=== PATIENT | male | born 1955 | race Caucasian/White ===

== ENCOUNTER 2020-03-28 14:47 | Emergency (ER) | payer SELFPAY ==
[2020-03-28 14:51] VITALS: BP 173/97; PULSE 62; RESP 18; TEMP 36.6; O2SAT 99; BMI 30.2
--- NOTE | 2020-03-28 15:30 | EKG12_ITS ---
Test Reason : Blood Pressure : / mmHG Vent. Rate : 066 BPM Atrial Rate : 066 BPM P-R Int : 198 ms QRS Dur : 094 ms QT Int : 502 ms P-R-T Axes : 063 051 118 degrees QTc Int : 526 ms Normal sinus rhythm Possible Left atrial enlargement ST & T wave abnormality, consider lateral ischemia Prolonged QT Abnormal ECG Confirmed by JUAN C ESPINOZA, THOMAS ([id number]), makeup editor RENE KAM ([id number]) on 04/02/2020 12:26:59 PM Referred By: TIFFANIE Confirmed By:THOMAS IRIZARRY MD
--- NOTE | 2020-03-28 15:31 | ED.VIS.GEN ---
History of Present Illness Chief Complaint: General Illness Narrative: Patient presents with generalized weakness cough and congestion. No fever or chills. The started soon after influenza vaccine. Symptoms have been ongoing for 3 to 4 days. There is no difficulty breathing. He does have some generalized weakness and myalgias. Past Medical History - Allergies and Home Meds Allergies/Adverse Reactions: Allergies No Known Allergies Allergy (Verified 03/28/20 14:48) Primary Care Physician: Paul Caicedo MD [Primary Care Provider] - Past Medical History: - - Hypertension, hypercholesterolemia, CHF, chronic renal insufficiency Smoking Status: Former smoker Review of Systems General: Denies: Fever Eyes: Denies: Visual changes - bilaterally ENT: Reports: Rhinorrhea Respiratory: Reports: Cough. Denies: Sputum, Dyspnea on exertion Gastrointestinal: Reports: Abdominal pain. Denies: Nausea, Vomiting Genitourinary: Denies: Dysuria Musculoskeletal: Reports: Myalgias. Denies: Arthralgias Skin: Denies: Rash Neurological: Reports: - - There is generalized weakness but no focal weakness. Endocrine: Denies: Polyuria, Polydipsia Hematologic: Denies: Easy bruising Physical Exam Vital Signs/Narrative: Vital Signs Temp Pulse Resp BP Pulse Ox 03/28/20 14:51 98 F 62 18 173/97 H 99 General: Well nourished, Well developed Head: Normocephalic ENT: Moist mucous membranes, - - There is some upper airway congestion and rhinorrhea. Neck: Supple Cardiovascular: Regular rate, Regular rhythm Respiratory: No distress, CTA bilaterally Abdomen: Soft, Nontender Back: Nontender, Normal Inspection Extremities: Nontender, No edema Skin: Normal color, No rash Neurological: Normal Strength, Normal Sensation Psychological: Normal affect Diagnostic/Tx/Re-eval Chest X-Ray - ED: 1 View, Read by ED Physician, Read by Radiologist, Normal, Heart, Chronic Changes, Left Infiltrate - Rhythm Strip Rhythm Strip: Sinus Rhythm Rate: 66 Ectopy: None - EKG Initial EKG Interpretation: - - Normal sinus rhythm with a rate of 66. Normal SC interval. QTC slightly prolonged at 526. Nonspecific ST changes throughout. Interpreted by emergency doctor - Medical Decision Making Patient signs and symptoms point towards an upper respiratory infection. He does also have a left lower lobe pneumonia, he was ambulated in the emergency department and did not desaturate he appears well I will give him Rocephin and azithromycin, I will treat him with outpatient antibiotics but otherwise I believe he can be discharged safely. If he worsens he is to return him and his seemed quite trustworthy and I believe they well. ED Disposition - Plan for ED Patient: Disposition: Home or Assisted Living Diagnosis: Pneumonia Prescriptions: Amoxicillin/Potassium Clav [Augmentin 875-125 Tablet] 1 ea PO BID #20 tab Transmission Status: Pending to [facility] Azithromycin 500 mg PO DAILY #7 tab Transmission Status: Pending to [facility] Referrals: Paul Caicedo MD [Primary Care Provider] - 3-5 Days
[2020-03-28 15:41] VITALS: BP 192/97; PULSE 68; RESP 23; TEMP 36.8; O2SAT 96
--- NOTE | 2020-03-28 15:47 | RAD_ITS ---
STUDY: X-RAY CHEST REASON FOR EXAM: Male, 64 years old. COUGH TECHNIQUE: Single AP portable view of the chest. COMPARISON: None. FINDINGS: Alveolar opacity in the lower left lung consistent with left lower lobe pneumonia. There is no demonstrated pleural abnormality. There is moderate cardiac enlargement. Normal mediastinum and [place]wan. Normal visualized pulmonary arteries. Normal visualized aortic arch and descending thoracic aorta. Normal visualized thoracic spine. Normal visualized ribs, clavicles, and shoulders. There is no demonstrated abnormality of the visualized soft tissue structures of the upper abdomen. RAD/Chest 1 View (Portable) IMPRESSION: Left lower lobe pneumonia. Electronically Signed: Luisito Quiroga MD at 16:11 EDT Tel , Service support ,
[2020-03-28 15:59] LABS: Absolute Lymphocyte Count 0.66 X10^3/uL (0.83-4.51); Absolute Neutrophil Count 6.1 X10^3/uL (2.0-7.7); Basophil# 0.06 X10^3/uL; Basophil% 0.8 % (0-1); Eosinophil# 0.13 X10^3/uL; Eosinophils% 1.7 % (0-5); Hematocrit 35.2 % (40-54); Hemoglobin 11.2 g/dL (13.0-16.5); Lymphocyte # 0.66 X10^3/ul (4.0); Lymphocyte % 8.7 % (19-41); Mean Corp Hgb Conc 31.8 g/dL (32-36); Mean Corpuscular Hgb 27.9 pg (27.0-32.0); Mean Corpuscular Volume 87.6 fL (80-94); Mean Platelet Vol. 10.2 fl (6.2-12.0); Monocyte# 0.64 X10^3/uL; Monocyte% 8.5 % (0-10); NRBC Flagged by Analyzer 0 % (0-5); Neutrophil # 6.05 X10^3/uL (2.7-7.7); Neutrophil % 79.9 % (47-70); Platelet Count 282 K/mm3 (150-450); RBC Distribution Width CV 13.2 % (11.6-14.6); RBC Distribution Width SD 42.5 fl (35.1-43.9); Red Blood Count 4.02 M/mm3 (4.6-6.2); White Blood Count 7.6 K/mm3 (4.4-11.0)
[2020-03-28 16:17] LABS: ALB/GLOB Ratio 0.8 RATIO (0.9-2.4); AST(SGOT) 15 U/L (15-37); Alanine Aminotransfer ALT/SGPT 19 U/L (16-61); Albumin, Serum 3.2 g/dL (3.2-5.0); Alkaline Phosphatase 40 U/L (45-117); Anion Gap 6 (5-15); BUN 33 mg/dL (7-18); Calcium,Total 8.5 mg/dL (8.5-10.1); Chloride 109 mmol/L (98-107); Creatinine, Serum 2.35 mg/dL (0.70-1.30); EST Glomerular Filtration Rate 30 mL/min (>60); Est Glom Filt Rate - Afr Amer 36 mL/min (>60); Estimated Creatinine Clearance 31.34 ml/min; Globulin 3.8 g/dL (2.2-4.2); Glucose 111 mg/dL (74-106); Potassium 3.8 mmol/L (3.5-5.1); Sodium Level 141 mmol/L (136-145)
[2020-03-28 17:18] VITALS: BP 191/97; PULSE 71; RESP 23; TEMP 36.9; O2SAT 93
[2020-03-28] MEDS: Ceftriaxone 1 GM/50 ML BAG IV (18:08)
[2020-03-28 18:09] VITALS: BP 193/97; PULSE 72; RESP 24; TEMP 36.9; O2SAT 93
[2020-03-28 19:24] VITALS: RESP 15
--- NOTE | 2020-03-28 19:24 | ED.RN ---
PER DR. KINSEY SEPSIS SCREEN D/C.
[2020-03-28 20:10] VITALS: BP 189/103; PULSE 74; RESP 18; O2SAT 96
--- NOTE | 2020-03-28 20:10 | ED.RN ---
PT GIVEN WRITTEN AND VERBAL DISCHARGE INSTRUCTIONS. EDUCATED ON PNEUMONIA, AND POSSIBLE COVID. EDUCated about quarantine, and home prescripptions. pt with htn 189/103, dr. eddy informed reports that pt is to take his bp medication upon arriving home. pt verbalizes understanding of all instructions denies any further questions. pt iv d/c and covered with 2x2 gauze and paper tape. pt dresses self and ambulates out of dept with .
== END 2020-03-28 20:25 | disposition home or self-care (01) ==
PROVIDERS: Emergency Provider Emergency Medicine; PCP Family Medicine
DX: J18.9 Pneumonia, unspecified organism (principal); E78.00 Pure hypercholesterolemia, unspecified; I50.9 Heart failure, unspecified; I13.0 Hypertensive heart and chronic kidney disease with heart failure and stage 1 through stage 4 chronic kidney disease, or unspecified chronic kidney disease; N18.9 Chronic kidney disease, unspecified
CPT/HCPCS: 71045; 80053; 84484; 85025; 87635; 93005; 96365; 96366; 96367; 99282; J7050; A4216; U0003

== ENCOUNTER 2025-04-15 10:10 | Emergency (ER) | payer MEDICARE, SELFPAY ==
[2025-04-15 10:11] VITALS: BP 146/68; PULSE 73; RESP 16; TEMP 36.7; O2SAT 98; BMI 29.5
--- NOTE | 2025-04-15 10:53 | EDS_ITS ---
HPI HPI - GI History of Present Illness Chief Complaint: Abd Pain Informant: patient and spouse/S.O. Narrative Narrative: Patient is a 69-year-old male with a history of cardiac issues and stage 4 CKD, presenting with right-sided abdominal pain and nausea. - Reports abdominal pain for 3 weeks, described as more frequent than not, and primarily located on the right side. - Pain is present daily, typically worse in the morning and easing later in the day, possibly due to increased rest. - Denies any clear association with meals, though notes slight improvement after eating in the evening. - Pain sometimes intensifies before and after bowel movements. - Associated symptoms include nausea and a sensation of "gurgling gas" in the abdomen; denies emesis, hematemesis, or bilious emesis. - Denies any changes in urinary habits or amounts. - Denies fevers, dizziness, jaundice, or confusion. - Denies use of NSAIDs or anticoagulants. - Bowel movements are regular, though occasionally described as "pasty"; no significant changes in consistency or frequency. - Has a history of cholecystectomy; denies other abdominal surgeries. - Currently on multiple medications for cardiac issues and CKD; not on dialysis. [facility] Home Medications Medication Instructions Recorded Last Taken Type fenofibrate nanocrystallized 145 145 mg PO DAILY 03/28 Unknown History mg tablet hydralazine 100 mg tablet 100 mg PO TID 03/28/20 Unkno wn History isosorbide mononitrate 120 mg 120 mg PO DAILY 03/28/20 Unknown History tablet,extended release 24 hr paroxetine HCl 12.5 mg 12.5 mg PO DAILY 03/28/20 Un known History tablet,extended release 24 hr carvedilol 6.25 mg tablet 6.25 mg PO BID 04/15/25 Unkn own History cholecalciferol (vitamin D3) 50 50 mcg PO DAILY Unknown History mcg (2,000 unit) tablet (Vitamin D3) dicyclomine 20 mg tablet 20 mg PO Q6H PRN PRN abdomin al 04/15/25 Unknown Rx discomfort #20 tabs ondansetron 8 mg disintegrating 8 mg PO Q8H PRN nausea and 04/15/25 Unknown Rx tablet vomiting #12 tabs pantoprazole 40 mg tablet,delayed 40 mg PO DAILY #14 t abs 04/15/25 Unknown Rx release spironolactone 25 mg tablet 25 mg PO DAILY 04/15/25 Un known History Allergy/AdvReac Type Severity Reaction Status Date / Time No Known Allergies Allergy Verified 04/15/25 10:10 Social History Smoking Status: Unknown if ever smoked ROS ROS ED Constitutional Constitutional ED: Denies chills or fever(s) Eyes Eyes: Denies change in vision or diplopia ENT ENT ED: Denies rhinorrhea or sore throat Cardiovascular Cardiovascular: Denies chest pain or palpitations Respiratory/Chest Respiratory/Chest: Denies cough or dyspnea Gastrointestinal Gastrointestinal: Reports abdominal pain, nausea and vomiting; Denies constipation, diarrhea, hematemesis, hematochezia or melena Genitourinary Genitourinary ED: Denies dysuria or hematuria Musculoskeletal Musculoskeletal: Denies back pain or neck pain Integumentary Denies abscess or rash Neurologic Neurologic: Denies headache(s), paresthesias or weakness Psychiatric Psychiatric: Denies anxiety or suicidal thoughts EXAM Physical Exam Const Vital Signs: 04/15/25 10:11 04/15/25 12:09 Temperature 98.0 F 98.4 F Temperature Source Oral Oral Pulse Rate 73 55 L Respiratory Rate 16 16 Blood Pressure 146/68 H 138/66 H Blood Pressure Mean 94 90 Pulse Ox 98 98 Oxygen Delivery Method Room Air Room Air Positive well nourished and well developed General Appearance ED: well developed and NAD HEENT Reports moist mucous membranes normocephalic and atraumatic Eyes PERRL and EOMs intact bilaterally Neck full ROM and supple Resp normal respiratory effort and clear to auscultation bilaterally Cardio regular rate, regular rhythm and no murmurs GI non-distended GI Narrative: Tender right mid abdomen and flank in addition to the right lower quadrant McBurney's point without guarding or rebound. Some tenderness in the epigastrium with some involuntary guarding briefly as well no rebound tenderness. No pulsatile mass. No [place] sign no [place] sign. Auscultation: normoactive bowel sounds Palpation: soft Back/Spine no CVA tenderness General Back: other FROM Extremity normal to inspection General Extremety ED: Negative for edema, pulses abnormal or tenderness General Extremity: Negative for edema or pulses abnormal Neuro oriented x3, CN's II-XII intact bilaterally and no sensory deficits noted Sensorium / Orientation: awake and alert Motor Exam: strength 5/5 throughout Skin no rashes or lesions noted and no wounds MDM MDM MDM Narrative Medical decision making narrative: Assessment: The patient is a 69-year-old male with PMH of heart disease, stage 4 chronic kidney disease, and prior cholecystectomy presenting for three weeks of persistent right-sided abdominal pain with intermittent nausea. Differential discussed included functional colonic pain, partial bowel obstruction, and peptic/duodenal ulcer. Normal CT abdomen/pelvis, normal urinalysis, and stable creatinine at 1.99 mg/dL (improved from prior 2.35 back in 2019) make obstructive, inflammatory, and urinary etiologies unlikely. Given the unremarkable imaging and labs, intestinal spasm due to functional pain/etiology, and/or a small-bowel ulcer remain most likely. Plan: - Administered dicyclomine in ED for intestinal spasm. - Administered first dose of a proton-pump inhibitor for trial therapy. - Prescribed two-week course of proton-pump inhibitor. - Prescribed dicyclomine as needed for abdominal pain. - Medication list reviewed; nursing staff updated EMR. - Discharged home in stable condition with instructions to follow up with pr imary physician next week. Diagnostics: - CT abdomen/pelvis: no acute intra-abdominal pathology; no obstruction; no inflammation noted. - Urinalysis: normal. - Basic metabolic panel: creatinine 1.99 mg/dL, stable/improved from prior 2.3. Reevaluations: - Patient re-evaluated after medications; pain improved; imaging and lab results reviewed with patient and spouse; agrees with discharge plan. Lab Data Attestation: I reviewed the patient's lab results. Labs: Laboratory Results - last 24 hr 04/15/25 04/15/25 10:57 11:56 WBC 5.9 RBC 3.81 L Hgb 10.4 L Hct 33.0 L MCV 86.6 MCH 27.3 MCHC 31.5 L RDW Std Deviation 48.5 H RDW Coeff of [place] 15.4 H Plt Count 277 MPV 10.3 Immature Gran % (Auto) 0.700 Neut % (Auto) 72.7 H Lymph % (Auto) 14.2 L [place] % (Auto) 8.4 Eos % (Auto) 3.0 Baso % (Auto) 1.0 Absolute Neuts (auto) 4.3 Absolute Lymphs (auto) 0.84 Nucleated RBC % 0 Sodium 138 Potassium 4.6 Chloride 108 Carbon Dioxide 22.9 Anion Gap 7 BUN 33 H Creatinine 1.99 H Estim Creat Clear Calc 38.45 L Est GFR (MDRD) Non-Af 35 L BUN/Creatinine Ratio 16.5 Glucose 120 H Calcium 8.6 Total Bilirubin 0.44 AST 28 ALT 20 Alkaline Phosphatase 28 L Total Protein 5.8 L Albumin 3.5 Globulin 2.3 Albumin/Globulin Ratio 1.6 Lipase 35 Urine Color Yellow Urine Clarity Clear Urine pH 7.0 Ur Specific [place] 1.010 Urine Protein 15 H Urine Glucose (UA) Normal Urine Ketones Negative Urine Occult Blood Negative Urine Nitrite Negative Urine Bilirubin Negative Urine Urobilinogen Normal Ur Leukocyte Esterase Negative Urine RBC 0 SEEN Urine WBC 0 SEEN Ur Squamous Epith Cells 0 SEEN Urine Bacteria 0 SEEN Urine Mucus 0 SEEN Radiography Diagnostic Testing: Clinical Impression(s) from Imaging Studies Abdomen/Pelvis CT 04/15/25 11:10 IMPRESSION: No acute abdominopelvic abnormalities. Reading Location: [facility] Discharge Plan Triage Chief Complaint: Abd Pain ED Provider: Ildefonso Silva Dx/Rx/DC Orders Clinical Impression: Right sided abdominal pain, Nausea, CKD (chronic kidney disease) Instructions: Abdominal Pain Prescriptions: New ondansetron 8 mg tablet,disintegrating 8 mg PO Q8H PRN (Reason: nausea and vomiting) Qty: 12 0RF dicyclomine 20 mg tablet 20 mg PO Q6H PRN PRN (Reason: abdominal discomfort) Qty: 20 0RF pantoprazole 40 mg tablet,delayed release (DR/EC) 40 mg PO DAILY Qty: 14 0RF No Action isosorbide mononitrate 120 MG tablet extended release 24 hr 120 mg PO DAILY Patient Comments: take 1 tablet by mouth once daily hydralazine 100 MG tablet 100 mg PO TID paroxetine HCl 12.5 MG tablet extended release 24 hr 12.5 mg PO DAILY fenofibrate nanocrystallized 145 MG tablet 145 mg PO DAILY carvedilol 6.25 mg tablet 6.25 mg PO BID spironolactone 25 mg tablet 25 mg PO DAILY cholecalciferol (vitamin D3) [Vitamin D3] 50 mcg (2,000 unit) tablet 50 mcg PO DAILY Primary Care Provider: Paul Caicedo Referrals: Paul Caicedo MD [Primary Care Provider, [facility]] - 5-7 Days Activity Restrictions/Additional Instructions: - Begin a two-week trial of the prescribed stomach acid medicine (reflux medication); take it exactly as directed. - Use the intestinal pain medication provided today as needed for any spasms or discomfort. - Your CT scan and blood work showed no acute problems, and your kidney function remains stable. - Follow up with your primary care doctor next week to review your symptoms and any further care. Print Language: Burundian Disposition Disposition: Home, Self Care
[2025-04-15] MEDS: 0.9% Normal Saline (1000mL) 1,000 ML 100 ML IV (11:01)
[2025-04-15 11:08] LABS: Hematocrit 33.0 % (40-54); Hemoglobin 10.4 g/dL (13.0-16.5); Immature Granulocytes Count 0.040 X10^3/uL (0.0-0.0); Mean Corp Hgb Conc 31.5 g/dL (32-36); Mean Corpuscular Volume 86.6 fL (80-94); Mean Platelet Vol. 10.3 fl (6.2-12.0); NRBC Flagged by Analyzer 0 % (0-5); Platelet Count 277 K/mm3 (150-450); RBC Distribution Width CV 15.4 % (11.6-14.6); RBC Distribution Width SD 48.5 fl (35.1-43.9); Red Blood Count 3.81 M/mm3 (4.6-6.2); White Blood Count 5.9 K/mm3 (4.4-11.0)
--- NOTE | 2025-04-15 11:10 | CT_ITS ---
PROCEDURE: ABDOMEN/PELVIS W IV CONT ONLY 04/15/2025 REASON FOR EXAM: RIGHT SIDED ABD PAIN TECHNIQUE: Procedure Code: [id number] Modality: CT Procedure: ABDOMEN/PELVIS W IV CONT ONLY Coronal and Sagittal reconstruction series were provided. CONTRAST: Isovue 370 VOLUME: 79 mL One or more dose reduction techniques were used (e.g., Automated exposure control, adjustment of the mA and/or kV according to patient size, use of iterative reconstruction technique. RADIATION DOSE SUMMARY: CTDlvol: 18.35 mGy DLP: 1080.66 mGycm COMPARISON: None. FINDINGS: Lung bases: Clear. Liver: Unremarkable. Gallbladder: Cholecystectomy. No biliary dilation. Spleen: Unremarkable. Pancreas: Unremarkable. Adrenals: Unremarkable. Kidneys: No hydronephrosis. No nephrolithiasis. No masses. A subcentimeter cysts at the midpole of the left kidney which is too small to characterize on CT scan. Bladder: Unremarkable. Reproductive Organs: Unremarkable. Bowel: No bowel obstruction. Scattered colonic diverticula. Appendix: Normal. Lymph nodes: No lymphadenopathy. Vasculature: No aneurysm. Atherosclerotic calcifications. Peritoneum / Retroperitoneum: No free air or free fluid. Bones: No acute bony abnormalities. Multilevel degenerate changes of the lumbar spine. Abdominal wall: A 2 cm fat containing periumbilical hernia. No evidence of incarceration. CT/Abdomen/Pelvis W IV Cont ONLY IMPRESSION: No acute abdominopelvic abnormalities. Reading Location: [facility]
--- OUTSIDE RECORDS SUMMARY | 2025-04-15 11:15 | XMS RPT_ITS | CCD ---
Author Organization [facility]iniSyn[facility] Care Team Providers Care White Mixing Operator Name Role Phone MEREDITH ASHFORD MD Unavailable Unavailabl e MEREDITH ASHFORD MD Unavailable Unavailabl e NO REFERRING DR Unavailable Unavailable Paul Moraes Primary Care Provider Paul Moraes Primary Care Provider [phone] Paul Moraes MD Primary Care Provider PROVIDER, UNKNOWN Referring Unavailable Paul Moraes Primary Care Unavailable Shahida Chatman Attending Unavailable Paul Moraes MD Primary Care Provider EULALIA NIELSEN Attending Unavailable PAUL MORAES Primary Care UnavailPaul Nagel MD Primary Care Provider PAUL MORAES Attending Unavailable PAUL MORAES Primary Care Unavailable KEO JANSEN Attending Unavailable PAUL MORAES Primary Care Unavailable PAUL MORAES Primary Care Unavailable PAUL MORAES Attending Unavailable PAUL MORAES Primary Care Unavailable PAUL MORAES Primary Care Unavailable PAUL MORAES Primary Care Unavailable CHINO GARCIA Attending Unavailable PAUL MORAES Primary Care Unavailable Allergies Allergy Classification Reported Allergen(s) Allergy Type Date of Onset Reaction(s) Facility (20 sources) Proton Pump Inhibitors; Translations: [PROTON PUMP INHIBITORS] Drug Intolerance 03-04-[address] [facility] Medications Current Medications Medication Drug Class(es) Dates Sig (Normalized) Sig (Original) [id number] 200 actuat albuterol 0.09 mg/actuat metered dose inhaler (7 sources) beta2-Adrenergic Agonist Start: 05-02-2019 take 2 puff(s) by inhalation every six hours as needed for wheezing albuterol sulfate HFA (PROAIR HFA) 108 (90 Base) MCG/ACT inhaler Indications: Shortness of breath Inhale 2 puffs into the lungs every 6 hours as needed for Wheezing 1 Inhaler 2 05/02/2019 Active Start: 05-02-2019 take 2 puff(s) by in halation every six hours as needed for wheezing 2 puff, Inhalation, EVERY 6 HOURS PRN, Wheezing, Starting [facility] 06/02/19 at 0612 Start: 04-20-2019 take 2 puff(s) by in halation every six hours as needed for wheezing albuterol sulfate HFA (PROAIR HFA) 108 (90 Base) MCG/ACT inhaler Indications: Shortness of breath Inhale 2 puffs into the lungs every 6 hours as needed for Wheezing 1 Inhaler 0 04/20/2019 Active albuterol sulfate HFA (PROAIR HFA) 108 (90 Base) MCG/ACT inhaler (1 source) Start: 05-02-2019 take 2 puff(s) by inhalation every six hours as needed for wheezing albuterol sulfate HFA (PROAIR HFA) 108 (90 Base) MCG/ACT inhaler Indications: Shortness of breath Inhale 2 puffs into the lungs every 6 hours as needed for Wheezing 1 Inhaler 2 05/02/2019 Active amoxicillin 875 mg / clavulanate 125 mg oral tablet (1 source) Penicillin-class Antibacterial Start: 03-28-2020 amoxicillin-clavu lanate (AUGMENTIN) 875-125 MG per tablet TWICE A DAY 0 03/28/2020 Active azithromycin 500 mg oral tablet (1 source) Macrolide Antimicrobial Start: 03-28-2020 azithromycin (ZITHROMAX) 500 MG tablet DAILY 0 03/28/2020 Active carvedilol 6.25 mg oral tablet (20 sources) alpha-Adrenergic Greta, beta-Adrenergic Greta Start: 10-28-2024 take 1 tablet by mouth twice daily at mealtime carvedilol (Coreg) 6.25 MG tablet TAKE 1 TABLET BY MOUTH TWICE DAILY WITH MEALS 180 tablet 1 10/28/2024 Active Start: 05-11-2024 take 1 tablet by [facility] twice daily at mealtime carvedilol (Coreg) 6.25 MG tablet Take 1 tablet (6.25 mg) by mouth 2 times daily (with meals). 180 tablet 1 05/11/2024 Active Start: 02-18-2023 End: 05-11-2024 take 0.5 tablet by mouth twice daily carvedilol (Coreg) 12.5 MG tablet Take 0.5 tablets (6.25 mg) by mouth 2 times daily. 180 tablet 2 02/18/2023 05/11/2024 Discontinued Start: 09-17-2022 End: 02-18-2023 take 1 tablet by mouth twice daily carvedilol (Coreg) 12.5 MG tablet Take 1 tablet (12.5 mg) by mouth 2 times daily. 180 tablet 2 09/17/2022 02/18/2023 Discontinued (Reorder) Start: 12-24-2021 take 1 tablet by jia th twice daily carvedilol (Coreg) 12.5 MG tablet Take 1 tablet by mouth 2 times daily. 0 12/24/2021 Active Start: 12-16-2019 take 1 tablet by jia th twice daily carvedilol (COREG) 12.5 MG tablet Take 1 tablet by mouth 2 times daily 180 tablet 3 12/16/2019 Active cholecalciferol 0.025 mg oral tablet (20 sources) Vitamin D take 1 tablet by mouth once daily cholecalciferol (Vitamin D-3) 25 MCG (1000 UT) tablet Take 2,000 Units by mouth daily. Active take 1 tablet by mouth once lashon y cholecalciferol (Vitamin D-3) 25 MCG (1000 UT) tablet Take 1,000 Units by mouth daily. 0 Active Vitamin D (POORNIMA CALCIFEROL) 25 MCG (1000 UT) TABS tablet Take 1,000 Units by mouth daily 0 Active Cholecalciferol (VITAMIN D) 2000 units CAPS capsule 1 tablet 0 Active 0.4 ml enoxaparin sodium 100 mg/ml prefilled syringe (1 source) Low Molecular Weight Heparin Start: 06-03-2019 enoxaparin (LOVENOX) injection 40 mg famotidine 20 mg oral tablet (1 source) Histamine-2 Receptor Antagonist Start: 06-02-2019 take 20 mg by mouth twice daily 20 mg, Oral, 2 TIMES DAILY, First dose on [facility] 06/02/19 at 0900 fenofibrate 145 mg oral tablet (20 sources) Peroxisome Proliferator Receptor alpha Agonist Start: 02-15-2024 End: 01-26-2025 take 1 tablet by mouth once daily fenofibrate (Tricor) 145 MG tablet TAKE 1 TABLET BY MOUTH DAILY 90 tablet 1 01/26/2025 Active Start: 03-18-2022 End: 09-09-2023 take 1 tablet by mouth once daily fenofibrate (Tricor) 145 MG tablet TAKE 1 TABLET BY MOUTH DAILY 90 tablet 1 09/09/2023 Active Start: 01-19-2020 take 1 tablet by jia th once daily fenofibrate (TRICOR) 145 MG tablet Indications: Hyperlipidemia, unspecified hyperlipidemia type Take 1 tablet by mouth daily 90 tablet 1 01/19/2020 Active Start: 06-02-2019 End: 06-02-2019 take 160 mg by mouth once daily 160 mg, Oral, DAILY, First dose on [facility] 06/02/19 at 0900 Substituted for Fenofibrate (Non-Formulary Dose). Start: 04-20-2019 take 1 tablet by jia th once daily fenofibrate (TRICOR) 145 MG tablet Indications: Hyperlipidemia, unspecified hyperlipidemia type Take 1 tablet by mouth daily 30 tablet 5 04/20/2019 Active Start: 10-18-2018 take 1 tablet by jia th once daily fenofibrate (TRICOR) 145 MG tablet Take 1 tablet by mouth daily 30 tablet 5 10/18/2018 Active hydrALAZINE hydrochloride 100 mg oral tablet (20 sources) Arteriolar Vasodilator Start: 01-29-2022 End: 02-17-2024 take 1 tablet by mouth three times daily hydrALAZINE (Apresoline) 100 MG tablet Take 1 tablet (100 mg) by mouth 3 times daily. 270 tablet 1 02/17/2024 Active Start: 07-29-2019 take 1 tablet by jia th three times daily hydrALAZINE (APRESOLINE) 100 MG tablet Take 1 tablet by mouth 3 times daily 90 tablet 11 07/29/2019 Active Start: 06-05-2019 take 1 tablet by jia th three times daily hydrALAZINE (APRESOLINE) 100 MG tablet Take 1 tablet by mouth 3 times daily 90 tablet 0 06/05/2019 Active Start: 06-05-2019 hydrALAZINE (A PRESOLINE) tablet 100 mg Start: 06-02-2019 End: 06-05-2019 hydrALAZINE (APRESOLINE) tab let 75 mg Start: 05-13-2019 End: 06-05-2019 take 50 mg by mouth three times daily 50 mg, Oral, 3 TIMES DAILY, First dose on [facility]ario 06/02/19 at 0900 Start: 03-30-2019 take 0.5 tablet by m outh twice daily hydrALAZINE (APRESOLINE) 50 MG tablet Take 0.5 tablets by mouth 2 times daily 180 tablet 0 03/30/2019 Active magnesium hydroxide 80 mg/ml oral suspension (1 source) Start: 06-02-2019 take 30 mL by mouth once daily as needed for constipation 30 mL, Oral, DAILY PRN, Constipation, Starting [facility] 06/02/19 at 0612 First line therapy for constipation. methylPREDNISolone 4 mg oral tablet (1 source) Corticosteroid Start: 04-17-2020 End: 04-23-2020 methylPREDNISolone (MEDROL DOSEPACK) 4 MG tablet Take as directed by mouth. 1 kit 0 04/17/2020 04/23/2020 Active 24 hr metoprolol succinate 25 mg extended release oral tablet (4 sources) beta-Adrenergic Greta Start: 05-04-2019 take 25 mg by mouth once daily 25 mg, Oral, DAILY, First dose on [facility]ario 06/02/19 at 0900 Do not crush or chew. 1 ml morphine sulfate 4 mg/ml cartridge (3 sources) Opioid Agonist Start: 06-02-2019 take 1 mg by mouth every two hours as needed for pain 1 mg, Intravenous, EVERY 2 HOURS PRN, Pain Severe (7-10), Starting [facility]ario 06/02/19 at 0612 If oral and IV narcotics ordered, use oral first and only use IV if oral is ineffective or cannot take oral. &nbsp ;Do Not give oral and IV within 1 hour of each other unless specifically ordered. Start: 06-01-2019 End: 06-02-2019 morphine injection 4 mg nabumetone 500 mg oral tablet (3 sources) Nonsteroidal Anti-inflammatory Drug Start: 03-22-2020 take 1 tablet by mouth twice daily nabumetone (RELAFEN) 500 MG tablet Take 1 tablet by mouth 2 times daily 60 tablet 0 03/22/2020 Active 2 ml ondansetron 2 mg/ml injection (3 sources) Serotonin-3 Receptor Antagonist Start: 06-01-2019 End: 06-02-2019 4 mg, Intravenous, EVERY 6 HOURS PRN, Nausea, Starting [facility] 06/02/19 at 0612 24 hr PARoxetine hydrochloride 12.5 mg extended release oral tablet (20 sources) Serotonin Reuptake Inhibitor Start: 02-15-2024 End: 01-26-2025 take 1 tablet by mouth once daily in the morning PARoxetine CR (Paxil-CR) 12.5 MG 24 hr tablet TAKE 1 TABLET BY MOUTH EVERY MORNING 90 tablet 1 01/26/2025 Active Start: 11-12-2023 take 1 tablet by jia th once daily in the morning PARoxetine CR (Paxil-CR) 12.5 MG 24 hr tablet TAKE 1 TABLET BY MOUTH ONCE DAILY EVERY MORNING 90 tablet 11/12/2023 Active Start: 02-28-2022 End: 08-18-2023 take 1 tablet by mouth once daily in the morning Paxil CR 12.5 MG 24 hr tablet Take 1 tablet (12.5 mg) by mouth every morning. 30 tablet 5 06/17/2022 Active Start: 03-07-2020 take 1 tablet by jia th once daily in the morning PARoxetine (PAXIL CR) 12.5 MG extended release tablet Indications: Anxiety and depression take 1 tablet by mouth every morning 90 tablet 1 03/07/2020 Active Start: 12-06-2019 take 1 tablet by jia th once daily in the morning PARoxetine (PAXIL CR) 12.5 MG extended release tablet Indications: Anxiety and depression take 1 tablet by mouth every morning 90 tablet 0 12/06/2019 Active Start: 06-02-2019 take 10 mg by mouth once daily 10 mg, Oral, DAILY, First dose on [facility]ario 06/02/19 at 0900 Substituted for PARoxetine ER (PAXIL CR). Start: 02-28-2019 take 1 tablet by jia th once daily in the morning PARoxetine (PAXIL CR) 12.5 MG extended release tablet Indications: Anxiety and depression take 1 tablet by mouth every morning 90 tablet 0 02/28/2019 Active spironolactone 25 mg oral tablet (20 sources) Aldosterone Antagonist Start: 10-26-2022 take 1 tablet by mouth once daily spironolactone (Aldactone) 25 MG tablet Take 25 mg by mouth daily. 10/26/2022 Active sulfamethoxazole 800 mg / trimethoprim 160 mg oral tablet (1 source) Dihydrofolate Reductase Inhibitor Antibacterial, Sulfonamide Antimicrobial Start: 01-23-2023 End: 02-06-2023 take 1 tablet by mouth twice daily sulfamethoxazole-tr imethoprim (Bactrim DS) 800-160 MG tablet Indications: Urinary tract infection symptoms , Acute prostatitis Take 1 tablet by mouth 2 times daily for 14 days. 28 tablet 0 01/23/2023 02/06/2023 Active terazosin 5 mg oral capsule (2 sources) alpha-Adrenergic Greta Start: 09-15-2018 take 1 capsule by mouth once daily terazosin (HYTRIN) 5 MG capsule Take 1 capsule by mouth nightly 30 capsule 0 09/15/2018 Active Completed/Discontinued Medications Medication Drug Class(es) Dates Sig (Normalized) Sig (Original) acetaminophen 325 mg / oxyCODONE hydrochloride 5 mg oral tablet (3 sources) Opioid Agonist Start: 06-05-2019 End: 06-05-2019 oxyCODONE-acetamin ophen (PERCOCET) 5-325 MG per tablet 1 tablet Start: 06-03-2019 End: 06-07-2019 oxyCODONE-acetaminophen (PER COCET) 5-325 MG per tablet Indications: Post-op pain , S/P laparoscopic cholecystectomy Take 1 tablet by mouth every 6 hours as needed for Pain for up to 4 days. Intended supply: 3 days. Take lowest dose possible to manage pain 16 tablet 0 06/03/2019 06/07/2019 Active Start: 06-02-2019 take 2 tablets by [facility] every four hours as needed for pain 2 tablet, Oral, EVERY 4 HOURS PRN, Pain Moderate (4-6), Pain Severe (7-10), Starting [facility] 06/02/19 at 1617 Maximum dose of acetaminophen is 4000 mg from all sources in 24 hours. amLODIPine 5 mg oral tablet (6 sources) Dihydropyridine Calcium Channel Greta End: 01-12-2025 take 1 tablet by mouth once daily amLODIPine (Norvasc) 5 MG tablet Take 5 mg by mouth daily. 01/12/2025 Discontinued (Med list cleanup) calcium chloride 0.0014 meq/ml / potassium chloride 0.004 meq/ml / sodium chloride 0.103 meq/ml / sodium lactate 0.028 meq/ml injectable solution (1 source) Start: 06-03-2019 End: 06-04-2019 lactated ringers infusion dutasteride 0.5 mg oral capsule (10 sources) 5-alpha Reductase Inhibitor Start: 02-17-2023 End: 02-17-2024 take 1 capsule by mouth once daily dutasteride (Avodart) 0.5 MG capsule Take 1 capsule (0.5 mg) by mouth daily. 30 capsule 11 02/17/2023 01/12/2024 Discontinued (Therapy completed) 1 ml HYDROmorphone hydrochloride 1 mg/ml cartridge (1 source) Opioid Agonist Start: 06-02-2019 End: 06-02-2019 HYDROmorphone (DILAUDID) injection 0.5 mg iohexol (OMNIPAQUE 240) injection 50 mL (1 source) Start: 06-02-2019 End: 06-02-2019 iohexol (OMNIPAQUE 240) injection 50 mL 24 hr isosorbide mononitrate 120 mg extended release oral tablet (20 sources) Nitrate Vasodilator Start: 01-13-2022 End: 01-26-2025 take 1 tablet by mouth once daily in the morning isosorbide mononitrate ER (Imdur) 120 MG 24 hr tablet Take 1 tablet (120 mg) by mouth every morning. 90 tablet 3 02/23/2024 01/26/2025 Discontinued Start: 12-07-2019 take 1 tablet by jia th once daily isosorbide mononitrate (IMDUR) 120 MG extended release tablet Take 1 tablet by mouth daily 90 tablet 3 12/07/2019 Active Start: 06-13-2019 take 1 tablet by jia th once daily isosorbide mononitrate (IMDUR) 120 MG extended release tablet Take 1 tablet by mouth daily 90 tablet 3 06/13/2019 Active Start: 05-13-2019 take 60 mg by mouth once daily 60 mg, Oral, DAILY, First dose on [facility]ario 06/02/19 at 0900 Do not crush or chew. lisinopril 40 mg oral tablet (2 sources) Angiotensin Converting Enzyme Inhibitor Start: 12-18-2021 End: 06-17-2022 take 1 tablet by mouth once daily lisinopril 40 MG tablet Take 40 mg by mouth daily. 0 12/18/2021 06/17/2022 Discontinued (Med list cleanup) Start: 06-22-2020 take 1 tablet by jia th once daily lisinopril (PRINIVIL;ZESTRIL) 40 MG tablet Take 1 tablet by mouth daily 30 tablet 0 06/22/2020 Active ofloxacin 3 mg/ml ophthalmic solution (9 sources) Quinolone Antimicrobial Start: 01-08-2024 End: 07-14-2024 take 1 drop(s) into the eye(s) four times daily ofloxacin (Ocuflox) 0.3 % ophthalmic solution instill 1 drop in left eye FOUR TIMES DAILY FOR 5 DAYS 01/08/2024 07/14/2024 Discontinued (Therapy completed) piperacillin 3000 mg / tazobactam 375 mg injection (1 source) Penicillin-class Antibacterial, beta Lactamase Inhibitor Start: 06-02-2019 End: 06-04-2019 piperacillin-tazob actam (ZOSYN) 3.375 g in dextrose 50 mL IVPB extended infusion (premix) 1000 ml sodium chloride 9 mg/ml injection (4 sources) Start: 06-04-2019 End: 06-04-2019 0.9 % sodium chloride infusion Start: 06-02-2019 10 mL, Intrave nous, EVERY 12 HOURS SCHEDULED (2 times per day), First dose on [facility]ario 06/02/19 at 0900 Start: 06-02-2019 take 10 mL intraveno usly once as needed 10 mL, Intravenous, PRN, Line Care, After every IV line use, Starting [facility] 06/02/19 at 0612 Start: 06-01-2019 End: 06-01-2019 0.9 % sodium chloride bolus tamsulosin hydrochloride 0.4 mg oral capsule (14 sources) alpha-Adrenergic Greta Start: 01-23-2023 End: 01-12-2024 take 1 capsule by mouth once daily tamsulosin (Flomax) 0.4 MG 24 hr capsule TAKE 1 CAPSULE BY MOUTH EVERY DAY 30 capsule 3 09/14/2023 01/12/2024 Discontinued (Therapy completed) torsemide 20 mg oral tablet (11 sources) Loop Diuretic Start: 12-18-2021 End: 06-17-2022 take 0.5 tablet by mouth once daily torsemide (Demadex) 20 MG tablet TAKE 1/2 (ONE-HALF) OF A TABLET BY MOUTH DAILY 0 12/18/2021 06/17/2022 Discontinued (Med list cleanup) Start: 12-16-2019 take 0.5 tablet by m outh once daily torsemide (DEMADEX) 20 MG tablet Take 1/2 tab PO daily 45 tablet 3 12/16/2019 Active Start: 06-06-2019 torsemide (DEM ADEX) tablet 10 mg Start: 06-05-2019 take 0.5 tablet by m outh once daily torsemide (DEMADEX) 20 MG tablet Take 1/2 tab PO daily 30 tablet 0 06/05/2019 Active Start: 05-13-2019 End: 06-05-2019 take 20 mg by mouth once daily 20 mg, Oral, DAILY, Fir st dose on Rosario 06/02/19 at 0900 Problems Active Problems Problem Classification Problem Date Documented Da te Episodic/Chronic Anxiety disorders (20 sources) Anxiety; Translations: [Anxiety disorder, unspecified] Onset: 06-25-2015 06-25-2015 Chronic Cardiac dysrhythmias (1 source) Palpitations; Translations: [Palpitations] 02-18-2023 Episodic Chronic kidney disease (20 sources) Chronic kidney disease; Translations: [Chronic kidney disease stage 3B ] Onset: 12-24-2015 Resolved: 06-17-2022 12-24-2015 Chronic Chronic kidney disease (4 sources) Chronic kidney disease; Translations: [Chronic kidney disease, stage 3b] Onset: 02-09-2022 Congestive heart failure; nonhypertensive (20 sources) Left ventricular cardiac dysfunction; Translations: [Systolic heart failure] Onset: 05-13-2019 Resolved: 03-22-2024 05-13-2019 Chronic Coronary atherosclerosis and other heart disease (2 sources) Other forms of acute ischemic heart disease; Translations: [Other forms of acute ischemic heart disease] Onset: 02-09-2022 Chronic Diabetes mellitus with complications (20 sources) Secondary diabetes mellitus; 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] Onset: 01-01-2023 Resolved: 01-12-2024 01-01-2023 Chronic Disorders of lipid metabolism (20 sources) Hyperlipidemia; Translations: [Hyperlipidemia, unspecified] Onset: 03-31-2018 03-31-2018 Chronic Essential hypertension (20 sources) Essential (primary) hypertension; Translations: [Hypertensive disorder] Onset: 06-25-2015 06-25-2015 Chronic Fluid and electrolyte disorders (7 sources) Hypokalemia; Translations: [Acidosis] Onset: 02-09-2022 Episodic Hyperplasia of prostate (20 sources) Urinary frequency due to benign prostatic hypertrophy; Translations: [Benign prostatic hyperplasia with lower urinary tract symptoms] Onset: 09-15-2018 Resolved: 06-17-2022 09-15-2018 Chronic Hypertension with complications and secondary hypertension (2 sources) Hypertensive heart and chronic kidney disease with heart failure and stage 1 through stage 4 chronic kidney disease, or unspecified chronic kidney disease; Translations: [Hyp hrt & chr kdny dis w hrt fail and stg 1-4/unsp chr kdny] Onset: 02-09-2022 Chronic Intestinal infection (2 sources) Viral intestinal infection, unspecified; Translations: [Viral intestinal infection, unspecified] Onset: 02-09-2022 Episodic Joint disorders and dislocations; trauma-related (1 source) Internal derangement of right knee; Translations: [Internal derangement of right knee] Mood disorders (20 sources) Depressive disorder; Translations: [Recurrent major depression in full remission] Onset: 12-26-2019 06-25-2015 Chronic Osteoarthritis (20 sources) Primary gonarthrosis, bilateral; Translations: [Bilateral primary osteoarthritis of knee] Onset: 03-26-2020 03-26-2020 Chronic Other lower respiratory disease (1 source) Dyspnea; Translations: [Shortness of breath] Episodic Other nutritional; endocrine; and metabolic disorders (2 sources) Obesity, unspecified; Translations: [Obesity, unspecified] Onset: 02-09-2022 Chronic Other nutritional; endocrine; and metabolic disorders (2 sources) Body mass index (BMI) 31.0-31.9, adult; Translations: [Body mass index [BMI] 31.0-31.9, adult] Onset: 02-09-2022 Chronic Other screening for suspected conditions (not mental disorders or infectious disease) (5 sources) Patient encounter status; Translations: [Encounter for screening for diabetes mellitus] Onset: 01-12-2025 01-12-2024 Episodic Other upper respiratory infections (1 source) Acute upper respiratory infection, unspecified; Translations: [Viral upper respiratory tract infection] Onset: 07-27-2023 Episodic Peripheral and visceral atherosclerosis (20 sources) Peripheral vascular disease; Translations: [Peripheral vascular disease, unspecified] Onset: 01-01-2023 01-01-2023 Chronic Pneumonia (except that caused by tuberculosis or sexually transmitted disease) (3 sources) Infective pneumonia; Translations: [Pneumonia] Onset: 04-17-2020 04-17-2020 Episodic Residual codes; unclassified (20 sources) Obstructive sleep apnea syndrome; Translations: [Obstructive sleep apnea (adult) (pediatric)] Onset: 05-13-2019 05-13-2019 Chronic Residual codes; unclassified (4 sources) Obstructive sleep apnea (adult) (pediatric); Translations: [Obstructive sleep apnea (adult) (pediatric)] Onset: 02-09-2022 Chronic Screening and history of mental health and substance abuse codes (1 source) Tobacco use and exposure - finding; Translations: [History of tobacco abuse] Chronic Screening and history of mental health and substance abuse codes (2 sources) Personal history of nicotine dependence; Translations: [Personal history of nicotine dependence] Onset: 02-09-2022 Episodic Substance-related disorders (1 source) Nicotine dependence, other tobacco product, uncomplicated; Translations: [NICOTINE DEPEND OTH TOB] Onset: 09-11-2016 Chronic Unclassified (2 sources) Hematoma of eyelid; Translations: [Hematoma of eyelid] Onset: 03-26-2020 03-26-2020 Past or Other Problems Problem Classification Problem Date Documented Date Episodic/Chronic Abdominal pain (3 sources) Right lower quadrant pain; Translations: [Right upper quadrant pain] Onset: 09-11-2016 Episodic Acute and unspecified renal failure (20 sources) Acute injury of kidney; Translations: [Acute kidney failure, unspecified] Onset: 06-05-2019 Resolved: 06-17-2022 Episodic Acute and unspecified renal failure (5 sources) Acute injury of kidney; Translations: [PATTIE (acute kidney injury)] Onset: 06-05-2019 Resolved: 06-10-2019 06-10-2019 Biliary tract disease (20 sources) Calculus of gallbladder without cholecystitis without obstruction; Translations: [Gallbladder calculus with acute cholecystitis and no obstruction] Onset: 09-11-2016 Resolved: 06-17-2022 06-02-2019 Episodic Calculus of urinary tract (1 source) Unspecified renal colic; Translations: [UNSPECIFIED RENAL COLIC] Onset: 09-11-2016 Episodic Genitourinary symptoms and ill-defined conditions (20 sources) Frequency of micturition; Translations: [Urinary symptoms ] Onset: 09-11-2016 01-23-2023 Episodic Inflammatory conditions of male genital organs (20 sources) Acute prostatitis; Translations: [Acute prostatitis] Onset: 01-03-2021 Resolved: 06-17-2022 06-17-2022 Episodic Mood disorders (20 sources) Mood disorders; Translations: [Depression, unspecified] Onset: 06-17-2022 Resolved: 01-12-2025 Other diseases of kidney and ureters (20 sources) Acute renal impairment; Translations: [Acute kidney failure with tubular necrosis] Onset: 06-29-2019 Resolved: 06-17-2022 06-29-2019 Episodic Other nervous system disorders (1 source) Postoperative pain Episodic Other nutritional; endocrine; and metabolic disorders (8 sources) Obesity; Translations: [Class 1 obesity due to excess calories with body mass index (BMI) of 31.0 to 31.9 in adult] Onset: 04-20-2019 Resolved: 06-10-2019 04-20-2019 Chronic Residual codes; unclassified (5 sources) History of cholecystectomy; Translations: [S/P laparoscopic cholecystectomy] Onset: 06-16-2019 06-16-2019 Episodic Superficial injury; contusion (20 sources) Hematoma of eyelid; Translations: [Contusion of unspecified eyelid and periocular area, initial encounter] Onset: 03-26-2020 03-20-2022 Episodic Results Test Name Value Interpretation Reference Range Facility [facility] 02-13-2025 36 I saw documentation from both Dr. Moraes and his medical technician assistant to continue the spironolactone. Unable to see in his chart who filled this prescription in the past. Since both recommended he continue the medication I okayed the refill with the nurse triage and she called in the order for me. Normal [facility] 36 How do we document t his fill in pts chart? [facility]on 02-10-2025 36 S: Patient called [facility] with complaint of refill request B: Refill request for spironolactone 25 mg . He takes one daily A: Refill request. He was last seen at the office . R: Teresa Noel MONTSERRAT paged and approved refill for spironolactone 25 mg.take one daily . Disp: 90 with one refill. He was unsure of who filled it in the past because the label was worn off the bottle. Patient instructed to call back with worsening symptoms, concerns or questions. Reason for Disposition [1] Prescription refill request for ESSENTIAL medicine (i.e., likelihood of harm to patient if not taken) AND [2] triager unable to refill per department policy Protocols used: Medication Refill and Renewal [id number] [facility] 36on 01-26-2025 36 Reviewed chart. Refi ll appropriate. RX sent. [facility] 36 Prescription Request : Last medication check: 07/14/24 Last physical exam: 01/12/25 Next scheduled appointment: 07/13/25 Last date of refill on this medication 08/09/24 90 and 1 refill both meds [facility] 25-hydroxyvitamin D3 [Mass/V ol]on 01-13-2025 25-hydroxyvitamin D [Mass/Vol] 49 ng/mL 30 - 100 ng/mL [facility] Comment on above: Vitamin D Status 25- [place] Vitamin D: Deficiency: <20 ng/mL Insufficiency: 20 - 29 ng/mL Optimal: > or = 30 ng/mL For 25-OH Vitamin D testing on patients on D2-supplementation and patients for whom quantitation of D2 and D3 fractions is required, the ProtonMail() 25-OH VIT D, (D2,D3), LC/MS/MS is recommended: order code 81591 (patients >2yrs). See Note 1 Note 1 For additional information, please refer to http://education.DonorPro/faq/UQD768 (This link is being provided for informational/ educational purposes only.) CBC W Auto Differential pane l (Bld)on 01-13-2025 Basophils (Bld) [#/Vol] 81 10*3/uL [facility] [employer] Basophils/100 WBC (Bld) 1.5 % [facility] Eosinophils (Bld) [#/Vol] 178 10*3/uL [facility] [employer] [facility] Eosinophils/100 WBC (Bld) 3.3 % [facility] [employer] Erythrocyte distribution width (RBC) [Ratio] 15.5 % High 11.0 - 15.0 % [facility] [employer] Hematocrit (Bld) [Volume fraction] 33.5 % Low 38.5 - 50.0 % [facility] [employer] Hemoglobin (Bld) [Mass/Vol] 10.4 g/dL Low 13.2 - 17.1 g/dL [facility] [employer] Lymphocytes (Bld) [#/Vol] 734 10*3/uL Low [facility] [employer] Lymphocytes/100 WBC (Bld) 13.6 % [facility] [employer] MCH (RBC) [Entitic mass] 27.5 pg 27.0 - 33.0 pg [facility] [employer] MCHC (RBC) [Mass/Vol] 31 g/dL Low 32.0 - 36.0 g/dL [facility] Comment on above: For adults, a slight decrease in the calculated MCHC value (in the range of 30 to 32 g/dL) is most likely not clinically significant; however, it should be interpreted with caution in correlation with other red cell parameters and the patient's clinical condition. MCV (RBC) [Entitic vol] 88.6 fL 80.0 - 100.0 fL [facility] [employer] Monocytes (Bld) [#/Vol] 605 10*3/uL [facility] [employer] Monocytes/100 WBC (Bld) 11.2 % [facility] Neutrophils (Bld) [#/Vol] 3802 10*3/uL [facility] [employer] Neutrophils/100 WBC (Bld) 70.4 % [facility] [employer] Platelet mean volume (Bld) [Entitic vol] 10.4 fL 7.5 - 12.5 fL [facility] [employer] Platelets (Bld) [#/Vol] 249 10*3/uL [facility] [employer] RBC (Bld) [#/Vol] 3.78 10*6/uL Low [facility] [employer] WBC (Bld) [#/Vol] 5.4 10*3/uL [facility] [employer] Microalbumin/Creatinine rati o panel (U)on 01-13-2025 Albumin DL <= 20 mg/L (U) [Mass/Vol] 3.6 mg/dL See Note: [facility] [employer] Comment on above: Reference Range: Reference Range Not established Albumin/Creatinine (U) [Mass ratio] 51 High NINF [facility] Comment on above: The ADA defines abnormalities in albumin excretion as follows: Albuminuria Category Result (mg/g creatinine) Normal to Mildly increased <30 Moderately increased 30-299 Severely increased > OR = 300 The ADA recommends that at least two of three specimens collected within a 3-6 month period be abnormal before considering a patient to be within a diagnostic category. Creatinine (U) [Mass/Vol] 71 mg/dL 20 - 320 mg/dL [facility] [employer] No Panel Informationon 01-13 Interpretation and review of laboratory results Abnormal [facility] [employer] PTH, intacton 01-13-2025 Parathyrin.intact [Mass/Vol] 24 pg/mL 16 - 77 pg/mL [facility] Comment on above: Interpretive Guide Intact PTH Calcium ------- Normal Parathyroid Normal Normal Hypoparathyroidism Low or Low Normal Low Hyperparathyroidism Primary Normal or High High Secondary High Normal or Low Tertiary High High Non-Parathyroid Hypercalcemia Low or Low Normal High Renal function panelon 01-13 Albumin [Mass/Vol] 4 g/dL 3.6 - 5.1 g/dL [facility] [employer] Calcium [Mass/Vol] 9 mg/dL 8.6 - 10. 3 mg/dL [facility] [employer] Chloride [Moles/Vol] 110 mmol/L 98 - 11 0 mmol/L [facility] [employer] CO2 [Moles/Vol] 22 mmol/L 20 - 32 mmol/L [facility] [employer] Creatinine [Mass/Vol] 2.44 mg/dL High 0.70 - 1.28 mg/dL [facility] [employer] GFR/1.73 sq M.predicted among non-blacks MDRD (S/P/Bld) [Vol rate/Area] 28 mL/min/{1.73_m2} Low > OR = 60 mL/min/1.73m 2 [facility] [employer] Glucose [Mass/Vol] 100 mg/dL High 65 - 99 mg/dL [facility] [employer] Comment on above: Fasting reference interval For someone without known diabetes, a glucose value between 100 and 125 mg/dL is consistent with prediabetes and should be confirmed with a follow-up test. Phosphate [Mass/Vol] 3.9 mg/dL 2.1 - 4 .3 mg/dL [facility] [employer] Potassium [Moles/Vol] 5.4 mmol/L High 3.5 - 5.3 mmol/L [facility] [employer] Sodium [Moles/Vol] 138 mmol/L 135 - 146 mmol/L [facility] [employer] Urea nitrogen [Mass/Vol] 51 mg/dL High 7 - 25 mg/dL [facility] Urea nitrogen/Creatinine [Mass ratio] 21 mg/mg [facility] [employer] 37on 01-12-2025 37 Personalized Preventative Plan for Hyacinth Stapleton - 01/12/2025 Medicare offers a range of preventative health benefits. Some of the tests and screenings are paid in full while others may be subject to a deductible, co-insurance, and / or copay. Some of these benefits include a comprehensive review of your medical history including lifestyle, illnesses that may run in your family, and various assessments and screenings as appropriate. After reviewing your medical record and screening and assessments performed today, your provider may have ordered immunizations, labs, imaging, and / or referrals for you. A list of these orders (if applicable) as well as your Preventative Care list are included within your After Visit Summary for your review. Other Preventative Recommendations: A preventive eye exam by an order management specialist is recommended every 1-2 years to screen for glaucoma, cataracts, macular degeneration, and other eye disorders. A preventive dental visit is recommended every 6 months. Try to get at least 150 minutes of exercise per week or 10,000 steps per day on a pedometer. You need 1200-1500mg of calcium and [id number] international units of vitamin D per day. It is possible to meet your calcium requirement with diet alone, but a vitamin D supplement is usually necessary to meet this goal. When exposed to the sun, use a sunscreen that protects against both UVA and UVB radiation with an SPF of 30 or greater. Reapply every 2-3 hours or after sweating, drying off with a towel, or swimming. Always wear a seat belt when traveling in a car. Always wear a helmet when riding a bicycle or a motorcycle Normal [facility] Office Visiton 01-12-2025 Follow-up visit [id number] Hyacinth Stapleton 1955 Date Provider Department Center 01/12/2025 [id number] [facility] Family History Problem Relation Age of Onset Heart disease Mother Hypertension Mother Hypertension Father Family Status - Relation Status Age at Mother 83 Father 85 Level of Service:G0439 [place] PPPS, SUBSEQ VISIT Reason for Visit and Comments: Medicare Annual Wellness Visit Subsequent [355] Blood Work [765218] Health Maintenance [608] - Tdap vaccine- refuse Echo- will discuss with cardiology Colonoscopy- not right now Hep c screening- refuse Shingles vaccine- not right now Rsv vaccine- not done Normal [facility] Progress Noteon 01-12-2025 Progress Note Patient verified by last name and date of . Normal [facility] Progress Note Stable, continue isosorbide mononitrate 120 mg daily and spironolactone 25 mg daily and carvedilol 6.25 mg twice daily Normal [facility] Progress Note Stable, currently on no medications Normal [facility] Progress Note Stable, does not hav e CPAP Normal [facility] Progress Note Currently stable follow-up with nephrology as scheduled and good blood pressure control to prevent further kidney damage. Normal [facility] Progress Note Stable, recommend us ing Tylenol to prevent problems with kidneys and heart Normal [facility] Progress Note In remission, contin ue paroxetine CR 12.5 mg daily Normal [facility] Progress Note [facility] [address] [address] Dept: [phone] Dept Chief Complaint: Hyacinth Stapleton is an 69 y.o. male here for an annual wellness visit. Assessment/Plan : Assessment & Plan Routine general medical examination at [facility] Obstructive sleep apnea syndrome Stable, does not have CPAP Chronic diastolic heart failure (HCC) Stable, continue isosorbide mononitrate 120 mg daily and spironolactone 25 mg daily and carvedilol 6.25 mg twice daily Primary hypertension Controlled, continue carvedilol 6.25 mg twice daily and hydralazine 100 mg 3 times a day. Stage 3b chronic kidney disease (HCC) Currently stable follow-up with nephrology as scheduled and good blood pressure control to prevent further kidney damage. Recurrent major depressive disorder, in full remission (HCC) In remission, continue paroxetine CR 12.5 mg daily Pure hypertriglyceridemia Controlled, continue fenofibrate 145 mg daily Orders: Lipid panel; Future Anxiety Remission, continue Paxil CR 12.5 mg daily Primary osteoarthritis of both knees Stable, recommend using Tylenol to prevent problems with kidneys and heart Screening for diabetes mellitus Orders: Comprehensive metabolic panel; Future Benign prostatic hyperplasia with urinary hesitancy Stable, currently on no medications I have reviewed and reconciled the medication list with the patient today. Current Outpatient Medications Medication Sig Dispense Refill carvedilol (Coreg) 6.25 MG tablet TAKE 1 TABLET BY MOUTH TWICE DAILY WITH MEALS 180 tablet 1 cholecalciferol (Vitamin D-3) 25 MCG (1000 UT) tablet Take 2,000 Units by mouth daily. fenofibrate (Tricor) 145 MG tablet TAKE 1 TABLET BY MOUTH DAILY 90 tablet 1 hydrALAZINE (Apresoline) 100 MG tablet Take 1 tablet (100 mg) by mouth 3 times daily. 270 tablet 1 isosorbide mononitrate ER (Imdur) 120 MG 24 hr tablet Take 1 tablet (120 mg) by mouth every morning. 90 tablet 3 PARoxetine CR (Paxil-CR) 12.5 MG 24 hr tablet TAKE 1 TABLET BY MOUTH EVERY MORNING 90 tablet 1 spironolactone (Aldactone) 25 MG tablet Take 25 mg by mouth daily. No current facility-administered medications for this visit. Also reviewed during this visit: The following health maintenance schedule was reviewed with the patient and provided in printed form in the after visit summary: Health Maintenance Topic Date Due Colorectal Cancer Screening Never done Lipid Panel 01/11/2025 Depression Monitoring 01/10/2025 COVID-19 Vaccine ( season) 2025 (Originally 02/07/2024) RSV Immunization for Adults (1 - Risk 60-74 years 1-dose series) 01/12/2026 (Originally 2014) DTaP/Tdap/Td Vaccines (2 - Td or Tdap) 01/12/2026 (Originally 12/01/2023) Zoster Vaccines (1 of 2) 01/12/2026 (Originally 2004) Hepatitis C Screening 01/12/2026 (Originally 1972) Influenza Vaccine (1) 02/06/2025 Creatinine Level 09/09/2025 Potassium Level 09/09/2025 Diabetes: Estimated Glomerular Filtration Rate for Kidney Health 09/09/2025 Diabetes: Urine Albumin-Creatinine Ratio for Kidney Health 09/09/2025 Medicare Advantage Annual Wellness Visit Completed Pneumococcal Vaccine: 50+ Years Completed RSV Immunization under 20 Months Aged Out HIB Vaccines Aged Out Hepatitis B Vaccines Aged Out IPV Vaccines Aged Out Hepatitis A Vaccines Aged Out Meningococcal Vaccine Aged Out Rotavirus Vaccines Aged Out HPV Vaccines Aged Out Meningococcal B Vaccine Aged Out Echocardiogram Discontinued Diabetes: Foot Exam Discontinued Diabetes: Hemoglobin A1C Discontinued Diabetes: Retinopathy Screening Discontinued Diabetes: Dental Exam Discontinued List of current healthcare providers: Patient Care Team: Paul Moraes MD as PCP - General Orders Placed This Encounter Procedures Lipid panel Standing Status: Future Number of Occurrences: 1 Expected Date: 01/12/2025 Expiration Date: 01/12/2026 Comprehensive metabolic panel Standing Status: Future Number of Occurrences: 1 Expected Date: 01/12/2025 Expiration Date: 01/12/2026 Review of Systems Constitutional: Negative for activity change, appetite change, chills, fever and unexpected weight change. HENT: Negative for ear pain and sore throat. Respiratory: Negative for shortness of breath. Cardiovascular: Negative for chest pain and palpitations. Gastrointestinal: Negative for abdominal pain, blood in stool, constipation and diarrhea. Genitourinary: Negative for dysuria, frequency, hematuria and urgency. Musculoskeletal: Negative for arthralgias and back pain. Skin: Negative. Neurological: Negative for weakness and numbness. Psychiatric/Behavioral: Negative for dysphoric mood. The patient is not nervous/anxious. Physical Exam Vitals and nursing note reviewed. Constitutional: General: He is not in acute distress. Appearance: Normal appearanc (more content not included)... Normal [facility] Progress Note Remission, continue Paxil CR 12.5 mg daily Normal [facility] Progress Note Controlled, continue carvedilol 6.25 mg twice daily and hydralazine 100 mg 3 times a day. Normal [facility] Progress Note Controlled, continue fenofibrate 145 mg daily Orders: Lipid panel; Future Normal [facility] 36on 01-11-2025 36 lm - pt sched for ap pt 01/[address] Moraes at 10:30 . Arrive 15 min prior and bring insurance card, and ID Come in fasting Bring all medications Normal [facility] Office Visiton 01-02-2025 Follow-up visit [id number] Hyacinth Stapleton 1955 M Date Provider Department Center 01/02/2025 [id number] JANSEN [facility] None Family History Problem Relation Age of Onset Heart disease Mother Hypertension Mother Hypertension Father Family Status - Relation Status Age at Mother 83 Father 85 Level of Service:77248 [place] OFFICE/OUTPATIENT ESTABLISHED MOD MDM 30 MIN Reason for Visit and Comments: Follow-up [647893] Normal [facility] Progress Noteon 01-02-2025 Progress Note [facility] Cardiology Note Visit type: Established : 1955 Chief Complaint: No chief complaint on file. History of Present Illness: Hyacinth Stapleton is a 69 y.o. male with history of heart failure reduced LVEf recovered with improved EF. Initial ejection fraction was decreased to 23% and improved to 50% with medical therapy. Etiology of this is unknown and patient had declined any further testing. He is here for followup. He denies chest pain, acute shortness of breath, orthopnea or PND. He has no syncope or presyncope. 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, without long-term current use of insulin ([facility]) 01/01/2023 Hyperlipidemia Hypertension LV dysfunction Mitral valve regurgitation Obstructive sleep apnea syndrome 05/13/2019 Pneumonia 04/17/2020 Primary osteoarthritis of both knees 03/26/2020 Past Surgical History Past Surgical History: Procedure Laterality Date CATARACT EXTRACTION Bilateral CHOLECYSTECTOMY 06/02/2019 EYE SURGERY Retinal HERNIA REPAIR Family History Family History Problem Relation Name Age of Onset Heart disease Mother Hypertension Mother Hypertension Father Social History Social History Tobacco Use Smoking status: Former Types: Pipe Start date: 2012 Quit date: 2014 Years since quittin.5 Smokeless tobacco: Never Vaping Use Vaping status: Never Used Substance Use Topics Alcohol use: Yes Alcohol/week: 14.0 standard drinks of alcohol Types: 14 Cans of beer per week Comment: 1-2 day Drug use: No Comment: Caffiene: 1 cup of coffee in the morning; occassional soda Allergies: Allergies Allergen Reactions Proton Pump Inhibitors Recommendation per nephrology (CKD progression from PPI) noted 03/03/22 Medications: Current Outpatient Medications: carvedilol (Coreg) 6.25 MG tablet, TAKE 1 TABLET BY MOUTH TWICE DAILY WITH MEALS, Disp: 180 tablet, Rfl: 1 cholecalciferol (Vitamin D-3) 25 MCG (1000 UT) tablet, Take 2,000 Units by mouth daily., Disp: , Rfl: fenofibrate (Tricor) 145 MG tablet, TAKE 1 TABLET BY MOUTH DAILY, Disp: 90 tablet, Rfl: 1 hydrALAZINE (Apresoline) 100 MG tablet, Take 1 tablet (100 mg) by mouth 3 times daily., Disp: 270 tablet, Rfl: 1 isosorbide mononitrate ER (Imdur) 120 MG 24 hr tablet, Take 1 tablet (120 mg) by mouth every morning., Disp: 90 tablet, Rfl: 3 PARoxetine CR (Paxil-CR) 12.5 MG 24 hr tablet, TAKE 1 TABLET BY MOUTH EVERY MORNING, Disp: 90 tablet, Rfl: 1 spironolactone (Aldactone) 25 MG tablet, Take 25 mg by mouth daily., Disp: , Rfl: amLODIPine (Norvasc) 5 MG tablet, Take 5 mg by mouth daily. (Patient not taking: Reported on 01/02/2025), Disp: , Rfl: Review of Systems: Review of Systems Constitutional: Negative for activity change, chills, diaphoresis, fatigue (sometimes) and fever. HENT: Negative for nosebleeds and trouble swallowing. Eyes: Negative for discharge and visual disturbance. Respiratory: Negative for apnea, cough, chest tightness, shortness of breath and wheezing. Cardiovascular: Negative for chest pain, palpitations and leg swelling. Gastrointestinal: Negative for abdominal distention, abdominal pain, blood in stool, diarrhea, nausea and vomiting. Endocrine: Negative for cold intolerance and heat intolerance. Genitourinary: Negative for hematuria. Musculoskeletal: Negative for gait problem and myalgias. Skin: Negative for color change and rash. Neurological: Negative for dizziness, seizures, syncope, facial asymmetry, speech difficulty, weakness, light-headedness, numbness and headaches. Hematological: Does not bruise/bleed easily. Psychiatric/Behavioral: Negative for dysphoric mood. Physical Examination: Vitals: Vitals: 01/02/25 1131 BP: 134/66 BP Location: Left arm Patient Position: Sitting BP Cuff Size: Large adult Pulse: 62 SpO2: 95% Weight: 205 lb (93 kg) Height: 5' 9" (1.753 m) Body mass index is 30.27 kg/m?. Physical Exam Constitutional: Appearance: Normal appearance. HENT: Head: Normocephalic. Mouth/Throat: Pharynx: No oropharyngeal exudate. Eyes: General: No scleral icterus. Right eye: No discharge. Left eye: No discharge. Cardiovascular: Rate and Rhythm: Normal rate and regular rhythm. Heart sounds: No murmur heard. No gallop. Pulmonary: Effort: No respiratory distress. Abdominal: General: There is no distension. Tenderness: There is no abdominal tenderness. Musculoskeletal: General: Normal range of motion. Cervical back: Normal range of motion. Right lower leg: No edema. Left lower leg: No edema. Skin: General: Skin is warm and dry. Neurological: Mental Status: He is alert and oriented (more content not included)... Normal [facility] 36on 11-07-2024 36 Amlodipine is not on the med list from when [place] saw the patient in [place]. Normal [facility] Progress Noteon 10-27-2024 Progress Note Lab/venipuncture completed by [facility] 25-hydroxyvitamin D3 [Mass/V ol]on 09-10-2024 25-hydroxyvitamin D [Mass/Vol] 32 ng/mL 30 - 100 ng/mL [facility] Comment on above: Vitamin D Status 25- [place] Vitamin D: Deficiency: <20 ng/mL Insufficiency: 20 - 29 ng/mL Optimal: > or = 30 ng/mL For 25-OH Vitamin D testing on patients on D2-supplementation and patients for whom quantitation of D2 and D3 fractions is required, the QuestAssureD(TM) 25-OH VIT D, (D2,D3), LC/MS/MS is recommended: order code 23241 (patients >2yrs). See Note 1 Note 1 For additional information, please refer to http://education.DonorPro/faq/AZG637 (This link is being provided for informational/ educational purposes only.) CBC W Auto Differential pane l (Bld)on 09-10-2024 Basophils (Bld) [#/Vol] 61 10*3/uL [facility] [employer] Basophils/100 WBC (Bld) 1.3 % [facility] Eosinophils (Bld) [#/Vol] 221 10*3/uL [facility] Eosinophils/100 WBC (Bld) 4.7 % [facility] Erythrocyte distribution width (RBC) [Ratio] 14.2 % 11.0 - 15.0 % [facility] Hematocrit (Bld) [Volume fraction] 34.4 % Low 38.5 - 50.0 % [facility] Hemoglobin (Bld) [Mass/Vol] 11 g/dL Low 13.2 - 17.1 g/dL [facility] [employer] Lymphocytes (Bld) [#/Vol] 752 10*3/uL Low [facility] [employer] Lymphocytes/100 WBC (Bld) 16 % [facility] [employer] MCH (RBC) [Entitic mass] 27.3 pg 27.0 - 33.0 pg [facility] [employer] MCHC (RBC) [Mass/Vol] 32 g/dL 32.0 - 36.0 g/dL [facility] Comment on above: For adults, a slight decrease in the calculated MCHC value (in the range of 30 to 32 g/dL) is most likely not clinically significant; however, it should be interpreted with caution in correlation with other red cell parameters and the patient's clinical condition. MCV (RBC) [Entitic vol] 85.4 fL 80.0 - 100.0 fL [facility] [employer] Monocytes (Bld) [#/Vol] 522 10*3/uL [facility] [employer] Monocytes/100 WBC (Bld) 11.1 % [facility] Neutrophils (Bld) [#/Vol] 3144 10*3/uL [facility] [employer] Neutrophils/100 WBC (Bld) 66.9 % [facility] [employer] Platelet mean volume (Bld) [Entitic vol] 10.6 fL 7.5 - 12.5 fL [facility] [employer] Platelets (Bld) [#/Vol] 275 10*3/uL [facility] [employer] RBC (Bld) [#/Vol] 4.03 10*6/uL Low [facility] [employer] WBC (Bld) [#/Vol] 4.7 10*3/uL [facility] [employer] Laboratory - Chemistry and C hemistry - challengeon 09-10-2024 Creatinine (U) [Mass/Vol] 90 mg/dL 20 - 320 mg/dL [facility] [employer] Microalbumin/Creatinine rati o panel (U)on 09-10-2024 Albumin DL <= 20 mg/L (U) [Mass/Vol] 8.8 mg/dL See Note: [facility] Comment on above: Reference Range: Reference Range Not established Albumin/Creatinine (U) [Mass ratio] 98 High NINF [facility] Comment on above: The ADA defines abnormalities in albumin excretion as follows: Albuminuria Category Result (mg/g creatinine) Normal to Mildly increased <30 Moderately increased 30-299 Severely increased > OR = 300 The ADA recommends that at least two of three specimens collected within a 3-6 month period be abnormal before considering a patient to be within a diagnostic category. No Panel Informationon 09-10 Interpretation and review of laboratory results Abnormal [facility] [employer] PTH, intacton 09-10-2024 Parathyrin.intact [Mass/Vol] 40 pg/mL 16 - 77 pg/mL [facility] Comment on above: Interpretive Guide Intact PTH Calcium ------- Normal Parathyroid Normal Normal Hypoparathyroidism Low or Low Normal Low Hyperparathyroidism Primary Normal or High High Secondary High Normal or Low Tertiary High High Non-Parathyroid Hypercalcemia Low or Low Normal High Protein / creatinine ratio, urineon 09-10-2024 Protein/Creatinine (U) [Mass ratio] 233 mg/g High [facility] Protein/Creatinine (U) [Mass ratio] 0.233 mg/g High [facility] Protein/Creatinine (U) [Mass ratio]on 09-10-2024 Protein (U) [Mass/Vol] 21 mg/dL 5 - 25 mg/dL [facility] Renal function 2000 panelon 09-10-2024 Albumin [Mass/Vol] 4.1 g/dL 3.6 - 5.1 g/dL [facility] Calcium [Mass/Vol] 8.8 mg/dL 8.6 - 10. 3 mg/dL [facility] Chloride [Moles/Vol] 107 mmol/L 98 - 11 0 mmol/L [facility] CO2 [Moles/Vol] 24 mmol/L 20 - 32 mmol/L [facility] Creatinine [Mass/Vol] 2.62 mg/dL High 0.70 - 1.28 mg/dL [facility] GFR/1.73 sq M.predicted among non-blacks MDRD (S/P/Bld) [Vol rate/Area] 25 mL/min/{1.73_m2} Low > OR = 60 mL/min/1.73m 2 [facility] Glucose [Mass/Vol] 106 mg/dL High 65 - 99 mg/dL [facility] Comment on above: Fasting reference interval For someone without known diabetes, a glucose value between 100 and 125 mg/dL is consistent with prediabetes and should be confirmed with a follow-up test. Phosphate [Mass/Vol] 4.1 mg/dL 2.1 - 4 .3 mg/dL [facility] Potassium [Moles/Vol] 4.9 mmol/L 3.5 - 5.3 mmol/L [facility] Sodium [Moles/Vol] 139 mmol/L 135 - 146 mmol/L [facility] Urea nitrogen [Mass/Vol] 53 mg/dL High 7 - 25 mg/dL [facility] Urea nitrogen/Creatinine [Mass ratio] 20 mg/mg [facility] Progress Noteon 09-09-2024 Progress Note Venipuncture complet ed by [facility]. [facility] 36on 08-09-2024 36 Reviewed chart. Refi ll appropriate. RX sent. [facility] 36 Prescription Request : Last medication check: 07/14/24 Last physical exam: 01/12/24 Next scheduled appointment: 01/12/25 Last date of refill on this medication: 02/15/24 [facility] Office Visiton 07-14-2024 Follow-up visit [id number] Hyacinth Stapleton 1955 M Date Provider Department Center 07/14/2024 [id number] Family History Problem Relation Age of Onset Heart disease Mother Hypertension Mother Hypertension Father Family Status - Relation Status Age at Mother 83 Father 85 Level of Service:32918 [place] OFFICE/OUTPATIENT ESTABLISHED MOD MDM 30 MIN Reason for Visit and Comments: Peripheral Vascular Disease [458] Benign Prostatic Hypertrophy [[id number]] Congestive Heart Failure [127] Hyperlipidemia [182] Hypertension [294013] Depression [32] Chronic Kidney Disease [176] Medication Check [2226420522] - 6 month Health Maintenance [872] - Echo- pt will discuss with cardiology Colonoscopy- not right now Flu vaccine- agree 3rd covid vaccine- not done [facility] Progress Noteon 07-14-2024 Progress Note Remission, continue paroxetine 12.5 mg daily [facility] Progress Note Controlled, continue fenofibrate 145 mg daily and strict low-fat low-carb diet. Normal [facility] Progress Note Remission, continue paroxetine 12.5 mg daily [facility] Progress Note Stable, continue goo d blood pressure and good blood sugar control to prevent further kidney damage. Normal [facility] Progress Note Stable, minimal noct uria currently on no medication. Normal [facility] Progress Note Controlled, continue amlodipine 5 mg daily, carvedilol 6.25 mg twice a day and hydralazine 100 mg 3 times daily. Normal [facility] Progress Note Stable, continue isosorbide 120 mg daily and spironolactone 25 mg daily and carvedilol 6.25 mg twice a day Normal [facility] Progress Note Control unknown, he is not using his CPAP. Normal [facility] Progress Note 07/14/2024 Hyacinth Stapleton (: 1955) is a 68 y.o. male , Established patient, here for evaluation of the following chief complaint(s): Peripheral Vascular Disease, Benign Prostatic Hypertrophy, Congestive Heart Failure, Hyperlipidemia, Hypertension, Depression, Chronic Kidney Disease, Medication Check (6 month), and Health Maintenance (Echo- pt will discuss with cardiology/Colonoscopy- not right now/Flu vaccine- agree/3rd covid vaccine- not done) ASSESSMENT/PLAN: 1. Primary hypertension Assessment & Plan: Controlled, continue amlodipine 5 mg daily, carvedilol 6.25 mg twice a day and hydralazine 100 mg 3 times daily. 2. Chronic diastolic heart failure (HCC) Assessment & Plan: Stable, continue isosorbide 120 mg daily and spironolactone 25 mg daily and carvedilol 6.25 mg twice a day 3. Stage 3b chronic kidney disease (HCC) Assessment & Plan: Stable, continue good blood pressure and good blood sugar control to prevent further kidney damage. 4. Obstructive sleep apnea syndrome Assessment & Plan: Control unknown, he is not using his CPAP. 5. Benign prostatic hyperplasia with urinary hesitancy Assessment & Plan: Stable, minimal nocturia currently on no medication. 6. Anxiety Assessment & Plan: Remission, continue paroxetine 12.5 mg daily 7. Pure hypertriglyceridemia Assessment & Plan: Controlled, continue fenofibrate 145 mg daily and strict low-fat low-carb diet. 8. Recurrent major depressive disorder, in full remission (HCC) Assessment & Plan: Remission, continue paroxetine 12.5 mg daily Follow up in about 6 months (around 01/11/2025) for AWV. SUBJECTIVE/OBJECTIVE: ANDREA White comes in today for a 6-month follow-up on his multiple health issues which includes hypertension, chronic heart failure, chronic kidney insufficiency, he also has sleep apnea but he does not wear his CPAP. He has BPH and he says his symptoms are minimal right now he may get up twice a night to empty his bladder but has no problems starting or stopping his urine. He has anxiety and depression and does seem to be in full remission on his current medications. He also has hypertriglyceridemia. He has no other complaints at this time, see ROS. Heart Review of Systems Constitutional: Negative for activity change, appetite change, chills, fever and unexpected weight change. HENT: Negative for ear pain and sore throat. Respiratory: Negative for shortness of breath. Cardiovascular: Negative for chest pain and palpitations. Gastrointestinal: Negative for abdominal pain, blood in stool, constipation and diarrhea. Genitourinary: Negative for dysuria, frequency, hematuria and urgency. Musculoskeletal: Negative for arthralgias and back pain. Skin: Negative. Neurological: Negative for weakness and numbness. Psychiatric/Behavioral: Negative for dysphoric mood. The patient is not nervous/anxious. Vitals: 07/14/24 0903 BP: 124/56 Pulse: 62 Weight: 212 lb 12.8 oz (96.5 kg) Height: 5' 9" (1.753 m) Physical Exam Vitals and nursing note reviewed. Constitutional: General: He is not in acute distress. Appearance: Normal appearance. He is obese. HENT: Right Ear: Tympanic membrane, ear canal and external ear normal. Left Ear: Tympanic membrane, ear canal and external ear normal. Mouth/Throat: Mouth: Mucous membranes are moist. Pharynx: Oropharynx is clear. Eyes: Extraocular Movements: Extraocular movements intact. Conjunctiva/sclera: Conjunctivae normal. Pupils: Pupils are equal, round, and reactive to light. Neck: Thyroid: No thyromegaly. Vascular: No carotid bruit. Cardiovascular: Rate and Rhythm: Normal rate and regular rhythm. Heart sounds: Normal heart sounds. No murmur heard. Pulmonary: Effort: Pulmonary effort is normal. Breath sounds: Normal breath sounds. Abdominal: General: Bowel sounds are normal. Palpations: Abdomen is soft. Tenderness: There is no abdominal tenderness. Musculoskeletal: General: Normal range of motion. Cervical back: Neck supple. Lymphadenopathy: Cervical: No cervical adenopathy. Skin: General: Skin is warm and dry. Neurological: General: No focal deficit present. Mental Status: He is alert and oriented to person, place, and time. Psychiatric: Mood and Affect: Mood normal. An electronic signature was used to authenticate this note. Paul Moraes MD 07/14/2024 10:27 AM Normal [facility] Progress Note Patient verified by last name and date of . Normal [facility] 36on 07-13-2024 36 noted Normal [facility] 36on 07-08-2024 36 He is not diabetic, he has not had to fasting blood sugars back to back of 126 or higher, in even saying he is prediabetic is pushing the limit but she could make a case for that. Neither 1 are on his diagnosis list. Normal [facility] 36 Please check this patient's chart- is he diabetic- HM is showing he is diabetic but I think he is prediabetic Normal [facility] 25-hydroxyvitamin D3 [Mass/V ol]on 05-09-2024 25-hydroxyvitamin D [Mass/Vol] 35 ng/mL 30 - 100 ng/mL [facility] Comment on above: Vitamin D Status 25- [place] Vitamin D: Deficiency: <20 ng/mL Insufficiency: 20 - 29 ng/mL Optimal: > or = 30 ng/mL For 25-OH Vitamin D testing on patients on D2-supplementation and patients for whom quantitation of D2 and D3 fractions is required, the Quest[facility]ureD(TM) 25-OH VIT D, (D2,D3), LC/MS/MS is recommended: order code 63246 (patients >2yrs). See Note 1 Note 1 For additional information, please refer to http://education.[employer].Keen Systems/faq/BDV135 (This link is being provided for informational/ educational purposes only.) CBC W Auto Differential pane l (Bld)on 05-09-2024 Basophils (Bld) [#/Vol] 48 10*3/uL [facility] Basophils/100 WBC (Bld) 1.1 % S [facility] Eosinophils (Bld) [#/Vol] 150 10*3/uL [facility] Eosinophils/100 WBC (Bld) 3.4 % [facility] Erythrocyte distribution width (RBC) [Ratio] 13.4 % 11.0 - 15.0 % [facility] Hematocrit (Bld) [Volume fraction] 37.3 % Low 38.5 - 50.0 % [facility] Hemoglobin (Bld) [Mass/Vol] 11.9 g/dL Low 13.2 - 17.1 g/dL [facility] Lymphocytes (Bld) [#/Vol] 805 10*3/uL Low [facility] Lymphocytes/100 WBC (Bld) 18.3 % [facility] MCH (RBC) [Entitic mass] 27.6 pg 27.0 - 33.0 pg [facility] MCHC (RBC) [Mass/Vol] 31.9 g/dL Low 32.0 - 36.0 g/dL [facility] Comment on above: For adults, a slight decrease in the calculated MCHC value (in the range of 30 to 32 g/dL) is most likely not clinically significant; however, it should be interpreted with caution in correlation with other red cell parameters and the patient's clinical condition. MCV (RBC) [Entitic vol] 86.5 fL 80.0 - 100.0 fL [facility] Monocytes (Bld) [#/Vol] 392 10*3/uL [facility] Monocytes/100 WBC (Bld) 8.9 % S [facility] Neutrophils (Bld) [#/Vol] 3005 10*3/uL [facility] Neutrophils/100 WBC (Bld) 68.3 % [facility] Platelet mean volume (Bld) [Entitic vol] 11.3 fL 7.5 - 12.5 fL [facility] Platelets (Bld) [#/Vol] 285 10*3/uL [facility] RBC (Bld) [#/Vol] 4.31 10*6/uL [facility] WBC (Bld) [#/Vol] 4.4 10*3/uL [facility] Microalbumin/Creatinine rati o panel (U)on 05-09-2024 Albumin DL <= 20 mg/L (U) [Mass/Vol] 25 mg/dL See Note: [facility] Comment on above: Reference Range: Reference Range Not established Albumin/Creatinine (U) [Mass ratio] 294 High NINF [facility] Comment on above: The ADA defines abnormalities in albumin excretion as follows: Albuminuria Category Result (mg/g creatinine) Normal to Mildly increased <30 Moderately increased 30-299 Severely increased > OR = 300 The ADA recommends that at least two of three specimens collected within a 3-6 month period be abnormal before considering a patient to be within a diagnostic category. Creatinine (U) [Mass/Vol] 85 mg/dL 20 - 320 mg/dL [facility] No Panel Informationon 05-09 Interpretation and review of laboratory results Abnormal [facility] PTH, intacton 05-09-2024 Parathyrin.intact [Mass/Vol] 47 pg/mL 16 - 77 pg/mL [facility] Comment on above: Interpretive Guide Intact PTH Calcium ------- Normal Parathyroid Normal Normal Hypoparathyroidism Low or Low Normal Low Hyperparathyroidism Primary Normal or High High Secondary High Normal or Low Tertiary High High Non-Parathyroid Hypercalcemia Low or Low Normal High Renal function 2000 panelon 05-09-2024 Albumin [Mass/Vol] 4.1 g/dL 3.6 - 5.1 g/dL [facility] Calcium [Mass/Vol] 8.8 mg/dL 8.6 - 10. 3 mg/dL [facility] Chloride [Moles/Vol] 108 mmol/L 98 - 11 0 mmol/L [facility] CO2 [Moles/Vol] 25 mmol/L 20 - 32 mmol/L [facility] Creatinine [Mass/Vol] 2.23 mg/dL High 0.70 - 1.35 mg/dL [facility] GFR/1.73 sq M.predicted among non-blacks MDRD (S/P/Bld) [Vol rate/Area] 31 mL/min/{1.73_m2} Low > OR = 60 mL/min/1.73m 2 [facility] Glucose [Mass/Vol] 142 mg/dL High 65 - 99 mg/dL [facility] Comment on above: Fasting reference interval For someone without known diabetes, a glucose value >125 mg/dL indicates that they may have diabetes and this should be confirmed with a follow-up test. Phosphate [Mass/Vol] 3.2 mg/dL 2.1 - 4 .3 mg/dL [facility] Potassium [Moles/Vol] 4.4 mmol/L 3.5 - 5.3 mmol/L [facility] Sodium [Moles/Vol] 140 mmol/L 135 - 146 mmol/L [facility] Urea nitrogen [Mass/Vol] 34 mg/dL High 7 - 25 mg/dL [facility] Urea nitrogen/Creatinine [Mass ratio] 15 mg/mg [employer] Progress Noteon 05-06-2024 Progress Note Venipuncture complet ed by [facility]. Normal [facility] Office Visiton 03-22-2024 Follow-up visit [id number] Hyacinth Stapleton A 1955 M Date Provider Department Center 03/22/2024 [id number] GARCIA MG [facility] None Family History Problem Relation Age of Onset Heart disease Mother Hypertension Mother Hypertension Father Family Status - Relation Status Age at Mother 83 Father 85 Level of Service:14064 [place] OFFICE/OUTPATIENT ESTABLISHED MOD MDM 30 MIN Reason for Visit and Comments: 6 Month Follow-up [671] Congestive Heart Failure [127] Normal [facility] Progress Noteon 03-22-2024 Progress Note [facility] [address] [facility] [address] Dept: [phone] Dept Visit type: Established : 1955 Reason for Visit: 6 Month Follow-up and Congestive Heart Failure Assessment and Plan 1. Chronic diastolic heart failure (HCC) Assessment & Plan: HFrecoveredEF, stage B, class I. Initial EF 23% and improved to 50% per echocardiogram July 2019. Unknown etiology as he declines further testing. No current heart failure symptoms and euvolemic on physical exam. -Continue carvedilol 6.25 mg p.o. twice daily -Continue hydralazine 100 mg p.o. 3 times daily -Continue Imdur 120 mg p.o. daily -Continue spironolactone 25 mg p.o. daily -Not a candidate for ARB or Arni secondary to CKD 2. Primary hypertension Assessment & Plan: Goal less than 130/80. Elevated today. -Continue carvedilol 6.25 mg p.o. twice daily -Continue hydralazine 100 mg p.o. 3 times daily -Continue Imdur 120 mg p.o. daily -Continue spironolactone 25 mg p.o. daily - continue to monitor at home, and will notify us if it continues to be high after taking his midday dose of hydralazine Orders: - ECG 12 lead - CLINIC PERFORMED 3. Stage 3b chronic kidney disease (HCC) Assessment & Plan: Follows with Dr. Niño. Most recent creatinine 2.37. -Continue nephrology follow-up Follow up in about 6 months (around 09/20/2024). Subjective Hx HFrecoveredEF with initial ejection fraction 23% and improved to 50% with medical therapy, unknown etiology as patient has declined further testing, CKD, diabetes, hypertension, hyperlipidemia, SONI He was last seen by Dr. Jansen September 2023 when he had no cardiac complaints. His carvedilol was decreased due to significant fatigue which improved with reduction of his beta-greta dose. Today, he feels OK. He denies CP, SOB, PND, orthopnea, edema, palpitations, syncope. His BP has been running a little high, but he admits to not always taking his midday dose of hydralazine. Hyacinth Stapleton Review of Systems Constitutional: Negative for activity change, chills, diaphoresis, fatigue and fever. HENT: Negative for nosebleeds and trouble swallowing. Eyes: Negative for visual disturbance. Respiratory: Negative for apnea, cough, chest tightness, shortness of breath and wheezing. Cardiovascular: Negative for chest pain, palpitations and leg swelling. Gastrointestinal: Negative for abdominal distention, abdominal pain, blood in stool, diarrhea, nausea and vomiting. Genitourinary: Negative for hematuria. Musculoskeletal: Negative for gait problem and myalgias. Skin: Negative for color change and rash. Neurological: Positive for dizziness (a little bit if gets up too quick or looks up) and headaches (last 1-2 days). Negative for syncope, speech difficulty, weakness and light-headedness. Hematological: Does not bruise/bleed easily. Psychiatric/Behavioral: Negative for dysphoric mood. Allergies Allergen Reactions Proton Pump Inhibitors Recommendation per nephrology (CKD progression from PPI) noted 03/03/22 Outpatient Medications Prior to Visit Medication Sig Dispense Refill carvedilol (Coreg) 12.5 MG tablet Take 0.5 tablets (6.25 mg) by mouth 2 times daily. 180 tablet 2 cholecalciferol (Vitamin D-3) 25 MCG (1000 UT) tablet Take 2,000 Units by mouth daily. fenofibrate (Tricor) 145 MG tablet TAKE 1 TABLET BY MOUTH DAILY 90 tablet 1 hydrALAZINE (Apresoline) 100 MG tablet Take 1 tablet (100 mg) by mouth 3 times daily. 270 tablet 1 isosorbide mononitrate ER (Imdur) 120 MG 24 hr tablet Take 1 tablet (120 mg) by mouth every morning. 90 tablet 3 PARoxetine CR (Paxil-CR) 12.5 MG 24 hr tablet TAKE 1 TABLET BY MOUTH EVERY MORNING 90 tablet 1 spironolactone (Aldactone) 25 MG tablet Take 25 mg by mouth daily. ofloxacin (Ocuflox) 0.3 % ophthalmic solution instill 1 drop in left eye FOUR TIMES DAILY FOR 5 DAYS No facility-administered medications prior to visit. Past Medical History: Diagnosis Date Acute gastritis without bleeding 10/07/2015 [facility] ER Anxiety CHF (congestive heart failure) ([facility]) Chronic kidney disease stage 3 Depression 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, without long-term current use of insulin ([facility]) 01/01/2023 Hyperlipidemia Hypertension LV dysfunction Mitral valve regurgitation Obstructive sleep apnea syndrome 05/13/2019 Pneumonia 04/17/2020 Primary osteoarthritis of both knees 03/26/2020 Social History Tobacco Use Smoking status: Former Types: Pipe Start date: 2012 Quit date: 2014 Years since quittin.7 Smokeless tobacco: Never Substance Use Topics Alcohol use: Yes Alcohol/week: 14.0 standard drinks of alcohol Types: 14 Cans of beer per week Comment: 1-2 day Past Surgical History: Procedure Laterality Date CATARACT EXTRACTION Bilateral CHOLECYSTECTOMY 06/02/2019 EYE SURGERY Retinal HER (more content not included)... Normal [facility] Progress Note Follows with Dr. Niño . Most recent creatinine 2.37. -Continue nephrology follow-up Normal [facility] Progress Note Goal less than 130/8 0. Elevated today. -Continue carvedilol 6.25 mg p.o. twice daily -Continue hydralazine 100 mg p.o. 3 times daily -Continue Imdur 120 mg p.o. daily -Continue spironolactone 25 mg p.o. daily - continue to monitor at home, and will notify us if it continues to be high after taking his midday dose of hydralazine Normal [facility] Progress Note HFrecoveredEF, stage B, class I. Initial EF 23% and improved to 50% per echocardiogram July 2019. Unknown etiology as he declines further testing. No current heart failure symptoms and euvolemic on physical exam. -Continue carvedilol 6.25 mg p.o. twice daily -Continue hydralazine 100 mg p.o. 3 times daily -Continue Imdur 120 mg p.o. daily -Continue spironolactone 25 mg p.o. daily -Not a candidate for ARB or Arni secondary to CKD [facility] 36on 02-22-2024 36 Patient called and requested refill of Isosorbide to be sent to [facility]. [facility] 36on 02-15-2024 36 Rx sent. Follow up a s scheduled. [facility] 36 Rx sent. Follow up a s scheduled. [facility] 25-hydroxyvitamin D3 [Mass/V ol]on 08-18-2023 25-hydroxyvitamin D [Mass/Vol] 44 ng/mL 30 - 100 ng/mL [facility] Comment on above: Vitamin D Status 25- [place] Vitamin D: Deficiency: <20 ng/mL Insufficiency: 20 - 29 ng/mL Optimal: > or = 30 ng/mL For 25-OH Vitamin D testing on patients on D2-supplementation and patients for whom quantitation of D2 and D3 fractions is required, the [facility]ureD(TM) 25-OH VIT D, (D2,D3), LC/MS/MS is recommended: order code 63080 (patients >2yrs). See Note 1 Note 1 For additional information, please refer to http://education.Happlink.Keen Systems/faq/HEJ269 (This link is being provided for informational/ educational purposes only.) CBC W Auto Differential pane l (Bld)on 08-18-2023 Basophils (Bld) [#/Vol] 108 10*3/uL [facility] Basophils/100 WBC (Bld) 1.8 % S [facility] Eosinophils (Bld) [#/Vol] 270 10*3/uL [facility] Eosinophils/100 WBC (Bld) 4.5 % [facility] Erythrocyte distribution width (RBC) [Ratio] 14.3 % 11.0 - 15.0 % [facility] Hematocrit (Bld) [Volume fraction] 34.2 % Low 38.5 - 50.0 % [facility] Hemoglobin (Bld) [Mass/Vol] 10.8 g/dL Low 13.2 - 17.1 g/dL [facility] Lymphocytes (Bld) [#/Vol] 912 10*3/uL [facility] Lymphocytes/100 WBC (Bld) 15.2 % [facility] MCH (RBC) [Entitic mass] 26.9 pg Low 27.0 - 33.[address] [facility] MCHC (RBC) [Mass/Vol] 31.6 g/dL Low 32.0 - 36.0 g/dL [facility] MCV (RBC) [Entitic vol] 85.3 fL 80.0 - 100.[address] [facility] Monocytes (Bld) [#/Vol] 558 10*3/uL [facility] Monocytes/100 WBC (Bld) 9.3 % S [facility] Neutrophils (Bld) [#/Vol] 4152 10*3/uL [facility] Neutrophils/100 WBC (Bld) 69.2 % [facility] Platelet mean volume (Bld) [Entitic vol] 10.9 fL 7.5 - 12.[address] [facility] Platelets (Bld) [#/Vol] 331 10*3/uL [facility] RBC (Bld) [#/Vol] 4.01 10*6/uL Low [facility] WBC (Bld) [#/Vol] 6.0 10*3/uL [facility] No Panel Informationon 08-17 Interpretation and review of laboratory results Abnormal [facility] PTH, intacton 08-18-2023 Parathyrin.intact [Mass/Vol] 38 pg/mL 16 - 77 pg/mL [facility] Comment on above: Interpretive Guide Intact PTH Calcium ------- Normal Parathyroid Normal Normal Hypoparathyroidism Low or Low Normal Low Hyperparathyroidism Primary Normal or High High Secondary High Normal or Low Tertiary High High Non-Parathyroid Hypercalcemia Low or Low Normal High Protein / creatinine ratio, urineon 08-18-2023 Protein/Creatinine (U) [Mass ratio] 371 mg/g High [facility] Protein/Creatinine (U) [Mass ratio] 0.371 mg/g High [facility] Protein/Creatinine (U) [Mass ratio]on 08-18-2023 Creatinine (U) [Mass/Vol] 105 mg/dL 20 - 320 mg/dL [facility] Protein (U) [Mass/Vol] 39 mg/dL High 5 - 25 mg/dL [facility] Renal function 2000 panelon 08-18-2023 Albumin [Mass/Vol] 3.9 g/dL 3.6 - 5.1 g/dL [facility] Calcium [Mass/Vol] 8.8 mg/dL 8.6 - 10. 3 mg/dL [facility] Chloride [Moles/Vol] 104 mmol/L 98 - 11 0 mmol/L [facility] CO2 [Moles/Vol] 22 mmol/L 20 - 32 mmol/L [facility] Creatinine [Mass/Vol] 2.12 mg/dL High 0.70 - 1.35 mg/dL [facility] GFR/1.73 sq M.predicted among non-blacks MDRD (S/P/Bld) [Vol rate/Area] 33 mL/min/{1.73_m2} Low > OR = 60 mL/min/1.73m [address] [facility] Glucose [Mass/Vol] 116 mg/dL High 65 - 99 mg/dL [facility] Comment on above: Fasting reference interval For someone without known diabetes, a glucose value between 100 and 125 mg/dL is consistent with prediabetes and should be confirmed with a follow-up test. Phosphate [Mass/Vol] 3.3 mg/dL 2.1 - 4 .3 mg/dL [facility] Potassium [Moles/Vol] 4.7 mmol/L 3.5 - 5.3 mmol/L [facility] Sodium [Moles/Vol] 137 mmol/L 135 - 146 mmol/L [facility] Urea nitrogen [Mass/Vol] 39 mg/dL High 7 - 25 mg/dL [facility] Urea nitrogen/Creatinine [Mass ratio] 18 mg/mg [facility] Urinalysis complete panel (U )on 08-18-2023 Appearance (U) CLEAR CLEAR [facility] Bacteria LM.HPF (Urine sed) [#/Area] NONE SEEN NONE SEEN /HPF [facility] Bilirubin Ql (U) Negative NEGATIVE [facility] Color (U) YELLOW YELLOW [facility] Epithelial cells.squamous LM.HPF (Urine sed) [#/Area] NONE SEEN < OR = 5 /HPF [facility] Glucose Ql (U) Negative NEGATIVE [facility] Hemoglobin Ql (U) Negative NEGATIVE [facility] Hyaline casts (Urine sed) [#/Area] 0-5 Abnormal NONE SEEN /LPF [facility] Ketones Ql (U) Negative NEGATIVE [facility] Leukocyte esterase Test strip Ql (U) Negative NEGATIVE [facility] Nitrite Ql (U) Negative NEGATIVE [facility] pH (U) [pH] 5.0 - 8.[address] [facility] Protein Ql (U) 1+ Abnormal NEGATIVE [facility] RBC LM.HPF (Urine sed) [#/Area] NONE SEEN < OR = 2 /HPF [facility] Specific gravity (U) [Rel density] 1.014 1.001 - 1.[address] [facility] WBC LM.HPF (Urine sed) [#/Area] NONE SEEN < OR = 5 /HPF [facility] ED NOTEon 07-27-2023 ED NOTE HNO ID: [id number] Author: MICA RHODES RN Service: ? Author Type: Registered Nurse Type: ED Notes Filed: 07/28/2023 12:19 Note Text: Patient Call Back Information How are you doing ? better Did we appropriately manage your pain? Yes Did you understand your discharge instructions? Yes Did you get your prescriptions filled? Were you able to make a follow-up appointment with your physician? No Were you comfortable during your stay here? Yes Did a member of the ER nursing team round on you during your visit? Yes You will receive a patient satisfaction survey in the mail in the nest 2 weeks, please take the time to fill out the survey as your input from your ER visit is very important to us. Yes Can we do anything else to help you? No Normal [facility] ED PROV NOTEon 07-27-2023 ED PROV NOTE HNO ID: [id number] Author: EULALIA NIELSEN MD Service: Emergency Medicine Author Type: Physician Type: ED Provider Notes Filed: 07/27/2023 14:01 Note Text: ED Provider Note Patient Name: Hyacinth Stapleton : 1955 SERVICE DATE: 07/27/23 History Patient presents with: Flu Like Symptoms The patient is a 67-year-old male presenting today for complaint of flulike symptoms. Patient states he has been sick since about last Thursday. He states that he got very fatigued. He states that a few days before that he was sneezing a lot with watery eyes. States that he had congestion setting on Thursday as well as clear rhinorrhea. Yesterday he thought he was getting a little bit better as his congestion was a little less. He states he got up and did activities around the house as well as outside. When he woke up this morning his congestion was back to where it was prior to yesterday as well as he had increased congestion overnight. He is only been doing Tylenol and minor symptomatic management [id number]. He has had grandchildren as well as his who have also been sick. Concerned that he was sick for this long his brought him in to be evaluated. Patient denies any fevers or rigors at this point in time. He denies any shortness of breath. He states his cough brings up the mucus is draining down his throat. He states that because the mucus has been so thick he is also vomited 3 times which states is not abnormal for him. History reviewed. No pertinent past medical history. History reviewed. No pertinent surgical history. No family history on file. 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 Negative for chills and fever. HENT: Positive for congestion and rhinorrhea. Negative for ear pain and sore throat. Respiratory: Positive for cough. Negative for chest tightness, shortness of breath, wheezing and stridor. Cardiovascular: Negative for chest pain and palpitations. Gastrointestinal: Positive for vomiting. Negative for abdominal pain, diarrhea and nausea. Genitourinary: Negative for dysuria, frequency and urgency. Musculoskeletal: Negative for arthralgias and myalgias. Skin: Negative for rash and wound. Neurological: Negative for dizziness and headaches. Psychiatric/Behavioral: Negative for self-injury and suicidal ideas. All other systems reviewed and are negative. Physical Exam Vitals [07/27/23 1144] BP Pulse Temp Temp src Resp SpO2 Weight Height 166/82 66 37.2 ?C (99 ?F) -- 16 99 % -- -- Physical Exam Vitals and nursing note reviewed. Constitutional: General: He is not in acute distress. Appearance: He is well-developed. He is ill-appearing. HENT: Head: Normocephalic and atraumatic. Comments: ] Nose: Congestion and rhinorrhea present. Right Turbinates: Swollen. Left Turbinates: Swollen. Right Sinus: No maxillary sinus tenderness or frontal sinus tenderness. Left Sinus: No maxillary sinus tenderness or frontal sinus tenderness. Mouth/Throat: Mouth: Mucous membranes are moist. Pharynx: Oropharynx is clear. Eyes: Extraocular Movements: Extraocular movements intact. Conjunctiva/sclera: Conjunctivae normal. Pupils: Pupils are equal, round, and reactive to light. Cardiovascular: Rate and Rhythm: Normal rate and regular rhythm. Heart sounds: Normal heart sounds. No murmur heard. No friction rub. No gallop. Pulmonary: Effort: Pulmonary effort is normal. No respiratory distress. Breath sounds: Normal breath sounds. No stridor. No wheezing, rhonchi or rales. Abdominal: General: Bowel sounds are normal. There is no distension. Palpations: Abdomen is soft. Tenderness: There is no abdominal tenderness. There is no guarding or rebound. Musculoskeletal: General: Normal range of motion. Cervical back: Normal range of motion and neck supple. Right lower leg: No edema. Left lower leg: No edema. Skin: General: Skin is warm and dry. Neurological: General: No focal deficit present. Mental Status: He is alert and oriented to person, place, and time. GCS: GCS eye subscore is 4. GCS verbal subscore is 5. GCS motor subscore is 6. Psychiatric: Mood and Affect: Mood normal. Behavior: Behavior normal. Diagnostic Testing ED Labs Ordered and Reviewed COVID AND INFLUENZA A/B AND RSV NAAT, EXPEDITED - Normal Narrative: This test has been authorized by FDA under an Emergency Use Authorization (EUA). Procedures ED Course / Clinical Impression Clinical Impression (more content not included)... Normal [facility] FLUABV+SARS-CoV-2+RSV Pnl Re sp SHAKIRA+probeon 07-27-2023 FLUABV+SARS-CoV-2+RSV Pnl Resp SHAKIRA+probe COVID 19 RESULT: Not detected The method used is RT-PCR or an equivalent NAAT method. Reference Range(the expected result in uninfected individuals): Not detected INFLUENZA A PCR: Not detected INFLUENZA B PCR: Not detected RSV PCR: Not detected Normal [facility] Comment on above: Performed By: #### 9 [id number] #### [facility] CLIA [id number] [address] [place] [address] [place] CBC W Auto Differential pane l (Bld)on 03-11-2023 Basophils (Bld) [#/Vol] 58 10*3/uL [facility] Basophils/100 WBC (Bld) 1.1 % [facility] Eosinophils (Bld) [#/Vol] 191 10*3/uL [facility] Eosinophils/100 WBC (Bld) 3.6 % [facility] Erythrocyte distribution width (RBC) [Ratio] 13.5 % 11.0 - 15.0 % [facility] Hematocrit (Bld) [Volume fraction] 36.8 % Low 38.5 - 50.0 % [facility] Hemoglobin (Bld) [Mass/Vol] 11.7 g/dL Low 13.2 - 17.1 g/dL [facility] Lymphocytes (Bld) [#/Vol] 885 10*3/uL [facility] Lymphocytes/100 WBC (Bld) 16.7 % [facility] MCH (RBC) [Entitic mass] 26.9 pg Low 27.0 - 33.0 pg [facility] MCHC (RBC) [Mass/Vol] 31.8 g/dL Low 32.0 - 36.0 g/dL [facility] MCV (RBC) [Entitic vol] 84.6 fL 80.0 - 100.0 fL [facility] Monocytes (Bld) [#/Vol] 493 10*3/uL [facility] Monocytes/100 WBC (Bld) 9.3 % [facility] Neutrophils (Bld) [#/Vol] 3673 10*3/uL [facility] Neutrophils/100 WBC (Bld) 69.3 % [facility] Platelet mean volume (Bld) [Entitic vol] 10.9 fL 7.5 - 12.5 fL [facility] Platelets (Bld) [#/Vol] 294 10*3/uL [facility] RBC (Bld) [#/Vol] 4.35 10*6/uL [facility] WBC (Bld) [#/Vol] 5.3 10*3/uL [facility] No Panel Informationon 03-11 Interpretation and review of laboratory results Abnormal [facility] PTH, intacton 03-11-2023 Parathyrin.intact [Mass/Vol] 31 pg/mL 16 - 77 pg/mL [facility] Comment on above: Interpretive Guide Intact PTH Calcium ------- Normal Parathyroid Normal Normal Hypoparathyroidism Low or Low Normal Low Hyperparathyroidism Primary Normal or High High Secondary High Normal or Low Tertiary High High Non-Parathyroid Hypercalcemia Low or Low Normal High Protein / creatinine ratio, urineon 03-11-2023 Protein/Creatinine (U) [Mass ratio] 458 mg/g High [facility] Protein/Creatinine (U) [Mass ratio] 0.458 mg/g High [facility] Protein/Creatinine (U) [Mass ratio]on 03-11-2023 Creatinine (U) [Mass/Vol] 72 mg/dL 20 - 320 mg/dL [facility] Protein (U) [Mass/Vol] 33 mg/dL High 5 - 25 mg/dL [facility] Renal Function Panel without eGFR - [facility] 03-11-2023 Albumin [Mass/Vol] 4.1 g/dL 3.6 - 5.1 g/dL [facility] Calcium [Mass/Vol] 8.8 mg/dL 8.6 - 10. 3 mg/dL [facility] Chloride [Moles/Vol] 107 mmol/L 98 - 11 0 mmol/L [facility] CO2 [Moles/Vol] 26 mmol/L 20 - 32 mmol/L [facility] Creatinine [Mass/Vol] 2.33 mg/dL High 0.70 - 1.35 mg/dL [facility] Glucose [Mass/Vol] 97 mg/dL 65 - 99 mg/dL [facility] Comment on above: Fasting reference interval Phosphate [Mass/Vol] 3.4 mg/dL 2.1 - 4 .3 mg/dL [facility] Potassium [Moles/Vol] 4.6 mmol/L 3.5 - 5.3 mmol/L [facility] Sodium [Moles/Vol] 140 mmol/L 135 - 146 mmol/L [facility] Urea nitrogen [Mass/Vol] 44 mg/dL High 7 - 25 mg/dL [facility] Urea nitrogen/Creatinine [Mass ratio] 19 mg/mg [facility] Vitamin D Deficiency Screeni ng (Vit D 25)on 03-11-2023 25-hydroxyvitamin D3 [Mass/Vol] 36 ng/mL 30 - 100 ng/mL [facility] Comment on above: Vitamin D Status 25- [place] Vitamin D: Deficiency: <20 ng/mL Insufficiency: 20 - 29 ng/mL Optimal: > or = 30 ng/mL For 25-OH Vitamin D testing on patients on D2-supplementation and patients for whom quantitation of D2 and D3 fractions is required, the QuestAssureD(TM) 25-OH VIT D, (D2,D3), LC/MS/MS is recommended: order code 90785 (patients >2yrs). See Note 1 Note 1 For additional information, please refer to http://education.DonorPro/faq/CTT027 (This link is being provided for informational/ educational purposes only.) Urinalysis macro (dipstick) panel (U)on 01-23-2023 Bilirubin, UA Moderate [facility] Blood, UA Trace [facility] Glucose, UA Negative [facility] Interpretation and review of laboratory results Abnormal [facility] Ketones, UA Negative [facility] Leukocytes, UA Negative [facility] Nitrite, UA Negative [facility] pH, UA 5.[address] [facility] Protein, UA [address] [facility] Spec Grav, UA 1.[address] [facility] Urobilinogen, UA 0.2 [facility] Comprehensive metabolic 1998 panelon 01-02-2023 Albumin [Mass/Vol] 4.1 g/dL 3.6 - 5.1 g/dL [facility] Albumin/Globulin [Mass ratio] 1.6 {ratio} [facility] ALP [Catalytic activity/Vol] 35 U/L 35 - 144 U/L [facility] ALT [Catalytic activity/Vol] 11 U/L 9 - 46 U/L [facility] AST [Catalytic activity/Vol] 16 U/L 10 - 35 U/L [facility] Bilirubin [Mass/Vol] 0.4 mg/dL 0.2 - 1 .2 mg/dL [facility] Calcium [Mass/Vol] 9.6 mg/dL 8.6 - 10. 3 mg/dL [facility] Chloride [Moles/Vol] 106 mmol/L 98 - 11 0 mmol/L [facility] [facility] CO2 [Moles/Vol] 25 mmol/L 20 - 32 mmol/L [facility] Creatinine [Mass/Vol] 2.51 mg/dL High 0.70 - 1.35 mg/dL [facility] GFR/1.73 sq M.predicted among non-blacks MDRD (S/P/Bld) [Vol rate/Area] 27 mL/min/{1.73_m2} Low > OR = 60 mL/min/1.73m [address] [facility] Comment on above: The eGFR is based on the CKD-EPI 2020 equation. To calculate the new eGFR from a previous Creatinine or Cystatin C result, go to https://www.kidney.org/professionals/ kdoqi/gfr%5Fcalculator Globulin (S) [Mass/Vol] 2.6 g/dL S [facility] Glucose [Mass/Vol] 107 mg/dL High 65 - 99 mg/dL [facility] Comment on above: Fasting reference interval For someone without known diabetes, a glucose value between 100 and 125 mg/dL is consistent with prediabetes and should be confirmed with a follow-up test. Potassium [Moles/Vol] 4.3 mmol/L 3.5 - 5.3 mmol/L [facility] Protein [Mass/Vol] 6.7 g/dL 6.1 - 8.1 g/dL [facility] Sodium [Moles/Vol] 139 mmol/L 135 - 146 mmol/L [facility] Urea nitrogen [Mass/Vol] 49 mg/dL High 7 - 25 mg/dL [facility] Urea nitrogen/Creatinine [Mass ratio] 20 mg/mg [facility] Hemoglobin A1con 01-02-2023 HbA1c (Bld) [Mass fraction] 5.7 % High [facility] Comment on above: For someone without known diabetes, a hemoglobin A1c value between 5.7% and 6.4% is consistent with prediabetes and should be confirmed with a follow-up test. For someone with known diabetes, a value <7% indicates that their diabetes is well controlled. A1c targets should be individualized based on duration of diabetes, age, comorbid conditions, and other considerations. This assay result is consistent with an increased risk of diabetes. Currently, no consensus exists regarding use of hemoglobin A1c for diagnosis of diabetes for children. Lipid 1996 panelon 3 Cholesterol [Mass/Vol] 160 mg/dL [facility] - 200 mg/dL [facility] Cholesterol in HDL [Mass/Vol] 47 mg/dL > OR = [address] [facility] Cholesterol in LDL [Mass/Vol] 90 mg/dL mg/dL (calc) [facility] Comment on above: Reference range: <10 0 Desirable range <100 mg/dL for primary prevention; <70 mg/dL for patients with CHD or diabetic patients with > or = 2 CHD risk factors. LDL-C is now calculated using the [place] calculation, which is a validated novel method providing better accuracy than the Friedewald equation in the estimation of LDL-C. Dagoberto JONES et al. MOISES. 2013;310(19): 0576-1381 (http://Socowave.DonorPro/faq/CQM815) Cholesterol non HDL [Mass/Vol] 113 mg/dL [facility] Comment on above: For patients with di abetes plus 1 major ASCVD risk factor, treating to a non-HDL-C goal of <100 mg/dL (LDL-C of <70 mg/dL) is considered a therapeutic option. Cholesterol.total/Poornima sterol in HDL [Mass ratio] 3.4 {ratio} [facility] Triglyceride [Mass/Vol] 131 mg/dL [facility] - 150 mg/dL [facility] No Panel Informationon 01-02 Interpretation and review of laboratory results Abnormal [facility] PSA Screeningon 01-02-2023 Prostate specific Ag [Mass/Vol] 0.67 ng/mL < OR = 4.[address] [facility] Comment on above: The total PSA value from this assay system is standardized against the WHO standard. The test result will be approximately 20% lower when compared to the equimolar-standardized total PSA ([place]). Comparison of serial PSA results should be interpreted with this fact in mind. This test was performed using the Siemens chemiluminescent method. Values obtained from different assay methods cannot be used interchangeably. PSA levels, regardless of value, should not be interpreted as absolute evidence of the presence or absence of disease. Comp Metabolic Panelon 02-11 ALP [Catalytic activity/Vol] 30 U/L Low 38-126 [facility] Comment on above: Performed By: #### C MP3, HEMOG #### [facility] [address] [place] [address] ALT [Catalytic activity/Vol] 19 U/L Normal 0-49 [facility] Comment on above: Result Comment: The ALT test is performed by an updated assay method. Please note that the reference intervals have been changed and are now sex specific. Performed By: #### C MP3, HEMOG #### [facility] [address] [place] [address] Anion gap [Moles/Vol] 5 mmol/L Normal 3-13 [facility] Comment on above: Performed By: #### C MP3, HEMOG #### [facility] [address] [place] [address] AST [Catalytic activity/Vol] 24 U/L Normal 15-46 [facility] Comment on above: Performed By: #### C MP3, HEMOG #### [facility] [address] [place] [address] Bilirubin [Mass/Vol] 0.4 mg/dL Normal 0.2-1.3 [facility] Comment on above: Performed By: #### C MP3, HEMOG #### [facility] [address] [place] [address] Calcium [Mass/Vol] 7.4 mg/dL Low 8.4-10.4 [facility] Comment on above: Performed By: #### C MP3, HEMOG #### [facility] [address] [place] [address] CO2 [Moles/Vol] 21 mmol/L Low 22-30 [facility] Comment on above: Performed By: #### C MP3, HEMOG #### [facility] [address] [place] [address] Creatinine [Mass/Vol] 1.78 mg/dL High 0.52-1.25 [facility] Comment on above: Performed By: #### C MP3, HEMOG #### [facility] [address] [place] [address] GFR/1.73 sq M.predicted among blacks MDRD (S/P/Bld) [Vol rate/Area] 44.6 mL/min/{1.73_m2} Abnormal >60 [facility] Comment on above: Performed By: #### C MP3, HEMOG #### [facility] [address] [place] [address] GFR/1.73 sq M.predicted among non-blacks MDRD (S/P/Bld) [Vol rate/Area] 38.5 mL/min/{1.73_m2} Abnormal >60 [facility] Comment on above: Result Comment: KDIG O guidelines provide the following GFR categories: Stage GFR(ml/min/1.73 m2) Terms G1 >=90 Normal or high G2 60-89 Mildly decreased* G3a 45-59 Mildly to moderately decreased G3b 30-44 Moderately to severely decreased G4 15-29 Severely decreased G5 <15 Kidney failure *Relative to young adult level. In the absence of evidence of kidney damage, neither GFR category G1 nor G2 fulfill the criteria for CKD. The CKD-EPI equation is validated in individuals 18 years of age and older. Currently the best equation for estimating glomerular filtration rate (GFR) from serum creatinine in children is the Bedside [place] equation. It is less accurate in patients with extremes of muscle mass, restriction of dietary protein, ingestion of creatine, extra-renal metabolism of creatinine, or treatment with medications that affect renal tubular creatinine secretion. Performed By: #### C MP3, HEMOG #### [facility] [address] [place] [address] Glucose [Mass/Vol] 104 mg/dL High 70-100 [facility] Comment on above: Performed By: #### C MP3, HEMOG #### [facility] [address] [place] [address] Protein [Mass/Vol] 6.0 g/dL Low 6.3-8.2 [facility] Comment on above: Performed By: #### C MP3, HEMOG #### [facility] [address] [place] [address] Urea nitrogen [Mass/Vol] 28 mg/dL High 7-17 [facility] Comment on above: Performed By: #### C MP3, HEMOG #### [facility] [address] [place] [address] Albumin [Mass/Vol] 3.3 g/dL Low 3.5-5.0 [facility] Comment on above: Performed By: #### C MP3, HEMOG #### [facility] [address] [place] [address] Chloride [Moles/Vol] 115 mmol/L High 98-107 [facility] Comment on above: Performed By: #### C MP3, HEMOG #### [facility] [address] [place] [address] Potassium [Moles/Vol] 3.2 mmol/L Low 3.5-5.1 [facility] Comment on above: Performed By: #### C MP3, HEMOG #### [facility] [address] [place] [address] Sodium [Moles/Vol] 141 mmol/L Normal 135-145 [facility] Comment on above: Performed By: #### C MP3, HEMOG #### [facility] [address] [place] [address] GASTROINTESTINAL PCR PANELon 02-11-2022 GASTROINTESTINAL PCR PANEL GASTROINTESTINAL PCR PANEL --> Status: F NEGATIVE: No targets were detected by the [employer] Gastrointestinal PCR Panel. _ The [employer] Gastrointestinal PCR Panel can detect the following targets: Campylobacter, Plesiomonas shigelloides, Salmonella, Vibrio species, Vibrio cholerae, Yersinia enterocolitica, Shiga toxin-producing E coli (STEC) including E coli O157, Enterotoxigenic E coli (ETEC), Shigella/Enteroinvasive E coli (EIEC), Cryptosporidium, Cyclospora cayetanensis, Entamoeba histolytica, Giardia lamblia, Adenovirus F 40/41, Astrovirus, Norovirus GI/GII, Rotavirus A, Sapovirus Gastrointestinal PCR Panel. _ The [employer] Gastrointestinal PCR Panel can detect the following targets: Campylobacter, Plesiomonas shigelloides, Salmonella, Vibrio species, Vibrio cholerae, Yersinia enterocolitica, Shiga toxin-producing E coli (STEC) including E coli O157, Enterotoxigenic E coli (ETEC), Shigella/Enteroinvasive E coli (EIEC), Cryptosporidium, Cyclospora cayetanensis, Entamoeba histolytica, Giardia lamblia, Adenovirus F 40/41, Astrovirus, Norovirus GI/GII, Rotavirus A, Sapovirus Normal [facility] Comment on above: Performed By: #### B FGI ####[facility] [place] [address] Hemogramon 02-11-2022 Erythrocyte distribution width (RBC) [Ratio] 15.7 % High 11.5-14.5 [facility] Comment on above: Performed By: #### C MP3, HEMOG #### [facility] [address] [place] [address] Hematocrit (Bld) [Volume fraction] 32.3 % Low 40.0-52.0 [facility] Comment on above: Performed By: #### C MP3, HEMOG #### [facility] [address] [place] [address] Hemoglobin (Bld) [Mass/Vol] 10.7 g/dL Low 13.0-18.0 [facility] Comment on above: Performed By: #### C MP3, HEMOG #### [facility] [address] [place] [address] MCH (RBC) [Entitic mass] 27.3 pg Normal 26.0-34.0 [facility] Comment on above: Performed By: #### C MP3, HEMOG #### [facility] [address] [place] [address] MCHC 33.2 % Normal 32.0-36.0 [facility] Comment on above: Performed By: #### C MP3, HEMOG #### [facility] [address] [place] [address] MCV (RBC) [Entitic vol] 82.1 fL Normal 80.0-98.0 [facility] Comment on above: Performed By: #### C MP3, HEMOG #### [facility] [address] [place] [address] Platelet mean volume (Bld) [Entitic vol] 8.8 fL Normal 7.4-12.4 [facility] Comment on above: Result Comment: MPV is a calculated measurement using platelet volume ratio. Performed By: #### C MP3, HEMOG #### [facility] [address] [place] [address] Platelets (Bld) [#/Vol] 206 10*3/uL Normal 140-440 [facility] Comment on above: Performed By: #### C MP3, HEMOG #### [facility] [address] [place] [address] RBC (Bld) [#/Vol] 3.93 10*6/uL Low 4.40-5.90 [facility] Comment on above: Performed By: #### C MP3, HEMOG #### [facility] [address] [place] [address] WBC (Bld) [#/Vol] 6.6 10*3/uL Normal 3.6-10.7 [facility] Comment on above: Performed By: #### C MP3, HEMOG #### [facility] [address] [place] [address] Basic Metabolic Panelon 09-0 -2021 Anion gap [Moles/Vol] 4 mmol/L Normal 3-13 [facility] Comment on above: Performed By: #### Rigo G3, BMP3M #### [facility] [address] [place] [address] Calcium [Mass/Vol] 7.6 mg/dL Low 8.4-10.4 [facility] Comment on above: Performed By: #### Rigo G3, BMP3M #### [facility] [address] [place] [address] CO2 [Moles/Vol] 23 mmol/L Normal 22-30 [facility] Comment on above: Performed By: #### Rigo G3, BMP3M #### [facility] [address] [place] [address] Glucose [Mass/Vol] 112 mg/dL High 70-100 [facility] Comment on above: Performed By: #### M G3, BMP3M #### [facility] [address] [place] [address] Urea nitrogen [Mass/Vol] 41 mg/dL High 7-17 [facility] Comment on above: Performed By: #### M G3, BMP3M #### [facility] [address] [place] [address] Creatinine [Mass/Vol] 2.35 mg/dL High 0.52-1.25 [facility] Comment on above: Performed By: #### M G3, BMP3M #### [facility] [address] [place] [address] GFR/1.73 sq M.predicted among blacks MDRD (S/P/Bld) [Vol rate/Area] 31.9 mL/min/{1.73_m2} Abnormal >60 [facility] Comment on above: Performed By: #### Rigo Chapman BMP3M #### [facility] [address] [place] [address] GFR/1.73 sq M.predicted among non-blacks MDRD (S/P/Bld) [Vol rate/Area] 27.5 mL/min/{1.73_m2} Abnormal >60 [facility] Comment on above: Result Comment: KDIG O guidelines provide the following GFR categories: Stage GFR(ml/min/1.73 m2) Terms G1 >=90 Normal or high G2 60-89 Mildly decreased* G3a 45-59 Mildly to moderately decreased G3b 30-44 Moderately to severely decreased G4 15-29 Severely decreased G5 <15 Kidney failure *Relative to young adult level. In the absence of evidence of kidney damage, neither GFR category G1 nor G2 fulfill the criteria for CKD. The CKD-EPI equation is validated in individuals 18 years of age and older. Currently the best equation for estimating glomerular filtration rate (GFR) from serum creatinine in children is the Bedside Radford equation. It is less accurate in patients with extremes of muscle mass, restriction of dietary protein, ingestion of creatine, extra-renal metabolism of creatinine, or treatment with medications that affect renal tubular creatinine secretion. Performed By: #### Rigo Chapman BMP3M #### [facility] [address] [place] [address] Potassium [Moles/Vol] 3.3 mmol/L Low 3.5-5.1 [facility] Comment on above: Performed By: #### Rigo Chapman BMP3M #### [facility] [address] [place] [address] Chloride [Moles/Vol] 109 mmol/L High 98-107 [facility] Comment on above: Performed By: #### Rigo Chapman BMP3M #### [facility] [address] [place] [address] Sodium [Moles/Vol] 136 mmol/L Normal 135-145 [facility] Comment on above: Performed By: #### M G3, BMP3M #### [facility] [address] [place] [address] CR Hip w/ Pelvis Bilateral 2 Viewson 02-10-2022 CR Hip w/ Pelvis Bilateral 2 Views Patient Name: HYACINTH STAPLETON Diagnostic Radiology ACCESSION EXAM DATE/TIME PROCEDURE ORDERING PROVIDER [id number] 02/09/2022 23:31 EDT CR Hip w/ Pelvis 5640 -FRAN BHATTI Bilateral 2 Views n CPT code 27886 Reason For Exam (CR Hip w/ Pelvis Bilateral 2 Views n) pain after a fall Report CLINICAL INFORMATION: Bilateral hip pain after trauma. Fall. AP view of the pelvis and AP and frog-leg lateral views of both hips are provided. FINDINGS: Mild symmetric degenerative changes are noted about both hips. There is medial/axial joint space narrowing with mild sclerosis. There is no fracture or dislocation. The sacroiliac joints are symmetric bilaterally without focal abnormality. The bone mineralization is within normal limits. IMPRESSION: 1. Mild symmetric degenerative changes. 2. No acute findings. Report Dictated on Final Dictating Physician: MD TIDWELL JEFFREY Signed Date and Time: 02/09/2022 11:44 pm Signed by: MD TIDWELL JEFFREY Transcribed Date and Time: 02/09/2022 11:45 Normal [facility] Complete Urinalysison 2021 Appearance (U) Clear Normal Clear [facility] Comment on above: Result Comment: . Performed By: #### C RTGAURANG, NAURR, CUA2, OSMUR #### [facility] [address] [place] [address] Bilirubin,Urine Negative Normal Negative [facility] Comment on above: Result Comment: . Performed By: #### C RTGAURANG, NAURR, CUA2, OSMUR #### [facility] [address] [place] [address] Color (U) Light-Yellow Normal Lt. Yellow [facility] Comment on above: Result Comment: . Performed By: #### C RTUR, NAURR, CUA2, OSMUR #### [facility] [address] [place] [address] Glucose Ql (U) 50 mg/dL Normal Normal (<70) [facility] Comment on above: Result Comment: . Performed By: #### C RTUR, NAURR, CUA2, OSMUR #### [facility] [address] [place] [address] Ketone,Urine Negative Normal Negative [facility] Comment on above: Result Comment: . Performed By: #### C RTUR, NAURR, CUA2, OSMUR #### [facility] [address] [place] [address] Leukocytes,Urine Negative Normal Negative [facility] Comment on above: Result Comment: . Performed By: #### C RTUR, NAURR, CUA2, OSMUR #### [facility] [address] [place] [address] Nitrites,Urine Negative Normal Negative [facility] Comment on above: Result Comment: . Performed By: #### C RTUR, NAURR, CUA2, OSMUR #### [facility] [address] [place] [address] Occult Blood,Urine Negative Normal Negative [facility] Comment on above: Result Comment: . Performed By: #### C RTUR, NAURR, CUA2, OSMUR #### [facility] [address] [place] [address] pH,Urine 5.0 Normal 5.0-8.0 [facility] Comment on above: Result Comment: . Performed By: #### C RTUR, NAURR, CUA2, OSMUR #### [facility] [address] [place] [address] Specific [place],Urine 1.009 Normal 1.005 - 1.030 [facility] Comment on above: Result Comment: . Performed By: #### C RTUR, NAURR, CUA2, OSMUR #### [facility] [address] [place] [address] Total Protein,Urine Negative Normal Negative [facility] Comment on above: Result Comment: . Performed By: #### C RTUR, NAURR, CUA2, OSMUR #### [facility] [address] [place] [address] Urobilinogen,Urine Normal Normal Normal (0-1) [facility] Comment on above: Result Comment: . Performed By: #### C RTUR, NAURR, CUA2, OSMUR #### [facility] [address] [place] [address] Creatinine, Ur Randomon Creatinine, Ur Random 71.7 mg/dL Normal No Range [facility] Comment on above: Performed By: #### C RTUR, NAURR, CUA2, OSMUR ####[facility] [place] [address] Magnesiumon 02-10-2022 Magnesium [Mass/Vol] 2.2 mg/dL Normal 1.6-2.3 [facility] Comment on above: Performed By: #### M G3, BMP3M #### [address] [place] [address] Osmolality,Urineon 2 Osmolality,Urine 349 mosm/kg Normal 300-1000 [facility] Comment on above: Performed By: #### C RTUR, NAURR, CUA2, OSMUR ####[address] [place] [address] Sodium, Ur Randomon 02-11-20 22 Sodium [Moles/Vol] 57 mmol/L Normal 30-90 [facility] Comment on above: Performed By: #### C RTUR, NAURR, CUA2, OSMUR ####[facility] [place] [address] Troponin Ion 02-10-2022 Troponin I.cardiac [Mass/Vol] 0.048 ng/mL High 0.000-0.034 [facility] Comment on above: Result Comment: . Performed By: #### T ROPN #### [facility] [address] [place] [address] Basic Metabolic Panelon Calcium [Mass/Vol] 8.9 mg/dL Normal 8.4-10.4 [facility] Comment on above: Performed By: #### T NOEN, BMP3, HEMOG ####[place] [address] [place] [address] Anion gap [Moles/Vol] 9 mmol/L Normal 3-13 [facility] Comment on above: Performed By: #### MINI VILLARREAL, HEMOG ####[place] [address] [place] [address] CO2 [Moles/Vol] 25 mmol/L Normal 22-30 [facility] Comment on above: Performed By: #### MINI VILLARREAL, HEMOG ####[place] [address] [place] [address] Creatinine [Mass/Vol] 2.84 mg/dL High 0.52-1.25 [facility] Comment on above: Performed By: #### MINI VILLARREAL, HEMOG ####[place] [address] [place] [address] GFR/1.73 sq M.predicted among blacks MDRD (S/P/Bld) [Vol rate/Area] 25.3 mL/min/{1.73_m2} Abnormal >60 [facility] Comment on above: Performed By: #### MINI VILLARREAL, HEMOG ####[place] [address] [place] [address] GFR/1.73 sq M.predicted among non-blacks MDRD (S/P/Bld) [Vol rate/Area] 21.9 mL/min/{1.73_m2} Abnormal >60 [facility] Comment on above: Result Comment: KDIG O guidelines provide the following GFR categories: Stage GFR(ml/min/1.73 m2) Terms G1 >=90 Normal or high G2 60-89 Mildly decreased* G3a 45-59 Mildly to moderately decreased G3b 30-44 Moderately to severely decreased G4 15-29 Severely decreased G5 <15 Kidney failure *Relative to young adult level. In the absence of evidence of kidney damage, neither GFR category G1 nor G2 fulfill the criteria for CKD. The CKD-EPI equation is validated in individuals 18 years of age and older. Currently the best equation for estimating glomerular filtration rate (GFR) from serum creatinine in children is the Bedside Radford equation. It is less accurate in patients with extremes of muscle mass, restriction of dietary protein, ingestion of creatine, extra-renal metabolism of creatinine, or treatment with medications that affect renal tubular creatinine secretion. Performed By: #### T JONNIE BMP3, HEMOG ####[facility] [place] [address] Glucose [Mass/Vol] 141 mg/dL High 70-100 [facility] Comment on above: Performed By: #### T NOEN, BMP3, HEMOG ####[facility] [place] [address] Urea nitrogen [Mass/Vol] 50 mg/dL High 7-17 [facility] Comment on above: Performed By: #### T JONNIE BMP3, HEMOG ####[facility] [place] [address] Chloride [Moles/Vol] 104 mmol/L Normal 98-107 [facility] Comment on above: Performed By: #### T JONNIE, BMP3, HEMOG ####[facility] [place] [address] Potassium [Moles/Vol] 3.6 mmol/L Normal 3.5-5.1 [facility] Comment on above: Performed By: #### T JONNIE BMP3, HEMOG ####[facility] [place] [address] Sodium [Moles/Vol] 138 mmol/L Normal 135-145 [facility] Comment on above: Performed By: #### T JONNIE BMP3, HEMOG ####[facility] [place] [address] CR Chest Portableon 02-10-20 22 CR Chest Portable Patient Name: HYACINTH STAPLETON Diagnostic Radiology ACCESSION EXAM DATE/TIME PROCEDURE ORDERING PROVIDER [id number] 02/09/2022 17:35 EDT CR Chest Portable [id number] SHAFER CPT code 09300 Reason For Exam (CR Chest Portable) dizziness Report EXAMINATION: PORTABLE CHEST RADIOGRAPH CLINICAL INDICATION: Dizziness TECHNIQUE: Portable AP COMPARISON: 04/17/2020 FINDINGS/IMPRESSION: Support lines and tubes: None. Heart/Mediastinum: Cardiomegaly. Lungs/Pleura: Hazy opacity in the right lower lung, which represent right middle versus right lower lobe developing airspace disease. There is mild vascular congestion. No pleural effusions. No pneumothorax. Bones: No acute osseous abnormality. Report Dictated on Final Dictating Physician: MD MAIKEL, ROBERTH BLANK Signed Date and Time: 02/09/2022 5:49 pm Signed by: MD MAIKEL, ROBERTH BLANK Transcribed Date and Time: 02/09/2022 5:50 Normal [facility] ED Provider Noteon ED Provider Note [facility] ED EMERGENCY DEPARTMENT ENCOUNTER Pt Name: Hyacinth Stapleton Birthdate 1955 Date of evaluation: 02/09/2022 Provider: Tom Irwin DO CHIEF COMPLAINT Chief Complaint Patient presents with Dizziness HISTORY OF PRESENT ILLNESS (Location/Symptom, Timing/Onset, Context/Setting, Quality, Duration, Modifying Factors, Severity) Note limiting factors. I wore a surgical face mask for the entirety of this encounter. HPI Hyacinth Stapleton is a 66 y.o. male with past medical history significant for CKD, HLD, BPH, SONI, CHF (50%) who presents to the emergency department here with dizziness after an episode of diarrhea. Endorses decreased p.o. intake over the last couple of days as he has been visiting [facility]. Denies any bleeding diathesis.Notes symptoms are worse with exertion improved with rest. No SOB. No cough, fever, no syncope. Denies any headache, chest pain , abdominal pain, vomiting. Old chart reviewed: Summary of pertinent elements includes: No recent Emergency Department visits or hospitalizations. REVIEW OF SYSTEMS (2+ for level 4; 10+ for level 5) All other systems reviewed and are negative except as noted in history of present illness At least 10 review of systems reviewed and are negative except as noted in history of present illness PAST MEDICAL HISTORY Past Medical History: Diagnosis Date Acute gastritis without bleeding 10/07/2015 [facility] ER Anxiety CHF (congestive heart failure) (HCC) Chronic kidney disease stage 3 Depression Hyperlipidemia Hypertension LV dysfunction Mitral valve regurgitation Pneumonia 04/17/2020 Primary osteoarthritis of both knees 03/26/2020 SURGICAL HISTORY Past Surgical History: Procedure Laterality Date CATARACT REMOVAL Bilateral CHOLECYSTECTOMY, LAPAROSCOPIC 06/02/2019 EYE SURGERY Retinal INGUINAL HERNIA REPAIR CURRENT MEDICATIONS Previous Medications CARVEDILOL (COREG) 12.5 MG TABLET take 1 tablet by mouth twice a day FENOFIBRATE (TRICOR) 145 MG TABLET Take 1 tablet by mouth daily HYDRALAZINE (APRESOLINE) 100 MG TABLET take 1 tablet by mouth three times a day ISOSORBIDE MONONITRATE (IMDUR) 120 MG EXTENDED RELEASE TABLET Take 1 tablet by mouth in the morning. LISINOPRIL (PRINIVIL;ZESTRIL) 40 MG TABLET Take 1 tablet by mouth daily PAROXETINE (PAXIL CR) 12.5 MG EXTENDED RELEASE TABLET take 1 tablet by mouth every morning TORSEMIDE (DEMADEX) 20 MG TABLET TAKE 1/2 (ONE-HALF) OF A TABLET BY MOUTH DAILY VITAMIN D (CHOLECALCIFEROL) 25 MCG (1000 UT) TABS TABLET Take 1,000 Units by mouth daily ALLERGIES Patient has no known allergies. FAMILY HISTORY Family History Problem Relation Age of Onset Hypertension Mother Heart Disease Mother Hypertension Father SOCIAL HISTORY Social History Socioeconomic History Marital status: Spouse name: None Number of children: None Years of education: None Highest education level: None Tobacco Use Smoking status: Former Packs/day: 0.25 Years: 5.00 Pack years: 1.25 Types: Pipe, Cigarettes Quit date: 05/07/2015 Years since quittin.7 Smokeless tobacco: Never Tobacco comments: Pipe smoke trying to quit Vaping Use Vaping Use: Never used Substance and Sexual Activity Alcohol use: Yes Alcohol/week: 14.0 standard drinks Types: 14 Cans of beer per week Comment: Most every day 1 to 2 beers Drug use: No Comment: Caffeine use:1 cup of coffee per morning Social Determinants of Health Financial Resource Strain: Low Risk Difficulty of Paying Living Expenses: Not hard at all Food Insecurity: No Food Insecurity Worried About Running Out of Food in the Last Year: Never true Ran Out of Food in the Last Year: Never true Transportation Needs: No Transportation Needs Lack of Transportation (Medical): No Lack of Transportation (Non-Medical): No Physical Activity: Sufficiently Active Days of Exercise per Week: 7 days Minutes of Exercise per Session: 60 min SCREENINGS [place] Coma Scale Eye Opening: Spontaneous Best Verbal Response: Oriented Best Motor Response: Obeys commands Yuly Coma Scale Score: 15 PHYSICAL EXAM (up to 7 for level 4, 8 or more for level 5) BP (!) 144/77 Pulse 63 Temp 97.6 ?F (36.4 ?C) (Oral) Resp 18 Ht 5' 9" (1.753 m) Wt 96.2 kg (212 lb) SpO2 99% BMI 31.31 kg/m? Nursing triage notes reviewed, Vital signs reviewed Constitutional: please see mdm HENT: MMM Eyes: Pupils equal round and reactive to light, Extraocular muscles intact Neck: No stridor, no JVD, full neck ROM Lungs: Clear to auscultation, No wheezing or rales. No increased work of breathing, no conversational dyspnea, no accessory muscle use, no nasal flaring. No respiratory distress noted Heart: Regular rate and rhythm, No murmurs, No rubs and No gallops, 2+ distal pulses (radial, femoral, posterior tibial) in all extremities Abdomen: Soft, there is no tenderness, rigidit (more content not included)... Normal [facility] Hemogramon 02-09-2022 Erythrocyte distribution width (RBC) [Ratio] 15.8 % High 11.5-14.5 [facility] Comment on above: Performed By: #### MINI VILLARREAL, HEMOG ####[facility] [place] [address] Hematocrit (Bld) [Volume fraction] 36.6 % Low 40.0-52.0 [facility] Comment on above: Performed By: #### MINI VILLARREAL, HEMOG ####[place] [address] [place] [address] Hemoglobin (Bld) [Mass/Vol] 12.3 g/dL Low 13.0-18.0 [facility] Comment on above: Performed By: #### MINI VILLARREAL, HEMOG ####[facility] [facility] [place] [address] MCH (RBC) [Entitic mass] 27.0 pg Normal 26.0-34.0 [facility] Comment on above: Performed By: #### MINI VILLARREAL, HEMOG ####[facility] [place] [address] MCHC 33.4 % Normal 32.0-36.0 [facility] Comment on above: Performed By: #### T ROPN, BMP3, HEMOG ####[place] [address] [facility] [place] [address] MCV (RBC) [Entitic vol] 80.8 fL Normal 80.0-98.0 [facility] Comment on above: Performed By: #### MINI VILLARREAL, HEMOG ####[place] [address] [facility] [place] [address] Platelet mean volume (Bld) [Entitic vol] 9.3 fL Normal 7.4-12.4 [facility] Comment on above: Result Comment: MPV is a calculated measurement using platelet volume ratio. Performed By: #### MINI VILLARREAL, HEMOG ####[address] [facility] [place] [address] Platelets (Bld) [#/Vol] 259 10*3/uL Normal 140-440 [facility] Comment on above: Performed By: #### MINI VILLARREAL, HEMOG ####[address] [place] [address] RBC (Bld) [#/Vol] 4.53 10*6/uL Normal 4.40-5.90 [facility] Comment on above: Performed By: #### MINI VILLARREAL, HEMOG ####[address] [place] [address] WBC (Bld) [#/Vol] 7.1 10*3/uL Normal 3.6-10.7 [facility] Comment on above: Performed By: #### MINI VILLARREAL, HEMOG ####[address] [facility] [place] [address] Troponin Ion 02-09-2022 Troponin I.cardiac [Mass/Vol] 0.042 ng/mL High 0.000-0.034 [facility] Comment on above: Result Comment: . Performed By: #### MINI VILLARREAL, HEMOG ####[address] [place] [address] CBC Auto Differentialon -2 Absolute Baso # 0.1 10*3/uL 0 - 0.2 10*3/uL [place] Absolute Neut # 3.2 10*3/uL 1.8 - 7 10*3/uL [place] Basophils/100 WBC (Bld) 2.0 % 0 - 2 % [place] Eosinophils (Bld) [#/Vol] 0.2 10*3/uL 0 - 0.5 10*3/uL [place] Eosinophils/100 WBC (Bld) 4.2 % 1 - 6 % [place] Erythrocyte distribution width (RBC) [Ratio] 15.2 % High 11.5 - 14.5 % [place] Granulocytes/100 WBC (Bld) 68.3 % 40 - 80 % [place] Hematocrit (Bld) [Volume fraction] 37.9 % Low 40 - 52 % [place] Hemoglobin (Bld) [Mass/Vol] 12.5 g/dL Low 13 - 18 g/dL [place] Lymphocytes (Bld) [#/Vol] 0.8 10*3/uL Low 1 - 4.3 10*3/uL [place] Lymphocytes/100 WBC (Bld) 16.4 % Low 20 - 40 % [place] MCH (RBC) [Entitic mass] 27.6 pg 26 - 34 pg [place] MCHC (RBC) [Mass/Vol] 32.9 % 32 - 36 % [place] MCV (RBC) [Entitic vol] 83.9 fL 80 - 98 fL [place] Monocytes (Bld) [#/Vol] 0.4 10*3/uL 0 - 0.8 10*3/uL [place] Monocytes/100 WBC (Bld) 9.1 % 2 - 10 % [place] Platelets (Bld) [#/Vol] 301 10*3/uL 140 - 440 10*3/uL [place] Comment on above: large platlets noted RBC (Bld) [#/Vol] 4.52 10*6/uL 4.4 - 5.9 10*6/uL [place] WBC (Bld) [#/Vol] 4.7 10*3/uL 3.6 - 10.7 10*3/uL [facility], [place] Creatinine, Random Urineon 0 07-05-2020 Creatinine (U) [Mass/Vol] 128.0 mg/dL No Range [facility], [place] Otheron 07-05-2020 Interpretation and review of laboratory results Abnormal [facility], [place] Test Performed by [facility], [address] , [place], [place] [address] [place] PTH, Intacton 07-05-2020 Pth Intact 35.8 pg/mL 15 - 63 pg/mL [place] Test Performed by [facility], [address], [place], [place] [address] [place] Protein, urine, randomon Protein (U) [Mass/Vol] 106 mg/dL High No Range [facility], [place] Renal Function Panelon 07-05 Albumin [Mass/Vol] 4.2 g/dL 3.5 - 5 g/dL [place] Anion gap [Moles/Vol] 4 mmol/L [place] Calcium [Mass/Vol] 9.2 mg/dL 8.4 - 10. 4 mg/dL [place] Chloride [Moles/Vol] 104 mmol/L 98 - 10 7 mmol/L [facility], [place] CO2 [Moles/Vol] 33 mmol/L High 22 - 30 mmol/L [place] Creatinine [Mass/Vol] 1.95 mg/dL High 0.52 - 1.25 mg/dL [place] EGFR IF NonAfrican [place] 34.8 mL/min Abnormal >60 [place] Comment on above: KDIGO guidelines pro vide the following GFR categories: Stage GFR(ml/min/1.73 m2) Terms G1 >=90 Normal or high G2 60-89 Mildly decreased* G3a 45-59 Mildly to moderately decreased G3b 30-44 Moderately to severely decreased G4 15-29 Severely decreased G5 <15 Kidney failure *Relative to young adult level. In the absence of evidence of kidney damage, neither GFR category G1 nor G2 fulfill the criteria for CKD. The CKD-EPI equation is validated in individuals 18 years of age and older. Currently the best equation for estimating glomerular filtration rate (GFR) from serum creatinine in children is the Bedside Radford equation. It is less accurate in patients with extremes of muscle mass, restriction of dietary protein, ingestion of creatine, extra-renal metabolism of creatinine, or treatment with medications that affect renal tubular creatinine secretion. GFR/1.73 sq M predicted among blacks MDRD (S/P/Bld) [Vol rate/Area] 40.4 mL/min/{1.73_m2} Abnormal >60 [place] Glucose [Mass/Vol] 137 mg/dL High 70 - 100 mg/dL [place] Interpretation and review of laboratory results Abnormal [place] Phosphate [Mass/Vol] 3.1 mg/dL 2.5 - 4 .5 mg/dL [place] Potassium [Moles/Vol] 4.2 mmol/L 3.5 - 5.1 mmol/L [place] Sodium [Moles/Vol] 140 mmol/L 135 - 145 mmol/L [place] Urea nitrogen [Mass/Vol] 34 mg/dL High 7 - 20 mg/dL [place] Test Performed by [facility], [address] , [place], [place] [address] [place] Vitamin D 25 Hydroxyon 07-05 Vit D, 25-Hydroxy 47 ng/mL 30 - 100 ng/mL [place] Comment on above: Therapy is based on measurement of Total 25-OHD with the following classification levels: Less than 20 ng/mL: Indicative of Vit D deficiency 20-30 ng/mL: Suggests Vit D insufficiency Optimal: Greater than or equal to 30 ng/mL Test performed by [employer] Competitive Immunoassay, measuring Total Vitamin D, not individual fractions. Test Performed by [facility], [address], [place], [place] [address] [place] XR CHEST (2 VW)on 04-17-2020 Patient Name: HYACINTH STAPLETON ---Diagnostic Radiology--- Exam Date/Time 04/17/2020 11:00:02 EST Exam CR Chest PA/LAT Ordering Physician MD DIMITRY, PAUL SAN Accession Number [id number] CPT4 Codes 07979 () Reason For Exam lll pneumonia Report HISTORY: Left lower lobe pneumonia Frontal and lateral views of the chest were obtained. Comparisons available: 06/02/2019 FINDINGS: There is an infiltrate seen in the left lower lobe. There may be a trace effusion. The right lung is clear. No pneumothorax. The cardiac silhouette is enlarged but stable. Bony vasculature is normal. IMPRESSION: Left lower lobe opacity, considering the given history, likely represents pneumonia. Report Dictated on --- Final --- Dictating Physician: MD PINO TOM A Signed Date and Time: 04/17/2020 11:21 am Signed by: MD PINO TOM A Transcribed Date and Time: 04/17/2020 11:22 [place], [place] [facility], [facility] Results From [facility] - 04/17/2020 11:23 AM EST Patient Name: HYACINTH STAPLETON ---Diagnostic Radiology--- Exam Date/Time 04/17/2020 11:00:02 EST Exam CR Chest PA/LAT Ordering Physician MD DIMITRY, PAUL SAN Accession Number [id number] CPT4 Codes 16308 () Reason For Exam lll pneumonia Report HISTORY: Left lower lobe pneumonia Frontal and lateral views of the chest were obtained. Comparisons available: 06/02/2019 FINDINGS: There is an infiltrate seen in the left lower lobe. There may be a trace effusion. The right lung is clear. No pneumothorax. The cardiac silhouette is enlarged but stable. Bony vasculature is normal. IMPRESSION: Left lower lobe opacity, considering the given history, likely represents pneumonia. Report Dictated on --- Final --- Dictating Physician: MD PINO TOM A Signed Date and Time: 04/17/2020 11:21 am Signed by: MD PINO TOM A Transcribed Date and Time: 04/17/2020 11:22 [place] XR KNEE BILATERAL STANDINGon 03-22-2020 Patient Name: HYACINTH STAPLETON ---Diagnostic Radiology--- Exam Date/Time 03/22/2020 15:52:28 EDT Exam CR Knee Standing AP Bilateral Ordering Physician MD DIMITRY, PAUL SAN Accession Number [id number] CPT4 Codes 75562 () Reason For Exam internal derangement of right knee Report RIGHT KNEE History: Knee pain, injury Findings: Three views of the right knee osteoarthritic changes with spurring at the patellar, femoral, and tibial joint margins. There is narrowing of the lateral patellofemoral and to a lesser degree the medial tibiofemoral joint spaces. There is no acute fracture, dislocation, or periosteal reaction. There is suggestion of loose body in the posterior right knee. FRONTAL WEIGHT-BEARING VIEWS OF BOTH KNEES History: Knee pain, injury Findings: Two views (routine AP weightbearing and flexion PA views) of both knees were obtained. Evaluation of the left knee is limited due to lack of other views. To the extent visualized, there is narrowing of the medial left and to a lesser degree right tibiofemoral joint spaces with small marginal spurs. There is no acute fracture, dislocation, or periosteal reaction. IMPRESSION: Bilateral knee osteoarthritis as described. Report Dictated on --- Final --- Dictating Physician: MD LOMELI AHMAD Signed Date and Time: 03/22/2020 5:47 pm Signed by: MD LOMELI AHMAD Transcribed Date and Time: 03/22/2020 5:48 [place] [facility], [facility] Results From [facility] - 03/22/2020 5:49 PM EDT Patient Name: HYACINTH STAPLETON ---Diagnostic Radiology--- Exam Date/Time 03/22/2020 15:52:28 EDT Exam CR Knee Standing AP Bilateral Ordering Physician MD DIMITRY, PAUL SAN Accession Number [id number] CPT4 Codes 28883 () Reason For Exam internal derangement of right knee Report RIGHT KNEE History: Knee pain, injury Findings: Three views of the right knee osteoarthritic changes with spurring at the patellar, femoral, and tibial joint margins. There is narrowing of the lateral patellofemoral and to a lesser degree the medial tibiofemoral joint spaces. There is no acute fracture, dislocation, or periosteal reaction. There is suggestion of loose body in the posterior right knee. FRONTAL WEIGHT-BEARING VIEWS OF BOTH KNEES History: Knee pain, injury Findings: Two views (routine AP weightbearing and flexion PA views) of both knees were obtained. Evaluation of the left knee is limited due to lack of other views. To the extent visualized, there is narrowing of the medial left and to a lesser degree right tibiofemoral joint spaces with small marginal spurs. There is no acute fracture, dislocation, or periosteal reaction. IMPRESSION: Bilateral knee osteoarthritis as described. Report Dictated on --- Final --- Dictating Physician: MD LOMELI AHMAD Signed Date and Time: 03/22/2020 5:47 pm Signed by: MD LOMELI AHMAD Transcribed Date and Time: 03/22/2020 5:48 [place] XR KNEE RIGHT (3 VIEWS)on Patient Name: HYACINTH STAPLETON ---Diagnostic Radiology--- Exam Date/Time 03/22/2020 15:52:28 EDT Exam CR Knee 3 Views Right Ordering Physician MD DIMITRY, PAUL SAN Accession Number [id number] CPT4 Codes 37236 () Reason For Exam internal derangement of right knee Report RIGHT KNEE History: Knee pain, injury Findings: Three views of the right knee osteoarthritic changes with spurring at the patellar, femoral, and tibial joint margins. There is narrowing of the lateral patellofemoral and to a lesser degree the medial tibiofemoral joint spaces. There is no acute fracture, dislocation, or periosteal reaction. There is suggestion of loose body in the posterior right knee. FRONTAL WEIGHT-BEARING VIEWS OF BOTH KNEES History: Knee pain, injury Findings: Two views (routine AP weightbearing and flexion PA views) of both knees were obtained. Evaluation of the left knee is limited due to lack of other views. To the extent visualized, there is narrowing of the medial left and to a lesser degree right tibiofemoral joint spaces with small marginal spurs. There is no acute fracture, dislocation, or periosteal reaction. IMPRESSION: Bilateral knee osteoarthritis as described. Report Dictated on --- Final --- Dictating Physician: MD LOMELI AHMAD Signed Date and Time: 03/22/2020 5:47 pm Signed by: MD LOMELI AHMAD Transcribed Date and Time: 03/22/2020 5:49 [facility], [place] [facility], [facility] Incoming Radiology Results From [facility] - 03/22/2020 5:49 PM EDT Patient Name: HYACINTH STAPLETON ---Diagnostic Radiology--- Exam Date/Time 03/22/2020 15:52:28 EDT Exam CR Knee 3 Views Right Ordering Physician MD DIMITRY, PAUL SAN Accession Number [id number] CPT4 Codes 49541 () Reason For Exam internal derangement of right knee Report RIGHT KNEE History: Knee pain, injury Findings: Three views of the right knee osteoarthritic changes with spurring at the patellar, femoral, and tibial joint margins. There is narrowing of the lateral patellofemoral and to a lesser degree the medial tibiofemoral joint spaces. There is no acute fracture, dislocation, or periosteal reaction. There is suggestion of loose body in the posterior right knee. FRONTAL WEIGHT-BEARING VIEWS OF BOTH KNEES History: Knee pain, injury Findings: Two views (routine AP weightbearing and flexion PA views) of both knees were obtained. Evaluation of the left knee is limited due to lack of other views. To the extent visualized, there is narrowing of the medial left and to a lesser degree right tibiofemoral joint spaces with small marginal spurs. There is no acute fracture, dislocation, or periosteal reaction. IMPRESSION: Bilateral knee osteoarthritis as described. Report Dictated on --- Final --- Dictating Physician: MD LOMELI AHMAD Signed Date and Time: 03/22/2020 5:47 pm Signed by: MD LOMELI AHMAD Transcribed Date and Time: 03/22/2020 5:49 [place] CBC Auto Differentialon 09-0 Absolute Baso # 0.1 10*3/uL 0 - 0.2 10*3/uL [place] Absolute Neut # 4.2 10*3/uL 1.8 - 7 10*3/uL [place] Basophils/100 WBC (Bld) 1.3 % 0 - 2 % [place] Eosinophils (Bld) [#/Vol] 0.2 10*3/uL 0 - 0.5 10*3/uL [place] Eosinophils/100 WBC (Bld) 3.4 % 1 - 6 % [place] Erythrocyte distribution width (RBC) [Ratio] 14.3 % 11.5 - 14.5 % [place] Granulocytes/100 WBC (Bld) 70.7 % 40 - 80 % [place] Hematocrit (Bld) [Volume fraction] 37.2 % Low 40 - 52 % [place] Hemoglobin (Bld) [Mass/Vol] 12.6 g/dL Low 13 - 18 g/dL [place] Lymphocytes (Bld) [#/Vol] 0.8 10*3/uL Low 1 - 4.3 10*3/uL [place] Lymphocytes/100 WBC (Bld) 14.2 % Low 20 - 40 % [place] MCH (RBC) [Entitic mass] 29.1 pg 26 - 34 pg [place] MCHC (RBC) [Mass/Vol] 33.9 % 32 - 36 % [place] MCV (RBC) [Entitic vol] 85.8 fL 80 - 98 fL [place], [place] Monocytes (Bld) [#/Vol] 0.6 10*3/uL 0 - 0.8 10*3/uL [place] Monocytes/100 WBC (Bld) 10.4 % High 2 - 10 % [place] Platelet mean volume (Bld) [Entitic vol] 8.3 fL 7.4 - 10.4 fL [place] Platelets (Bld) [#/Vol] 273 10*3/uL 140 - 440 10*3/uL [place] RBC (Bld) [#/Vol] 4.34 10*6/uL Low 4.4 - 5.9 10*6/uL [place] WBC (Bld) [#/Vol] 5.9 10*3/uL 3.6 - 10.7 10*3/uL [facility], [place] Creatinine, Random Urineon 0 02-15-2020 Creatinine (U) [Mass/Vol] 109.0 mg/dL No Range [facility] [place], [place] Otheron 02-15-2020 Interpretation and review of laboratory results Abnormal [facility], [place] Test Performed by [facility], [address] , [place], [place] [address] [place], [place] PTH, Intact[place] 02-15-2020 Pth Intact 47.1 pg/mL 15 - 63 pg/mL [facility], [place] Test Performed by [facility], [address], [place], [place] [address] [place], [place] Protein, urine, randomon Protein (U) [Mass/Vol] 86 mg/dL High No Range [facility], [place] Renal Function Panelon 02-14 Albumin [Mass/Vol] 4.0 g/dL 3.5 - 5 g/dL [place], [place] Anion gap [Moles/Vol] 8 mmol/L [place] Calcium [Mass/Vol] 8.9 mg/dL 8.4 - 10. 4 mg/dL [place] Chloride [Moles/Vol] 105 mmol/L 98 - 10 7 mmol/L [facility], [place] CO2 [Moles/Vol] 27 mmol/L 22 - 30 mmol/L [place] Creatinine [Mass/Vol] 1.72 mg/dL High 0.52 - 1.25 mg/dL [facility], [place] EGFR IF NonAfrican [place] 40.7 mL/min Abnormal >60 [place] Comment on above: KDIGO guidelines pro vide the following GFR categories: Stage GFR(ml/min/1.73 m2) Terms G1 >=90 Normal or high G2 60-89 Mildly decreased* G3a 45-59 Mildly to moderately decreased G3b 30-44 Moderately to severely decreased G4 15-29 Severely decreased G5 <15 Kidney failure *Relative to young adult level. In the absence of evidence of kidney damage, neither GFR category G1 nor G2 fulfill the criteria for CKD. The CKD-EPI equation is validated in individuals 18 years of age and older. Currently the best equation for estimating glomerular filtration rate (GFR) from serum creatinine in children is the Bedside Radford equation. It is less accurate in patients with extremes of muscle mass, restriction of dietary protein, ingestion of creatine, extra-renal metabolism of creatinine, or treatment with medications that affect renal tubular creatinine secretion. GFR/1.73 sq M predicted among blacks MDRD (S/P/Bld) [Vol rate/Area] 47.1 mL/min/{1.73_m2} Abnormal >60 [place] Glucose [Mass/Vol] 105 mg/dL High 70 - 100 mg/dL [place] Interpretation and review of laboratory results Abnormal [place] Phosphate [Mass/Vol] 3.3 mg/dL 2.5 - 4 .5 mg/dL [place] Potassium [Moles/Vol] 3.8 mmol/L 3.5 - 5.1 mmol/L [place] Sodium [Moles/Vol] 139 mmol/L 135 - 145 mmol/L [place] Urea nitrogen [Mass/Vol] 26 mg/dL High 7 - 20 mg/dL [place] Test Performed by [facility] [employer] [facility], [address] , [place], [place] [id number] [place] [address] Vitamin D 25 Hydroxyon 02-14 Vit D, 25-Hydroxy 64 ng/mL 30 - 100 ng/mL [place] Comment on above: Therapy is based on measurement of Total 25-OHD with the following classification levels: Less than 20 ng/mL: Indicative of Vit D deficiency 20-30 ng/mL: Suggests Vit D insufficiency Optimal: Greater than or equal to 30 ng/mL Test performed by [employer], measuring Total Vitamin D, not individual fractions. Test Performed by [facility] [employer], [address], [place], [place] [id number] [place] [address] Renal Function Panelon 07-20 Albumin [Mass/Vol] 4.3 g/dL 3.5 - 5 g/dL [facility] Work Phone: Anion gap [Moles/Vol] 10 mmol/L [facility] Work Phone: Calcium [Mass/Vol] 9.2 mg/dL 8.4 - 10. 4 mg/dL [facility] Work Phone: [phone] Chloride [Moles/Vol] 104 mmol/L 98 - 10 7 mmol/L [facility] Work Phone: ) 222 CO2 [Moles/Vol] 27 mmol/L 22 - 30 mmol/L [facility] Work Phone: 222 Creatinine [Mass/Vol] 2.47 mg/dL High 0.52 - 1.25 mg/dL [facility] Work Phone: 1) EGFR IF NonAfrican [place] 26.4 mL/min >60 [facility] Work Phone: Comment on above: Source- MDRD equatio n with creatinine calibration to IDMS(NKDEP) eGFR not recommended for drug dose adjustment GFR/1.73 sq M predicted among blacks MDRD (S/P/Bld) [Vol rate/Area] 32.0 mL/min/{1.73_m2} >60 [facility] Work Phone: ) [phone] Glucose [Mass/Vol] 90 mg/dL 70 - 100 mg/dL [facility] Work Phone: Interpretation and review of laboratory results Abnormal [facility] Work Phone: [phone] Phosphate [Mass/Vol] 4.2 mg/dL 2.5 - 4 .5 mg/dL [facility] Work Phone: 222 Potassium [Moles/Vol] 4.3 mmol/L 3.5 - 5.1 mmol/L [facility] Work Phone: [phone] Sodium [Moles/Vol] 142 mmol/L 135 - 145 mmol/L [facility] Work Phone: 222 Urea nitrogen [Mass/Vol] 43 mg/dL High 7 - 20 mg/dL [facility] Work Phone: [phone] Test Performed by [facility], [facility] [address] , [place] [id number] [facility] Work Phone: [phone] CBC Auto DifferentialOrdered By: Tara Skelton on 06-05-2019 Absolute Baso # 0.1 10*3/uL 0 - 0.2 10*3/uL [facility] Work Phone: [phone] Absolute Neut # 3.7 10*3/uL 1.8 - 7 10*3/uL [facility] Work Phone: [phone] Basophils/100 WBC (Bld) 1.1 % 0 - 2 % [employer] Work Phone: () [phone] Eosinophils (Bld) [#/Vol] 0.2 10*3/uL 0 - 0.5 10*3/uL [facility] Work Phone: [phone] Eosinophils/100 WBC (Bld) 2.8 % 1 - 6 % [employer] Work Phone: [phone] Erythrocyte distribution width (RBC) [Ratio] 13.9 % 11.5 - 14.5 % [facility] Work Phone: [phone] Granulocytes/100 WBC (Bld) 68.8 % 40 - 80 % [facility] Work Phone: [phone] Hematocrit (Bld) [Volume fraction] 36.2 % Low 40 - 52 % [facility] Work Phone: [phone] Hemoglobin (Bld) [Mass/Vol] 11.7 g/dL Low 13 - 18 g/dL [facility] Work Phone: [phone] Interpretation and review of laboratory results Abnormal [facility] Work Phone: [phone] Lymphocytes (Bld) [#/Vol] 0.8 10*3/uL Low 1 - 4.3 10*3/uL [facility] Work Phone: [phone] Lymphocytes/100 WBC (Bld) 15.2 % Low 20 - 40 % [facility] Work Phone: [phone] MCH (RBC) [Entitic mass] 27.6 pg 26 - 34 pg [employer] Work Phone: [phone] MCHC 32.4 % 32 - 36 % [employer] Work Phone: [phone] MCV (RBC) [Entitic vol] 85.0 fL 80 - 98 fL [employer] Work Phone: () [phone] Monocytes (Bld) [#/Vol] 0.7 10*3/uL 0 - 0.8 10*3/uL [employer] Work Phone: [phone] Monocytes/100 WBC (Bld) 12.1 % High 2 - 10 % [facility] Work Phone: [phone] Platelet mean volume (Bld) [Entitic vol] 8.8 fL 7.4 - 10.4 fL [facility] Work Phone: 222 Platelets (Bld) [#/Vol] 303 10*3/uL 140 - 440 10*3/uL [facility] Work Phone: 222 RBC (Bld) [#/Vol] 4.25 10*6/uL Low 4.4 - 5.9 10*6/uL [facility] Work Phone: ) 222 WBC (Bld) [#/Vol] 5.4 10*3/uL 3.6 - 10.7 10*3/uL [facility] Work Phone: [phone] Test Performed by [facility], [address] [place] [address] [facility] Work Phone: Comprehensive Metabolic Pane lOrdered By: Tara Skelton on 06-05-2019 Albumin [Mass/Vol] 3.1 g/dL Low 3.5 - 5 g/dL [facility] Work Phone: [phone] ALP [Catalytic activity/Vol] 32 U/L Low 38 - 126 U/L [facility] Work Phone: 222 ALT [Catalytic activity/Vol] 37 U/L 13 - 69 U/L [facility] Work Phone: [phone] Anion gap [Moles/Vol] 6 mmol/L [facility] Work Phone: [phone] AST [Catalytic activity/Vol] 46 U/L 15 - 46 U/L [facility] Work Phone: 222 Bilirubin [Mass/Vol] 0.6 mg/dL 0.2 - 1 .3 mg/dL [facility] Work Phone: [phone] Calcium [Mass/Vol] 8.1 mg/dL Low 8.4 - 10. 4 mg/dL [facility] Work Phone: ) 222 Chloride [Moles/Vol] 104 mmol/L 98 - 10 7 mmol/L [facility] Work Phone: 222 CO2 [Moles/Vol] 28 mmol/L 22 - 30 mmol/L [facility] Work Phone: [phone] Creatinine [Mass/Vol] 1.81 mg/dL High 0.52 - 1.25 mg/dL [facility] Work Phone: [phone] EGFR IF NonAfrican [place] 37.8 mL/min >60 [facility] Work Phone: Comment on above: Source- MDRD equatio n with creatinine calibration to IDMS(NKDEP) eGFR not recommended for drug dose adjustment GFR/1.73 sq M.predicted among blacks MDRD (S/P/Bld) [Vol rate/Area] 45.9 mL/min/{1.73_m2} >60 [facility] Work Phone: [phone] Glucose [Mass/Vol] 97 mg/dL 70 - 100 mg/dL [facility] Work Phone: Interpretation and review of laboratory results Abnormal [facility] Work Phone: 222 Potassium [Moles/Vol] 3.7 mmol/L 3.5 - 5.1 mmol/L [facility] Work Phone: 222 Protein [Mass/Vol] 5.8 g/dL Low 6.3 - 8.2 g/dL [facility] Work Phone: 222 Sodium [Moles/Vol] 139 mmol/L 135 - 145 mmol/L [facility] Work Phone: 222 Urea nitrogen [Mass/Vol] 28 mg/dL High 7 - 20 mg/dL [facility] Work Phone: Test Performed by [facility], [address] [place] [id number] [facility] Work Phone: CBC Auto DifferentialOrdered By: Tara Skelton on 06-04-2019 Absolute Baso # 0.0 10*3/uL 0 - 0.2 10*3/uL [facility] Work Phone: - [phone] Absolute Neut # 4.8 10*3/uL 1.8 - 7 10*3/uL [facility] Work Phone: [phone] Basophils/100 WBC (Bld) 0.7 % 0 - 2 % [facility] Work Phone: ) [phone] Eosinophils (Bld) [#/Vol] 0.1 10*3/uL 0 - 0.5 10*3/uL [employer] Work Phone: [phone] Eosinophils/100 WBC (Bld) 1.0 % 1 - 6 % [employer] Work Phone: [phone] Erythrocyte distribution width (RBC) [Ratio] 14.2 % 11.5 - 14.5 % [employer] Work Phone: [phone] Granulocytes/100 WBC (Bld) 71.6 % 40 - 80 % [facility] Work Phone: [phone] Hematocrit (Bld) [Volume fraction] 35.2 % Low 40 - 52 % [facility] Work Phone: [phone] Hemoglobin (Bld) [Mass/Vol] 11.5 g/dL Low 13 - 18 g/dL [employer] Work Phone: [phone] Interpretation and review of laboratory results Abnormal [facility] Work Phone: [phone] Lymphocytes (Bld) [#/Vol] 0.9 10*3/uL Low 1 - 4.3 10*3/uL [employer] Work Phone: [phone] Lymphocytes/100 WBC (Bld) 13.5 % Low 20 - 40 % [employer] Work Phone: [phone] MCH (RBC) [Entitic mass] 27.4 pg 26 - 34 pg [employer] Work Phone: [phone] MCHC 32.7 % 32 - 36 % [employer] Work Phone: [phone] MCV (RBC) [Entitic vol] 84.0 fL 80 - 98 fL [facility] Work Phone: [phone] Monocytes (Bld) [#/Vol] 0.9 10*3/uL High 0 - 0.8 10*3/uL [employer] Work Phone: [phone] Monocytes/100 WBC (Bld) 13.2 % High 2 - 10 % [facility] Work Phone: [phone] Platelet mean volume (Bld) [Entitic vol] 8.5 fL 7.4 - 10.4 fL [employer] Work Phone: [phone] Platelets (Bld) [#/Vol] 283 10*3/uL 140 - 440 10*3/uL [facility] Work Phone: [phone] RBC (Bld) [#/Vol] 4.19 10*6/uL Low 4.4 - 5.9 10*6/uL [facility] Work Phone: [phone] WBC (Bld) [#/Vol] 6.7 10*3/uL 3.6 - 10.7 10*3/uL [facility] Work Phone: [phone]) Test Performed by [facility], [address] [place] [address] Str. [place], [place] [address] [facility] Work Phone: [phone] Comprehensive Metabolic Pane lOrdered By: Tara Skelton on 06-04-2019 Albumin [Mass/Vol] 3.2 g/dL Low 3.5 - 5 g/dL [facility] Work Phone: ) 222 ALP [Catalytic activity/Vol] 29 U/L Low 38 - 126 U/L [facility] Work Phone: ) 222 ALT [Catalytic activity/Vol] 43 U/L 13 - 69 U/L [facility] Work Phone: ) 222 Anion gap [Moles/Vol] 7 mmol/L [facility] Work Phone: ) 222 AST [Catalytic activity/Vol] 54 U/L High 15 - 46 U/L [facility] Work Phone: [phone] Bilirubin [Mass/Vol] 0.6 mg/dL 0.2 - 1 .3 mg/dL [facility] Work Phone: ) 222 Calcium [Mass/Vol] 8.1 mg/dL Low 8.4 - 10. 4 mg/dL [facility] Work Phone: ) 222 Chloride [Moles/Vol] 102 mmol/L 98 - 10 7 mmol/L [facility] Work Phone: ) 222 CO2 [Moles/Vol] 30 mmol/L 22 - 30 mmol/L [facility] Work Phone: [phone] Creatinine [Mass/Vol] 2.27 mg/dL High 0.52 - 1.25 mg/dL [facility] Work Phone: [phone] EGFR IF NonAfrican [place] 29.1 mL/min >60 [facility] Work Phone: [phone] Comment on above: Source- MDRD equatio n with creatinine calibration to IDMS(NKDEP) eGFR not recommended for drug dose adjustment GFR/1.73 sq M.predicted among blacks MDRD (S/P/Bld) [Vol rate/Area] 35.3 mL/min/{1.73_m2} >60 [facility] Work Phone: Glucose [Mass/Vol] 100 mg/dL 70 - 100 mg/dL [facility] Work Phone: Interpretation and review of laboratory results Abnormal [facility] Work Phone: Potassium [Moles/Vol] 3.6 mmol/L 3.5 - 5.1 mmol/L [facility] Work Phone: Protein [Mass/Vol] 5.7 g/dL Low 6.3 - 8.2 g/dL [facility] Work Phone: Sodium [Moles/Vol] 139 mmol/L 135 - 145 mmol/L [facility] Work Phone: Urea nitrogen [Mass/Vol] 33 mg/dL High 7 - 20 mg/dL [facility] Work Phone: Test Performed by [place] [address] [facility] Work Phone: EKG 12 LeadOrdered By: Zay Skelton on 06-04-2019 [facility] Test Date: 2019-06-02 Pat Name: Hyacinth Stapleton Department: [facility] Room: 148 Gender: M 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1955 Requested By: TARA SKELTON Order Number: [id number] Reading MD: Miguelito Kim Measurements Intervals [place] Rate: 57 P: 62 [place]: 204 QRS: 16 QRSD: 98 T: 146 QT: 488 QTc: 476 Interpretive Statements SINUS RHYTHM LEFT ATRIAL ABNORMALITY LVH WITH SECONDARY REPOLARIZATION ABNORMALITY BORDERLINE PROLONGED QT INTERVAL Electronically Signed On 06-04-2019 17:09:45 EST by Miguelito Kim [facility] Work Phone: [facility] Results From [facility] - 06/04/2019 5:10 PM EST [facility] Test Date: 2019-06-02 Pat Name: Hyacinth Stapleton Department: [facility] Room: 148 Gender: M Anesthesiology Fellow: SH : 1955 Requested By: TARA SKELTON Order Number: [id number] Reading MD: Miguelito Kim Measurements Intervals [place] Rate: 57 P: 62 [place]: 204 QRS: 16 QRSD: 98 T: 146 QT: 488 QTc: 476 Interpretive Statements SINUS RHYTHM LEFT ATRIAL ABNORMALITY LVH WITH SECONDARY REPOLARIZATION ABNORMALITY BORDERLINE PROLONGED QT INTERVAL Electronically Signed On 06-04-2019 17:09:45 EST by Miguelito Kim [facility] Work Phone: [phone] CBC auto differentialOrdered By: Dagoberto Gan on 06-03-2019 Absolute Baso # 0.0 10*3/uL 0 - 0.2 10*3/uL [employer] Work Phone: [phone] Absolute Neut # 9.6 10*3/uL High 1.8 - 7 10*3/uL [employer] Work Phone: [phone] Basophils/100 WBC (Bld) 0.3 % 0 - 2 % [facility] Work Phone: [phone] Eosinophils (Bld) [#/Vol] 0.0 10*3/uL 0 - 0.5 10*3/uL [employer] Work Phone: Eosinophils/100 WBC (Bld) 0.0 % Low 1 - 6 % [employer] Work Phone: [phone] Erythrocyte distribution width (RBC) [Ratio] 14.0 % 11.5 - 14.5 % [employer] Work Phone: [phone] Granulocytes/100 WBC (Bld) 88.8 % High 40 - 80 % [employer] Work Phone: Hematocrit (Bld) [Volume fraction] 39.3 % Low 40 - 52 % [employer] Work Phone: Hemoglobin (Bld) [Mass/Vol] 12.9 g/dL Low 13 - 18 g/dL [employer] Work Phone: Interpretation and review of laboratory results Abnormal [employer] Work Phone: Lymphocytes (Bld) [#/Vol] 0.5 10*3/uL Low 1 - 4.3 10*3/uL [facility] Work Phone: [phone] Lymphocytes/100 WBC (Bld) 4.2 % Low 20 - 40 % [facility] Work Phone: 1() 222 MCH (RBC) [Entitic mass] 28.0 pg 26 - 34 pg [facility] Work Phone: [phone] MCHC 32.8 % 32 - 36 % [facility] Work Phone: [phone]() 222 MCV (RBC) [Entitic vol] 85.3 fL 80 - 98 fL [facility] Work Phone: 1() 222 Monocytes (Bld) [#/Vol] 0.7 10*3/uL 0 - 0.8 10*3/uL [facility] Work Phone: 1() 222 Monocytes/100 WBC (Bld) 6.7 % 2 - 10 % [facility] Work Phone: 1() 222 Platelet mean volume (Bld) [Entitic vol] 9.0 fL 7.4 - 10.4 fL [facility] Work Phone: [phone] 222 Platelets (Bld) [#/Vol] 276 10*3/uL 140 - 440 10*3/uL [facility] Work Phone: [phone] RBC (Bld) [#/Vol] 4.61 10*6/uL 4.4 - 5.9 10*6/uL [facility] Work Phone: [phone] WBC (Bld) [#/Vol] 10.9 10*3/uL High 3.6 - 10.7 10*3/uL [facility] Work Phone: [phone] Test Performed by [facility], [address] [place], [place] [address] [facility] Work Phone: [phone] Comprehensive Metabolic Pane l w/ Reflex to MGOrdered By: Dagoberto Gan on 06-03-2019 Albumin [Mass/Vol] 3.7 g/dL 3.5 - 5 g/dL [facility] Work Phone: [phone] ALP [Catalytic activity/Vol] 37 U/L Low 38 - 126 U/L [facility] Work Phone: ) 222 ALT [Catalytic activity/Vol] 56 U/L 13 - 69 U/L [facility] Work Phone: [phone] Anion gap [Moles/Vol] 12 mmol/L [facility] Work Phone: [phone] AST [Catalytic activity/Vol] 81 U/L High 15 - 46 U/L [facility] Work Phone: [phone] Bilirubin [Mass/Vol] 0.7 mg/dL 0.2 - 1 .3 mg/dL [facility] Work Phone: [phone] Calcium [Mass/Vol] 8.5 mg/dL 8.4 - 10. 4 mg/dL [facility] Work Phone: [phone] Chloride [Moles/Vol] 103 mmol/L 98 - 10 7 mmol/L [facility] Work Phone: [phone] CO2 [Moles/Vol] 25 mmol/L 22 - 30 mmol/L [facility] Work Phone: [phone] Creatinine [Mass/Vol] 2.2 mg/dL High 0.52 - 1.25 mg/dL [facility] Work Phone: [phone] EGFR IF NonAfrican [place] 30.2 mL/min >60 [facility] Work Phone: [phone] Comment on above: Source- MDRD equatio n with creatinine calibration to IDMS(NKDEP) eGFR not recommended for drug dose adjustment GFR/1.73 sq M.predicted among blacks MDRD (S/P/Bld) [Vol rate/Area] 36.6 mL/min/{1.73_m2} >60 [facility] Work Phone: [phone] Glucose [Mass/Vol] 134 mg/dL High 70 - 100 mg/dL [facility] Work Phone: [phone] Interpretation and review of laboratory results Abnormal [facility] Work Phone: [phone] Potassium [Moles/Vol] 4.1 mmol/L 3.5 - 5.1 mmol/L [facility] Work Phone: [phone] Protein [Mass/Vol] 6.6 g/dL 6.3 - 8.2 g/dL [facility] Work Phone: [phone] Sodium [Moles/Vol] 140 mmol/L 135 - 145 mmol/L [facility] Work Phone: [phone] Urea nitrogen [Mass/Vol] 32 mg/dL High 7 - 20 mg/dL [facility] Work Phone: [phone] Test Performed by [facility] [employer] [facility], [address] [place], [place] [address] [facility] Work Phone: 1 Creatinine, Random UrineOrde red By: Jose Angel Orourke on 06-03-2019 Creatinine (U) [Mass/Vol] 115.8 mg/dL No Range [facility] Work Phone: [phone] No Panel InformationOrdered By: Jose Angel Orourke on 06-03-2019 Test Performed by [facility] [employer] [facility], [address] [place], [place] [address] [facility] Work Phone: [phone] Sodium, urine, randomOrdered By: Jose Angel Orourke on 06-03-2019 Sodium (U) [Moles/Vol] 9 mmol/L No Range [facility] Work Phone: [phone] UrinalysisOrdered By: Tavares Orourke on 06-03-2019 AMORPHOUS CRYSTAL Few Negative /[HPF] [facility] Work Phone: [phone] Appearance (U) Clear Clear NA [employer] Work Phone: [phone] Bilirubin Urine Negative Negative mg/dL [facility] Work Phone: [phone] Color (U) Light-Yellow Lt. Yellow NA [employer] Work Phone: [phone] Glucose, Ur Normal Normal (<70) mg/dL [facility] Work Phone: [phone] Ketones Ql (U) Negative Negative mg/dL [facility] Work Phone: [phone] LEUKOCYTES, UA Negative Negative Kee/uL [facility] Work Phone: [phone] Nitrite, Urine Negative Negative NA [facility] Work Phone: [phone] Occult Blood,Urine Negative Negative mg/dL [facility] Work Phone: [phone] pH (U) 5.0 [pH] [facility] Work Phone: [phone] Protein (U) [Mass/Vol] 20 mg/dL Negative [employer] Work Phone: () 222 RBC, UA 0-2 0 - 2 /[HPF] [facility] Work Phone: Specific [place], Urine 1.017 [facility] Work Phone: Urobilinogen, Urine Normal Normal ( 0-1) mg/dL [facility] Work Phone: WBC, UA 0-2 0 - 5 /[HPF] [facility] Work Phone: Test Performed by [facility], [address] [place], [place] [address] [facility] Work Phone: CT Abdomen Pelvis Wo Contras tOrdered By: Rolf Mata on 06-02-2019 Patient Name: HYACINTH STAPLETON ---CT--- Exam Date/Time 06/02/2019 06:59:[address] Abdomen/Pelvis (No PO, No IV) Ordering Physician FRAN DUNAWAY Accession Number [id number] CPT4 Codes 12272 (CT Abdomen/Pelvis (No PO, No IV)), Q9966 (CT OMNIPAQUE 240 PER ML&[id number]&ML&1) Reason For Exam rt sided abd pain Report HISTORY: Right-sided abdominal pain After oral contrast only sections performed through the abdomen and pelvis. Comparison CT 2016 and ultrasound from 06/02/2019. Just included sections through the lung bases show some atelectatic appearing changes with trace amount left pleural fluid and cardiomegaly Liver and spleen are normal size. Gallbladder is mildly distended with cholelithiasis and thickened wall with some pericholecystic stranding suggesting acute cholecystitis. Biliary system is nondilated Aortoiliac calcific atherosclerosis. Mild degenerative changes spine. IMPRESSION: 1. Cholelithiasis with changes suggesting acute cholecystitis as discussed. 2. Atelectatic appearing changes lung bases with small left pleural effusion 3. Cardiomegaly with scattered calcific atherosclerosis Report Dictated on --- Final --- Dictating Physician: MD SOSA WILLIAM Signed Date and Time: 06/02/2019 7:09 am Signed by: MD SOSA WILLIAM Transcribed Date and Time: 06/02/2019 7:10 [facility] Work Phone: [facility], [facility] Incoming Radiology Results From [facility] - 06/02/2019 7:10 AM EST Patient Name: HYACINTH STAPLETON ---CT--- Exam Date/Time 06/02/2019 06:59:[address] Abdomen/Pelvis (No PO, No IV) Ordering Physician FRAN DUNAWAY Accession Number [id number] CPT4 Codes 73715 (CT Abdomen/Pelvis (No PO, No IV)), Q9966 (CT OMNIPAQUE 240 PER [id number]&ML&1) Reason For Exam rt sided abd pain Report HISTORY: Right-sided abdominal pain After oral contrast only sections performed through the abdomen and pelvis. Comparison CT 2016 and ultrasound from 06/02/2019. Just included sections through the lung bases show some atelectatic appearing changes with trace amount left pleural fluid and cardiomegaly Liver and spleen are normal size. Gallbladder is mildly distended with cholelithiasis and thickened wall with some pericholecystic stranding suggesting acute cholecystitis. Biliary system is nondilated Aortoiliac calcific atherosclerosis. Mild degenerative changes spine. IMPRESSION: 1. Cholelithiasis with changes suggesting acute cholecystitis as discussed. 2. Atelectatic appearing changes lung bases with small left pleural effusion 3. Cardiomegaly with scattered calcific atherosclerosis Report Dictated on --- Final --- Dictating Physician: MD SOSA WILLIAM Signed Date and Time: 06/02/2019 7:09 am Signed by: MD SOSA WILLIAM Transcribed Date and Time: 06/02/2019 7:10 [facility] Work Phone: LipaseOrdered By: Hyacinth graham on 06-02-2019 Lipase [Catalytic activity/Vol] 28 U/L 23 - 300 U/L [facility] Work Phone: Test Performed by [facility], [address] [place] [address] , [place] [id number] [facility] Work Phone: Protime-INROrdered By: José Miguel Bhatti on 06-02-2019 INR Coag (PPP) [Relative time] 1.1 {INR} [facility] Work Phone: Comment on above: Recommended Anticoag ulant Therapy: SEE BELOW ----- INR of 2.0 - 3.0 : - Prophylaxis of Venous Thrombosis (high-risk surgery) - Treatment of Venous Thrombosis - Treatment of Pulmonary Embolism (Includes tissue heart valves, Acute Myocardial Infarction to prevent systemic embolism, Valvular Heart Disease, and Atrial Fibrillation) ----- INR of 2.5 - 3.5 : - Mechanical Prosthetic Valves (high risk) - If oral anticoagulant therapy is used to prevent Myocardial Infarction PT Coag (PPP) [Time] 11.5 s 9 - 12 s [facility] Work Phone: Comment on above: . Test Performed by [email or web address], [address] [place], [place] [address] [employer] Work Phone: TYPE AND SCREENOrdered By: Hank Bhatti on 06-02-2019 ABO Grouping O [facility] Work Phone: Rh Type Positive [employer] Work Phone: Comment on above: Test Performed by [email or web address], [address] [place], [place], [place] [address] Test Performed by [email or web address], [address] [place], [place] [address] [employer] [facility] Work Phone: US ABDOMEN LIMITED Specify o rgan? GALLBLADDEROrdered By: Leonela Yang on 06-02-2019 Patient Name: HYACINTH STAPLETON ---Ultrasound--- Exam Date/Time 06/02/2019 02:00:21 EST Exam US Abdomen Limited Ordering Physician MD SANTO, LEONELA Accession Number [id number] CPT4 Codes 68911 () Reason For Exam RUQ abd pain Report US ABDOMEN LIMITED CLINICAL INDICATION: Right upper quadrant pain. TECHNIQUE: Right upper quadrant ultrasound of abdomen COMPARISON: 10/16/2015 ultrasound. FINDINGS: Liver: Normal size and echotexture. Gallbladder: Gallbladder is incompletely distended with bile. There are gallbladder calculi and sludge. Gallbladder wall is thickened measuring 6 mm in diameter, slightly increased from prior exam. No pericholecystic fluid. Negative Dodd sign is reported. Bile ducts: Intrahepatic and extrahepatic bile ducts are not dilated Common bile duct: 0.3 cm, within normal limits. Pancreas: Suboptimal visualization of pancreas due to overlying bowel gas. Kidneys: Normal echogenicity without pelvicalyceal dilatation or mass Right kidney measures: 12.2 x 7.1 x 6.1 cm IMPRESSION: 1. Cholelithiasis with chronic gallbladder wall thickening. No evidence of acute cholecystitis. Report Dictated on Workstation: [id number] --- Final --- Dictating Physician: HYACINTH LIZ DO, I Signed Date and Time: 06/02/2019 2:30 am Signed by: HYACINTH LIZ DO, I Transcribed Date and Time: 06/02/2019 2:31 [facility] Work Phone: [facility], [facility] Incoming Radiology Results From [facility] - 06/02/2019 2:31 AM EST Patient Name: HYACINTH STAPLETON ---Ultrasound--- Exam Date/Time 06/02/2019 02:00:21 EST Exam US Abdomen Limited Ordering Physician MD SANTO, [facility] Accession Number [id number] CPT4 Codes 67184 () Reason For Exam RUQ abd pain Report US ABDOMEN LIMITED CLINICAL INDICATION: Right upper quadrant pain. TECHNIQUE: Right upper quadrant ultrasound of abdomen COMPARISON: 10/16/2015 ultrasound. FINDINGS: Liver: Normal size and echotexture. Gallbladder: Gallbladder is incompletely distended with bile. There are gallbladder calculi and sludge. Gallbladder wall is thickened measuring 6 mm in diameter, slightly increased from prior exam. No pericholecystic fluid. Negative Dodd sign is reported. Bile ducts: Intrahepatic and extrahepatic bile ducts are not dilated Common bile duct: 0.3 cm, within normal limits. Pancreas: Suboptimal visualization of pancreas due to overlying bowel gas. Kidneys: Normal echogenicity without pelvicalyceal dilatation or mass Right kidney measures: 12.2 x 7.1 x 6.1 cm IMPRESSION: 1. Cholelithiasis with chronic gallbladder wall thickening. No evidence of acute cholecystitis. Report Dictated on Workstation: [id number] --- Final --- Dictating Physician: HYACINTH LIZ DO, I Signed Date and Time: 06/02/2019 2:30 am Signed by: HYACINTH LIZ DO, I Transcribed Date and Time: 06/02/2019 2:31 [facility] Work Phone: XR CHEST PORTABLEOrdered By: Dagoberto Gan on 06-02-2019 Patient Name: HYACINTH STAPLETON ---Diagnostic Radiology--- Exam Date/Time 06/02/2019 16:36:00 EST Exam CR Chest Portable Ordering Physician FRAN DUNAWAY Accession Number [id number] CPT4 Codes 12748 () Reason For Exam sob Report CHEST PORTABLE CLINICAL INDICATION: Cough, shortness of breath TECHNIQUE: Single, portable chest x-ray. COMPARISON: April,. FINDINGS: Mild cardiomegaly, stable. Lungs show increased interstitial markings and peribronchial thickening centrally, most pronounced in the lower lungs. No other focal consolidation or apparent pneumothorax. Degenerative change again noted in the thoracic spine. IMPRESSION: 1. Findings which may represent mild vascular congestion versus nonspecific postinflammatory change, including bronchitis or pneumonitis. 2. No acute consolidation. Report Dictated on Workstation: [id number] --- Final --- Dictating Physician: MD TEE WENDELL Signed Date and Time: 06/02/2019 6:20 pm Signed by: MD TEE WENDELL Transcribed Date and Time: 06/02/2019 6:21 [facility] Work Phone: [facility], [facility] Incoming Radiology Results From [facility] - 06/02/2019 6:21 PM EST Patient Name: HYACINTH STAPLETON ---Diagnostic Radiology--- Exam Date/Time 06/02/2019 16:36:00 EST Exam CR Chest Portable Ordering Physician LunaRadha YESYZFRAN Accession Number [id number] CPT4 Codes 99941 () Reason For Exam sob Report CHEST PORTABLE CLINICAL INDICATION: Cough, shortness of breath TECHNIQUE: Single, portable chest x-ray. COMPARISON: April,. FINDINGS: Mild cardiomegaly, stable. Lungs show increased interstitial markings and peribronchial thickening centrally, most pronounced in the lower lungs. No other focal consolidation or apparent pneumothorax. Degenerative change again noted in the thoracic spine. IMPRESSION: 1. Findings which may represent mild vascular congestion versus nonspecific postinflammatory change, including bronchitis or pneumonitis. 2. No acute consolidation. Report Dictated on Workstation: [id number] --- Final --- Dictating Physician: MD TEE WENDELL Signed Date and Time: 06/02/2019 6:20 pm Signed by: MD TEE WENDELL Transcribed Date and Time: 06/02/2019 6:21 [facility] Work Phone: Comprehensive Metabolic Pane lOrdered By: Hyacinth Augustin on 06-01-2019 Albumin [Mass/Vol] 4.2 g/dL 3.5 - 5 g/dL [facility] Work Phone: ALP [Catalytic activity/Vol] 44 U/L 38 - 126 U/L [facility] Work Phone: ALT [Catalytic activity/Vol] 39 U/L 13 - 69 U/L [facility] Work Phone: Anion gap [Moles/Vol] 11 mmol/L [facility] Work Phone: AST [Catalytic activity/Vol] 27 U/L 15 - 46 U/L [facility] Work Phone: Bilirubin [Mass/Vol] 0.6 mg/dL 0.2 - 1 .3 mg/dL [facility] Work Phone: Calcium [Mass/Vol] 9.2 mg/dL 8.4 - 10. 4 mg/dL [facility] Work Phone: Chloride [Moles/Vol] 102 mmol/L 98 - 10 7 mmol/L [facility] Work Phone: CO2 [Moles/Vol] 27 mmol/L 22 - 30 mmol/L [facility] Work Phone: [phone] Creatinine [Mass/Vol] 1.63 mg/dL High 0.52 - 1.25 mg/dL [facility] Work Phone: EGFR IF NonAfrican [place] 42.7 mL/min >60 [facility] Work Phone: Comment on above: Source- MDRD equatio n with creatinine calibration to IDMS(NKDEP) eGFR not recommended for drug dose adjustment GFR/1.73 sq M.predicted among blacks MDRD (S/P/Bld) [Vol rate/Area] 51.7 mL/min/{1.73_m2} >60 [employer] [facility] Work Phone: [phone] Glucose [Mass/Vol] 130 mg/dL High 70 - 100 mg/dL [facility] Work Phone: 222 Interpretation and review of laboratory results Abnormal [employer] Work Phone: 222 Potassium [Moles/Vol] 3.4 mmol/L Low 3.5 - 5.1 mmol/L [facility] Work Phone: 222 Protein [Mass/Vol] 7.0 g/dL 6.3 - 8.2 g/dL [facility] Work Phone: ) 222 Sodium [Moles/Vol] 140 mmol/L 135 - 145 mmol/L [facility] Work Phone: 222 Urea nitrogen [Mass/Vol] 30 mg/dL High 7 - 20 mg/dL [employer] Work Phone: Test Performed by [facility], [address] [place] [address] [place] [address] [employer] Work Phone: Hemogram (CBC) w/Auto DiffOr dered By: Hyacinth Augustin on 06-01-2019 Absolute Baso # 0.1 10*3/uL 0 - 0.2 10*3/uL [employer] Work Phone: ) 222 Absolute Neut # 10.2 10*3/uL High 1.8 - 7 10*3/uL [employer] Work Phone: ) 222 Basophils/100 WBC (Bld) 0.7 % 0 - 2 % [facility] Work Phone: 222 Eosinophils (Bld) [#/Vol] 0.0 10*3/uL 0 - 0.5 10*3/uL [facility] Work Phone: ) 222 Eosinophils/100 WBC (Bld) 0.3 % Low 1 - 6 % [facility] Work Phone: 222 Erythrocyte distribution width (RBC) [Ratio] 14.0 % 11.5 - 14.5 % [employer] Work Phone: ) 222 Granulocytes/100 WBC (Bld) 84.7 % High 40 - 80 % [employer] Work Phone: 222 Hematocrit (Bld) [Volume fraction] 42.1 % 40 - 52 % [facility] Work Phone: 1() 222 Hemoglobin (Bld) [Mass/Vol] 13.8 g/dL 13 - 18 g/dL [employer] Work Phone: [phone] Interpretation and review of laboratory results Abnormal [employer] Work Phone: 1() 222 Lymphocytes (Bld) [#/Vol] 0.8 10*3/uL Low 1 - 4.3 10*3/uL [facility] Work Phone: 1() 222 Lymphocytes/100 WBC (Bld) 6.5 % Low 20 - 40 % [facility] Work Phone: 1() 222 MCH (RBC) [Entitic mass] 27.3 pg 26 - 34 pg [facility] Work Phone: 1() 222 MCHC 32.8 % 32 - 36 % [employer] Work Phone: () 222 MCV (RBC) [Entitic vol] 83.3 fL 80 - 98 fL [facility] Work Phone: () 222 Monocytes (Bld) [#/Vol] 0.9 10*3/uL High 0 - 0.8 10*3/uL [employer] [facility] Work Phone: 1() 222 Monocytes/100 WBC (Bld) 7.8 % 2 - 10 % [facility] Work Phone: () 222 Platelet mean volume (Bld) [Entitic vol] 9.8 fL 7.4 - 10.4 fL [employer] Work Phone: () 222 Platelets (Bld) [#/Vol] 319 10*3/uL 140 - 440 10*3/uL [facility] Work Phone: () 222 RBC (Bld) [#/Vol] 5.05 10*6/uL 4.4 - 5.9 10*6/uL [facility] Work Phone: () 222 WBC (Bld) [#/Vol] 12.0 10*3/uL High 3.6 - 10.7 10*3/uL [employer] Work Phone: [phone] Test Performed by [facility], [facility] [address] , [place] [id number] Work Phone: [phone] Troponin [id number] By: Hyacinth Augustin on 06-01-2019 Troponin I.cardiac [Mass/Vol] 0.031 ng/mL 0 - 0.034 ng/mL [facility] Work Phone: Comment on above: . Test Performed by [facility], [address] , [place], [place] [address] [facility] Work Phone: TSH without Reflexon 019 TSH Qn 1.062 u[IU]/mL 0.465 - 4.68 u[IU]/mL [facility] [place] Test Performed by [facility], [address] , [address] XR CHEST STANDARD (2 VW)on 06-26-2018 Patient Name: HYACINTH STAPLETON ---Diagnostic Radiology--- Exam Date/Time 04/26/2019 15:37:23 EST Exam CR Chest PA/LAT Ordering Physician PANDA NOEL HOLLY S Accession Number [id number] CPT4 Codes 55749 () Reason For Exam shortness of breath Report CHEST X-RAY PA/LATERAL CLINICAL INDICATION: Dyspnea. Frontal and lateral plain films of the chest were obtained. COMPARISON: 11/02/2017. FINDINGS: The cardiac silhouette is borderline enlarged. Pulmonary vascularity is normal. No focal consolidation is seen within the lungs. No pleural effusion or pneumothorax is identified. Thoracic degenerative spondylosis. IMPRESSION: Borderline cardiomegaly. No acute consolidation or pulmonary edema. Report Dictated on --- Final --- Dictating Physician: HYACINTH LIZ DO, I Signed Date and Time: 04/26/2019 4:43 pm Signed by: HYACINTH LIZ DO, I Transcribed Date and Time: 04/26/2019 4:44 [facility], [place] Concepcion Campos Incoming Radiology Results From [facility] - 04/26/2019 4:44 PM EST Patient Name: HYACINTH STAPLETON ---Diagnostic Radiology--- Exam Date/Time 04/26/2019 15:37:23 EST Exam CR Chest PA/LAT Ordering Physician PANDA NOEL HOLLY S Accession Number [id number] CPT4 Codes 37878 () Reason For Exam shortness of breath Report CHEST X-RAY PA/LATERAL CLINICAL INDICATION: Dyspnea. Frontal and lateral plain films of the chest were obtained. COMPARISON: 11/02/2017. FINDINGS: The cardiac silhouette is borderline enlarged. Pulmonary vascularity is normal. No focal consolidation is seen within the lungs. No pleural effusion or pneumothorax is identified. Thoracic degenerative spondylosis. IMPRESSION: Borderline cardiomegaly. No acute consolidation or pulmonary edema. Report Dictated on --- Final --- Dictating Physician: HYACINTH LIZ DO, I Signed Date and Time: 04/26/2019 4:43 pm Signed by: HYACINTH LIZ DO, I Transcribed Date and Time: 04/26/2019 4:44 [place], [place] CBC Auto Differentialon 11-0 Absolute Baso # 0.1 10*3/uL 0 - 0.2 10*3/uL [place] Absolute Neut # 4.5 10*3/uL 1.8 - 7 10*3/uL [place] Basophils/100 WBC (Bld) 1.3 % 0 - 2 % [place] Eosinophils (Bld) [#/Vol] 0.2 10*3/uL 0 - 0.5 10*3/uL [place] Eosinophils/100 WBC (Bld) 3.0 % 1 - 6 % [place] Erythrocyte distribution width (RBC) [Ratio] 14.8 % High 11.5 - 14.5 % [place] Granulocytes/100 WBC (Bld) 67.0 % 40 - 80 % [place] Hematocrit (Bld) [Volume fraction] 38.2 % Low 40 - 52 % [place] Hemoglobin (Bld) [Mass/Vol] 12.8 g/dL Low 13 - 18 g/dL [place] Interpretation and review of laboratory results Abnormal [place] Lymphocytes (Bld) [#/Vol] 1.3 10*3/uL 1 - 4.3 10*3/uL [place] Lymphocytes/100 WBC (Bld) 19.6 % Low 20 - 40 % [place] MCH (RBC) [Entitic mass] 27.8 pg 26 - 34 pg [place] MCHC (RBC) [Mass/Vol] 33.5 % 32 - 36 % [place] MCV (RBC) [Entitic vol] 83.0 fL 80 - 98 fL [place] Monocytes (Bld) [#/Vol] 0.6 10*3/uL 0 - 0.8 10*3/uL [place] Monocytes/100 WBC (Bld) 9.1 % 2 - 10 % [place] Platelet mean volume (Bld) [Entitic vol] 7.9 fL 7.4 - 10.4 fL [place] Platelets (Bld) [#/Vol] 285 10*3/uL 140 - 440 10*3/uL [place] RBC (Bld) [#/Vol] 4.61 10*6/uL 4.4 - 5.9 10*6/uL [place] WBC (Bld) [#/Vol] 6.7 10*3/uL 3.6 - 10.7 10*3/uL [place] Test Performed by [facility], [address] Creatinine, Random Urineon 1 06-13-2018 Creatinine (U) [Mass/Vol] 207.0 mg/dL No [place], [place] Otheron 04-13-2019 Test Performed by [facility], [address] Protein, urine, randomon Interpretation and review of laboratory results Abnormal [place] Protein (U) [Mass/Vol] 181 mg/dL High No Range [place], [place] Renal Function Panelon 04-13 Albumin [Mass/Vol] 3.7 g/dL 3.5 - 5 g/dL [place] Anion gap [Moles/Vol] 10 mmol/L [place] Calcium [Mass/Vol] 8.9 mg/dL 8.4 - 10. 4 mg/dL [place] Chloride [Moles/Vol] 105 mmol/L 98 - 10 7 mmol/L [place] CO2 [Moles/Vol] 26 mmol/L 22 - 30 mmol/L [place] Creatinine [Mass/Vol] 1.78 mg/dL High 0.52 - 1.25 mg/dL [place] EGFR IF NonAfrican [place] 38.6 mL/min >60 [place] Comment on above: Source- MDRD equatio n with creatinine calibration to IDMS(NKDEP) eGFR not recommended for drug dose adjustment GFR/1.73 sq M predicted among blacks MDRD (S/P/Bld) [Vol rate/Area] 46.8 mL/min/{1.73_m2} >60 [place] Glucose [Mass/Vol] 87 mg/dL 70 - 100 mg/dL [place] Interpretation and review of laboratory results Abnormal [place] Phosphate [Mass/Vol] 4.2 mg/dL 2.5 - 4 .5 mg/dL [place] Potassium [Moles/Vol] 3.6 mmol/L 3.5 - 5.1 mmol/L [place] Sodium [Moles/Vol] 141 mmol/L 135 - 145 mmol/L [place] Urea nitrogen [Mass/Vol] 32 mg/dL High 7 - 20 mg/dL [place] Test Performed by [facility], [facility] [place] , [address] Vital Signs Date Time Vital Sign Value Performing Clinician Amandai linda 01-12-2025 10:12-040 Body height 175.3 cm Paul Moraes MD Work Phone: [facility] 01-12-2025 10:12-0400 Body mass index (BMI) [Ratio] 30.18 kg/m2 Paul Moraes MD Work Phone: [facility] 01-12-2025 10:12-0400 Body weight 92.72 kg Paul Moraes MD Work Phone: [facility] 01-12-2025 10:12-0400 Diastolic blood pressure 58 mm[Hg] Paul Moraes MD Work Phone: [facility] 01-12-2025 10:12-0400 Heart rate 55 /min Paul Moraes MD Work Phone: [facility] 01-12-2025 10:12-0400 SaO2% (BldA) [Mass fraction] 96 % Paul Moraes MD Work Phone: [facility] 01-12-2025 10:12-0400 Systolic blood pressure 134 mm[Hg] Paul Moraes MD Work Phone: [facility] 01-02-2025 11:31-0400 Body height 175.3 cm Keo Jansen MD Work Phone: [facility] 01-02-2025 11:31-0400 Body mass index (BMI) [Ratio] 30.27 kg/m2 Keo Jansen MD Work Phone: [facility] 01-02-2025 11:31-0400 Body weight 92.99 kg Keo Jansen MD Work Phone: [facility] 01-02-2025 11:31-0400 Diastolic blood pressure 66 mm[Hg] Keo Jansen MD Work Phone: [facility] 01-02-2025 11:31-0400 Heart rate 62 /min Keo Jansen MD Work Phone: [facility] 01-02-2025 11:31-0400 SaO2% (BldA) [Mass fraction] 95 % Keo Jansen MD Work Phone: [facility] 01-02-2025 11:31-0400 Systolic blood pressure 134 mm[Hg] Keo Jansen MD Work Phone: [facility] 07-14-2024 09:03-0500 Body height 175.3 cm Paul Moraes MD Work Phone: [facility] 07-14-2024 09:03-0500 Body mass index (BMI) [Ratio] 31.43 kg/m2 Paul Moraes MD Work Phone: [facility] 07-14-2024 09:03-0500 Body weight 96.53 kg Paul Moraes MD Work Phone: [facility] 07-14-2024 09:03-0500 Diastolic blood pressure 56 mm[Hg] Paul Moraes MD Work Phone: [facility] 07-14-2024 09:03-0500 Heart rate 62 /min Paul Moraes MD Work Phone: [facility] 07-14-2024 09:03-0500 Systolic blood pressure 124 mm[Hg] Paul Moraes MD Work Phone: [facility] 03-22-2024 10:56-0400 Diastolic blood pressure 80 mm[Hg] Chino Esmeynick 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 Work Phone: [facility] 03-22-2024 10:56-0400 Systolic blood pressure 142 mm[Hg] Chino Kraynick 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 Work Phone: [facility] 03-22-2024 10:37-0400 Body height 175.3 cm Chino Kraynick 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 Work Phone: [facility] 03-22-2024 10:37-0400 Body mass index (BMI) [Ratio] 30.8 kg/m2 Chino Kraynick 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 Work Phone: [facility] 03-22-2024 10:37-0400 Body weight 94.62 kg Chino Kraynick 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 Work Phone: [facility] 03-22-2024 10:37-0400 Heart rate 49 /min Chino Kraynick 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 Work Phone: [facility] 03-22-2024 10:37-0400 SaO2% (BldA) [Mass fraction] 96 % Chino Esmeynick 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 Work Phone: [facility] 01-12-2024 10:37-0400 Body height 175.3 cm Paul Moraes MD Work Phone: [facility] 01-12-2024 10:37-0400 Body mass index (BMI) [Ratio] 30.92 kg/m2 Paul Moraes MD Work Phone: [facility] 01-12-2024 10:37-0400 Body weight 94.98 kg Paul Moraes MD Work Phone: [facility] 01-12-2024 10:37-0400 Diastolic blood pressure 69 mm[Hg] Paul Moraes MD Work Phone: [facility] 01-12-2024 10:37-0400 Heart rate 58 /min Paul Moraes MD Work Phone: [facility] 01-12-2024 10:37-0400 SaO2% (BldA) [Mass fraction] 95 % Paul Moraes MD Work Phone: [facility] 01-12-2024 10:37-0400 Systolic blood pressure 124 mm[Hg] Paul Moraes MD Work Phone: [facility] 09-09-2023 10:39-0400 Body height 175.3 cm Keo Jansen MD Work Phone: [facility] 09-09-2023 10:39-0400 Body mass index (BMI) [Ratio] 31.16 kg/m2 Keo Jansen MD Work Phone: [facility] 09-09-2023 10:39-0400 Body weight 95.71 kg Keo Jansen MD Work Phone: [facility] 09-09-2023 10:39-0400 Diastolic blood pressure 70 mm[Hg] Keo Jansen MD Work Phone: [facility] 09-09-2023 10:39-0400 Heart rate 58 /min Keo Jansen MD Work Phone: [facility] 09-09-2023 10:39-0400 SaO2% (BldA) [Mass fraction] 96 % Keo Jansen MD Work Phone: [facility] 09-09-2023 10:39-0400 Systolic blood pressure 130 mm[Hg] Keo Jansen MD Work Phone: [facility] 02-18-2023 14:45-0400 Body height 175.3 cm Keo Jansen MD Work Phone: [facility] 02-18-2023 14:45-0400 Body mass index (BMI) [Ratio] 31.9 kg/m2 Keo Jansen MD Work Phone: [facility] 02-18-2023 14:45-0400 Body weight 97.98 kg Keo Jansen MD Work Phone: [facility] 02-18-2023 14:45-0400 Diastolic blood pressure 74 mm[Hg] Keo Jansen MD Work Phone: [facility] 02-18-2023 14:45-0400 Heart rate 45 /min Keo Jansen MD Work Phone: [facility] 02-18-2023 14:45-0400 Respiratory rate 15 /min Keo Jansen MD Work Phone: [facility] 02-18-2023 14:45-0400 Systolic blood pressure 132 mm[Hg] Keo Jansen MD Work Phone: [facility] 01-23-2023 09:39-0400 Body mass index (BMI) [Ratio] 32.31 kg/m2 Ofeliaofelia Spearsenthal 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 Work Phone: [facility] 01-23-2023 09:39-0400 Body temperature 98.01 [degF] Ofelia Toryenthal 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 Work Phone: [facility] 01-23-2023 09:39-0400 Body weight 99.25 kg Ofelia Toryenthal 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 Work Phone: [facility] 01-23-2023 09:39-0400 Diastolic blood pressure 60 mm[Hg] Ofelia Bridenthal 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 Work Phone: [facility] 01-23-2023 09:39-0400 Heart rate 59 /min Ofelia Bridenthal 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 Work Phone: [facility] 01-23-2023 09:39-0400 Respiratory rate 18 /min Ofelia Bridenthal 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 Work Phone: [facility] 01-23-2023 09:39-0400 SaO2% (BldA) [Mass fraction] 95 % Ofelia Bridenthal 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 Work Phone: [facility] 01-23-2023 09:39-0400 Systolic blood pressure 122 mm[Hg] Ofelia Bridenthal 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 Work Phone: [facility] 01-01-2023 14:34-0400 Body height 175.3 cm Paul Moraes MD Work Phone: [facility] 01-01-2023 14:34-0400 Body mass index (BMI) [Ratio] 32.61 kg/m2 Paul Moraes MD Work Phone: [facility] 01-01-2023 14:34-0400 Body weight 100.15 kg Paul Moraes MD Work Phone: [facility] 01-01-2023 14:34-0400 Diastolic blood pressure 66 mm[Hg] Paul Moraes MD Work Phone: [facility] 01-01-2023 14:34-0400 Heart rate 59 /min Paul Moraes MD Work Phone: [facility] 01-01-2023 14:34-0400 SaO2% (BldA) [Mass fraction] 95 % Paul Moraes MD Work Phone: [facility] 01-01-2023 14:34-0400 Systolic blood pressure 138 mm[Hg] Paul Moraes MD Work Phone: [facility] 06-30-2022 10:14-0500 Body height 175.3 cm Keo Jansen MD Work Phone: [facility] 06-30-2022 10:14-0500 Body mass index (BMI) [Ratio] 32.34 kg/m2 Keo Jansen MD Work Phone: [facility] 06-30-2022 10:14-0500 Body weight 99.34 kg Keo Jansen MD Work Phone: [facility] 06-30-2022 10:14-0500 Diastolic blood pressure 78 mm[Hg] Keo Jansen MD Work Phone: [facility] 06-30-2022 10:14-0500 Heart rate 68 /min Keo Jansen MD Work Phone: [facility] 06-30-2022 10:14-0500 Respiratory rate 15 /min Keo Jansen MD Work Phone: [facility] 06-30-2022 10:14-0500 Systolic blood pressure 130 mm[Hg] Keo Jansen MD Work Phone: [facility] 06-17-2022 11:33-0500 Diastolic blood pressure 80 mm[Hg] Paul Moraes MD Work Phone: [facility] 06-17-2022 11:33-0500 Heart rate 66 /min Paul Moraes MD Work Phone: [facility] 06-17-2022 11:33-0500 Systolic blood pressure 142 mm[Hg] Paul Moraes MD Work Phone: [facility] 06-17-2022 10:56-0500 Body height 175.3 cm Paul Moraes MD Work Phone: [facility] 06-17-2022 10:56-0500 Body mass index (BMI) [Ratio] 32.31 kg/m2 Paul Moraes MD Work Phone: [facility] 06-17-2022 10:56-0500 Body weight 99.25 kg Paul Moraes MD Work Phone: [facility] 06-05-2019 12:14-0500 Diastolic blood pressure 71 mm[Hg] Hyacinth Augustin MD Work Phone: [facility] Work Phone: 06-05-2019 12:14-0500 Heart rate 56 /min Hyacinth Augustin MD Work Phone: [facility] Work Phone: 06-05-2019 12:14-0500 Systolic blood pressure 152 mm[Hg] Hyacinth Augustin MD Work Phone: [facility] Work Phone: 06-05-2019 07:48-0500 Body temperature 98.2 [degF] Hyacinth Augustin MD Work Phone: [facility] Work Phone: 06-05-2019 07:48-0500 Respiratory rate 16 /min Hyacinth Augustin MD Work Phone: [facility] Work Phone: 06-05-2019 07:48-0500 SaO2% (BldA) [Mass fraction] 95 % Hyacinth Augustin MD Work Phone: [facility] Work Phone: 06-01-2019 22:33-0500 Body height 175.3 cm Hyacinth Augustin MD Work Phone: [facility] Work Phone: 06-01-2019 22:33-0500 Body mass index (BMI) [Ratio] 31.16 kg/m2 Hyacinth Augustin MD Work Phone: [facility] Work Phone: 06-01-2019 22:33-0500 Body weight 95.71 kg Hyacinth Augustin MD Work Phone: [facility] Work Phone: Encounters Encounter Date Encounter Type Care Provider Facility Start: 01-26-2025 End: 01-26-2025 Refill Ofelia Ibrahim 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 Work Phone: [facility] Start: 01-13-2025 End: 03-15-2025 Follow-up encounter Paul Moraes MD Work Phone: [facility] Comment on above: Lipid panel, Compreh ensive metabolic panel Start: 01-12-2025 End: 01-13-2025 Orders Only Kemar Niño MD Work Phone: [facility] Start: 01-12-2025 End: 01-12-2025 Assay of hemosiderin, quant Paul Moraes MD Work Phone: [facility] Work Phone: Start: 01-12-2025 End: 01-12-2025 Patient encounter procedure Paul Moraes MD Work Phone: [facility] Comment on above: Routine general medi ildefonso examination at health care facility (Primary Dx); Obstructive sleep apnea syndrome; Chronic diastolic heart failure (HCC); Primary hypertension; Stage 3b chronic kidney disease (HCC); Recurrent major depressive disorder, in full remission (HCC); Pure hypertriglyceridemia; Anxiety; Primary osteoarthritis of both knees; Screening for diabetes mellitus; Benign prostatic hyperplasia with urinary hesitancy Start: 01-12-2025 End: 01-12-2025 ambulatory [facility] Start: 01-12-2025 End: 01-12-2025 Encounter for general adult medical examination without abnormal findings [facility] Start: 01-02-2025 End: 01-02-2025 Office outpatient visit 25 minutes Keo Jansen MD Work Phone: [facility] Cardiology [facility] Comment on above: Chronic diastolic he art failure (HCC) (Primary Dx) Start: 01-02-2025 End: 01-02-2025 ambulatory KEO JANSEN [facility] Start: 10-27-2024 End: 10-27-2024 ambulatory [facility] Start: 09-09-2024 End: 09-10-2024 Orders Only Kemar Niño MD Work Phone: [facility] Start: 09-09-2024 End: 09-09-2024 ambulatory [facility] Start: 08-09-2024 End: 08-09-2024 Refill Teresa Noel 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 Work Phone: [facility] Start: 07-14-2024 End: 07-14-2024 Office outpatient visit 25 minutes Paul Moraes MD Work Phone: [facility] Comment on above: Primary hypertension (Primary Dx); Chronic diastolic heart failure (HCC); Stage 3b chronic kidney disease (HCC); Obstructive sleep apnea syndrome; Benign prostatic hyperplasia with urinary hesitancy; Anxiety; Pure hypertriglyceridemia; Recurrent major depressive disorder, in full remission (HCC) Start: 07-14-2024 End: 07-14-2024 ambulatory [facility] Start: 05-11-2024 End: 05-11-2024 Refill Keo Jansen MD Work Phone: [facility] [employer] Start: 05-06-2024 End: 05-09-2024 Orders Only Kemar Niño MD Work Phone: [facility] Start: 05-06-2024 End: 05-06-2024 ambulatory [facility] Start: 03-22-2024 End: 03-22-2024 Office outpatient visit 25 minutes Chino Garcia 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 Work Phone: [facility] Comment on above: Chronic diastolic he art failure (HCC) (Primary Dx); Primary hypertension; Stage 3b chronic kidney disease (HCC) Start: 03-22-2024 End: 03-22-2024 ambulatory CHINO GARCIA [facility] Start: 02-22-2024 End: 02-23-2024 Telephone encounter Keo Jansen MD Work Phone: [facility] Comment on above: Other (Refill Isosor bide ) Start: 02-17-2024 End: 02-17-2024 Refill Chino Garcia 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 Work Phone: [facility]iology - [facility] Start: 01-12-2024 End: 01-12-2024 Patient encounter procedure Paul Moraes MD Work Phone: [facility] Comment on above: Medicare annual well ness visit, subsequent (Primary Dx); Recurrent major depressive disorder, in full remission (HCC); Peripheral vascular disease, unspecified (HCC); Stage 3b chronic kidney disease (HCC); Chronic systolic heart failure (HCC); Primary hypertension; Benign prostatic hyperplasia with urinary hesitancy; Pure hypertriglyceridemia; Screening for diabetes mellitus; Screening for prostate cancer Start: 09-13-2023 Refill Paul Moraes MD Work Phone: [facility] Start: 09-09-2023 Refill Keo Mckinney Work Phone: [facility] Start: 09-09-2023 End: 09-09-2023 Office outpatient visit 25 minutes Keo Jansen MD Work Phone: [facility] Comment on above: Chronic systolic hea rt failure (HCC) (Primary Dx) Start: 08-18-[address] [facility] Start: 08-17-2023 Orders Only Kemar Mckinney Work Phone: [facility] Start: 07-27-2023 End: 07-27-2023 Emergency department patient visit EULALIA NIELSEN Facility:[facility] Start: 06-12-2023 Refill Keo Mckinney Work Phone: [facility] Start: 05-20-2023 Refill Paul Moraes MD Work Phone: [facility] Start: 03-10-2023 Orders Only Kemar Mckinney Work Phone: [facility] Start: 02-18-2023 End: 02-18-2023 Office outpatient visit 40 minutes Keo Jansen MD Work Phone: [facility] Comment on above: Palpitations Start: 02-16-2023 ambulatory Adali Watts RN [facility] Start: 02-16-2023 Patient encounter procedure Adali andujar RN [facility] Clinical Communication Start: 01-23-2023 End: 01-23-2023 Office outpatient visit 15 minutes Ofelia Ibrahim 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 Work Phone: [facility] Medicine Comment on above: Acute prostatitis (P rimary Dx); Urinary tract infection symptoms Start: 01-22-2023 ambulatory Raiza Elkins RN [facility] Communication Start: 01-22-2023 Patient encounter procedure Raiza broussard RN [facility] Start: 01-20-2023 Refill Paul Moraes MD Work Phone: [facility] Start: 01-01-2023 End: 01-01-2023 Patient encounter procedure Paul Moraes MD Work Phone: [facility] Medicine Comment on above: [facility], subsequent (Primary Dx); 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, without long-term current use of insulin (HCC); Peripheral vascular disease, unspecified (HCC); Chronic systolic heart failure (CMS/HCC) (HCC); Primary hypertension; Stage 3b chronic kidney disease (HCC); Benign prostatic hyperplasia with urinary frequency; Pure hypertriglyceridemia; Recurrent major depressive disorder, in full remission (HCC) Start: 12-18-2022 Refill Chino garcia 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 Work Phone: [facility] Start: 12-17-2022 Refill Paul Moraes MD Work Phone: [facility] Start: 08-25-2022 Refill Paul Moraes MD Work Phone: [facility] Medicine Start: 06-30-2022 End: 06-30-2022 Office outpatient visit 25 minutes Keo Jansen MD Work Phone: [facility] Comment on above: Chronic systolic hea rt failure (CMS/HCC) (HCC) (Primary Dx) Start: 06-17-2022 End: 06-17-2022 Office outpatient visit 25 minutes Pual Moraes MD Work Phone: [facility] Comment on above: Primary hypertension (Primary Dx); Chronic systolic heart failure (CMS/HCC) (HCC); Stage 3b chronic kidney disease (HCC); Anxiety; Recurrent major depressive disorder, in full remission (HCC); Benign prostatic hyperplasia with urinary frequency; Pure hypertriglyceridemia Start: 02-09-2022 End: 02-11-2022 Evaluation and management of inpatient UNKNOWN PROVIDER [facility] Start: 07-05-2020 End: 07-05-2020 Subsequent hospital visit by physician Kemar Niño Work Phone: [facility] Start: 04-17-2020 End: 04-17-2020 Subsequent hospital visit by physician Paul Moraes Work Phone: [facility] Radiology Comment on above: Pneumonia of left lo wer lobe due to infectious organism Start: 03-22-2020 End: 03-22-2020 Subsequent hospital visit by physician Paul Moraes Work Phone: [facility] Radiology Comment on above: Internal derangement of right knee Start: 02-15-2020 End: 02-15-2020 Subsequent hospital visit by physician Kemar Niño Work Phone: [facility] Start: 07-20-2019 End: 07-20-2019 Subsequent hospital visit by physician Kemar Niño Work Phone: [facility] Start: 06-01-2019 End: 06-05-2019 Evaluation and management of inpatient Hyacinth Augustin MD Work Phone: [facility] 1E MED SURG Comment on above: Calculus of gallblad mily with acute on chronic cholecystitis without obstruction (Primary Dx); Abdominal pain, right upper quadrant; Hypokalemia; Post-op pain; S/P laparoscopic cholecystectomy Start: 05-13-2019 End: 05-13-2019 Subsequent hospital visit by physician Marco A Corley Work Phone: [facility] Laboratory Comment on above: Systolic heart failu re, unspecified HF chronicity (HCC) Start: 04-26-2019 End: 04-26-2019 Subsequent hospital visit by physician Teresa Noel Work Phone: [facility] Radiology Comment on above: Shortness of breath; History of tobacco abuse Start: 04-13-2019 End: 04-13-2019 Subsequent hospital visit by physician Pino Funez Work Phone: [facility] Laboratory Start: 09-11-2016 End: 09-11-2016 Emergency department patient visit MEREDITH ASHFORD MD Facility:[facility] Procedures Date Procedure Procedure Detail Performing Clinician Start: 01-12-2025 Complete blood count with white cell differential, automated Kemar Niño MD Work Phone: Start: 01-12-2025 Renal function panel Trent Niño MD Work Phone: Start: 01-12-2025 Urine albumin quantitative Kemar Niño MD Work Phone: Start: 01-12-2025 Lipid 1996 panel - S nicholas or Plasma Kemar Niño MD Work Phone: Start: 09-09-2024 Complete blood count with white cell differential, automated Kemar Niño MD Work Phone: Start: 09-09-2024 Renal function panel Trent Niño MD Work Phone: Start: 09-09-2024 Urine albumin quantitative Kemar Niño MD Work Phone: Start: 05-06-2024 Complete blood count with white cell differential, automated Kemar Niño MD Work Phone: Start: 05-06-2024 Renal function panel Trent Niño MD Work Phone: Start: 05-06-2024 Urine albumin quantitative Kemar Niño MD Work Phone: Start: 03-22-2024 Ecg routine ecg w/le ast 12 lds trcg only w/o i&r Keo Jansen MD Work Phone: Start: 01-12-2024 Lipid 1996 panel - S nicholas or Plasma Chino Garcia 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 Work Phone: Start: 08-17-2023 Complete blood count with white cell differential, automated Kemar Niño MD Work Phone: Start: 08-17-2023 Microscopic urinalysis Kemar Niño MD Work Phone: Start: 08-17-2023 Renal function panel Da tan Niño MD Work Phone: Start: 03-10-2023 Assay of parathormone D cora Niño MD Work Phone: Start: 03-10-2023 Complete blood count with white cell differential, automated Kemar Niño MD Work Phone: Start: 03-10-2023 RENAL FUNCTION PANEL WITHOUT EGFR (QUEST) Kemar Niño MD Work Phone: Start: 02-18-2023 Ecg routine ecg w/le ast 12 lds trcg only w/o i&r Keo Jansen MD Work Phone: Start: 01-23-2023 Urnls dip stick/tabl et rgnt non-auto w/o micrscp Ofelia Bridenthal G[employer] 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 [employer] Work Phone: Start: 01-01-2023 Comprehensive metabo lic panel Paul Moraes MD Work Phone: Start: 01-01-2023 Lipid panel Paul Still MD Work Phone: Start: 01-01-2023 Lipid 1996 panel - S nicholas or Plasma Paul Moraes MD Work Phone: Start: 12-19-2021 Lipid 1996 panel - S nicholas or Plasma Paul Moraes MD Work Phone: Start: 07-05-2020 Creatinine other source [employer] Work Phone: Start: 07-05-2020 Protein total xcpt refractometry urine [employer] Work Phone: Start: 07-05-2020 25 hydroxy includes fractions if performed [employer] Work Phone: Start: 07-05-2020 Assay of parathormone [employer] Phone: Start: 07-05-2020 Blood count complete auto&auto difrntl wbc [employer] Work Phone: Start: 07-05-2020 Renal function panel Da tan Niño Work Phone: Start: 04-17-2020 Radiologic exam ches t 2 views Paul Moraes Work Phone: Start: 03-22-2020 Radiologic exam both knees standing anteropost Paulkatrin [place] [employer] Work Phone: Start: 03-22-2020 Radiologic examinati on knee 3 views Paul Metzmer Work Phone: Start: 02-15-2020 Creatinine other source [employer] Work Phone: Start: 02-15-2020 Protein total xcpt refractometry urine [employer] Work Phone: Start: 02-15-2020 25 hydroxy includes fractions if performed [employer] Phone: Start: 02-15-2020 Assay of parathormone [employer] Phone: Start: 02-15-2020 Blood count complete auto&auto difrntl wbc [employer] Work Phone: Start: 02-15-2020 Renal function panel Da tan Niño [employer] Phone: Start: 07-20-2019 Renal function panel Da [employer] Phone: Start: 06-16-2019 History of cholecystectomy S/P laparoscopic cholecystectomy Paul Moraes MD Work Phone: Start: 06-05-2019 Comprehensive metabo lic panel Tara Skelton 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 Work Phone: Start: 06-04-2019 Comprehensive metabo lic panel Tara Skelton 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 [employer] Work Phone: Start: 06-03-2019 Creatinine other source Jose Angel Orourke MD Work Phone: Start: 06-03-2019 Urnls dip stick/tabl et rgnt auto w/o microscopy Jose Angel Orourke MD Work Phone: Start: 06-03-2019 Blood count complete auto&auto difrntl wbc Dagoberto Gan MD Work Phone: Start: 06-02-2019 Radiologic exam ches t single view Dagoberto Gan MD Work Phone: Start: 06-02-2019 OPERATIVE REPORT 3m Sca nning Start: 06-02-2019 Antibody screen Hyacinth gage MD Work Phone: Comment on above: Test Performed by [facility], [address] [place] [id number] Start: 06-02-2019 Ecg routine ecg w/le ast 12 lds w/i&r Tara Skelton 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 Work Phone: Start: 06-02-2019 Blood typing serolog ic abo Fran Bhatti MD Work Phone: Start: 06-02-2019 Prothrombin time Fran Bhatti MD Work Phone: Start: 06-02-2019 Ct abdomen & pelvis w/o contrast material Fran Bhatti MD Work Phone: Start: 06-02-2019 Us abdominal real ti me w/image limited [facility] DO Work Phone: Start: 06-01-2019 Comprehensive metabo lic panel Hyacinth Augustin MD Work Phone: Start: 05-13-2019 Assay of thyroid stimulating hormone tsh Marco A Corley Work Phone: Start: 04-26-2019 Radiologic exam ches t 2 views Teresa Noel Work Phone: Start: 04-13-2019 Creatinine other source Pino Funez Work Phone: Start: 04-13-2019 Protein total xcpt refractometry urine Pino Funez Work Phone: Start: 04-13-2019 Blood count complete auto&auto difrntl wbc Pino Sousa Armin Work Phone: Start: 04-13-2019 Renal function panel Ad zora Funez Work Phone: History of cholecystectomy S/P laparoscopic cholecystectomy Hyacinth Augustin MD Work Phone: Plan of Treatment Date Care Activity Detail Author Start: 12-19-2026 Lipid panel Lipid Panel [facility] Start: 01-17-2026 End: 01-17-2026 Patient encounter procedure 01/17/2026 9:30 AM EDT Office Visit [address] [address] Paul Moraes MD [address] [place] [id number] [facility] Start: 01-12-2026 Creatinine measurement Creatinine Level [facility] Start: 01-12-2026 Diabetes: Estimated Glomerular Filtration Rate for Kidney [facility] Diabetes: Estimated Glomerular Filtration Rate for Kidney Health [facility] Start: 01-12-2026 Diabetes: Urine Albumin-Creatinine Ratio for Kidney [facility] Diabetes: Urine Albumin-Creatinine Ratio for Kidney Health [facility] Start: 01-12-2026 DTaP/Tdap/Td Vaccines (2 - Td or Tdap) DTaP/Tdap/Td Vaccines (2 - Td or Tdap) [facility] Comment on above: Postponed from 12/01/2023 (Patient Refus ed) Start: 01-12-2026 Hepatitis C screening Hepatitis C Screening [facility] Comment on above: Postponed from 1972 (Patient Refus ed) Start: 01-12-2026 Lipid panel Lipid Panel [facility] Start: 01-12-2026 Potassium measurement Potassium Level [facility] Start: 01-12-2026 RSV Immunization for Adults (1 - Risk 60-74 years 1-dose series) RSV Immunization for Adults (1 - Risk 60-74 years 1-dose series) [facility] Comment on above: Postponed from 2014 (Patient Refus ed) Start: 01-12-2026 Zoster Vaccines (1 of 2) Zoster Vaccines (1 of 2) [facility] Comment on above: Postponed from 2004 (Patient Refus ed) Start: 09-09-2025 Creatinine measurement Creatinine Level [facility] Start: 09-09-2025 Diabetes: Estimated Glomerular Filtration Rate for Kidney Health Diabetes: Estimated Glomerular Filtration Rate for Kidney Health [facility] Start: 09-09-2025 Diabetes: Urine Albumin-Creatinine Ratio for Kidney Health Diabetes: Urine Albumin-Creatinine Ratio for Kidney Health [facility] Start: 09-09-2025 Potassium measurement Potassium Level [facility] Start: 07-15-2025 Depression Monitoring Depression Monitoring [facility] Start: 07-13-2025 COVID-19 Vaccine () COVID-19 Vaccine () [facility] Comment on above: Postponed from 02/07/2024 (Patient Refus ed) Start: 07-13-2025 End: 07-13-2025 Patient encounter procedure 07/13/2025 11:00 AM EST Office Visit [address] [address] Paul Moraes MD [address] [place] [id number] [facility] Start: 05-06-2025 Creatinine measurement Creatinine Level [facility] Start: 05-06-2025 Diabetes: Estimated Glomerular Filtration Rate for Kidney Health Diabetes: Estimated Glomerular Filtration Rate for Kidney Health [facility] Start: 05-06-2025 Diabetes: Urine Albumin-Creatinine Ratio for Kidney Health Diabetes: Urine Albumin-Creatinine Ratio for Kidney Health [facility] Start: 05-06-2025 Potassium measurement Potassium Level [facility] Start: 02-06-2025 COVID-19 Vaccine ( season) COVID-19 Vaccine () [facility] Start: 02-06-2025 Influenza vaccination Influenza Vaccine (#1) [facility] Start: 01-12-2025 End: 01-12-2026 Comprehensive metabolic 1998 panel - Serum or Plasma Comprehensive metabolic panel Lab Routine Screening for diabetes mellitus Expected: 01/12/2025 (Approximate), Expires: 01/12/[address] [facility] Comment on above: Expected: 01/12/2025 (Approximate), Expi res: 01/12/2026 Start: 01-12-2025 End: 01-12-2026 Lipid 1996 panel - Serum or Plasma Lipid panel Lab Routine Pure hypertriglyceridemia Expected: 01/12/2025 (Approximate), Expires: 01/12/[address] [facility] Work Phone: Comment on above: Expected: 01/12/2025 (Approximate), Expi res: 01/12/2026 Start: 01-12-2025 End: 01-12-2025 Patient encounter procedure [facility] Start: 01-11-2025 Creatinine measurement Creatinine Level [facility] Start: 01-11-2025 Diabetes: Estimated Glomerular Filtration Rate for Kidney Health Diabetes: Estimated Glomerular Filtration Rate for Kidney Health [facility] Start: 01-11-2025 Lipid panel Lipid Panel [facility] Start: 01-11-2025 Potassium measurement Potassium Level [facility] Start: 01-10-2025 Depression Monitoring Depression Monitoring [facility] Start: 01-07-2025 COVID-19 Vaccine ( season) COVID-19 Vaccine ( season) [facility] Comment on above: Postponed from 02/06/2023 (Patient Refus ed) Start: 01-07-2025 DTaP/Tdap/Td Vaccines (2 - Td or Tdap) DTaP/Tdap/Td Vaccines (2 - Td or Tdap) [facility] Comment on above: Postponed from 12/01/2023 (Patient Refus ed) Start: 01-07-2025 Hepatitis C screening Hepatitis C Screening [facility] Comment on above: Postponed from 1972 (Patient Refus ed) Start: 01-07-2025 RSV Immunization aged 60 or older (1 - 1-dose 60+ series) RSV Immunization aged 60 or older (1 - 1-dose 60+ series) [facility] Comment on above: Postponed from 2014 (Patient Refus ed) Start: 01-07-2025 RSV Immunization for Adults (1 - Risk 60-74 years 1-dose series) RSV Immunization for Adults (1 - Risk 60-74 years 1-dose series) [facility] Comment on above: Postponed from 2014 (Patient Refus ed) Start: 01-07-2025 Zoster Vaccines (1 of 2) Zoster Vaccines (1 of 2) [facility] Comment on above: Postponed from 2004 (Patient Refus ed) Start: 12-25-2024 Lipid panel Lipid screen [facility] [place] Start: 08-16-2024 Creatinine measurement Creatinine Level [facility] Start: 08-16-2024 Diabetes: Estimated Glomerular Filtration Rate for Kidney Health Diabetes: Estimated Glomerular Filtration Rate for Kidney Health [facility] Start: 08-16-2024 Potassium measurement Potassium Level [facility] Start: 07-14-2024 End: 07-14-2024 Patient encounter procedure [facility] Start: 07-10-2024 Depression Monitoring Depression Monitoring [facility] Start: 06-08-2024 Medicare [facility] Annual Wellness Visit Medicare Advantage Annual Wellness Visit [facility] Start: 03-22-2024 End: 03-22-2024 Patient encounter procedure [facility] Start: 02-07-2024 COVID-19 Vaccine ( season) COVID-19 Vaccine ( season) [facility] Start: 02-07-2024 COVID-19 Vaccine ( season) COVID-19 Vaccine ( season) [facility] Start: 02-07-2024 Influenza vaccination [facility] Start: 02-01-2024 Medicare Advantage Annual Wellness Visit (AWV) Medicare Advantage Annual Wellness Visit (AWV) [facility] Start: 01-12-2024 End: 01-07-2025 Comprehensive metabolic 1998 panel - Serum or Plasma Comprehensive metabolic panel Lab Routine Screening for diabetes mellitus Expected: 01/12/2024 (Approximate), Expires: 01/07/2025 [facility] [employer] Comment on above: Expected: 01/12/2024 (Approximate), Expi res: 01/07/2025 Start: 01-12-2024 End: 01-07-2025 Lipid 1996 panel - Serum or Plasma Lipid panel Lab Routine Pure hypertriglyceridemia Expected: 01/12/2024 (Approximate), Expires: 01/07/2025 [facility] [employer] [facility] Work Phone: Comment on above: Expected: 01/12/2024 (Approximate), Expi res: 01/07/2025 Start: 01-12-2024 End: 01-07-2025 PSA Total (Screening) PSA Total (Screening) Lab Routine Screening for prostate cancer Expected: 01/12/2024 (Approximate), Expires: 01/07/[address] [facility] Comment on above: Expected: 01/12/2024 (Approximate), Expi res: 01/07/2025 Start: 01-04-2024 End: 01-04-2024 Patient encounter procedure 01/04/2024 10:30 AM EDT Office Visit [address] [place] [address] Paul Moraes MD [address] [place], [place] [address] [address] [facility] Start: 01-02-2024 Creatinine measurement Creatinine Level [facility] Start: 01-02-2024 Hemoglobin A1c measurement Diabetes: Hemoglobin A1C [facility] Start: 01-02-2024 Lipid panel Lipid Panel [facility] Start: 01-02-2024 Potassium measurement Potassium Level [facility] Start: 12-01-2023 DTaP/Tdap/Td Vaccines (2 - Td or Tdap) DTaP/Tdap/Td Vaccines (2 - Td or Tdap) [facility] Start: 10-31-2023 Creatinine measurement Creatinine Level [facility] Start: 10-31-2023 Potassium measurement Potassium Level [facility] Start: 10-12-2023 Lipid screen Lipid screen [facility] [place] Start: 07-06-2023 End: 07-06-2023 Patient encounter procedure 07/06/2023 11:00 AM EST Office Visit [address] [place] [address] Paul Moraes MD [address] [place] [address] [address] [facility] Start: 07-04-2023 Depresssion Monitoring Depresssion Monitoring [facility] Start: 07-03-2023 Creatinine measurement Creatinine Level [facility] Start: 07-03-2023 Potassium measurement Potassium Level [facility] Start: 06-17-2023 COVID-19 Vaccine (3 - Booster for Moderna series) COVID-19 Vaccine (3 - Booster for Moderna series) [facility] Comment on above: Postponed from 01/23/2021 (Patient Refus ed) Start: 06-17-2023 COVID-19 Vaccine (3 - Moderna series) COVID-19 Vaccine (3 - Moderna series) [facility] Comment on above: Postponed from 01/23/2021 (Patient Refus ed) Start: 06-17-2023 Hepatitis C screening Hepatitis C Screening [facility] Comment on above: Postponed from 1972 (Patient Refus ed) Start: 06-17-2023 Pneumococcal Vaccine: 65+ Years (1 - PCV) Pneumococcal Vaccine: 65+ Years (1 - PCV) [facility] Comment on above: Postponed from 1960 (Patient Refus ed) Start: 06-17-2023 Pneumococcal Vaccine: 65+ Years (1 of 2 - PCV) Pneumococcal Vaccine: 65+ Years (1 of 2 - PCV) [facility] Comment on above: Postponed from 1960 (Patient Refus ed) Start: 06-17-2023 Zoster Vaccines (1 of 2) Zoster Vaccines (1 of 2) [facility] Comment on above: Postponed from 2004 (Patient Refus ed) Start: 06-08-2023 Medicare Advantage Annual Wellness Visit Medicare Advantage Annual Wellness Visit [facility] Start: 03-07-2023 Creatinine measurement Creatinine Level [facility] Start: 03-07-2023 Potassium measurement Potassium Level [facility] Start: 02-25-2023 Diabetes: Urine Albumin-Creatinine Ratio for Kidney Health Diabetes: Urine Albumin-Creatinine Ratio for Kidney Health [facility] Start: 02-24-2023 End: 02-24-2023 Clinical Support 02/24/2023 10:00 AM EDT Clinical Support [facility] [place] [address] [facility] Start: 02-18-2023 End: 02-18-2023 Patient encounter procedure 02/18/2023 2:40 PM EDT Office Visit [facility] [address] [place] [id number] Keo Jansen MD [address] [place] [address] [address] [place] [address] [facility] Start: 02-17-2023 End: 02-17-2023 Patient encounter procedure 02/17/2023 1:00 PM EDT Office Visit [facility] [address] [place] [address] [place] [address] Paul Moraes MD [address] [place] [address] [place] [address] [facility] Start: 02-06-2023 COVID-19 Vaccine () COVID-19 Vaccine () [facility] Start: 02-06-2023 Influenza vaccination Influenza Vaccine (#1) [facility] Start: 01-23-2023 End: 01-24-2024 Bacteria identified in Urine by Culture Urine culture (clean catch) Microbiology Routine Urinary tract infection symptoms Acute prostatitis Expected: 01/23/2023 (Approximate), Expires: 01/24/[address] [facility] Work Phone: Comment on above: Expected: 01/23/2023 (Approximate), Expi res: 01/24/2024 Start: 01-23-2023 End: 01-23-2023 Patient encounter procedure 01/23/2023 9:40 AM EDT Office Visit [facility] [address] [place] [address] [place] [address] Ofelia Ibrahim APRN - PANDA [address] [place] [address] [facility] Start: 01-01-2023 End: 01-01-2023 Patient encounter procedure 01/01/2023 2:45 PM EDT Office Visit [facility] [address] [place] [address] Paul Moraes MD [address] [place] [id number] [facility] Start: 01-01-2023 End: 01-02-2024 Microalbumin/Creatinine panel in random Urine Microalbumin / creatinine urine ratio Lab Routine 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 Start: 12-05-2022 Influenza vaccination Influenza Vaccine (#1) [facility] Comment on above: Postponed from 02/06/2022 (Patient Refus ed) Start: 06-30-2022 End: 06-30-2022 Patient encounter procedure 06/30/2022 Office Visit Cardiology Keo Jansen MD [address] [place] [address] [address] [place] [address] [facility] Start: 04-17-2021 Creatinine measurement Creatinine monitoring [email or web address] [place] [place] Start: 04-17-2021 Potassium monitoring Potassium monitoring [facility] [employer] [place], [place] Start: 02-14-2021 Creatinine measurement Creatinine monitoring [email or web address] [place] [place] Start: 02-14-2021 Potassium monitoring Potassium monitoring [facility] [employer] [place], [place] Start: 12-22-2020 DTaP/Tdap/Td vaccine (1 - Tdap) DTaP/Tdap/Td vaccine (1 - Tdap) [place], [place] Comment on above: Postponed from 1973 (Patient Refus ed) Start: 12-22-2020 HIV screening HIV screen [place], [place] Comment on above: Postponed from 1969 (Patient Refus ed) Start: 12-22-2020 Pneumococcal 65+ years Vaccine (1 of 1 - PPSV23) Pneumococcal 65+ years Vaccine (1 of 1 - PPSV23) [place] Comment on above: Postponed from 2019 (Patient Refus ed) Start: 12-22-2020 Shingles Vaccine (1 of 2) Shingles Vaccine (1 of 2) [place] Comment on above: Postponed from 2004 (Patient Refus ed) Start: 12-17-2020 End: 12-17-2020 Office Visit 12/17/2020 Office Visit Family [place] [address] [phone] [facility] Start: 07-20-2020 Creatinine monitoring Creatinine monitoring [facility] Work Phone: Start: 07-20-2020 Potassium monitoring Potassium monitoring [facility] Work Phone: Start: 06-11-2020 End: 06-11-2020 Office Visit 06/11/2020 Office Visit Family [place] [address] [phone] [facility] Start: 06-04-2020 Creatinine monitoring Creatinine monitoring [facility] Work Phone: Start: 06-04-2020 Potassium monitoring Potassium monitoring [facility] Work Phone: Start: 05-02-2020 Influenza vaccination Flu vaccine (#1) [place] Comment on above: Postponed from 02/06/2019 (Patient Refus ed) Start: 04-24-2020 End: 04-24-2020 Nurse Only 04/24/2020 Nurse Only Family Medicine [facility] Start: 04-13-2020 Creatinine monitoring Creatinine monitoring [place] Start: 04-13-2020 Potassium monitoring Potassium monitoring [place] Start: 03-26-2020 End: 03-26-2020 Office Visit 03/26/2020 Office Visit Family Medicine Paul Moraes MD [address] [place] [address], [place] [address] [phone] [facility] Start: 02-07-2020 Influenza vaccination Flu vaccine (#1) [place] Start: 09-16-2019 DTaP/Tdap/Td vaccine (1 - Tdap) DTaP/Tdap/Td vaccine (1 - Tdap) [place] Comment on above: Postponed from 1965 (Patient Refus ed) Postponed from 08/03 (Patient Refused) Start: 09-16-2019 HIV screen HIV screen [place] Comment on above: Postponed from 1969 (Patient Refus ed) Start: 09-16-2019 Pneumococcal 0-64 years Vaccine (1 of 1 - PPSV23) Pneumococcal 0-64 years Vaccine (1 of 1 - PPSV23) [place] Comment on above: Postponed from 1960 (Patient Refus ed) Start: 09-16-2019 Shingles Vaccine (1 of 2) Shingles Vaccine (1 of 2) [place] Comment on above: Postponed from 2004 (Patient Refus ed) Start: 07-29-2019 End: 07-29-2019 Office Visit 07/29/2019 Office Visit Cardiology Marco A Corley MD [address] [place], [place] [id number] [facility] Start: 07-22-2019 End: 07-22-2019 Appointment 07/22/2019 Appointment Echocardiography Marco A Corley MD [address] [place], [place] [id number] ERIC MIRANDA Start: 06-10-2019 End: 06-10-2019 Office Visit 06/10/2019 Office Visit Cardiology Marco A Corley MD [address] [place] [address] [phone] RENU HUFF Start: 05-02-2019 End: 05-02-2019 Office Visit 05/02/2019 Office Visit Family Medicine Teresa Noel, 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 - [employer] [address] [place] [address] [place] [address] [phone] [facility] Start: 02-06-2019 Influenza vaccination Flu vaccine (#1) [place], [place] Start: 2014 Hepatitis B Vaccines (1 of 3 - Risk 3-dose series) Hepatitis B Vaccines (1 of 3 - Risk 3-dose series) [facility] Start: 2014 RSV Immunization aged 60 or older (1 - 1-dose 60+ series) RSV Immunization aged 60 or older (1 - 1-dose 60+ series) [facility] Start: 2004 Colon cancer screen colonoscopy Colon cancer screen colonoscopy [place], [place] Start: 2004 Screening for malignant neoplasm of colon Colon cancer screen colonoscopy [place] Start: 2004 Zoster Vaccines (1 of 2) Zoster Vaccines (1 of 2) [facility] Start: 1994 Diabetes screen Diabetes screen [place] Start: 1972 Diabetes mellitus screening Diabetes Screening [facility] Start: 1972 Diabetes: Urine Albumin-Creatinine Ratio for Kidney Health Diabetes: Urine Albumin-Creatinine Ratio for Kidney Health [facility] Start: 1972 Hepatitis C screening Hepatitis C Screening [facility] Start: 1964 Diabetic foot examination Diabetes: Foot Exam [facility] Start: 1964 Glaucoma screening Diabetes: Retinopathy Screening [facility] Start: 1964 Preventive dental service Diabetes: Dental Exam [facility] Start: 1960 Pneumococcal Vaccine: 65+ Years (1 of 2 - PCV) Pneumococcal Vaccine: 65+ Years (1 of 2 - PCV) [facility] Start: 1954 Echocardiography Echocardiogram [facility] Start: 1954 Hepatitis B Vaccines (1 of 3 - 3-dose series) Hepatitis B Vaccines (1 of 3 - 3-dose series) [facility] Start: 1954 Medicare Advantage Annual Wellness Visit (AWV) Medicare Advantage Annual Wellness Visit (AWV) [facility] Start: 1954 Screening for malignant neoplasm of colon [facility] CBC W Auto Different ial panel - Blood CBC Auto Differential Lab Routine Daily until discontinued starting 06/04/2019, 2 completed [facility] Work Phone: Comment on above: Daily until discontinued starting 2018, 2 completed Comprehensive metabo lic 2000 panel - Serum or Plasma Comprehensive Metabolic Panel Lab Routine Daily until discontinued starting 06/04/2019, 2 completed [facility] Work Phone: Comment on above: Daily until discontinued starting 2018, 2 completed ECG 12 lead - CLINIC PERFORMED ECG 12 lead - CLINIC PERFORMED CV ECG Routine Palpitations 02/18/2023 2:41 PM EDT [facility] Work Phone: ECG 12 lead - CLINIC PERFORMED ECG 12 lead - CLINIC PERFORMED CV ECG Routine Primary hypertension 03/22/2024 10:40 AM EDT [facility] Work Phone: Initiate Oxygen Ther apy Protocol Initiate Oxygen Therapy Protocol Respiratory Care Routine Daily until discontinued starting 06/02/2019 [facility] Phone: Comment on above: Daily until discontinued starting 2018 End: 06-02-2019 Lipase [Enzymatic activity/volume] in Serum or Plasma Lipase Lab Add-On One Time for 1 Occurrences starting 06/02/2019 until 06/02/2019 [facility] Work Phone: Comment on above: One Time for 1 Occurrences starting 05/09 until 06/02/2019 End: 06-02-2019 Surgical Pathology Surgical Pathology Lab Routine Once for 1 Occurrences starting 06/02/2019 until 06/02/2019 [facility] Work Phone: Comment on above: Once for 1 Occurrences starting 06/02/20 19 until 06/02/2019 Surgical Pathology Surgical Path ology Lab Routine 06/02/2019 2:50 PM EST [facility] Work Phone: End: 06-03-2019 Urinalysis with Microscopic Urinalysis with Microscopic Lab Add-On One Time for 1 Occurrences starting 06/03/2019 until 06/03/2019 [facility] Work Phone: Comment on above: One Time for 1 Occurrences starting 05/09 until 06/03/2019 Immunizations Immunization Date Immunization Notes Care Provider Fa cility 07-14-2024 Seasonal trivalent influenza vaccine, adjuvanted, preservative free Paul Moraes MD Work Phone: [facility] 07-14-2024 influenza virus vaccine, unspecified formulation Keo Jansen MD Work Phone: [facility] 01-12-2024 Pneumococcal Conjuga te PCV20, Pf (Prevnar 20) Paul Moraes MD Work Phone: [facility] 11-28-2020 Moderna SARS-CoV-2 Vaccination Paul Moraes MD Work Phone: [facility] 10-31-2020 Moderna SARS-CoV-2 Vaccination Paul Moraes MD Work Phone: [facility] 03-22-2020 Influenza, High-dose , Quadv, 65 yrs +, IM (Fluzone) Paul Moraes [facility] 03-22-2020 influenza virus vaccine, unspecified formulation Paul Moraes MD Work Phone: [facility] 03-08-2016 Influenza Vaccine, unspecified formulation Counts include [address] beds at the [facility] , [place] 03-08-2016 influenza, seasonal, injectable Paul Moraes MD Work Phone: [facility] 11-30-2013 tetanus toxoid, redu song diphtheria toxoid, and acellular pertussis vaccine, adsorbed Paul Moraes MD Work Phone: [facility] 03-26-2011 influenza, seasonal, injectable, preservative free Paul Moraes MD Work Phone: [facility] Payers Date Payer Category Payer Medicare 2021 Medicare O [facility] MEDICARE [id number] 2021 Private Health Insurance [id number] 2016 Unknown [id number] 2016 Unknown BCBS [place] - [place] P PO xxxxxxxxxxxxxxx 2016-Present [address] [place] [address] xxxxxxxxxxxxxxx [id number] 1954 Unknown [id number] Private Health Insurance Social History Date Type Detail Facility Start: 04-20-2019 End: 06-02-2019 Tobacco smoking status NHIS Light tobacco smoker [place] Start: 06-08-2012 End: 05-07-2015 History of tobacco use Pipe Smoker [place] Start: 04-20-2019 End: 01-12-2025 Alcohol intake Current drinker of alcohol (finding) [place] Start: 03-24-2018 Tobacco Comment Pipe smoke try ing to quit [place] Start: 10-10-2015 Alcohol Comment Occasional [place], [place] Start: 1955 Sex Assigned At Not on file [place] Start: 05-13-2019 Alcohol Comment Most every day 1 to 2 beers [place] Start: 12-26-2019 End: 01-08-2024 Tobacco use and exposure Never used [place] Start: 12-23-2019 History SDOH Alcohol Frequency 3 [place] Start: 12-23-2019 History SDOH [facility] Start: 06-07-2022 End: 02-24-2023 Exposure to SARS-CoV-2 (event) Not sure [facility] Start: 07-02-2020 End: 07-14-2024 Cigarettes smoked current (pack per day) - [facility] Start: 10-11-2018 End: 07-14-2024 [facility] intake [facility] Start: 03-24-2018 Tobacco Comment Pipe smoke try ing to quit [facility] Work Phone: Start: 05-13-2019 Alcohol Comment Most every day 1 to 2 beers [facility] Work Phone: Start: 06-17-2022 End: 01-08-2024 Tobacco smoking status NHIS Ex-smoker [facility] Start: 06-08-2012 End: 05-07-2015 History of tobacco use Current smoker [facility] End: 05-07-2015 History of tobacco use Cigarette Smoker [facility] Adolescent depressio n screening assessment 2 [facility] How often to you hav e a drink containing alcohol? 4 or more times a week [facility] How many standard drinks containing alcohol do you have on a typical day? 1 or 2 [facility] How often do you hav e 6 or more drinks on 1 occasion? Never [facility] (I/We) worried cha er (my/our) food would run out before (I/we) got money to buy more. Never true [facility] In the past 12 month s, was there a time when you were not able to pay the mortgage or rent on time? No [facility] Start: 02-18-2023 End: 09-09-2023 Alcohol intake Ex-drinker (finding) [facility] Start: 02-18-2023 Alcohol Comment [facility] Start: 01-06-2022 Sex Male (finding) [facility] Are you now , , , , never or living with a partner? [facility] How often to you hav e a drink containing alcohol? 2-3 time sa week [facility] Do you feel stress - tense, restless, nervous, or anxious, or unable to sleep at night because your mind is troubled all the time - these days [OSQ] Not at all [facility] How often do you nee d to have someone help you when you read instructions, pamphlets, or other written material from your doctor or pharmacy [SILS] Sometimes [facility] Goals Date Patient Goal Desired Activity /State Comment on above: Self- Management Diane n: Hyperlipidemia Patient Stated Goal: To have lower triglyceride levels. Barriers to success: lack of motivation Plan for overcoming my barriers: Resume taking Fenofibrate daily as prescribed. Encouraged and recommended by provider. Confidence: 02/15 Date goal set: 04/20/19 Patient given educational materials below via AVS. Patient received counseling about current lifestyle goal. Patient was informed that they should never smoke. If they are smoker, the need to work on quitting. Advised Alcohol only in moderation. Advised approximately 150 minutes of cardio, i.e treadmill, exercise in a week. Advised "strive for 5" a total 5 servings of fruits and vegetables in a day. Advised a diet lower in carbohydrates and simple sugars. They need to watch consumption of bread, rice, pasta, potatoes, corn, soda, sweetened tea, lemonade, and all other sugar drinks. Patient given after visit summary which includes educational information on Hyperlipidemia Provider Goals: The following changes are planned for the next 4 weeks, at which the patient will return for repeat fasting lipids: 1. Dietary changes: Reduce saturated fats, "trans" monounsaturated fatty acids, and cholesterol. Increase soluble fiber. 2. Exercise changes: Engage in walking 20 minutes 3-4 times per week. 3. Lipid-lowering medications: Fenofibrate. Take as prescribed. 4. Follow up: 2 weeks Discussed use, benefit, and side effects of prescribed medications and barriers to medication compliance addressed, if applicable. All patient questions answered and patient voiced understanding. Patient was given a copy of this, and was advised to call if any questions. Functional Status Date Assessment Result Facility 01-12-2025 Patient Health Questionnaire 2 item (PHQ- 2) [Reported] [facility] 01-12-2025 Generalized anxiety disorder 7 item (LAM- 7) [facility] 01-12-2025 Alcohol Use Disorder Identification Test [AUDIT] [facility] Clinical Notes 06-05-2019 to 01-26-2025 Telephone Encounter - MARY Osborn CNP - 01/26/2025 10:39 AM EDTTelephone Encounter - MARY Osborn CNP - 01/26/2025 10:39 AM Lucian Christy MA - 01/12/2025 10:30 AM EDT Note Date & Type Note Facility 01-26-2025 Telephone encounter Note Reviewed chart. Refill appropriate. RX sent. [facility] 01-26-2025 Miscellaneous Notes Reviewed chart. Refill appropriate. RX sent. Prescription Request: Last medication check: 07/14/24 Last physical exam: 01/12/25 Next scheduled appointment: 07/13/25 Last date of refill on this medication 08/09/24 90 and 1 refill both meds documented in this encounter [facility] 01-26-2025 Telephone encounter Note Prescription Request: Last medication check: 07/14/24 Last physical exam: 01/12/25 Next scheduled appointment: 07/13/25 Last date of refill on this medication 08/09/24 90 and 1 refill both meds [facility] 01-12-2025 Evaluation + Plan note Associated Problem(s): Obstructive sleep apnea syndrome Stable, does not have CPAP [facility] 01-12-2025 Evaluation + Plan note Associated Problem(s): Chronic diastolic heart failure (HCC) Stable, continue isosorbide mononitrate 120 mg daily and spironolactone 25 mg daily and carvedilol 6.25 mg twice daily [facility] 01-12-2025 Evaluation + Plan note Associated Problem(s): Hypertension Controlled, continue carvedilol 6.25 mg twice daily and hydralazine 100 mg 3 times a day. [employer] 01-12-2025 Evaluation + Plan note Associated Problem(s): Stage 3b chronic kidney disease (HCC) Currently stable follow-up with nephrology as scheduled and good blood pressure control to prevent further kidney damage. [facility] 01-12-2025 Evaluation + Plan note Associated Problem(s): Recurrent major depressive disorder, in full remission (HCC) In remission, continue paroxetine CR 12.5 mg daily [facility] 01-12-2025 Evaluation + Plan note Associated Problem(s): Hyperlipidemia Controlled, continue fenofibrate 145 mg daily Orders: Lipid panel; Future [facility] 01-12-2025 Evaluation + Plan note Associated Problem(s): Anxiety Remission, continue Paxil CR 12.5 mg daily [facility] 01-12-2025 Evaluation + Plan note Associated Problem(s): Primary osteoarthritis of both knees Stable, recommend using Tylenol to prevent problems with kidneys and heart [facility] 01-12-2025 Evaluation + Plan note Associated Problem(s): Benign prostatic hyperplasia with urinary hesitancy Stable, currently on no medications [facility] 01-12-2025 History of Present illness Narrative Patient verified by last name and date of . Images from the original note were not included. [address] [facility] [address] Dept: [phone] Dept Chief Complaint: Hyacinth Stapleton is an 69 y.o. male here for an annual wellness visit. Assessment/Plan : Assessment & Plan Routine general medical examination at health care facility Obstructive sleep apnea syndrome Stable, does not have CPAP Chronic diastolic heart failure (HCC) Stable, continue isosorbide mononitrate 120 mg daily and spironolactone 25 mg daily and carvedilol 6.25 mg twice daily Primary hypertension Controlled, continue carvedilol 6.25 mg twice daily and hydralazine 100 mg 3 times a day. Stage 3b chronic kidney disease (HCC) Currently stable follow-up with nephrology as scheduled and good blood pressure control to prevent further kidney damage. Recurrent major depressive disorder, in full remission (HCC) In remission, continue paroxetine CR 12.5 mg daily Pure hypertriglyceridemia Controlled, continue fenofibrate 145 mg daily Orders: Lipid panel; Future Anxiety Remission, continue Paxil CR 12.5 mg daily Primary osteoarthritis of both knees Stable, recommend using Tylenol to prevent problems with kidneys and heart Screening for diabetes mellitus Orders: Comprehensive metabolic panel; Future Benign prostatic hyperplasia with urinary hesitancy Stable, currently on no medications I have reviewed and reconciled the medication list with the patient today. Current Outpatient Medications Medication Sig Dispense Refill carvedilol (Coreg) 6.25 MG tablet TAKE 1 TABLET BY MOUTH TWICE DAILY WITH MEALS 180 tablet 1 cholecalciferol (Vitamin D-3) 25 MCG (1000 UT) tablet Take 2,000 Units by mouth daily. fenofibrate (Tricor) 145 MG tablet TAKE 1 TABLET BY MOUTH DAILY 90 tablet 1 hydrALAZINE (Apresoline) 100 MG tablet Take 1 tablet (100 mg) by mouth 3 times daily. 270 tablet 1 isosorbide mononitrate ER (Imdur) 120 MG 24 hr tablet Take 1 tablet (120 mg) by mouth every morning. 90 tablet 3 PARoxetine CR (Paxil-CR) 12.5 MG 24 hr tablet TAKE 1 TABLET BY MOUTH EVERY MORNING 90 tablet 1 spironolactone (Aldactone) 25 MG tablet Take 25 mg by mouth daily. No current facility-administered medications for this visit. Also reviewed during this visit: The following health maintenance schedule was reviewed with the patient and provided in printed form in the after visit summary: Health Maintenance Topic Date Due Colorectal Cancer Screening Never done Lipid Panel 01/11/2025 Depression Monitoring 01/10/2025 COVID-19 Vaccine ( season) 2025 (Originally 02/07/2024) RSV Immunization for Adults (1 - Risk 60-74 years 1-dose series) 01/12/2026 (Originally 2014) DTaP/Tdap/Td Vaccines (2 - Td or Tdap) 01/12/2026 (Originally 12/01/2023) Zoster Vaccines (1 of 2) 01/12/2026 (Originally 2004) Hepatitis C Screening 01/12/2026 (Originally 1972) Influenza Vaccine (1) 02/06/2025 Creatinine Level 09/09/2025 Potassium Level 09/09/2025 Diabetes: Estimated Glomerular Filtration Rate for Kidney Health 09/09/2025 Diabetes: Urine Albumin-Creatinine Ratio for Kidney Health 09/09/2025 Medicare Advantage Annual Wellness Visit Completed Pneumococcal Vaccine: 50+ Years Completed RSV Immunization under 20 Months Aged Out HIB Vaccines Aged Out Hepatitis B Vaccines Aged Out IPV Vaccines Aged Out Hepatitis A Vaccines Aged Out Meningococcal Vaccine Aged Out Rotavirus Vaccines Aged Out HPV Vaccines Aged Out Meningococcal B Vaccine Aged Out Echocardiogram Discontinued Diabetes: Foot Exam Discontinued Diabetes: Hemoglobin A1C Discontinued Diabetes: Retinopathy Screening Discontinued Diabetes: Dental Exam Discontinued List of current healthcare providers: Patient Care Team: Paul Moraes MD as PCP - General Orders Placed This Encounter Procedures Lipid panel Standing Status: Future Number of Occurrences: 1 Expected Date: 01/12/2025 Expiration Date: 01/12/2026 Comprehensive metabolic panel Standing Status: Future Number of Occurrences: 1 Expected Date: 01/12/2025 Expiration Date: 01/12/2026 Review of Systems Constitutional: Negative for activity change, appetite change, chills, fever and unexpected weight change. HENT: Negative for ear pain and sore throat. Respiratory: Negative for shortness of breath. Cardiovascular: Negative for chest pain and palpitations. Gastrointestinal: Negative for abdominal pain, blood in stool, constipation and diarrhea. Genitourinary: Negative for dysuria, frequency, hematuria and urgency. Musculoskeletal: Negative for arthralgias and back pain. Skin: Negative. Neurological: Negative for weakness and numbness. Psychiatric/Behavioral: Negative for dysphoric mood. The patient is not nervous/anxious. Physical Exam Vitals and nursing note reviewed. Constitutional: General: He is not in acute distress. Appearance: Normal appearance. He is obese. HENT: Right Ear: Tympanic membrane, ear canal and external ear normal. Left Ear: Tympanic membrane, ear canal and external ear normal. Mouth/Throat: Mouth: Mucous membranes are moist. Pharynx: Oropharynx is clear. Eyes: Extraocular Movements: Extraocular movements intact. Conjunctiva/sclera: Conjunctivae normal. Pupils: Pupils are equal, round, and reactive to light. Neck: Thyroid: No thyromegaly. Vascular: No carotid bruit. Cardiovascular: Rate and Rhythm: Normal rate and regular rhythm. Heart sounds: Normal heart sounds. No murmur heard. Pulmonary: Effort: Pulmonary effort is normal. Breath sounds: Normal breath sounds. Abdominal: General: Bowel sounds are normal. Palpations: Abdomen is soft. Tenderness: There is no abdominal tenderness. Musculoskeletal: General: Normal range of motion. Cervical back: Neck supple. Lymphadenopathy: Cervical: No cervical adenopathy. Skin: General: Skin is warm and dry. Neurological: General: No focal deficit present. Mental Status: He is alert and oriented to person, place, and time. Psychiatric: Mood and Affect: Mood normal. Objective : BP 134/58 Pulse 55 Ht 5' 9" (1.753 m) Wt 204 lb 6.4 oz (92.7 kg) SpO2 96% BMI 30.18 kg/m No results found. Subjective : Hyacinth comes in today for an annual Medicare well visit he has a number of health issues which include sleep apnea but he does not have a CPAP. He has chronic diastolic heart failure and stage IIIb chronic kidney disease. Hypertension and that is well-controlled. Depression which is in full remission along with his anxiety, he has osteoarthritis of both knees and hypertriglyceridemia. He denies any other complaints at this time, see ROS. Health Risk Assessment: General: General In general, how would you say your health is?: Good In the past 7 days, have you experienced any of the following: New or Increased Pain, New or Increased Fatigue, Loneliness, Social Isolation, Stress or Anger?: No Do you get the social and emotional suppport you need?: Yes Health Habits/Nutrition: Health Habits / Nutrition On average, how many days per week do you engage in moderate to strenous exercise (like a brisk walk)?: (!) 0 days (physical active all day every day) On average, how man minutes do you engage in exercise at this level?: (!) 0 min Have you lost any weight without trying in the past 3 months? : No Have you seen the dentist within the past year?: (!) No Interventions: Dental exam overdue: Patient encouraged to make appointment with his / her dentist Hearing/ Vision: Hearing / Vision Do you or your family notice any trouble with your hearing that hasn't been managed with hearing aids?: (!) Yes Do you have difficulty driving, watching TV, or doing any of your daily activities because of your eyesight?: No Have you had an eye exam within the past year?: Yes No results found. Interventions: Safety: Safety Do you have a working smoke detector?: Yes Do you have any tripping hazards - loose or unsecured carpets or rugs?: No Do you have any tripping hazards - clutter in doorways, halls, or stairs?: No Do you have either shower bars, grab bars, non-slip mats or non-slip surfaces in your shower or bathtub? : Yes Do all your stairways have a railing or banister? : Not Applicable Do you fasten your seatbelt when you are in a car?: Yes ADL: ADL In the past 7 days, did you need help from others to perform any of the following everyday activities: Eating, dressing, grooming,bathing, toileting, or walking / balance? : No In the past 7 days, did you need help from others to take care of any of the following: laundry, housekeeping, banking / finances,shopping, telephone use, food preparation, transportation, or taking medications? : No Living Will: Living Will Do you have a living will?: No Interventions: Advance Care Planning addressed with patient today Cognitive: Cognitive Screening: Mini-Cog Clock Drawing Test (CDT): 2 Words Recalled: 3 Total Score: 5 Total Score Interpretation: Normal Mini-Cog Fall Risk: Fall Risk One or more falls in the last year:: No Advised to use a cane or walker to get around safely:: No Feels unsteady when walking:: No Steadies self on furniture while walking at home:: No Worried about falling:: Yes Depression Screening: Interventions: Tobacco Use: Social History Tobacco Use Smoking Status Former Types: Pipe Start date: 2012 Quit date: 2015 Years since quittin.6 Smokeless Tobacco Never Alcohol Use: Audit Alcohol Screening Q1: How often do you have a drink containing alcohol?: 4 or more times a week Q2: How many drinks containing alcohol do you have on a typical day when you are drinking?: 1 or 2 Q3: How often do you have six or more drinks on one occasion?: Never Audit-C Score: 4 Skip to questions 9-10?: 1 Q10: Has a relative, friend, doctor, or another health professional expressed concern about your drinking or suggested you cut down?: No Interventions: Social Drivers of Health: SDOH risk assessment performed and documented today by members of the health care team. A total time of 5-10 minutes was spent obtaining information from the patient and discussing options to address the patient's social risk factors and unmet needs. Social Drivers of Health with Concerns Concerns Present Tobacco Use: Medium Risk (01/12/2025) Social Connections: Moderately Isolated (07/14/2024) Health Literacy: Inadequate Health Literacy (07/14/2024) documented in this encounter [facility] 01-12-2025 Instructions Paul Moraes MD - 01/12/2025 10:30 AM EDT Personalized Preventative Plan for Hyacinth Stapleton - 01/12/2025 Medicare offers a range of preventative health benefits. Some of the tests and screenings are paid in full while others may be subject to a deductible, co-insurance, and / or copay. Some of these benefits include a comprehensive review of your medical history including lifestyle, illnesses that may run in your family, and various assessments and screenings as appropriate. After reviewing your medical record and screening and assessments performed today, your provider may have ordered immunizations, labs, imaging, and / or referrals for you. A list of these orders (if applicable) as well as your Preventative Care list are included within your After Visit Summary for your review. Other Preventative Recommendations: A preventive eye exam by an order management specialist is recommended every 1-2 years to screen for glaucoma, cataracts, macular degeneration, and other eye disorders. A preventive dental visit is recommended every 6 months. Try to get at least 150 minutes of exercise per week or 10,000 steps per day on a pedometer. You need 1200-1500mg of calcium and [id number] international units of vitamin D per day. It is possible to meet your calcium requirement with diet alone, but a vitamin D supplement is usually necessary to meet this goal. When exposed to the sun, use a sunscreen that protects against both UVA and UVB radiation with an SPF of 30 or greater. Reapply every 2-3 hours or after sweating, drying off with a towel, or swimming. Always wear a seat belt when traveling in a car. Always wear a helmet when riding a bicycle or a motorcycle documented in this encounter [facility] 01-12-2025 Miscellaneous Notes Associated Problem(s): Obstructive sleep apnea syndrome Stable, does not have CPAP Associated Problem(s): Chronic diastolic heart failure (HCC) Stable, continue isosorbide mononitrate 120 mg daily and spironolactone 25 mg daily and carvedilol 6.25 mg twice daily Associated Problem(s): Hypertension Controlled, continue carvedilol 6.25 mg twice daily and hydralazine 100 mg 3 times a day. Associated Problem(s): Stage 3b chronic kidney disease (HCC) Currently stable follow-up with nephrology as scheduled and good blood pressure control to prevent further kidney damage. Associated Problem(s): Recurrent major depressive disorder, in full remission (HCC) In remission, continue paroxetine CR 12.5 mg daily Associated Problem(s): Hyperlipidemia Controlled, continue fenofibrate 145 mg daily Orders: Lipid panel; Future Associated Problem(s): Anxiety Remission, continue Paxil CR 12.5 mg daily Associated Problem(s): Primary osteoarthritis of both knees Stable, recommend using Tylenol to prevent problems with kidneys and heart Associated Problem(s): Benign prostatic hyperplasia with urinary hesitancy Stable, currently on no medications documented in this encounter [facility] 01-02-2025 History of Present illness Narrative [facility] Cardiology Note Visit type: Established : 1955 Chief Complaint: No chief complaint on file. History of Present Illness: Hyacinth Stapleton is a 69 y.o. male with history of heart failure reduced LVEf recovered with improved EF. Initial ejection fraction was decreased to 23% and improved to 50% with medical therapy. Etiology of this is unknown and patient had declined any further testing. He is here for followup. He denies chest pain, acute shortness of breath, orthopnea or PND. He has no syncope or presyncope. 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, without long-term current use of insulin ([facility]) 01/01/2023 Hyperlipidemia Hypertension LV dysfunction Mitral valve regurgitation Obstructive sleep apnea syndrome 05/13/2019 Pneumonia 04/17/2020 Primary osteoarthritis of both knees 03/26/2020 Past Surgical History Past Surgical History: Procedure Laterality Date CATARACT EXTRACTION Bilateral CHOLECYSTECTOMY 06/02/2019 EYE SURGERY Retinal HERNIA REPAIR Family History Family History Problem Relation Name Age of Onset Heart disease Mother Hypertension Mother Hypertension Father Social History Social History Tobacco Use Smoking status: Former Types: Pipe Start date: 2012 Quit date: 2014 Years since quittin.5 Smokeless tobacco: Never Vaping Use Vaping status: Never Used Substance Use Topics Alcohol use: Yes Alcohol/week: 14.0 standard drinks of alcohol Types: 14 Cans of beer per week Comment: 1-2 day Drug use: No Comment: Caffiene: 1 cup of coffee in the morning; occassional soda Allergies: Allergies Allergen Reactions Proton Pump Inhibitors Recommendation per nephrology (CKD progression from PPI) noted 03/03/22 Medications: Current Outpatient Medications: carvedilol (Coreg) 6.25 MG tablet, TAKE 1 TABLET BY MOUTH TWICE DAILY WITH MEALS, Disp: 180 tablet, Rfl: 1 cholecalciferol (Vitamin D-3) 25 MCG (1000 UT) tablet, Take 2,000 Units by mouth daily., Disp: , Rfl: fenofibrate (Tricor) 145 MG tablet, TAKE 1 TABLET BY MOUTH DAILY, Disp: 90 tablet, Rfl: 1 hydrALAZINE (Apresoline) 100 MG tablet, Take 1 tablet (100 mg) by mouth 3 times daily., Disp: 270 tablet, Rfl: 1 isosorbide mononitrate ER (Imdur) 120 MG 24 hr tablet, Take 1 tablet (120 mg) by mouth every morning., Disp: 90 tablet, Rfl: 3 PARoxetine CR (Paxil-CR) 12.5 MG 24 hr tablet, TAKE 1 TABLET BY MOUTH EVERY MORNING, Disp: 90 tablet, Rfl: 1 spironolactone (Aldactone) 25 MG tablet, Take 25 mg by mouth daily., Disp: , Rfl: amLODIPine (Norvasc) 5 MG tablet, Take 5 mg by mouth daily. (Patient not taking: Reported on 01/02/2025), Disp: , Rfl: Review of Systems: Review of Systems Constitutional: Negative for activity change, chills, diaphoresis, fatigue (sometimes) and fever. HENT: Negative for nosebleeds and trouble swallowing. Eyes: Negative for discharge and visual disturbance. Respiratory: Negative for apnea, cough, chest tightness, shortness of breath and wheezing. Cardiovascular: Negative for chest pain, palpitations and leg swelling. Gastrointestinal: Negative for abdominal distention, abdominal pain, blood in stool, diarrhea, nausea and vomiting. Endocrine: Negative for cold intolerance and heat intolerance. Genitourinary: Negative for hematuria. Musculoskeletal: Negative for gait problem and myalgias. Skin: Negative for color change and rash. Neurological: Negative for dizziness, seizures, syncope, facial asymmetry, speech difficulty, weakness, light-headedness, numbness and headaches. Hematological: Does not bruise/bleed easily. Psychiatric/Behavioral: Negative for dysphoric mood. Physical Examination: Vitals: Vitals: 01/02/25 1131 BP: 134/66 BP Location: Left arm Patient Position: Sitting BP Cuff Size: Large adult Pulse: 62 SpO2: 95% Weight: 205 lb (93 kg) Height: 5' 9" (1.753 m) Body mass index is 30.27 kg/m . Physical Exam Constitutional: Appearance: Normal appearance. HENT: Head: Normocephalic. Mouth/Throat: Pharynx: No oropharyngeal exudate. Eyes: General: No scleral icterus. Right eye: No discharge. Left eye: No discharge. Cardiovascular: Rate and Rhythm: Normal rate and regular rhythm. Heart sounds: No murmur heard. No gallop. Pulmonary: Effort: No respiratory distress. Abdominal: General: There is no distension. Tenderness: There is no abdominal tenderness. Musculoskeletal: General: Normal range of motion. Cervical back: Normal range of motion. Right lower leg: No edema. Left lower leg: No edema. Skin: General: Skin is warm and dry. Neurological: Mental Status: He is alert and oriented to person, place, and time. Psychiatric: Mood and Affect: Mood normal. Laboratory Tests: Lab Results Component Value Date WBC 4.7 09/09/2024 HGB 11.0 (L) 09/09/2024 HCT 34.4 (L) 09/09/2024 MCV 85.4 09/09/2024 PLT 275 09/09/2024 Lab Results Component Value Date GLUCOSE 106 (H) 09/09/2024 CALCIUM 8.8 09/09/2024 NA 141 02/11/2022 K 3.2 (L) 02/11/2022 CO2 24 09/09/2024 CL 115 (H) 02/11/2022 BUN 53 (H) 09/09/2024 CREATININE 2.62 (H) 09/09/2024 @LASTCMP@ Lab Results Component Value Date CHOL 158 12/19/2021 CHOL 152 12/17/2020 CHOL 166 12/26/2019 Lab Results Component Value Date TRIG 69 12/19/2021 TRIG 107 12/17/2020 TRIG 81 12/26/2019 Lab Results Component Value Date HDL 51 12/19/2021 HDL 42 12/17/2020 HDL 48 12/26/2019 No results found for: "LDLCALC" NT PRO BNP Date Value Ref Range Status 05/20/2019 7,763 (H) 0 - 125 pg/mL Final Cardiac Tests: Last Echo: 07/22/2019: SUMMARY: 1. Left ventricle: Systolic function is at the lower limits of normal by visual assessment. The estimated ejection fraction is 50%. Features are consistent with a pseudonormal left ventricular filling pattern, with concomitant abnormal relaxation and increased filling pressure (grade 2 diastolic dysfunction). 2. Right ventricle: The cavity size is mildly dilated. Systolic function is normal. Right ventricular systolic pressure is within the normal range. 3. Left atrium: The atrium is severely dilated. 4. Right atrium: The atrium is mildly dilated. 5. Mitral valve: There is trivial, less than 1+ regurgitation. 6. Aortic valve: Structurally normal valve. Trileaflet. 7. Tricuspid valve: Structurally normal valve. 8. Pulmonic valve: Not well visualized. 9. Aorta: The aorta is poorly visualized but grossly normal. 10. Pericardium, extracardiac: There is no pericardial effusion. Assessment and Plan: 1. Essential hypertension Controlled. Nephrology managing. Continue with current medical therapy at current dosage. 2. Chronic systolic heart failure (HCC) HF recovered EF. Initial ejection fraction 23% and improved to 50% with medical therapy. Euvolemic on examination. -Continue carvedilol 6.25 mg BID -Continue hydralazine 100 mg TID -Continue Imdur 120 mg daily -Continue spironolactone 25 mg daily -Not candidate for ARB or ARNI secondary to CKD Last Cr 2.62, K+ 4.9 on 09/09/24; monitored by Dr Niño; no changes in medications RTC in 6 months or earlier if symptoms documented in this encounter [facility] 08-09-2024 Telephone encounter Note Reviewed chart. Refill appropriate. RX sent. [facility] 08-09-2024 Miscellaneous Notes Reviewed chart. Refill appropriate. RX sent. Prescription Request: Last medication check: 07/14/24 Last physical exam: 01/12/24 Next scheduled appointment: 01/12/25 Last date of refill on this medication: 02/15/24 documented in this encounter [facility] 08-09-2024 Telephone encounter Note Prescription Request: Last medication check: 07/14/24 Last physical exam: 01/12/24 Next scheduled appointment: 01/12/25 Last date of refill on this medication: 02/15/[address] [facility] 07-14-2024 Evaluation + Plan note Associated Problem(s): Recurrent major depressive disorder, in full remission (HCC) Remission, continue paroxetine 12.5 mg daily [facility] 07-14-2024 Evaluation + Plan note Associated Problem(s): Hyperlipidemia Controlled, continue fenofibrate 145 mg daily and strict low-fat low-carb diet. [facility] 07-14-2024 Evaluation + Plan note Associated Problem(s): Anxiety Remission, continue paroxetine 12.5 mg daily [facility] 07-14-2024 Miscellaneous Notes Associated Problem(s): Recurrent major depressive disorder, in full remission (HCC) Remission, continue paroxetine 12.5 mg daily Associated Problem(s): Hyperlipidemia Controlled, continue fenofibrate 145 mg daily and strict low-fat low-carb diet. Associated Problem(s): Anxiety Remission, continue paroxetine 12.5 mg daily Associated Problem(s): Stage 3b chronic kidney disease (HCC) Stable, continue good blood pressure and good blood sugar control to prevent further kidney damage. Associated Problem(s): Benign prostatic hyperplasia with urinary hesitancy Stable, minimal nocturia currently on no medication. Associated Problem(s): Hypertension Controlled, continue amlodipine 5 mg daily, carvedilol 6.25 mg twice a day and hydralazine 100 mg 3 times daily. Associated Problem(s): Chronic diastolic heart failure (HCC) Stable, continue isosorbide 120 mg daily and spironolactone 25 mg daily and carvedilol 6.25 mg twice a day Associated Problem(s): Obstructive sleep apnea syndrome Control unknown, he is not using his CPAP. documented in this encounter [facility] 07-14-2024 Evaluation + Plan note Associated Problem(s): Stage 3b chronic kidney disease (HCC) Stable, continue good blood pressure and good blood sugar control to prevent further kidney damage. [facility] 07-14-2024 Evaluation + Plan note Associated Problem(s): Benign prostatic hyperplasia with urinary hesitancy Stable, minimal nocturia currently on no medication. [facility] 07-14-2024 Evaluation + Plan note Associated Problem(s): Hypertension Controlled, continue amlodipine 5 mg daily, carvedilol 6.25 mg twice a day and hydralazine 100 mg 3 times daily. [facility] 07-14-2024 Evaluation + Plan note Associated Problem(s): Chronic diastolic heart failure (HCC) Stable, continue isosorbide 120 mg daily and spironolactone 25 mg daily and carvedilol 6.25 mg twice a day [facility] 07-14-2024 Evaluation + Plan note Associated Problem(s): Obstructive sleep apnea syndrome Control unknown, he is not using his CPAP. [facility] 07-14-2024 History of Present illness Narrative Patient verified by last name and date of . Images from the original note were not included. 07/14/2024 Hyacinth Stapleton (: 1955) is a 68 y.o. male , Established patient, here for evaluation of the following chief complaint(s): Peripheral Vascular Disease, Benign Prostatic Hypertrophy, Congestive Heart Failure, Hyperlipidemia, Hypertension, Depression, Chronic Kidney Disease, Medication Check (6 month), and Health Maintenance (Echo- pt will discuss with cardiology/Colonoscopy- not right now/Flu vaccine- agree/3rd covid vaccine- not done) ASSESSMENT/PLAN: 1. Primary hypertension Assessment & Plan: Controlled, continue amlodipine 5 mg daily, carvedilol 6.25 mg twice a day and hydralazine 100 mg 3 times daily. 2. Chronic diastolic heart failure (HCC) Assessment & Plan: Stable, continue isosorbide 120 mg daily and spironolactone 25 mg daily and carvedilol 6.25 mg twice a day 3. Stage 3b chronic kidney disease (HCC) Assessment & Plan: Stable, continue good blood pressure and good blood sugar control to prevent further kidney damage. 4. Obstructive sleep apnea syndrome Assessment & Plan: Control unknown, he is not using his CPAP. 5. Benign prostatic hyperplasia with urinary hesitancy Assessment & Plan: Stable, minimal nocturia currently on no medication. 6. Anxiety Assessment & Plan: Remission, continue paroxetine 12.5 mg daily 7. Pure hypertriglyceridemia Assessment & Plan: Controlled, continue fenofibrate 145 mg daily and strict low-fat low-carb diet. 8. Recurrent major depressive disorder, in full remission (HCC) Assessment & Plan: Remission, continue paroxetine 12.5 mg daily Follow up in about 6 months (around 01/11/2025) for AWV. SUBJECTIVE/OBJECTIVE: ANDREA White comes in today for a 6-month follow-up on his multiple health issues which includes hypertension, chronic heart failure, chronic kidney insufficiency, he also has sleep apnea but he does not wear his CPAP. He has BPH and he says his symptoms are minimal right now he may get up twice a night to empty his bladder but has no problems starting or stopping his urine. He has anxiety and depression and does seem to be in full remission on his current medications. He also has hypertriglyceridemia. He has no other complaints at this time, see ROS. Heart Review of Systems Constitutional: Negative for activity change, appetite change, chills, fever and unexpected weight change. HENT: Negative for ear pain and sore throat. Respiratory: Negative for shortness of breath. Cardiovascular: Negative for chest pain and palpitations. Gastrointestinal: Negative for abdominal pain, blood in stool, constipation and diarrhea. Genitourinary: Negative for dysuria, frequency, hematuria and urgency. Musculoskeletal: Negative for arthralgias and back pain. Skin: Negative. Neurological: Negative for weakness and numbness. Psychiatric/Behavioral: Negative for dysphoric mood. The patient is not nervous/anxious. Vitals: 07/14/24 0903 BP: 124/56 Pulse: 62 Weight: 212 lb 12.8 oz (96.5 kg) Height: 5' 9" (1.753 m) Physical Exam Vitals and nursing note reviewed. Constitutional: General: He is not in acute distress. Appearance: Normal appearance. He is obese. HENT: Right Ear: Tympanic membrane, ear canal and external ear normal. Left Ear: Tympanic membrane, ear canal and external ear normal. Mouth/Throat: Mouth: Mucous membranes are moist. Pharynx: Oropharynx is clear. Eyes: Extraocular Movements: Extraocular movements intact. Conjunctiva/sclera: Conjunctivae normal. Pupils: Pupils are equal, round, and reactive to light. Neck: Thyroid: No thyromegaly. Vascular: No carotid bruit. Cardiovascular: Rate and Rhythm: Normal rate and regular rhythm. Heart sounds: Normal heart sounds. No murmur heard. Pulmonary: Effort: Pulmonary effort is normal. Breath sounds: Normal breath sounds. Abdominal: General: Bowel sounds are normal. Palpations: Abdomen is soft. Tenderness: There is no abdominal tenderness. Musculoskeletal: General: Normal range of motion. Cervical back: Neck supple. Lymphadenopathy: Cervical: No cervical adenopathy. Skin: General: Skin is warm and dry. Neurological: General: No focal deficit present. Mental Status: He is alert and oriented to person, place, and time. Psychiatric: Mood and Affect: Mood normal. An electronic signature was used to authenticate this note. Paul Moraes MD 07/14/2024 10:27 AM Patient was identified by name and Date Of . After obtaining informed consent, Immunization(s) were ordered by provider. The patient and or Family/Guardian was instructed on the benefits and risks related to the vaccine or toxoid. Information given to the patient and or Family/Guardian with signs and symptoms of adverse effects and when to seek medical attention. Site was cleansed with an alcohol swab, immunization(s) were given, and bandage(s) were applied to injection site. Patient tolerated well, advised patient and or Family/Guardian to stay in the office 20 minutes after injection has been given to observe for any reaction. Immunization(s) was given by Umu Faria MA. documented in this encounter [facility] 07-14-2024 Note Patient was identifi ed by name and Date Of . After obtaining informed consent, Immunization(s) were ordered by provider. The patient and or Family/Guardian was instructed on the benefits and risks related to the vaccine or toxoid. Information given to the patient and or Family/Guardian with signs and symptoms of adverse effects and when to seek medical attention. Site was cleansed with an alcohol swab, immunization(s) were given, and bandage(s) were applied to injection site. Patient tolerated well, advised patient and or Family/Guardian to stay in the office 20 minutes after injection has been given to observe for any reaction. Immunization(s) was given by Umu Faria MA. [facility] 03-22-2024 History of Present illness Narrative Images from the original note were not included. [facility] - [address] [facility] [id number] Dept: [phone] Dept Visit type: Established : 1955 Reason for Visit: 6 Month Follow-up and Congestive Heart Failure Assessment and Plan 1. Chronic diastolic heart failure (HCC) Assessment & Plan: HFrecoveredEF, stage B, class I. Initial EF 23% and improved to 50% per echocardiogram July 2019. Unknown etiology as he declines further testing. No current heart failure symptoms and euvolemic on physical exam. -Continue carvedilol 6.25 mg p.o. twice daily -Continue hydralazine 100 mg p.o. 3 times daily -Continue Imdur 120 mg p.o. daily -Continue spironolactone 25 mg p.o. daily -Not a candidate for ARB or Arni secondary to CKD 2. Primary hypertension Assessment & Plan: Goal less than 130/80. Elevated today. -Continue carvedilol 6.25 mg p.o. twice daily -Continue hydralazine 100 mg p.o. 3 times daily -Continue Imdur 120 mg p.o. daily -Continue spironolactone 25 mg p.o. daily - continue to monitor at home, and will notify us if it continues to be high after taking his midday dose of hydralazine Orders: - ECG 12 lead - CLINIC PERFORMED 3. Stage 3b chronic kidney disease (HCC) Assessment & Plan: Follows with Dr. Niño. Most recent creatinine 2.37. -Continue nephrology follow-up Follow up in about 6 months (around 09/20/2024). Subjective Hx HFrecoveredEF with initial ejection fraction 23% and improved to 50% with medical therapy, unknown etiology as patient has declined further testing, CKD, diabetes, hypertension, hyperlipidemia, SONI He was last seen by Dr. Jansen September 2023 when he had no cardiac complaints. His carvedilol was decreased due to significant fatigue which improved with reduction of his beta-greta dose. Today, he feels OK. He denies CP, SOB, PND, orthopnea, edema, palpitations, syncope. His BP has been running a little high, but he admits to not always taking his midday dose of hydralazine. Hyacinth Stapleton Review of Systems Constitutional: Negative for activity change, chills, diaphoresis, fatigue and fever. HENT: Negative for nosebleeds and trouble swallowing. Eyes: Negative for visual disturbance. Respiratory: Negative for apnea, cough, chest tightness, shortness of breath and wheezing. Cardiovascular: Negative for chest pain, palpitations and leg swelling. Gastrointestinal: Negative for abdominal distention, abdominal pain, blood in stool, diarrhea, nausea and vomiting. Genitourinary: Negative for hematuria. Musculoskeletal: Negative for gait problem and myalgias. Skin: Negative for color change and rash. Neurological: Positive for dizziness (a little bit if gets up too quick or looks up) and headaches (last 1-2 days). Negative for syncope, speech difficulty, weakness and light-headedness. Hematological: Does not bruise/bleed easily. Psychiatric/Behavioral: Negative for dysphoric mood. Allergies Allergen Reactions Proton Pump Inhibitors Recommendation per nephrology (CKD progression from PPI) noted 03/03/22 Outpatient Medications Prior to Visit Medication Sig Dispense Refill carvedilol (Coreg) 12.5 MG tablet Take 0.5 tablets (6.25 mg) by mouth 2 times daily. 180 tablet 2 cholecalciferol (Vitamin D-3) 25 MCG (1000 UT) tablet Take 2,000 Units by mouth daily. fenofibrate (Tricor) 145 MG tablet TAKE 1 TABLET BY MOUTH DAILY 90 tablet 1 hydrALAZINE (Apresoline) 100 MG tablet Take 1 tablet (100 mg) by mouth 3 times daily. 270 tablet 1 isosorbide mononitrate ER (Imdur) 120 MG 24 hr tablet Take 1 tablet (120 mg) by mouth every morning. 90 tablet 3 PARoxetine CR (Paxil-CR) 12.5 MG 24 hr tablet TAKE 1 TABLET BY MOUTH EVERY MORNING 90 tablet 1 spironolactone (Aldactone) 25 MG tablet Take 25 mg by mouth daily. ofloxacin (Ocuflox) 0.3 % ophthalmic solution instill 1 drop in left eye FOUR TIMES DAILY FOR 5 DAYS No facility-administered medications prior to visit. 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, without long-term current use of insulin ([facility]) 01/01/2023 Hyperlipidemia Hypertension LV dysfunction Mitral valve regurgitation Obstructive sleep apnea syndrome 05/13/2019 Pneumonia 04/17/2020 Primary osteoarthritis of both knees 03/26/2020 Social History Tobacco Use Smoking status: Former Types: Pipe Start date: 2012 Quit date: 2014 Years since quittin.7 Smokeless tobacco: Never Substance Use Topics Alcohol use: Yes Alcohol/week: 14.0 standard drinks of alcohol Types: 14 Cans of beer per week Comment: 1-2 day Past Surgical History: Procedure Laterality Date CATARACT EXTRACTION Bilateral CHOLECYSTECTOMY 06/02/2019 EYE SURGERY Retinal HERNIA REPAIR Family History Problem Relation Name Age of Onset Heart disease Mother Hypertension Mother Hypertension Father Objective Vitals: 03/22/24 1037 03/22/24 1056 BP: (!) 156/80 (!) 142/80 BP Location: Left arm Patient Position: Sitting BP Cuff Size: Large adult Pulse: (!) 49 SpO2: 96% Weight: 208 lb 9.6 oz (94.6 kg) Height: 5' 9" (1.753 m) Physical Exam Vitals reviewed. Constitutional: Appearance: Normal appearance. HENT: Head: Normocephalic and atraumatic. Eyes: General: No scleral icterus. Right eye: No discharge. Left eye: No discharge. Cardiovascular: Rate and Rhythm: Normal rate and regular rhythm. Heart sounds: No murmur heard. No gallop. Pulmonary: Effort: No respiratory distress. Abdominal: General: There is no distension. Tenderness: There is no abdominal tenderness. Musculoskeletal: General: Normal range of motion. Cervical back: Normal range of motion. Skin: General: Skin is warm and dry. Neurological: Mental Status: He is alert and oriented to person, place, and time. Psychiatric: Mood and Affect: Mood normal. Data Reviewed and Summarized No results found for: "EFBP", "PLVEF", "LVEFPHYS", "LVEF2D", "EF" Review of tests/labs done/ordered within my specialty: EKG in office: Sinus bradycardia with heart rate 49, QTc 438 ms. TTE 07/22/2019 SUMMARY: 1. Left ventricle: Systolic function is at the lower limits of normal by visual assessment. The estimated ejection fraction is 50%. Features are consistent with a pseudonormal left ventricular filling pattern, with concomitant abnormal relaxation and increased filling pressure (grade 2 diastolic dysfunction). 2. Right ventricle: The cavity size is mildly dilated. Systolic function is normal. Right ventricular systolic pressure is within the normal range. 3. Left atrium: The atrium is severely dilated. 4. Right atrium: The atrium is mildly dilated. 5. Mitral valve: There is trivial, less than 1+ regurgitation. 6. Aortic valve: Structurally normal valve. Trileaflet. 7. Tricuspid valve: Structurally normal valve. 8. Pulmonic valve: Not well visualized. 9. Aorta: The aorta is poorly visualized but grossly normal. 10. Pericardium, extracardiac: There is no pericardial effusion. Review of tests/labs done/ordered outside my specialty: Latest Reference Range & Units 01/12/24 11:19 SODIUM 135 - 146 mmol/L 138 POTASSIUM 3.5 - 5.3 mmol/L 5.4 (H) CHLORIDE 98 - 110 mmol/L 109 Carbon Dioxide (CO2) 20 - 32 mmol/L 20 Urea Nitrogen (BUN) 7 - 25 mg/dL 48 (H) Creatinine 0.70 - 1.35 mg/dL 2.37 (H) eGFR > OR = 60 mL/min/1.73m2 29 (L) GLUCOSE 65 - 99 mg/dL 107 (H) CALCIUM 8.6 - 10.3 mg/dL 9.0 ALKALINE PHOSPHATASE - [facility] 35 - 144 U/L 27 (L) ALBUMIN - [facility] 3.6 - 5.1 g/dL 4.1 ALBUMIN/GLOBULIN RATIO - [facility] 1.0 - 2.5 (calc) 1.5 AST - [facility] 10 - 35 U/L 26 ALT - [facility] 9 - 46 U/L 19 BILIRUBIN, TOTAL - [facility] 0.2 - 1.2 mg/dL 0.6 CHOLESTEROL, TOTAL <200 mg/dL 134 TRIGLYCERIDES - [facility] <150 mg/dL 68 HDL CHOLESTEROL - [facility] > OR = 40 mg/dL 49 LDL-CHOLESTEROL mg/dL (calc) 71 CHOL/HDLC RATIO <5.0 (calc) 2.7 NON HDL CHOLESTEROL <130 mg/dL (calc) 85 BUN/CREATININE RATIO 6 - 22 (calc) 20 GLOBULIN - [facility] 1.9 - 3.7 g/dL (calc) 2.7 PROTEIN, TOTAL - [facility] 6.1 - 8.1 g/dL 6.8 PSA, Total < OR = 4.00 ng/mL 0.48 (H): Data is abnormally high (L): Data is abnormally low Independent interpretation of tests: MARY Nieves CNP documented in this encounter [facility] 03-22-2024 Evaluation + Plan note Associated Problem(s): Stage 3b chronic kidney disease (HCC) Follows with Dr. Niño. Most recent creatinine 2.37. -Continue nephrology follow-up [facility] 03-22-2024 Evaluation + Plan note Associated Problem(s): Hypertension Goal less than 130/80. Elevated today. -Continue carvedilol 6.25 mg p.o. twice daily -Continue hydralazine 100 mg p.o. 3 times daily -Continue Imdur 120 mg p.o. daily -Continue spironolactone 25 mg p.o. daily - continue to monitor at home, and will notify us if it continues to be high after taking his midday dose of hydralazine [facility] 03-22-2024 Miscellaneous Notes Associated Problem(s): Stage 3b chronic kidney disease (HCC) Follows with Dr. Niño. Most recent creatinine 2.37. -Continue nephrology follow-up Associated Problem(s): Hypertension Goal less than 130/80. Elevated today. -Continue carvedilol 6.25 mg p.o. twice daily -Continue hydralazine 100 mg p.o. 3 times daily -Continue Imdur 120 mg p.o. daily -Continue spironolactone 25 mg p.o. daily - continue to monitor at home, and will notify us if it continues to be high after taking his midday dose of hydralazine Associated Problem(s): Chronic diastolic heart failure (HCC) HFrecoveredEF, stage B, class I. Initial EF 23% and improved to 50% per echocardiogram July 2019. Unknown etiology as he declines further testing. No current heart failure symptoms and euvolemic on physical exam. -Continue carvedilol 6.25 mg p.o. twice daily -Continue hydralazine 100 mg p.o. 3 times daily -Continue Imdur 120 mg p.o. daily -Continue spironolactone 25 mg p.o. daily -Not a candidate for ARB or Arni secondary to CKD documented in this encounter [facility] 03-22-2024 Evaluation + Plan note Associated Problem(s): Chronic diastolic heart failure (HCC) HFrecoveredEF, stage B, class I. Initial EF 23% and improved to 50% per echocardiogram July 2019. Unknown etiology as he declines further testing. No current heart failure symptoms and euvolemic on physical exam. -Continue carvedilol 6.25 mg p.o. twice daily -Continue hydralazine 100 mg p.o. 3 times daily -Continue Imdur 120 mg p.o. daily -Continue spironolactone 25 mg p.o. daily -Not a candidate for ARB or Arni secondary to CKD [facility] 02-22-2024 Telephone encounter Note Patient called and requested refill of Isosorbide to be sent to [facility]. [facility] 02-22-2024 Miscellaneous Notes Patient called and requested refill of Isosorbide to be sent to [facility]. documented in this encounter [facility] 01-12-2024 Evaluation + Plan note Associated Problem(s): Recurrent major depressive disorder, in full remission (HCC) Remission, continue paroxetine CR 12.[address] mg daily [facility] 01-12-2024 Miscellaneous Notes Associated Problem(s): Recurrent major depressive disorder, in full remission (HCC) Remission, continue paroxetine CR 12.5 mg daily Associated Problem(s): Hyperlipidemia Controlled, continue fenofibrate 145 mg daily Associated Problem(s): Stage 3b chronic kidney disease (HCC) Stable, continue good blood pressure control to prevent further kidney damage Associated Problem(s): Benign prostatic hyperplasia with urinary hesitancy Some urinary frequency other than that his symptoms are minimal. He has stopped all his prostate medicine. Associated Problem(s): Peripheral vascular disease, unspecified (HCC) Stable, currently no complaints Associated Problem(s): Hypertension Controlled, continue carvedilol 100 mg 3 times a day, isosorbide 120 mg daily and spironolactone 25 mg daily Associated Problem(s): Chronic systolic heart failure (HCC) Stable, continue carvedilol 12.5 mg half a tablet twice a day, isosorbide 120 mg daily and spironolactone 25 mg daily documented in this encounter [facility] 01-12-2024 Evaluation + Plan note Associated Problem(s): Hyperlipidemia Controlled, continue fenofibrate 145 mg daily [facility] 01-12-2024 Evaluation + Plan note Associated Problem(s): Stage 3b chronic kidney disease (HCC) Stable, continue good blood pressure control to prevent further kidney damage [facility] 01-12-2024 Evaluation + Plan note Associated Problem(s): Benign prostatic hyperplasia with urinary hesitancy Some urinary frequency other than that his symptoms are minimal. He has stopped all his prostate medicine. [facility] 01-12-2024 Evaluation + Plan note Associated Problem(s): Peripheral vascular disease, unspecified (HCC) Stable, currently no complaints [facility] 01-12-2024 Evaluation + Plan note Associated Problem(s): Hypertension Controlled, continue carvedilol 100 mg 3 times a day, isosorbide 120 mg daily and spironolactone [address] mg daily [facility] 01-12-2024 Evaluation + Plan note Associated Problem(s): Chronic systolic heart failure (HCC) Stable, continue carvedilol 12.5 mg half a tablet twice a day, isosorbide 120 mg daily and spironolactone [address] mg [address] [facility] 01-12-2024 History of Present illness Narrative Patient verified by last name and date of . Images from the original note were not included. [facility] [address] [id number] Visit Type: Medicare Annual Wellness PCP: Paul Moraes MD Reason for Visit: Medicare Annual Wellness Visit Subsequent, Blood Work, Health Maintenance (Echo- pt sees cardiology at [facility] and will have them take care of it/Colonoscopy- refuse/Pcv 20 vaccine- agree/Hep c screening- refuse/Shingles, rsv, tdap vaccies- refuse/3rd covid vaccine- not done), and Eye Problem (Left- seems like something is in it ) Assessment and Plan Problem List Items Addressed This Visit Peripheral vascular disease, unspecified (HCC) Stable, currently no complaints Benign prostatic hyperplasia with urinary hesitancy Some urinary frequency other than that his symptoms are minimal. He has stopped all his prostate medicine. Chronic systolic heart failure (HCC) Stable, continue carvedilol 12.5 mg half a tablet twice a day, isosorbide 120 mg daily and spironolactone 25 mg daily Hyperlipidemia Controlled, continue fenofibrate 145 mg daily Relevant Orders Lipid panel Hypertension Controlled, continue carvedilol 100 mg 3 times a day, isosorbide 120 mg daily and spironolactone 25 mg daily Recurrent major depressive disorder, in full remission (HCC) Remission, continue paroxetine CR 12.5 mg daily Stage 3b chronic kidney disease (HCC) Stable, continue good blood pressure control to prevent further kidney damage Other Visit Diagnoses Medicare annual wellness visit, subsequent - Primary Screening for diabetes mellitus Relevant Orders Comprehensive metabolic panel Screening for prostate cancer Relevant Orders PSA Total (Screening) I have reviewed and reconciled the medication list with the patient today. Current Outpatient Medications Medication Sig Dispense Refill carvedilol (Coreg) 12.5 MG tablet Take 0.5 tablets (6.25 mg) by mouth 2 times daily. 180 tablet 2 cholecalciferol (Vitamin D-3) 25 MCG (1000 UT) tablet Take 2,000 Units by mouth daily. fenofibrate (Tricor) 145 MG tablet TAKE 1 TABLET BY MOUTH DAILY 90 tablet 1 hydrALAZINE (Apresoline) 100 MG tablet Take 1 tablet (100 mg) by mouth 3 times daily. 270 tablet 1 isosorbide mononitrate ER (Imdur) 120 MG 24 hr tablet Take 1 tablet (120 mg) by mouth every morning. 90 tablet 3 ofloxacin (Ocuflox) 0.3 % ophthalmic solution instill 1 drop in left eye FOUR TIMES DAILY FOR 5 DAYS PARoxetine CR (Paxil-CR) 12.5 MG 24 hr tablet TAKE 1 TABLET BY MOUTH ONCE DAILY EVERY MORNING 90 tablet 0 spironolactone (Aldactone) 25 MG tablet Take 25 mg by mouth daily. No current facility-administered medications for this visit. Medications Discontinued During This Encounter Medication Reason dutasteride (Avodart) 0.5 MG capsule Therapy completed isosorbide mononitrate ER (Imdur) 120 MG 24 hr tablet Therapy completed tamsulosin (Flomax) 0.4 MG 24 hr capsule Therapy completed The following health maintenance schedule was reviewed with the patient and provided in printed form in the after visit summary: Health Maintenance Topic Date Due Echocardiogram Never done Colorectal Cancer Screening Never done Diabetes: Foot Exam Never done Diabetes: Retinopathy Screening Never done Diabetes: Dental Exam Never done Diabetes: Urine Albumin-Creatinine Ratio for Kidney Health Never done Lipid Panel 01/02/2024 Diabetes: Hemoglobin A1C 01/02/2024 RSV Immunization aged 60 or older (1 - 1-dose 60+ series) 01/07/2025 (Originally 2014) DTaP/Tdap/Td Vaccines (2 - Td or Tdap) 01/07/2025 (Originally 12/01/2023) Zoster Vaccines (1 of 2) 01/07/2025 (Originally 2004) Hepatitis C Screening 01/07/2025 (Originally 1972) COVID-19 Vaccine (3 - season) 2025 (Originally 02/06/2023) Influenza Vaccine (1) 02/07/2024 Depression Monitoring 07/10/2024 Creatinine Level 08/16/2024 Potassium Level 08/16/2024 Diabetes: Estimated Glomerular Filtration Rate for Kidney Health 08/16/2024 Medicare Advantage Annual Wellness Visit Completed Pneumococcal Vaccine: 65+ Years Completed RSV Immunization under 20 Months Aged Out HIB Vaccines Aged Out Hepatitis B Vaccines Aged Out IPV Vaccines Aged Out Hepatitis A Vaccines Aged Out Meningococcal Vaccine Aged Out Rotavirus Vaccines Aged Out HPV Vaccines Aged Out Orders Placed This Encounter Procedures Pneumococcal conjugate vaccine 20-valent IM Lipid panel Standing Status: Future Number of Occurrences: 1 Standing Expiration Date: 01/07/2025 Comprehensive metabolic panel Standing Status: Future Number of Occurrences: 1 Standing Expiration Date: 01/07/2025 PSA Total (Screening) Standing Status: Future Number of Occurrences: 1 Standing Expiration Date: 01/07/2025 Follow up in about 6 months (around 07/14/2024). 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 He was seated at a [facility] and put on antibiotic eyedrops but that has not helped. He is also here for follow-up on his depression, that seems to be in remission right now. He has peripheral vascular disease and hypertriglyceridemia and does seem to be stable. Blood pressure is good today. He has a history of BPH and he says he gets up about 3 times at night with no difficulty starting he has stopped both his finasteride and Flomax. We did discuss his need for a colonoscopy however he continues to refuse. Eye Problem Pertinent negatives include no fever or weakness. List of current healthcare providers: Patient Care Team: Paul Moraes MD as PCP - General Over the past 2 weeks, how often have you been bothered by any of the following problems? Trouble falling or staying asleep, or sleeping too much: Not at all Feeling tired or having little energy: Several days Poor appetite or overeating: Not at all Feeling bad about yourself - or that you are a failure or have let yourself or your family down: Not at all Trouble concentrating on things, such as reading the newspaper or watching television: Not at all Moving or speaking so slowly that other people could have noticed? Or the opposite - being so fidgety or restless that you have been moving around a lot more than usual.: Not at all Thoughts that you would be better off or hurting yourself in some way: Not at all Patient Health Questionnaire-9 Score: 1 Health Risk Assessment: General: General In general, how would you say your health is?: Good In the past 7 days, have you experienced any of the following: New or Increased Pain, New or Increased Fatigue, Loneliness, Social Isolation, Stress or Anger?: No Do you get the social and emotional suppport you need?: Yes Health Habits/Nutrition: Health Habits / Nutrition On average, how many days per week do you engage in moderate to strenous exercise (like a brisk walk)?: 7 days On average, how man minutes do you engage in exercise at this level?: 30 min Have you lost any weight without trying in the past 3 months? : No Have you seen the dentist within the past year?: (!) No Recommend dental appt Hearing/ Vision: Hearing / Vision Do you or your family notice any trouble with your hearing that hasn't been managed with hearing aids?: (!) Yes Do you have difficulty driving, watching TV, or doing any of your daily activities because of your eyesight?: (!) Yes Have you had an eye exam within the past year?: (!) No No results found. Interventions: Vision concerns: Patient encouraged to make appointment with his / her order management specialist Safety: Safety Do you have a working smoke detector?: Yes Do you have any tripping hazards - loose or unsecured carpets or rugs?: No Do you have any tripping hazards - clutter in doorways, halls, or stairs?: No Do you have either shower bars, grab bars, non-slip mats or non-slip surfaces in your shower or bathtub? : Yes Do all your stairways have a railing or banister? : (!) No Do you fasten your seatbelt when you are in a car?: Yes Interventions: ADL: ADL In the past 7 days, did you need help from others to perform any of the following everyday activities: Eating, dressing, grooming,bathing, toileting, or walking / balance? : No In the past 7 days, did you need help from others to take care of any of the following: laundry, housekeeping, banking / finances,shopping, telephone use, food preparation, transportation, or taking medications? : No Living Will: Living Will Do you have a living will?: No Interventions: Advance Care Planning addressed with patient today Cognitive: Cognitive Screening: Mini-Cog Clock Drawing Test (CDT): 2 Words Recalled: 3 Total Score: 5 Total Score Interpretation: Normal Mini-Cog Fall Risk: Fall Risk One or more falls in the last year:: Yes Advised to use a cane or walker to get around safely:: No Feels unsteady when walking:: No Steadies self on furniture while walking at home:: No Worried about falling:: Yes Interventions: Depression Screening: Over the past 2 weeks, how often have you been bothered by any of the following problems? Little interest or pleasure in doing things: Not at all Feeling down, depressed, or hopeless: Not at all Patient Health Questionnaire-2 Score: 0 Over the past 2 weeks, how often have you been bothered by any of the following problems? Trouble falling or staying asleep, or sleeping too much: Not at all Feeling tired or having little energy: Several days Poor appetite or overeating: Not at all Feeling bad about yourself - or that you are a failure or have let yourself or your family down: Not at all Trouble concentrating on things, such as reading the newspaper or watching television: Not at all Moving or speaking so slowly that other people could have noticed? Or the opposite - being so fidgety or restless that you have been moving around a lot more than usual.: Not at all Thoughts that you would be better off or hurting yourself in some way: Not at all Patient Health Questionnaire-9 Score: 1 If you checked off any problems on this questionnaire so far, How difficult have these problems made it for you to do your work, take care of things at home, or get along with other people?: Not difficult at all Interventions: Tobacco Use: Social History Tobacco Use Smoking Status Former Types: Pipe Start date: 2012 Quit date: 2014 Years since quittin.6 Smokeless Tobacco Never Alcohol Use: Audit Alcohol Screening Q1: How often do you have a drink containing alcohol?: 4 or more times a week Q2: How many drinks containing alcohol do you have on a typical day when you are drinking?: 1 or 2 Q3: How often do you have six or more drinks on one occasion?: Never Audit-C Score: 4 Skip to questions 9-10?: 1 Q4: How often during the last year have you found that you were not able to stop drinking once you had started?: Never Q5: How often during the last year have you failed to do what was normally expected from you because of drinking?: Never Q6: How often during the last year have you needed an alcoholic drink first thing in the morning to get yourself going after a night of heavy drinking?: Never Q7: How often during the last year have you had a feeling of guilt or remorse after drinking?: Never Q8: How often during the last year have you been unable to remember what happened the night before because you had been drinking?: Never Q9: Have you or someone else been injured as a result of your drinking?: No Q10: Has a relative, friend, doctor, or another health professional expressed concern about your drinking or suggested you cut down?: No Audit Total Score: 4 Interventions: Review of Systems Constitutional: Negative for activity change, appetite change, chills, fever and unexpected weight change. HENT: Negative for ear pain and sore throat. Respiratory: Negative for shortness of breath. Cardiovascular: Negative for chest pain and palpitations. Gastrointestinal: Negative for abdominal pain, blood in stool, constipation and diarrhea. Genitourinary: Negative for dysuria, frequency, hematuria and urgency. Musculoskeletal: Negative for arthralgias and back pain. Skin: Negative. Neurological: Negative for weakness and numbness. Psychiatric/Behavioral: Negative for dysphoric mood. The patient is not nervous/anxious. Immunization History Administered Date(s) Administered Influenza, High-dose Seasonal, Quadrivalent, Preservative Free 03/22/2020 Influenza, seasonal, injectable 03/08/2016 Influenza, seasonal, injectable, preservative free 03/26/2011 Moderna SARS-CoV-2 Vaccination 10/31/2020, 11/28/2020 Pneumococcal Conjugate PCV20, Pf (Prevnar 20) 01/12/2024 Tdap 11/30/2013 Allergies Allergen Reactions Proton Pump Inhibitors Recommendation per nephrology (CKD progression from PPI) noted 03/03/22 Outpatient Medications Prior to Visit Medication Sig Dispense Refill carvedilol (Coreg) 12.5 MG tablet Take 0.5 tablets (6.25 mg) by mouth 2 times daily. 180 tablet 2 cholecalciferol (Vitamin D-3) 25 MCG (1000 UT) tablet Take 2,000 Units by mouth daily. fenofibrate (Tricor) 145 MG tablet TAKE 1 TABLET BY MOUTH DAILY 90 tablet 1 hydrALAZINE (Apresoline) 100 MG tablet Take 1 tablet (100 mg) by mouth 3 times daily. 270 tablet 1 isosorbide mononitrate ER (Imdur) 120 MG 24 hr tablet Take 1 tablet (120 mg) by mouth every morning. 90 tablet 3 ofloxacin (Ocuflox) 0.3 % ophthalmic solution instill 1 drop in left eye FOUR TIMES DAILY FOR 5 DAYS PARoxetine CR (Paxil-CR) 12.5 MG 24 hr tablet TAKE 1 TABLET BY MOUTH ONCE DAILY EVERY MORNING 90 tablet 0 spironolactone (Aldactone) 25 MG tablet Take 25 mg by mouth daily. dutasteride (Avodart) 0.5 MG capsule Take 1 capsule (0.5 mg) by mouth daily. (Patient not taking: Reported on 01/12/2024) 30 capsule 11 isosorbide mononitrate ER (Imdur) 120 MG 24 hr tablet TAKE 1 TABLET BY MOUTH EVERY MORNING (Patient not taking: Reported on 01/12/2024) 90 tablet 1 tamsulosin (Flomax) 0.4 MG 24 hr capsule TAKE 1 CAPSULE BY MOUTH EVERY DAY (Patient not taking: Reported on 01/12/2024) 30 capsule 3 No facility-administered medications prior to visit. 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, without long-term current use of insulin (HCC) 01/01/2023 Hyperlipidemia Hypertension LV dysfunction Mitral valve regurgitation Obstructive sleep apnea syndrome 05/13/2019 Pneumonia 04/17/2020 Primary osteoarthritis of both knees 03/26/2020 Social History Socioeconomic History Marital status: Tobacco Use Smoking status: Former Types: Pipe Start date: 2012 Quit date: 2014 Years since quittin.6 Smokeless tobacco: Never Vaping Use Vaping status: Never Used Substance and Sexual Activity Alcohol use: Yes Alcohol/week: 14.0 standard drinks of alcohol Types: 14 Cans of beer per week Comment: 1-2 day Drug use: No Comment: Caffiene: 1 cup of coffee in the morning; occassional soda Sexual activity: Yes Partners: Female control/protection: None Social Determinants of Health Financial Resource Strain: Low Risk (01/01/2023) Overall Financial Resource Strain (CARDIA) Difficulty of Paying Living Expenses: Not hard at all Food Insecurity: No Food Insecurity (01/01/2023) Hunger Vital Sign Worried About Running Out of Food in the Last Year: Never true Ran Out of Food in the Last Year: Never true Transportation Needs: No Transportation Needs (01/01/2023) PRAPARE - Transportation Lack of Transportation (Medical): No Lack of Transportation (Non-Medical): No Physical Activity: Sufficiently Active (01/01/2023) Exercise Vital Sign Days of Exercise per Week: 7 days Minutes of Exercise per Session: 120 min Housing Stability: Low Risk (01/01/2023) Housing Stability Vital Sign Unable to Pay for Housing in the Last Year: No Number of Places Lived in the Last Year: 1 Unstable Housing in the Last Year: No Past Surgical History: Procedure Laterality Date CATARACT EXTRACTION Bilateral CHOLECYSTECTOMY 06/02/2019 EYE SURGERY Retinal HERNIA REPAIR Past Surgical History: Procedure Laterality Date CATARACT EXTRACTION Bilateral CHOLECYSTECTOMY 06/02/2019 EYE SURGERY Retinal HERNIA REPAIR Family History Problem Relation Name Age of Onset Heart disease Mother Hypertension Mother Hypertension Father Objective BP 124/69 Pulse 58 Ht 5' 9" (1.753 m) Wt 209 lb 6.4 oz (95 kg) SpO2 95% BMI 30.92 kg/m Physical Exam Vitals and nursing note reviewed. Constitutional: General: He is not in acute distress. Appearance: Normal appearance. He is obese. HENT: Right Ear: Tympanic membrane, ear canal and external ear normal. Left Ear: Tympanic membrane, ear canal and external ear normal. Mouth/Throat: Mouth: Mucous membranes are moist. Pharynx: Oropharynx is clear. Eyes: Extraocular Movements: Extraocular movements intact. Conjunctiva/sclera: Conjunctivae normal. Pupils: Pupils are equal, round, and reactive to light. Neck: Thyroid: No thyromegaly. Vascular: No carotid bruit. Cardiovascular: Rate and Rhythm: Normal rate and regular rhythm. Heart sounds: Normal heart sounds. No murmur heard. Pulmonary: Effort: Pulmonary effort is normal. Breath sounds: Normal breath sounds. Abdominal: General: Bowel sounds are normal. Palpations: Abdomen is soft. Tenderness: There is no abdominal tenderness. Musculoskeletal: General: Normal range of motion. Cervical back: Neck supple. Lymphadenopathy: Cervical: No cervical adenopathy. Skin: General: Skin is warm and dry. Neurological: General: No focal deficit present. Mental Status: He is alert and oriented to person, place, and time. Psychiatric: Mood and Affect: Mood normal. Paul Moraes MD 01/12/2024 11:34 AM Patient was verified by name and . After obtaining consent, and per orders of Dr. Moraes, injection of PCV20 given in left deltoid by Emy Long. Patient instructed to report any adverse reaction immediately. documented in this encounter [facility] 09-14-2023 Telephone encounter Note Reviewed chart. Refill appropriate. RX sent. [facility] 09-14-2023 Miscellaneous Notes Reviewed chart. Refill appropriate. RX sent. Prescription Request: Last medication check: 02/17/2023 Last physical exam: 01/01/2023 Next scheduled appointment: 01/04/2024 Last date of refill on this medication: 05/20/2023 documented in this encounter [facility] 09-14-2023 Telephone encounter Note Prescription Request: Last medication check: 02/17/2023 Last physical exam: 01/01/2023 Next scheduled appointment: 01/04/2024 Last date of refill on this medication: 05/20/[address] [facility] 09-09-2023 History of Present illness Narrative [facility] Cardiology Note Visit type: Established : 1955 Chief Complaint: No chief complaint on file. History of Present Illness: Hyacinth Stapleton is a 68 y.o. male with history of heart failure reduced LVEf recovered with improved EF. Initial ejection fraction was decreased to 23% and improved to 50% with medical therapy. Etiology of this is unknown and patient had declined any further testing. He is doing good. He denies chest pain, acute shortness of breath, orthopnea or PND. He has no syncope or presyncope. Since we decreased his Coreg at last visit he feels his fatigue is improved. Past Medical History: Past Medical History: Diagnosis Date Acute gastritis without bleeding 10/07/2015 [facility] ER Anxiety CHF (congestive heart failure) ([facility] ([facility]) Chronic kidney disease stage 3 Depression 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, without long-term current use of insulin ([facility]) 01/01/2023 Hyperlipidemia Hypertension LV dysfunction Mitral valve regurgitation Obstructive sleep apnea syndrome 05/13/2019 Pneumonia 04/17/2020 Primary osteoarthritis of both knees 03/26/2020 Past Surgical History Past Surgical History: Procedure Laterality Date CATARACT EXTRACTION Bilateral CHOLECYSTECTOMY 06/02/2019 EYE SURGERY Retinal HERNIA REPAIR Family History Family History Problem Relation Name Age of Onset Heart disease Mother Hypertension Mother Hypertension Father Social History Social History Tobacco Use Smoking status: Former Packs/day: .25 Types: Cigarettes Quit date: 05/07/2015 Years since quittin.3 Smokeless tobacco: Never Vaping Use Vaping Use: Never used Substance Use Topics Alcohol use: Not Currently Comment: 1-2 day Drug use: No Comment: Caffiene: 1 cup of coffee in the morning; occassional soda Allergies: Allergies Allergen Reactions Proton Pump Inhibitors Recommendation per nephrology (CKD progression from PPI) noted 03/03/22 Medications: Current Outpatient Medications: carvedilol (Coreg) 12.5 MG tablet, Take 0.5 tablets (6.25 mg) by mouth 2 times daily., Disp: 180 tablet, Rfl: 2 cholecalciferol (Vitamin D-3) 25 MCG (1000 UT) tablet, Take 1,000 Units by mouth daily., Disp: , Rfl: dutasteride (Avodart) 0.5 MG capsule, Take 1 capsule (0.5 mg) by mouth daily., Disp: 30 capsule, Rfl: 11 fenofibrate (Tricor) 145 MG tablet, TAKE 1 TABLET BY MOUTH DAILY, Disp: 90 tablet, Rfl: 1 hydrALAZINE (Apresoline) 100 MG tablet, Take 1 tablet (100 mg) by mouth 3 times daily., Disp: 270 tablet, Rfl: 1 isosorbide mononitrate ER (Imdur) 120 MG 24 hr tablet, Take 1 tablet (120 mg) by mouth every morning., Disp: 90 tablet, Rfl: 1 PARoxetine CR (Paxil-CR) 12.5 MG 24 hr tablet, Take 1 tablet (12.5 mg) by mouth every morning., Disp: 90 tablet, Rfl: 1 spironolactone (Aldactone) 25 MG tablet, Take 25 mg by mouth daily., Disp: , Rfl: tamsulosin (Flomax) 0.4 MG 24 hr capsule, TAKE 1 CAPSULE BY MOUTH EVERY DAY, Disp: 30 capsule, Rfl: 3 Review of Systems: Review of Systems Constitutional: Positive for fatigue (sometimes). Negative for activity change, chills, diaphoresis and fever. HENT: Negative for nosebleeds and trouble swallowing. Eyes: Negative for discharge and visual disturbance. Respiratory: Positive for shortness of breath (Sometimes withh walking the dogs; intermittent; resolves quickly). Negative for apnea, cough, chest tightness and wheezing. Cardiovascular: Negative for chest pain and palpitations. Gastrointestinal: Negative for abdominal distention, abdominal pain, blood in stool, diarrhea, nausea and vomiting. Endocrine: Negative for cold intolerance and heat intolerance. Genitourinary: Negative for hematuria. Musculoskeletal: Negative for gait problem and myalgias. Skin: Negative for color change and rash. Neurological: Negative for dizziness (a little bit if gets up too quick), seizures, syncope, facial asymmetry, speech difficulty, weakness, light-headedness, numbness and headaches. Hematological: Does not bruise/bleed easily. Psychiatric/Behavioral: Negative for dysphoric mood. Physical Examination: Vitals: There were no vitals filed for this visit. There is no height or weight on file to calculate BMI. Physical Exam Constitutional: Appearance: Normal appearance. HENT: Head: Normocephalic. Mouth/Throat: Pharynx: No oropharyngeal exudate. Eyes: General: No scleral icterus. Right eye: No discharge. Left eye: No discharge. Cardiovascular: Rate and Rhythm: Normal rate and regular rhythm. Heart sounds: No murmur heard. No gallop. Pulmonary: Effort: No respiratory distress. Abdominal: General: There is no distension. Tenderness: There is no abdominal tenderness. Musculoskeletal: General: Normal range of motion. Cervical back: Normal range of motion. Skin: General: Skin is warm and dry. Neurological: Mental Status: He is alert and oriented to person, place, and time. Psychiatric: Mood and Affect: Mood normal. Laboratory Tests: Lab Results Component Value Date WBC NONE SEEN 08/17/2023 WBC 6.0 08/17/2023 HGB 10.8 (L) 08/17/2023 HCT 34.2 (L) 08/17/2023 MCV 85.3 08/17/2023 PLT 331 08/17/2023 Lab Results Component Value Date GLUCOSE 116 (H) 08/17/2023 GLUCOSE NEGATIVE 08/17/2023 CALCIUM 8.8 08/17/2023 NA 141 02/11/2022 K 3.2 (L) 02/11/2022 CO2 22 08/17/2023 CL 115 (H) 02/11/2022 BUN 39 (H) 08/17/2023 CREATININE 2.12 (H) 08/17/2023 @LASTCMP@ Lab Results Component Value Date CHOL 158 12/19/2021 CHOL 152 12/17/2020 CHOL 166 12/26/2019 Lab Results Component Value Date TRIG 69 12/19/2021 TRIG 107 12/17/2020 TRIG 81 12/26/2019 Lab Results Component Value Date HDL 51 12/19/2021 HDL 42 12/17/2020 HDL 48 12/26/2019 No results found for: "LDLCALC" NT PRO BNP Date Value Ref Range Status 05/20/2019 7,763 (H) 0 - 125 pg/mL Final Cardiac Tests: Last Echo: 07/22/2019: SUMMARY: 1. Left ventricle: Systolic function is at the lower limits of normal by visual assessment. The estimated ejection fraction is 50%. Features are consistent with a pseudonormal left ventricular filling pattern, with concomitant abnormal relaxation and increased filling pressure (grade 2 diastolic dysfunction). 2. Right ventricle: The cavity size is mildly dilated. Systolic function is normal. Right ventricular systolic pressure is within the normal range. 3. Left atrium: The atrium is severely dilated. 4. Right atrium: The atrium is mildly dilated. 5. Mitral valve: There is trivial, less than 1+ regurgitation. 6. Aortic valve: Structurally normal valve. Trileaflet. 7. Tricuspid valve: Structurally normal valve. 8. Pulmonic valve: Not well visualized. 9. Aorta: The aorta is poorly visualized but grossly normal. 10. Pericardium, extracardiac: There is no pericardial effusion. Assessment and Plan: 1. Essential hypertension Controlled. Continue with current medical therapy at current dosage. 2. Chronic systolic heart failure (HCC) HF recovered EF. Initial ejection fraction 23% and improved to 50% with medical therapy. Euvolemic on examination At last visit in I did decrease his carvedilol from 12.5 mg twice daily to 6.25 mg twice daily because his heart rates were in the 40s. With the new dose of 6.25 twice daily his heart rate is 58 and he feels his fatigue has improved. 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 -He has been maintained on Aldactone 25 mg p.o. daily. He did see his rivet hole machine operator Dr. Niño recently because of CKD (Cr around 2.1 near his baseline) and his medications were unchanged. RTC in 6 months or earlier if symptoms documented in this encounter [facility] 08-18-2023 Telephone encounter Note Prescription Request: Last medication check: 02/17/23 Last physical exam: 01/01/23 Next scheduled appointment: 01/04/24 Last date of refill on this medication 01/20/[address] [facility] 08-18-2023 Miscellaneous Notes Prescription Request: Last medication check: 02/17/23 Last physical exam: 01/01/23 Next scheduled appointment: 01/04/24 Last date of refill on this medication 01/20/23 documented in this encounter [facility] 06-12-2023 Telephone encounter Note Last seen 02/18/23. CBC/Renal done 03/10/23. [facility] 06-12-2023 Miscellaneous Notes Last seen 02/18/23. CBC/Renal done 03/10/23. documented in this encounter [facility] 05-20-2023 Telephone encounter Note Prescription Request: Last medication check: 06/19/21 Last physical exam: 01/01/23 Last completed appointment: 02/17/23 Next scheduled appointment: 07/06/23 Last date of refill on this medication: 02/17/[address] [facility] 05-20-2023 Miscellaneous Notes Prescription Request: Last medication check: 06/19/21 Last physical exam: 01/01/23 Last completed appointment: 02/17/23 Next scheduled appointment: 07/06/23 Last date of refill on this medication: 02/17/23 documented in this encounter [facility] 02-18-2023 History of Present illness Narrative [facility] Cardiology Note Visit type: Established : 1955 Chief Complaint: No chief complaint on file. History of Present Illness: Hyacinth Stapleton is a 67 y.o. male with history of heart failure reduced LVEf recovered with improved EF. Initial ejection fraction was decreased to 23% and improved to 50% with medical therapy. Etiology of this is unknown. He says for the past few days he has noticed his heart rate between 45-50, generally runs in the 60s. He has not had syncope or presyncope. Just a little tired. He denies chest pain,shorntess of breath,orthopnea or pnd. No exertional symptoms. Past Medical History: Past Medical History: Diagnosis Date Acute gastritis without bleeding 10/07/2015 [facility] ER Anxiety CHF (congestive heart failure) ([facility] ([facility]) Chronic kidney disease stage 3 Depression 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, without long-term current use of insulin ([facility]) 01/01/2023 Hyperlipidemia Hypertension LV dysfunction Mitral valve regurgitation Obstructive sleep apnea syndrome 05/13/2019 Pneumonia 04/17/2020 Primary osteoarthritis of both knees 03/26/2020 Past Surgical History Past Surgical History: Procedure Laterality Date CATARACT EXTRACTION Bilateral CHOLECYSTECTOMY 06/02/2019 EYE SURGERY Retinal HERNIA REPAIR Family History Family History Problem Relation Name Age of Onset Heart disease Mother Hypertension Mother Hypertension Father Social History Social History Tobacco Use Smoking status: Former Packs/day: 0.25 Types: Cigarettes Quit date: 05/07/2015 Years since quittin.7 Smokeless tobacco: Never Tobacco comments: Quit smoking: Pipe smoke trying to quit Vaping Use Vaping Use: Never used Substance Use Topics Alcohol use: Yes Alcohol/week: 14.0 standard drinks of alcohol Drug use: No Allergies: Allergies Allergen Reactions Proton Pump Inhibitors Recommendation per nephrology (CKD progression from PPI) noted 03/03/22 Medications: Current Outpatient Medications: carvedilol (Coreg) 12.5 MG tablet, Take 1 tablet (12.5 mg) by mouth 2 times daily., Disp: 180 tablet, Rfl: 2 cholecalciferol (Vitamin D-3) 25 MCG (1000 UT) tablet, Take 1,000 Units by mouth daily., Disp: , Rfl: fenofibrate (Tricor) 145 MG tablet, TAKE 1 TABLET BY MOUTH DAILY, Disp: 90 tablet, Rfl: 1 hydrALAZINE (Apresoline) 100 MG tablet, Take 1 tablet (100 mg) by mouth 3 times daily., Disp: 270 tablet, Rfl: 1 isosorbide mononitrate ER (Imdur) 120 MG 24 hr tablet, Take 1 tablet (120 mg) by mouth every morning., Disp: 90 tablet, Rfl: 1 PARoxetine CR (Paxil-CR) 12.5 MG 24 hr tablet, TAKE 1 TABLET BY MOUTH EVERY MORNING, Disp: 30 tablet, Rfl: 5 spironolactone (Aldactone) 25 MG tablet, Take 25 mg by mouth daily., Disp: , Rfl: sulfamethoxazole-trimethoprim (Bactrim DS) 800-160 MG tablet, Take 1 tablet by mouth 2 times daily for 14 days., Disp: 28 tablet, Rfl: 0 tamsulosin (Flomax) 0.4 MG 24 hr capsule, Take 1 capsule (0.4 mg) by mouth daily., Disp: 30 capsule, Rfl: 0 Review of Systems: Review of Systems Constitutional: Positive for fatigue (a little increased). Negative for activity change, chills, diaphoresis and fever. HENT: Negative for nosebleeds and trouble swallowing. Eyes: Negative for discharge and visual disturbance. Respiratory: Negative for apnea, cough, chest tightness, shortness of breath and wheezing. Cardiovascular: Negative for chest pain and palpitations. Gastrointestinal: Negative for abdominal distention, abdominal pain, blood in stool, diarrhea, nausea and vomiting. Endocrine: Negative for cold intolerance and heat intolerance. Genitourinary: Negative for hematuria. Musculoskeletal: Negative for gait problem and myalgias. Skin: Negative for color change and rash. Neurological: Negative for dizziness, seizures, syncope, facial asymmetry, speech difficulty, weakness, light-headedness, numbness and headaches. Hematological: Does not bruise/bleed easily. Psychiatric/Behavioral: Negative for dysphoric mood. Physical Examination: Vitals: There were no vitals filed for this visit. There is no height or weight on file to calculate BMI. Physical Exam Constitutional: Appearance: Normal appearance. HENT: Head: Normocephalic. Mouth/Throat: Pharynx: No oropharyngeal exudate. Eyes: General: No scleral icterus. Right eye: No discharge. Left eye: No discharge. Cardiovascular: Rate and Rhythm: Normal rate and regular rhythm. Heart sounds: No murmur heard. No gallop. Pulmonary: Effort: No respiratory distress. Abdominal: General: There is no distension. Tenderness: There is no abdominal tenderness. Musculoskeletal: General: Normal range of motion. Cervical back: Normal range of motion. Skin: General: Skin is warm and dry. Neurological: Mental Status: He is alert and oriented to person, place, and time. Psychiatric: Mood and Affect: Mood normal. Laboratory Tests: Lab Results Component Value Date WBC 5.2 10/30/2022 HGB 12.2 (L) 10/30/2022 HCT 37.1 (L) 10/30/2022 MCV 81.9 10/30/2022 PLT 281 10/30/2022 Lab Results Component Value Date GLUCOSE 107 (H) 01/01/2023 CALCIUM 9.6 01/01/2023 NA 141 02/11/2022 K 3.2 (L) 02/11/2022 CO2 25 01/01/2023 CL 115 (H) 02/11/2022 BUN 49 (H) 01/01/2023 CREATININE 2.51 (H) 01/01/2023 @LASTCMP@ Lab Results Component Value Date CHOL 158 12/19/2021 CHOL 152 12/17/2020 CHOL 166 12/26/2019 Lab Results Component Value Date TRIG 69 12/19/2021 TRIG 107 12/17/2020 TRIG 81 12/26/2019 Lab Results Component Value Date HDL 51 12/19/2021 HDL 42 12/17/2020 HDL 48 12/26/2019 No results found for: LDLCALC NT PRO BNP Date Value Ref Range Status 05/20/2019 7,763 (H) 0 - 125 pg/mL Final Cardiac Tests: Last Echo: 07/22/2019: SUMMARY: 1. Left ventricle: Systolic function is at the lower limits of normal by visual assessment. The estimated ejection fraction is 50%. Features are consistent with a pseudonormal left ventricular filling pattern, with concomitant abnormal relaxation and increased filling pressure (grade 2 diastolic dysfunction). 2. Right ventricle: The cavity size is mildly dilated. Systolic function is normal. Right ventricular systolic pressure is within the normal range. 3. Left atrium: The atrium is severely dilated. 4. Right atrium: The atrium is mildly dilated. 5. Mitral valve: There is trivial, less than 1+ regurgitation. 6. Aortic valve: Structurally normal valve. Trileaflet. 7. Tricuspid valve: Structurally normal valve. 8. Pulmonic valve: Not well visualized. 9. Aorta: The aorta is poorly visualized but grossly normal. 10. Pericardium, extracardiac: There is no pericardial effusion. Assessment and Plan: 1.Sinus bradycardia Ekg today shows sinus bradycardia @ 45 bpm. He is overall asymptomatic , maybe a little tired. We can cut back on his coreg . He is currently taking 12.5 mg BID, we will decrease it to 6.25 mg BID. 2. Essential hypertension Controlled. Continue current medical therapy except for above noted change 3. Chronic systolic heart failure (HCC) HF recovered EF. Initial ejection fraction 23% and improved to 50% with medical therapy. 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 Continue hydralazine and nitrates He wants to hold off any ischemic evaluation and it is reasonable in the setting of being asymptomatic and recovered LVEF. RTC in 6 months or earlier if symptoms documented in this encounter [facility] 02-16-2023 Telephone encounter Note Okay, thank you [facility] 02-16-2023 Miscellaneous Notes Okay, thank you S: Patient spoke with [facility] nurse regarding urinary sx's. B: Onset of symptoms for a month. A: Urinary problems on and off for the last month, feels like he could have a kidney stone, feels pressure like he has to use the bathroom, some burning with urination. At times he feels he is not empting his bladder all the way and only dribbles. R: Appointment scheduled for pt's availability tomorrow, address given to the patient, instructed to bring phot ID, insurance info and medication list to the appointment. Patient understands care advice. No further needs at this time. Patient instructed to call back with new or worsening symptoms. Reason for Disposition Urinating more frequently than usual (i.e., frequency) Protocols used: Urinary [id number] documented in this encounter [facility] 02-16-2023 Telephone encounter Note S: Patient spoke with [facility] nurse regarding urinary sx's. B: Onset of symptoms for a month. A: Urinary problems on and off for the last month, feels like he could have a kidney stone, feels pressure like he has to use the bathroom, some burning with urination. At times he feels he is not empting his bladder all the way and only dribbles. R: Appointment scheduled for pt's availability tomorrow, address given to the patient, instructed to bring phot ID, insurance info and medication list to the appointment. Patient understands care advice. No further needs at this time. Patient instructed to call back with new or worsening symptoms. Reason for Disposition Urinating more frequently than usual (i.e., frequency) Protocols used: Urinary [id number] [facility] 01-23-2023 Evaluation + Plan note Associated Problem(s): Acute prostatitis Start bactrim ds twice daily x 14 days, start flomax 0.4 mg daily (monitor for low bp symptoms-stop if occurring and call office). Send urine for culture. [facility] 01-23-2023 Miscellaneous Notes Associated Problem(s): Acute prostatitis Start bactrim ds twice daily x 14 days, start flomax 0.4 mg daily (monitor for low bp symptoms-stop if occurring and call office). Send urine for culture. documented in this encounter [facility] 01-23-2023 History of Present illness Narrative Images from the original note were not included. 01/23/2023 Hyacinth Stapleton (: 1955) is a 67 y.o. male , Established patient, here for evaluation of the following chief complaint(s): Difficulty Urinating ASSESSMENT/PLAN: 1. Acute prostatitis Assessment & Plan: Start bactrim ds twice daily x 14 days, start flomax 0.4 mg daily (monitor for low bp symptoms-stop if occurring and call office). Send urine for culture. Orders: - tamsulosin (Flomax) 0.4 MG 24 hr capsule; Take 1 capsule (0.4 mg) by mouth daily., Starting Thu01/23/2023, Until Thu02/22/2023, Normal - sulfamethoxazole-trimethoprim (Bactrim DS) 800-160 MG tablet; Take 1 tablet by mouth 2 times daily for 14 days., Starting Thu01/23/2023, Until Thu02/06/2023, Normal - Urine culture (clean catch) 2. Urinary tract infection symptoms - POCT urinalysis dipstick manually resulted - tamsulosin (Flomax) 0.4 MG 24 hr capsule; Take 1 capsule (0.4 mg) by mouth daily., Starting Thu01/23/2023, Until Thu02/22/2023, Normal - sulfamethoxazole-trimethoprim (Bactrim DS) 800-160 MG tablet; Take 1 tablet by mouth 2 times daily for 14 days., Starting Thu01/23/2023, Until Thu02/06/2023, Normal - Urine culture (clean catch) Follow up if symptoms worsen or fail to improve. SUBJECTIVE/OBJECTIVE: HPI - Hyacinth Stapleton (: 1955) is a 67 y.o. male , Established patient, here for the evaluation of the following chief complaint(s): Difficulty Urinating Intermittent difficulty urinating. No abdominal pain, intermittent dysuria, no fever or chills. No blood in the urine. No n/v, has had intermittent constipation/loose stools. Hx of prostatitis, treated effectively with bactrim and flomax. Prior to Admission medications Medication Sig Start Date End Date Taking? Authorizing Provider carvedilol (Coreg) 12.5 MG tablet Take 1 tablet (12.5 mg) by mouth 2 times daily. 09/17/22 Keo Jansen MD cholecalciferol (Vitamin D-3) 25 MCG (1000 UT) tablet Take 1,000 Units by mouth daily. Historical Provider, fenofibrate (Tricor) 145 MG tablet TAKE 1 TABLET BY MOUTH DAILY 12/17/22 Paul Moraes MD hydrALAZINE (Apresoline) 100 MG tablet Take 1 tablet (100 mg) by mouth 3 times daily. 12/18/22 Chino Garcia APRN - PANDA isosorbide mononitrate ER (Imdur) 120 MG 24 hr tablet Take 1 tablet (120 mg) by mouth every morning. 12/17/22 Keo Jansen MD PARoxetine CR (Paxil-CR) 12.5 MG 24 hr tablet TAKE 1 TABLET BY MOUTH EVERY MORNING 01/20/23 Paul Moraes MD spironolactone (Aldactone) 25 MG tablet Take 25 mg by mouth daily. 10/26/22 Historical Provider, Paxil CR 12.5 MG 24 hr tablet Take 1 tablet (12.5 mg) by mouth every morning. 06/17/22 01/20/23 Paul Moraes MD Review of Systems Constitutional: Negative for activity change, appetite change, diaphoresis, fatigue and fever. HENT: Negative. Respiratory: Negative. Cardiovascular: Negative. Gastrointestinal: Negative. Genitourinary: Positive for difficulty urinating, dysuria and frequency. Negative for flank pain and hematuria. Neurological: Negative. Vitals: 01/23/23 0939 BP: 122/60 Pulse: 59 Resp: 18 Temp: 36.7 C (98 F) TempSrc: Oral SpO2: 95% Weight: 218 lb 12.8 oz (99.2 kg) Physical Exam Constitutional: General: He is not in acute distress. Appearance: Normal appearance. He is not ill-appearing. HENT: Head: Normocephalic and atraumatic. Mouth/Throat: Mouth: Mucous membranes are moist. Pharynx: Oropharynx is clear. Eyes: Conjunctiva/sclera: Conjunctivae normal. Cardiovascular: Rate and Rhythm: Normal rate and regular rhythm. Pulmonary: Effort: Pulmonary effort is normal. Breath sounds: Normal breath sounds. Abdominal: General: Abdomen is flat. Bowel sounds are normal. There is no distension. Palpations: Abdomen is soft. Tenderness: There is no abdominal tenderness. There is no right CVA tenderness or left CVA tenderness. Skin: General: Skin is warm and dry. Neurological: Mental Status: He is alert and oriented to person, place, and time. An electronic signature was used to authenticate this note. MARY Osobrn CNP 01/23/2023 12:05 PM Patient identified by name and date of . Urine specimen cup labeled with patient name and date of . Urine cup and wipe given to patient. Clean catch urine collected from patient. POCT Urine ordered and signed by provider. POCT urine results entered and were sent to provider. Urine culture was ordered and signed by provider. Urine culture was obtained and specimen tube was labeled with patients name and date of , requisition was printed off, verified patient information, then given to [facility]. documented in this encounter [facility] 01-22-2023 Telephone encounter Note S: Patient spoke with [facility] nurse regarding possible urinary tract infection. B: Onset of symptoms started a couple of days ago. A: Patient states he has burning and pain with urination and increased urgency. He does completely empty his bladder in the morning, but throughout the day has episodes where he feels like he has to urinate but only dribbles. Denies increased frequency, fever, abdominal swelling, nausea, vomiting or blood in the urine. R: Insurance verified. Appointment was scheduled for 01/23/23 at 9:40 am with Ofelia Ibrahim APRN. Instructed to bring insurance card and ID. Home care advice given: increase fluids to flush kidneys. Patient understands care advice. No further needs at this time. Patient instructed to call back with new or worsening symptoms. Reason for Disposition All other males with painful urination, or patient wants to be seen Protocols used: Urination Pain - [id number] [facility] 01-22-2023 Miscellaneous Notes S: Patient spoke with [facility] nurse regarding possible urinary tract infection. B: Onset of symptoms started a couple of days ago. A: Patient states he has burning and pain with urination and increased urgency. He does completely empty his bladder in the morning, but throughout the day has episodes where he feels like he has to urinate but only dribbles. Denies increased frequency, fever, abdominal swelling, nausea, vomiting or blood in the urine. R: Insurance verified. Appointment was scheduled for 01/23/23 at 9:40 am with Ofelia Ibrahim APRN. Instructed to bring insurance card and ID. Home care advice given: increase fluids to flush kidneys. Patient understands care advice. No further needs at this time. Patient instructed to call back with new or worsening symptoms. Reason for Disposition All other males with painful urination, or patient wants to be seen Protocols used: Urination Pain - [id number] documented in this encounter [facility] 01-20-2023 Telephone encounter Note Prescription Request: Last medication check: 06/17/22 Last physical exam: 01/01/23 Next scheduled appointment: 07/06/23 Last date of refill on this medication 06/17/[address] [facility] 01-20-2023 Miscellaneous Notes Prescription Request: Last medication check: 06/17/22 Last physical exam: 01/01/23 Next scheduled appointment: 07/06/23 Last date of refill on this medication 06/17/22 documented in this encounter [facility] 01-02-2023 Evaluation + Plan note Associated Problem(s): Recurrent major depressive disorder, in full remission (HCC) Remission, continue Paxil CR 12.[address] mg daily [facility] 01-02-2023 Evaluation + Plan note Associated Problem(s): Hyperlipidemia Controlled, continue fenofibrate 45 mg daily [facility] 01-02-2023 Evaluation + Plan note Associated Problem(s): Benign prostatic hyperplasia with urinary frequency Stable, currently on no medications. 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 01-02-2023 Miscellaneous Notes Associated Problem(s): Recurrent major depressive disorder, in full remission (HCC) Remission, continue Paxil CR 12.5 mg daily Associated Problem(s): Hyperlipidemia Controlled, continue fenofibrate 45 mg daily Associated Problem(s): Benign prostatic hyperplasia with urinary frequency Stable, currently on no medications. 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 Associated Problem(s): Peripheral vascular disease, unspecified (HCC) Stable, continue isosorbide 120 mg daily Associated Problem(s): Hypertension Controlled, continue carvedilol 12.5 mg twice a day, hydralazine 100 mg 3 times a day and spironolactone 25 mg daily Associated Problem(s): Chronic systolic heart failure (CMS/HCC) (HCC) Stable, continue isosorbide and spironolactone 25 mg and carvedilol 12.5 mg twice a day documented in this encounter [facility] 01-02-2023 Evaluation + Plan note Associated Problem(s): Stage 3b chronic kidney disease (HCC) Stable, continue good blood sugar and blood pressure control. [facility] 01-02-2023 Evaluation + Plan note Associated Problem(s): Peripheral vascular disease, unspecified (HCC) Stable, continue isosorbide 120 mg daily [facility] 01-02-2023 Evaluation + Plan note Associated Problem(s): Hypertension Controlled, continue carvedilol 12.5 mg twice a day, hydralazine 100 mg 3 times a day and spironolactone [address] mg daily [facility] 01-02-2023 Evaluation + Plan note Associated Problem(s): Chronic systolic heart failure (CMS/HCC) (HCC) Stable, continue isosorbide and spironolactone 25 mg and carvedilol 12.5 mg twice a day [facility] 01-02-2023 Evaluation note Diagnosis Medicare annual wellness visit, subsequent- Primary 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, without long-term current use of insulin (HCC) Peripheral vascular disease, unspecified (HCC) Peripheral vascular disease, unspecified Chronic systolic heart failure (CMS/HCC) (HCC) Chronic systolic heart failure Primary hypertension Unspecified essential hypertension Stage 3b chronic kidney disease (HCC) Benign prostatic hyperplasia with urinary frequency Pure hypertriglyceridemia Recurrent major depressive disorder, in full remission (HCC) documented in this encounter [id number] History of Present illness Narrative* Yohana Christy MA - 01/01/2023 2:45 PM EDT Patient verified by last name and date of . * Paul Moraes MD - 01/01/2023 2:45 PM EDT Images from the original note were not included. [facility] [address] [id number] Visit type: Established Patient Reason for Visit: Medicare Annual Wellness Visit Subsequent, Blood Work, and Health Maintenance (Echo- will check with medical technician assistant in February /Colonoscopy- not right now) Assessment and Plan Problem List Items Addressed This Visit Circulatory Peripheral vascular disease, unspecified (HCC) Stable, continue isosorbide 120 mg daily Hypertension Controlled, continue carvedilol 12.5 mg twice a day, hydralazine 100 mg 3 times a day and spironolactone 25 mg daily Chronic systolic heart failure (CMS/HCC) (HCC) Stable, continue isosorbide and spironolactone 25 mg and carvedilol 12.5 mg twice a day Genitourinary Stage 3b chronic kidney disease (HCC) Stable, continue good blood sugar and blood pressure control. Endocrine/Metabolic 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, without long-term current use of insulin (HCC) Controlled, continue low-carb diet Relevant Orders Comprehensive metabolic panel (Completed) Hemoglobin A1c (Completed) Microalbumin / creatinine urine ratio Other Hyperlipidemia Controlled, continue fenofibrate 45 mg daily Relevant Orders Lipid panel (Completed) Recurrent major depressive disorder, in full remission (HCC) Remission, continue Paxil CR 12.5 mg daily Benign prostatic hyperplasia with urinary frequency Stable, currently on no medications. Relevant Orders PSA Screening (Completed) Other Visit Diagnoses Medicare annual wellness visit, subsequent - Primary Follow up in about 6 months (around 07/04/2023). Madan Henderson comes in today for his annual Medicare well visit and for follow-up on his diabetes, peripheral vascular disease CHF, hypertension, chronic kidney disease, BPH and his hypertriglyceridemia and depression. Says he has no complaints today everything seems to be stable he did not bring any blood sugar numbers but he is not on any medication for his diabetes at this time it is diet controlled, his depression seems to be in remission on his Paxil and he currently is on fenofibrate for his cholesterol. I have reviewed and reconciled the medication list with the patient today. Current Outpatient Medications Medication Sig Dispense Refill carvedilol (Coreg) 12.5 MG tablet Take 1 tablet (12.5 mg) by mouth 2 times daily. 180 tablet 2 cholecalciferol (Vitamin D-3) 25 MCG (1000 UT) tablet Take 1,000 Units by mouth daily. fenofibrate (Tricor) 145 MG tablet TAKE 1 TABLET BY MOUTH DAILY 90 tablet 1 hydrALAZINE (Apresoline) 100 MG tablet Take 1 tablet (100 mg) by mouth 3 times daily. 270 tablet 1 isosorbide mononitrate ER (Imdur) 120 MG 24 hr tablet Take 1 tablet (120 mg) by mouth every morning. 90 tablet 1 Paxil CR 12.5 MG 24 hr tablet Take 1 tablet (12.5 mg) by mouth every morning. 30 tablet 5 spironolactone (Aldactone) 25 MG tablet Take 25 mg by mouth daily. No current facility-administered medications for this visit. There are no discontinued medications. List of current healthcare providers: Patient Care Team: Paul Moraes MD as PCP - General Over the past 2 weeks, how often have you been bothered by any of the following problems? Trouble falling or staying asleep, or sleeping too much: Not at all Feeling tired or having little energy: Not at all Poor appetite or overeating: Not at all Feeling bad about yourself - or that you are a failure or have let yourself or your family down: Not at all Trouble concentrating on things, such as reading the newspaper or watching television: Not at all Moving or speaking so slowly that other people could have noticed? Or the opposite - being so fidgety or restless that you have been moving around a lot more than usual.: Not at all Thoughts that you would be better off or hurting yourself in some way: Not at all Patient Health Questionnaire-9 Score: 0 The following health maintenance schedule was reviewed with the patient and provided in printed form in the after visit summary: Health Maintenance Topic Date Due Echocardiogram Never done Colorectal Cancer Screening Never done Diabetes: Foot Exam Never done Diabetes: Retinopathy Screening Never done Diabetes: Dental Exam Never done Influenza Vaccine (1) 02/06/2023 Pneumococcal Vaccine: 65+ Years (1 - PCV) 06/17/2023 (Originally 1961) Zoster Vaccines (1 of 2) 06/17/2023 (Originally 2004) Hepatitis C Screening 06/17/2023 (Originally 1973) COVID-19 Vaccine (3 - Booster for Moderna series) 06/17/2023 (Originally 01/23/2021) Depresssion Monitoring 07/04/2023 DTaP/Tdap/Td Vaccines (2 - Td or Tdap) 12/01/2023 Creatinine Level 01/02/2024 Potassium Level 01/02/2024 Lipid Panel 01/02/2024 Diabetes: Hemoglobin A1C 01/02/2024 HIB Vaccines Aged Out Hepatitis B Vaccines Aged Out IPV Vaccines Aged Out Hepatitis A Vaccines Aged Out Meningococcal Vaccine Aged Out Rotavirus Vaccines Aged Out HPV Vaccines Aged Out Orders Placed This Encounter Procedures Lipid panel Standing Status: Future Number of Occurrences: 1 Standing Expiration Date: 01/02/2024 Comprehensive metabolic panel Standing Status: Future Number of Occurrences: 1 Standing Expiration Date: 01/02/2024 PSA Screening Standing Status: Future Number of Occurrences: 1 Standing Expiration Date: 01/02/2024 Hemoglobin A1c Standing Status: Future Number of Occurrences: 1 Standing Expiration Date: 01/02/2024 Microalbumin / creatinine urine ratio Standing Status: Future Standing Expiration Date: 01/02/2024 Health Risk Assessment: General In general, how would you say your health is?: Good In the past 7 days, have you experienced any of the following: New or Increased Pain, New or Increased Fatigue, Loneliness, Social Isolation, Stress or Anger?: No Do you get the social and emotional suppport you need?: Yes Interventions: Health Habits / Nutrition On average, how many days per week do you engage in moderate to strenous exercise (like a brisk walk)?: 7 days On average, how man minutes do you engage in exercise at this level?: 120 min Have you lost any weight without trying in the past 3 months? : No Have you seen the dentist within the past year?: (!) No Interventions: Dental exam overdue: Patient encouraged to make appointment with his / her dentist Hearing / Vision Do you or your family notice any trouble with your hearing that hasn't been managed with hearing aids?: (!) Yes Do you have difficulty driving, watching TV, or doing any of your daily activities because of your eyesight?: No Have you had an eye exam within the past year?: Yes No results found. Interventions: Hearing concerns: Patient declines any further evaluation / treatment for hearing issues Safety Do you have a working smoke detector?: Yes Do you have any tripping hazards - loose or unsecured carpets or rugs?: (!) Yes Do you have any tripping hazards - clutter in doorways, halls, or stairs?: No Do you have either shower bars, grab bars, non-slip mats or non-slip surfaces in your shower or bathtub? : Yes Do all your stairways have a railing or banister? : Not Applicable Do you fasten your seatbelt when you are in a car?: Yes Interventions: Home safety tips provided ADL In the past 7 days, did you need help from others to perform any of the following everyday activities: Eating, dressing, grooming,bathing, toileting, or walking / balance? : No In the past 7 days, did you need help from others to take care of any of the following: laundry, housekeeping, banking / finances,shopping, telephone use, food preparation, transportation, or taking medications? : No Interventions: Living Will Do you have a living will?: No Interventions: Advance Care Planning addressed with patient today Cognitive: Cognitive Screening: Mini-Cog Clock Drawing Test (CDT): 2 Words Recalled: 3 Total Score: 5 Total Score Interpretation: Normal Mini-Cog Interventions: Fall Risk: Interventions: Tripped in a hole Depression Screening: Over the past 2 weeks, how often have you been bothered by any of the following problems? Little interest or pleasure in doing things: Not at all Feeling down, depressed, or hopeless: Not at all Patient Health Questionnaire-2 Score: 0 Over the past 2 weeks, how often have you been bothered by any of the following problems? Trouble falling or staying asleep, or sleeping too much: Not at all Feeling tired or having little energy: Not at all Poor appetite or overeating: Not at all Feeling bad about yourself - or that you are a failure or have let yourself or your family down: Not at all Trouble concentrating on things, such as reading the newspaper or watching television: Not at all Moving or speaking so slowly that other people could have noticed? Or the opposite - being so fidgety or restless that you have been moving around a lot more than usual.: Not at all Thoughts that you would be better off or hurting yourself in some way: Not at all Patient Health Questionnaire-9 Score: 0 If you checked off any problems on this questionnaire so far, How difficult have these problems made it for you to do your work, take care of things at home, or get along with other people?: Not difficult at all Interventions: Tobacco Use: Social History Tobacco Use Smoking Status Former Packs/day: 0.25 Types: Cigarettes Quit date: 05/07/2015 Years since quittin.6 Smokeless Tobacco Never Tobacco Comments Quit smoking: Pipe smoke trying to quit Interventions: Alcohol Use: Audit Alcohol Screening Q1: How often do you have a drink containing alcohol?: 4 or more times a week Q2: How many drinks containing alcohol do you have on a typical day when you are drinking?: 1 or 2 Q3: How often do you have six or more drinks on one occasion?: Never Audit-C Score: 4 Skip to questions 9-10?: 1 Q10: Has a relative, friend, doctor, or another health professional expressed concern about your drinking or suggested you cut down?: No Interventions: Drug Use: Drug Abuse Screening Test (DAST-10) Have you used drugs other than those required for medical reasons?: No Interventions: Review of Systems Constitutional: Negative for activity change, appetite change, chills, fever and unexpected weight change. HENT: Negative for ear pain and sore throat. Respiratory: Negative for shortness of breath. Cardiovascular: Negative for chest pain and palpitations. Gastrointestinal: Negative for abdominal pain, blood in stool, constipation and diarrhea. Genitourinary: Negative for dysuria, frequency, hematuria and urgency. Musculoskeletal: Negative for arthralgias and back pain. Skin: Negative. Neurological: Negative for weakness and numbness. Psychiatric/Behavioral: Negative for dysphoric mood. The patient is not nervous/anxious. Immunization History Administered Date(s) Administered Influenza, High-dose Seasonal, Quadrivalent, Preservative Free 03/22/2020 Influenza, seasonal, injectable 03/08/2016 Influenza, seasonal, injectable, preservative free 03/26/2011 Moderna SARS-CoV-2 Vaccination 10/31/2020, 11/28/2020 Tdap 11/30/2013 Allergies Allergen Reactions Proton Pump Inhibitors Recommendation per nephrology (CKD progression from PPI) noted 03/03/22 Outpatient Medications Prior to Visit Medication Sig Dispense Refill carvedilol (Coreg) 12.5 MG tablet Take 1 tablet (12.5 mg) by mouth 2 times daily. 180 tablet 2 cholecalciferol (Vitamin D-3) 25 MCG (1000 UT) tablet Take 1,000 Units by mouth daily. fenofibrate (Tricor) 145 MG tablet TAKE 1 TABLET BY MOUTH DAILY 90 tablet 1 hydrALAZINE (Apresoline) 100 MG tablet Take 1 tablet (100 mg) by mouth 3 times daily. 270 tablet 1 isosorbide mononitrate ER (Imdur) 120 MG 24 hr tablet Take 1 tablet (120 mg) by mouth every morning. 90 tablet 1 Paxil CR 12.5 MG 24 hr tablet Take 1 tablet (12.5 mg) by mouth every morning. 30 tablet 5 spironolactone (Aldactone) 25 MG tablet Take 25 mg by mouth daily. No facility-administered medications prior to visit. Past Medical History: Diagnosis Date Acute gastritis without bleeding 10/07/2015 [facility] Anxiety CHF (congestive heart failure) ([facility] ([facility]) Chronic kidney disease stage 3 Depression 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, without long-term current use of insulin ([facility]) 01/01/2023 Hyperlipidemia Hypertension LV dysfunction Mitral valve regurgitation Obstructive sleep apnea syndrome 05/13/2019 Pneumonia 04/17/2020 Primary osteoarthritis of both knees 03/26/2020 Social History Socioeconomic History Marital status: Tobacco Use Smoking status: Former Packs/day: 0.25 Types: Cigarettes Quit date: 05/07/2015 Years since quittin.6 Smokeless tobacco: Never Tobacco comments: Quit smoking: Pipe smoke trying to quit Vaping Use Vaping Use: Never used Substance and Sexual Activity Alcohol use: Yes Alcohol/week: 14.0 standard drinks of alcohol Drug use: No Sexual activity: Yes Partners: Female control/protection: None Social Determinants of Health Financial Resource Strain: Low Risk (01/01/2023) Overall Financial Resource Strain (CARDIA) Difficulty of Paying Living Expenses: Not hard at all Food Insecurity: No Food Insecurity (01/01/2023) Hunger Vital Sign Worried About Running Out of Food in the Last Year: Never true Ran Out of Food in the Last Year: Never true Transportation Needs: No Transportation Needs (01/01/2023) PRAPARE - Transportation Lack of Transportation (Medical): No Lack of Transportation (Non-Medical): No Physical Activity: Sufficiently Active (01/01/2023) Exercise Vital Sign Days of Exercise per Week: 7 days Minutes of Exercise per Session: 120 min Housing Stability: Low Risk (01/01/2023) Housing Stability Vital Sign Unable to Pay for Housing in the Last Year: No Number of Places Lived in the Last Year: 1 Unstable Housing in the Last Year: No Past Surgical History: Procedure Laterality Date CATARACT EXTRACTION Bilateral CHOLECYSTECTOMY 06/02/2019 EYE SURGERY Retinal HERNIA REPAIR Past Surgical History: Procedure Laterality Date CATARACT EXTRACTION Bilateral CHOLECYSTECTOMY 06/02/2019 EYE SURGERY Retinal HERNIA REPAIR Family History Problem Relation Name Age of Onset Heart disease Mother Hypertension Mother Hypertension Father Objective BP 138/66 Pulse 59 Ht 5' 9" (1.753 m) Wt 220 lb 12.8 oz (100 kg) SpO2 95% BMI 32.61 kg/m Physical Exam Vitals and nursing note reviewed. Constitutional: General: He is not in acute distress. Appearance: Normal appearance. He is obese. HENT: Right Ear: Tympanic membrane, ear canal and external ear normal. Left Ear: Tympanic membrane, ear canal and external ear normal. Mouth/Throat: Mouth: Mucous membranes are moist. Pharynx: Oropharynx is clear. Eyes: Extraocular Movements: Extraocular movements intact. Pupils: Pupils are equal, round, and reactive to light. Neck: Vascular: No carotid bruit. Cardiovascular: Rate and Rhythm: Normal rate and regular rhythm. Heart sounds: Normal heart sounds. No murmur heard. Pulmonary: Effort: Pulmonary effort is normal. Breath sounds: Normal breath sounds. Abdominal: General: Bowel sounds are normal. Palpations: Abdomen is soft. Tenderness: There is no abdominal tenderness. Musculoskeletal: General: Normal range of motion. Cervical back: Neck supple. Lymphadenopathy: Cervical: No cervical adenopathy. Skin: General: Skin is warm and dry. Neurological: General: No focal deficit present. Mental Status: He is alert and oriented to person, place, and time. Psychiatric: Mood and Affect: Mood normal. Data Reviewed Labs: Imaging/Testing: Paul Moraes MD 01/02/2023 5:29 AM documented in this [facility]07-12-2023 Telephone encounter Note* Telephone Encounter - Honey Martines MA - 12/17/2022 2:50 PM EDT Prescription Request: Last medication check: 06/19/21 Last physical exam: 06/17/22 Next scheduled appointment: 01/01/23 Last date of refill on this medication 08/25/22 90 days [address] [id number] Miscellaneous Notes* Telephone Encounter - Honey Martines MA - 12/17/2022 2:50 PM EDT Prescription Request: Last medication check: 06/19/21 Last physical exam: 06/17/22 Next scheduled appointment: 01/01/23 Last date of refill on this medication 08/25/22 90 days 1 refill [id number] Telephone encounter Note* Telephone Encounter - Rick Foley - 08/25/2022 11:18 AM EDT Medication name: fenofibrate Medication dosage: 145 mg (Miligrams Monthly quantity needed: 90 How many day supply requestin days Medication route: oral (PO) Medication administration time(s): daily If taking medication PRN, reason for taking medication: N/A If this is a controlled substance do you receive this or any other controlled medication from any other doctor or facility: No Ordering provider: [place] Date of last office visit: 06/17/2022 Date of next office visit: 12/22/2022 Date of last refill: (see medication tab): 03/18/22 Updated/Validated preferred pharmacy: Yes Patient instructed to contact the pharmacy prior to picking up the medication: No [id number] Miscellaneous Notes* Telephone Encounter - Rick Foley - 08/25/2022 11:18 AM EDT Medication name: fenofibrate Medication dosage: 145 mg (Miligrams Monthly quantity needed: 90 How many day supply requestin days Medication route: oral (PO) Medication administration time(s): daily If taking medication PRN, reason for taking medication: N/A If this is a controlled substance do you receive this or any other controlled medication from any other doctor or facility: No Ordering provider: [place] Date of last office visit: 06/17/2022 Date of next office visit: 12/22/2022 Date of last refill: (see medication tab): 03/18/22 Updated/Validated preferred pharmacy: Yes Patient instructed to contact the pharmacy prior to picking up the medication: No documented in this [facility]01-23-2023 History of Present illness Narrative* Keo Jansen MD - 06/30/2022 10:20 AM EST [facility] Cardiology Note Visit type: Established : 1955 Chief Complaint: No chief complaint on file. History of Present Illness: Hyacinth Stapleton is a 66 y.o. male with history of heart failure reduced LVEf recovered with improved EF. Initial ejection fraction was decreased to 23% and improved to 50% with medical therapy. Etiology of this is unknown. He is doing well. He denies chest pain,shorntess of breath,orthopnea or pnd. No syncope or presyncope. No exertional symptoms. 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 Past Medical History: Past Medical History: Diagnosis Date Acute gastritis without bleeding 10/07/2015 [facility] ER Anxiety CHF (congestive heart failure) (CMS/HCC) (HCC) Chronic kidney disease stage 3 Depression Hyperlipidemia Hypertension LV dysfunction Mitral valve regurgitation Obstructive sleep apnea syndrome 05/13/2019 Pneumonia 04/17/2020 Primary osteoarthritis of both knees 03/26/2020 Past Surgical History Past Surgical History: Procedure Laterality Date ATRIAL ABLATION SURGERY 06/02/2019 CATARACT EXTRACTION Bilateral EYE SURGERY Retinal HERNIA REPAIR Family History Family History Problem Relation Name Age of Onset Heart disease Mother Hypertension Mother Hypertension Father Social History Social History Tobacco Use Smoking status: Former Packs/day: 0.25 Types: Cigarettes Quit date: 05/07/2015 Years since quittin.1 Smokeless tobacco: Never Tobacco comments: Quit smoking: Pipe smoke trying to quit Substance Use Topics Alcohol use: Yes Alcohol/week: 14.0 standard drinks Drug use: No Allergies: Allergies Allergen Reactions Proton Pump Inhibitors Recommendation per nephrology (CKD progression from PPI) noted 03/03/22 Medications: Current Outpatient Medications: carvedilol (Coreg) 12.5 MG tablet, Take 1 tablet by mouth 2 times daily., Disp: , Rfl: cholecalciferol (Vitamin D-3) 25 MCG (1000 UT) tablet, Take 1,000 Units by mouth daily., Disp: , Rfl: fenofibrate (Tricor) 145 MG tablet, Take 1 tablet by mouth daily., Disp: , Rfl: hydrALAZINE (Apresoline) 100 MG tablet, Take 1 tablet by mouth 3 times daily., Disp: , Rfl: isosorbide mononitrate ER (Imdur) 120 MG 24 hr tablet, Take 1 tablet by mouth every morning., Disp:, Rfl: Paxil CR 12.5 MG 24 hr tablet, Take 1 tablet (12.5 mg) by mouth every morning., Disp: 30 tablet, Rfl: 5 Review of Systems: Review of Systems Constitutional: Negative for activity change, chills, diaphoresis, fatigue and fever. HENT: Negative for nosebleeds and trouble swallowing. Eyes: Negative for discharge and visual disturbance. Respiratory: Negative for apnea, cough, chest tightness, shortness of breath (occasional with activity) and wheezing. Cardiovascular: Negative for chest pain, palpitations and leg swelling. Gastrointestinal: Negative for abdominal distention, abdominal pain, blood in stool, diarrhea, nausea and vomiting. Endocrine: Negative for cold intolerance and heat intolerance. Genitourinary: Negative for hematuria. Musculoskeletal: Negative for gait problem and myalgias. Skin: Negative for color change and rash. Neurological: Negative for dizziness (in February; due to dehydration), seizures, syncope, facial asymmetry, speech difficulty, weakness, light- headedness, numbness and headaches. Hematological: Does not bruise/bleed easily. Psychiatric/Behavioral: Negative for dysphoric mood. Physical Examination: Vitals: There were no vitals filed for this visit. There is no height or weight on file to calculate BMI. Physical Exam Constitutional: Appearance: Normal appearance. HENT: Head: Normocephalic. Mouth/Throat: Pharynx: No oropharyngeal exudate. Eyes: General: No scleral icterus. Right eye: No discharge. Left eye: No discharge. Cardiovascular: Rate and Rhythm: Normal rate and regular rhythm. Heart sounds: No murmur heard. No gallop. Pulmonary: Effort: No respiratory distress. Abdominal: General: There is no distension. Tenderness: There is no abdominal tenderness. Musculoskeletal: General: Normal range of motion. Cervical back: Normal range of motion. Skin: General: Skin is warm and dry. Neurological: Mental Status: He is alert and oriented to person, place, and time. Psychiatric: Mood and Affect: Mood normal. Laboratory Tests: Lab Results Component Value Date WBC 6.6 02/11/2022 HGB 10.7 (L) 02/11/2022 MCV 82.1 02/11/2022 Lab Results Component Value Date GLUCOSE 104 (H) 02/11/2022 CALCIUM 7.4 (L) 02/11/2022 NA 141 02/11/2022 K 3.2 (L) 02/11/2022 CO2 21 (L) 02/11/2022 CL 115 (H) 02/11/2022 BUN 28 (H) 02/11/2022 CREATININE 1.78 (H) 02/11/2022 @[facility]@ Lab Results Component Value Date CHOL 158 12/19/2021 CHOL 152 12/17/2020 CHOL 166 12/26/2019 Lab Results Component Value Date TRIG 69 12/19/2021 TRIG 107 12/17/2020 TRIG 81 12/26/2019 Lab Results Component Value Date HDL 51 12/19/2021 HDL 42 12/17/2020 HDL 48 12/26/2019 No results found for: LDLCALC NT PRO BNP Date Value Ref Range Status 05/20/2019 7,763 (H) 0 - 125 pg/mL Final Cardiac Tests: Last Echo: 07/22/2019: SUMMARY: 1. Left ventricle: Systolic function is at the lower limits of normal by visual assessment. The estimated ejection fraction is 50%. Features are consistent with a pseudonormal left ventricular filling pattern, with concomitant abnormal relaxation and increased filling pressure (grade 2 diastolic dysfunction). 2. Right ventricle: The cavity size is mildly dilated. Systolic function is normal. Right ventricular systolic pressure is within the normal range. 3. Left atrium: The atrium is severely dilated. 4. Right atrium: The atrium is mildly dilated. 5. Mitral valve: There is trivial, less than 1+ regurgitation. 6. Aortic valve: Structurally normal valve. Trileaflet. 7. Tricuspid valve: Structurally normal valve. 8. Pulmonic valve: Not well visualized. 9. Aorta: The aorta is poorly visualized but grossly normal. 10. Pericardium, extracardiac: There is no pericardial effusion. Assessment and Plan: 1. Essential hypertension Controlled. Continue current medical therapy 2. Chronic systolic heart failure (HCC) HF recovered EF. Initial ejection fraction 23% and improved to 50% with medical therapy. Euvolemic on examination Continue carvedilol His rivet hole machine operator took him off his lisinopril and his Demadex because he had an episode where he wasdehydrated and had near syncope episodes and worsening Cr. Continue hydralazine and nitrates He wants to hold off any ischemic evaluation and it is reasonable in the setting of being asymptomatic and recovered LVEF. RTC in 6 months or earlier if symptoms documented in this [facility] [id number] Evaluation + Plan note* Assessment & Plan Note - Paul Moraes MD - 06/17/2022 12:22 PM EST Associated Problem(s): Hypertension Blood pressure was initially elevated, recheck was still elevated but improved, continue .5 mg twice a day and hydralazine 100 mg 3 times a day and isosorbide 120 mg daily and recheck in1 week, may need to increase his carvedilol to 25 mg twice a day. [facility] [id number] Miscellaneous Notes* Assessment & Plan Note - Paul Moraes MD - 06/17/2022 12:22 PM ESTAssociated Problem(s): Hypertension Blood pressure was initially elevated, recheck was still elevated but improved, continue etokecwodx16.5 mg twice a day and hydralazine 100 mg 3 times a day and isosorbide 120 mg daily and recheck in1 week, may need to increase his carvedilol to 25 mg twice a day. * Assessment & Plan Note - Paul Moraes MD - 06/17/2022 11:30 AM EST Associated Problem(s): Benign prostatic hyperplasia with urinary frequency Stable * Assessment & Plan Note - Paul Moraes MD - 06/17/2022 11:30 AM EST Associated Problem(s): Recurrent major depressive disorder, in full remission (HCC) Stable, continue Paxil CR d.a.w. 12.5 mg * Assessment & Plan Note - Paul Moraes MD - 06/17/2022 11:29 AM EST Associated Problem(s): Hyperlipidemia Controlled, continue fenofibrate 145 mg daily * Assessment & Plan Note - Paul Moraes MD - 06/17/2022 11:29 AM EST Associated Problem(s): Anxiety Stable, continue Paxil CR d.a.w. 12.5 mg * Assessment & Plan Note - Paul Moraes MD - 06/17/2022 11:29 AM EST Associated Problem(s): Stage 3b chronic kidney disease (HCC) Stable, follow-up with nephrology as needed. * Assessment & Plan Note - Paul Moraes MD - 06/17/2022 11:28 AM EST Associated Problem(s): Chronic systolic heart failure (CMS/HCC) (HCC) Stable, continue Imdur 120 mg and carvedilol 12.5 mg documented in this [facility]01-10-2023 Evaluation + Plan note* Assessment & Plan Note - Paul Moraes MD - 06/17/2022 11:30 AM EST Associated Problem(s): Benign prostatic hyperplasia with urinary frequency Stable [facility] [id number] Evaluation + Plan note* Assessment & Plan Note - Paul Moraes MD - 06/17/2022 11:30 AM ESTAssociated Problem(s): Recurrent major depressive disorder, in full remission (HCC) Stable, continue Paxil CR d.a.w. 12.[address] [facility] [id number] Evaluation + Plan note* Assessment & Plan Note - Paul Moraes MD - 06/17/2022 11:29 AM ESTAssociated Problem(s): Hyperlipidemia Controlled, continue fenofibrate [address] [facility] [id number] Evaluation + Plan note* Assessment & Plan Note - Paul Moraes MD - 06/17/2022 11:29 AM ESTAssociated Problem(s): Anxiety Stable, continue Paxil CR d.a.w. 12.[address] [facility] [id number] Evaluation + Plan note* Assessment & Plan Note - Paul Moraes MD - 06/17/2022 11:29 AM ESTAssociated Problem(s): Stage 3b chronic kidney disease (HCC) Stable, follow-up with nephrology as needed. [facility] [id number] Evaluation + Plan note* Assessment & Plan Note - Paul Moraes MD - 06/17/2022 11:28 AM ESTAssociated Problem(s): Chronic systolic heart failure (CMS/HCC) (HCC) Stable, continue Imdur 120 mg and carvedilol 12.5 mg [facility] [id number] History of Present illness Narrative* Yohana Christy MA - 06/17/2022 11:00 AM EST Patient verified by last name and date of . Patient wants a press setup operator in the room during during the visit. no Cannery Worker na * Paul Moraes MD - 06/17/2022 11:00 AM EST Images from the original note were not included. 06/17/2022 Hyacinth Stapleton (: 1955) is a 66 y.o. male , Established patient, here for evaluation of the following chief complaint(s): Anxiety, Depression (Since using generic paroxetine having headaches and not sleeping as well), Hyperlipidemia, Hypertension, Medication Check, and Health Maintenance (Colonoscopy- refuse /Covid 3- not done/Flu vaccine- refuse/Tdap/ shingles vaccines- refuse both/Pcv 20 vaccine- refuse/Hep c screen- refuse ) ASSESSMENT/PLAN: 1. Primary hypertension Assessment & Plan: Blood pressure was initially elevated, recheck was still elevated but improved, continue bfnlnnhgyi07.5 mg twice a day and hydralazine 100 mg 3 times a day and isosorbide 120 mg daily and recheck in1 week, may need to increase his carvedilol to 25 mg twice a day. 2. Chronic systolic heart failure (CMS/HCC) (HCC) Assessment & Plan: Stable, continue Imdur 120 mg and carvedilol 12.5 mg 3. Stage 3b chronic kidney disease (HCC) Assessment & Plan: Stable, follow-up with nephrology as needed. 4. Anxiety Assessment & Plan: Stable, continue Paxil CR d.a.w. 12.5 mg 5. Recurrent major depressive disorder, in full remission (HCC) Assessment & Plan: Stable, continue Paxil CR d.a.w. 12.5 mg 6. Benign prostatic hyperplasia with urinary frequency Assessment & Plan: Stable 7. Pure hypertriglyceridemia Assessment & Plan: Controlled, continue fenofibrate 145 mg daily Follow up in about 6 months (around 12/15/2022) for AWV. SUBJECTIVE/OBJECTIVE: ANDREA White comes in today for 6-month follow-up on his hypertension, blood pressure slightly elevated today we will recheck that prior to discharge, he said that his rivet hole machine operator took him off his lisinopril and his Demadex because he had an episode where he was dehydrated and had near syncope episodes. Is also here for follow-up on his chronic heart failure chronic kidney disease anxiety and depression and he would like to go back on non generic brand name Paxil CR because he thinks the generic is causing headaches. He also says he gets up multiple times a night to empty his bladder but he is able to go back to sleep and he is not interested in trying any medication at this time. Review of Systems Constitutional: Negative for activity change, appetite change, chills, fever and unexpected weight change. HENT: Negative for ear pain and sore throat. Respiratory: Negative for shortness of breath. Cardiovascular: Negative for chest pain and palpitations. Gastrointestinal: Negative for abdominal pain, blood in stool, constipation and diarrhea. Genitourinary: Positive for frequency. Negative for dysuria, hematuria and urgency. Musculoskeletal: Negative for arthralgias and back pain. Skin: Negative. Neurological: Negative for weakness and numbness. Psychiatric/Behavioral: Negative for dysphoric mood. The patient is not nervous/anxious. Vitals: 06/17/22 1056 06/17/22 1133 BP: (!) 163/76 (!) 142/80 Pulse: 57 66 Weight: 218 lb 12.8 oz (99.2 kg) Height: 5' 9" (1.753 m) Physical Exam Vitals and nursing note reviewed. Constitutional: General: He is not in acute distress. Appearance: Normal appearance. HENT: Right Ear: Tympanic membrane, ear canal and external ear normal. Left Ear: Tympanic membrane, ear canal and external ear normal. Mouth/Throat: Mouth: Mucous membranes are moist. Pharynx: Oropharynx is clear. Eyes: Extraocular Movements: Extraocular movements intact. Pupils: Pupils are equal, round, and reactive to light. Neck: Vascular: No carotid bruit. Cardiovascular: Rate and Rhythm: Normal rate and regular rhythm. Heart sounds: Normal heart sounds. No murmur heard. Pulmonary: Effort: Pulmonary effort is normal. Breath sounds: Normal breath sounds. Abdominal: General: Bowel sounds are normal. Palpations: Abdomen is soft. Tenderness: There is no abdominal tenderness. Musculoskeletal: General: Normal range of motion. Cervical back: Neck supple. Lymphadenopathy: Cervical: No cervical adenopathy. Skin: General: Skin is warm and dry. Neurological: General: No focal deficit present. Mental Status: He is alert and oriented to person, place, and time. Psychiatric: Mood and Affect: Mood normal. An electronic signature was used to authenticate this note. Paul Moraes MD 06/17/2022 12:23 PM documented in this [facility]09-06-2022 NoteDischarge Summary Hyacinth Stapleton : 1955 ADMIT DATE: 02/09/2022 DISCHARGE DATE: 02/11/2022 PRIMARY CARE PHYSICIAN: Paul Moraes MD VISIT STATUS: Admission CODE STATUS: Full Code DISCHARGE DIAGNOSES: PATTIE/CKD stage 3 Dehydration Possible viral gastroenteritis Demand ischemia Chronic CHF with preserved EF HTN hypokalemia obesity HOSPITAL COURSE: 66 year old presented with dizziness, lightheadedness and diarrhea. He was admitted, elissa inhibitor and diuretics were held, he was placed on IVF and Nephrology was consulted. He had hip/pelvis xray which was unrevealing. He improved back to baseline. He had no more diarrhea, was tolerating his diet and was discharged home. SIGNIFICANT DIAGNOSTIC STUDIES: CXR, BL hip xray with pelvis CONSULTANTS: Nephrology RECOMMENDED NEXT STEPS: Continue to hold elissa inhibitor and diuretic. Avoid nephrotoxins. Follow up with PCP and Nephrology as an outpatient. Physical Exam: General appearance: alert, cooperative and no distress Mental Status: oriented to person, place and time and normal affect Lungs: clear to auscultation bilaterally, normal effort Heart: regular rate and rhythm, no murmur Abdomen: soft, nontender, nondistended, bowel sounds present, no masses Extremities: no edema, redness, tenderness in the calves Skin: no gross lesions, rashes DISCHARGE MEDICATIONS: Medication List CONTINUE taking these medications carvedilol 12.5 MG tablet Commonly known as: COREG take 1 tablet by mouth twice a day fenofibrate 145 MG tablet Commonly known as: Tricor Take 1 tablet by mouth daily hydrALAZINE 100 MG tablet Commonly known as: APRESOLINE take 1 tablet by mouth three times a day isosorbide mononitrate 120 MG extended release tablet Commonly known as: IMDUR Take 1 tablet by mouth in the morning. PARoxetine 12.5 MG extended release tablet Commonly known as: PAXIL CR take 1 tablet by mouth every morning Vitamin D 25 MCG (1000 UT) Tabs tablet Commonly known as: CHOLECALCIFEROL STOP taking these medications lisinopril 40 MG tablet Commonly known as: PRINIVIL;ZESTRIL torsemide 20 MG tablet Commonly known as: DEMADEX DIET: ADULT DIET; Regular; Low Sodium (2 gm) ACTIVITY: No restriction. up with assist COMPLEXITY OF FOLLOW UP: [] Moderate Complexity: follow up within 7-14 calendar days (53742) [] Severe Complexity: follow up within 7 calendar days (84248) FOLLOW UP TESTING, PENDING RESULTS OR REFERRALS AT TRANSITIONAL CARE VISIT: [] Yes [] No PENDING STUDIES: No DISPOSITION: Home FACILITY/HOME CARE AGENCY NAME: Follow up with Kemar Niño MD [address] [place] [address] A [facility] [id number] Follow up Follow up with previously scheduled appt this month is ok to keep Paul Moraes MD [address] [place] [address] B [facility] [address] Schedule an appointment as soon as possible for a visit in 1 week(s) INSTRUCTIONS TO MA/SW: Please call patient on day after discharge (must document patient contacted within 2 business days of discharge). FOLLOW UP QUESTIONS FOR MA/SW: 1. Did you get medications filled and taking them as instructed from discharge? 2. Are you following your discharge instructions from your hospital stay? 3. Please confirm patient is scheduled for a follow up appointment within the above time frame. DISCHARGE TIME: > 30 minutes SIGNED: TARA MCCARTNEY MD 02/11/2022, 2:44 [facility]12-29-2019 History of Present illness Narrative* Maki Amador RN - 06/05/2019 12:41 PM EST Patient refuses the flu shot at this time * Jose Angel Orourke MD - 06/05/2019 12:16 PM EST [place] [facility] [place] Nephrology Progress Note Subjective/ 63 y.o. year old male who we are seeing in consultation for PATTIE on CKD. Breathing okay. Tolerating some po. BP okay. Good urine output overnight. BPs have been on the higher side. ROS otherwise negative. Objective/ Vitals: 06/04/19 2217 06/05/19 0439 06/05/19 0748 06/05/19 1214 BP: 139/71 (!) 158/81 (!) 168/87 (!) 152/71 Pulse: 56 64 63 56 Resp: 16 16 16 Temp: 98.9 F (37.2 C) 98.4 F (36.9 C) 98.2 F (36.8 C) TempSrc: Temporal Oral Temporal Temporal SpO2: 96% 94% 95% Weight: Height: 24HR INTAKE/OUTPUT: Intake/Output Summary (Last 24 hours) at 06/05/2019 1216 Last data filed at 06/05/2019 0748 Gross per 24 hour Intake 860 ml Output 1040 ml Net -180 ml Constitutional: Alert, awake, no apparent distress Head: AT NC Neck: No JVD, no thyromegaly Cardiovascular: S1, S2 without m/r/g Respiratory: CTA B without w/r/r Abdomen: soft, nt Ext: NO b/l LE edema Current Facility-Administered Medications Medication Dose Route Frequency Provider Last Rate Last Dose enoxaparin (LOVENOX) injection 40 mg 40 mg Subcutaneous Daily Rolf Mata APRN - BIOMETRICS HEAD 40 mg at 06/05/19 1050 albuterol sulfate HFA 108 (90 Base) MCG/ACT inhaler 2 puff 2 puff Inhalation Q6H PRN Dagoberto Gan MD isosorbide mononitrate (IMDUR) extended release tablet 60 mg 60 mg Oral Daily Dagoberto Gan MD 60 mg at 06/05/19 1052 metoprolol succinate (TOPROL XL) extended release tablet 25 mg 25 mg Oral Daily Dagoberto Gan MD 25 mg at 06/05/19 1054 PARoxetine (PAXIL) tablet 10 mg 10 mg Oral Daily Dagoberto Gan MD 10 mg at 06/05/19 1053 [Held by provider] torsemide (DEMADEX) tablet 20 mg 20 mg Oral Daily Dagoberto Gan MD 20 mg at 06/03/19 0916 sodium chloride flush 0.9 % injection 10 mL 10 mL Intravenous 2 times per day Dagoberto Gan MD 10 mL at 06/05/19 1054 sodium chloride flush 0.9 % injection 10 mL 10 mL Intravenous PRN Dagoberto Gan MD magnesium hydroxide (MILK OF MAGNESIA) 400 MG/5ML suspension 30 mL 30 mL Oral Daily PRN Dagoberto Gan MD ondansetron (ZOFRAN) injection 4 mg 4 mg Intravenous Q6H PRN Dagoberto Gan MD famotidine (PEPCID) tablet 20 mg 20 mg Oral BID Dagoberto Gan MD 20 mg at 06/05/19 1052 morphine (PF) injection 1 mg 1 mg Intravenous Q2H PRN Dagoberto Gan MD influenza quadrivalent split vaccine (FLUZONE;FLUARIX;FLULAVAL;AFLURIA) injection 0.5 mL 0.5 mL Intramuscular Once Dagoberto Gan MD hydrALAZINE (APRESOLINE) tablet 75 mg 75 mg Oral TID Dagoberto Gan MD 75 mg at 06/05/19 1052 oxyCODONE-acetaminophen (PERCOCET) 5-325 MG per tablet 2 tablet 2 tablet Oral Q4H PRN Dagoberto Gan MD Data/ Recent Labs 06/03/19 0341 06/04/19 0501 06/05/19 0444 WBC 10.9* 6.7 5.4 HGB 12.9* 11.5* 11.7* HCT 39.3* 35.2* 36.2* MCV 85.3 84.0 85.0 PLT 276 283 303 Recent Labs 06/03/19 0341 06/04/19 0501 06/05/19 0444 NA 140 139 139 K 4.1 3.6 3.7 CL 103 102 104 CO2 25 30 28 GLUCOSE 134* 100 97 BUN 32* 33* 28* CREATININE 2.20* 2.27* 1.81* Assessment/ 1. - PATTIE 2/2 ATN (volume depletion/hypoperfusion) 2. CKD IIIB 3. Acute on chronic calculous cholecystitis. 4. Chronic HFrEF. 5. Obesity BMI 31. 6. BPH Plan/ - Cr improving. Urine sodium lower, favors intravascular volume depletion (true versus perceived in case of systolic HF which the patient has), Uptitrate hydralazine for high BP. Anxiety playing a role in driving up BP as well. Discussed with Tara MEDINA. Okay to discharge from renal standpoint. Start torsemide 10mg qday starting tomorrow. - - Jose Angel Orourke MD [facility] * Aida Martinez PA-C - 06/05/2019 7:26 AM EST Surgery Post Op Progress Note PATIENT NAME: Hyacinth Stapleton TODAY'S DATE: 06/05/2019 SUBJECTIVE: Patient lying in bed, no acute events overnight. Abdomen is sore but improving daily. Tolerating cardiac diet without nausea, vomiting. Bowel movement this morning. Wanting to go home. Pain controlled Yes Other Complaints No Flatus/BM/or Ostomy function Yes OBJECTIVE: VITALS: BP (!) 158/81 Pulse 64 Temp 98.4 F (36.9 C) (Oral) Resp 16 Ht 5' 9" (1.753 m) Wt 211 lb (95.7 kg) SpO2 94% BMI 31.16 kg/m INTAKE/OUTPUT: I/O last 3 completed shifts: In: 1054 [P.O.:200; I.V.:854] Out: 1070 [Urine:1000; Drains:70] No intake/output data recorded. CONSTITUTIONAL: awake and alert ABDOMEN: soft INCISION: clean, dry, no drainage, no erythema. Steri-strips intact. JAYASHREE with serosanguinous drainage. Data: CBC: Recent Labs 06/03/19 03406/04/19 0501 06/05/19 0444 WBC 10.9* 6.7 5.4 HGB 12.9* 11.5* 11.7* HCT 39.3* 35.2* 36.2* PLT 276 283 303 BMP: Recent Labs 06/03/19 03406/04/19 0501 06/05/19 0444 NA 140 139 139 K 4.1 3.6 3.7 CL 103 102 104 CO2 25 30 28 BUN 32* 33* 28* CREATININE 2.20* 2.27* 1.81* GLUCOSE 134* 100 97 Hepatic: Recent Labs 06/03/1934006/04/19 0501 06/05/19 0444 AST 81* 54* 46 ALT 56 43 37 BILITOT 0.7 0.6 0.6 ALKPHOS 37* 29* 32* ASSESSMENT AND PLAN: Mr. Stapleton is a 63 y/o M with acute on chronic cholecystitis with cholelithiasis. S/P lap poornima POD3 - Cardiac diet - prn pain/nausea medications - Ambulate as tolerated, encourage - nephrology following for PATTIE - monitoring creatinine - DVT ppx: Lovenox - Gi ppx: Pepcid - Disposition: S/p lap poornima healing. Remove JAYASHREE upon discharge. Ok to d/c from surgical standpoint when cleared by medicine, nephrology, cardiology. Aida Martinez PA-C Associated attestation - Merrick Rascon MD - 06/05/2019 9:38 AM EST [facility] Medical [facility] - Surgery [facility] Physicians Surgery Patient Name: Hyacinth Stapleton Date: 06/05/19 Patient seen and examined. Pain controlled. Denies nausea or emesis. Tolerating diet and having bowel function. JAYASHREE output decreasing. CBC: Recent Labs 06/03/19 0341 06/04/19 0501 06/05/19 0444 WBC 10.9* 6.7 5.4 HGB 12.9* 11.5* 11.7* HCT 39.3* 35.2* 36.2* PLT 276 283 303 BMP: Recent Labs 06/03/19 0341 06/04/19 0501 06/05/19 0444 NA 140 139 139 K 4.1 3.6 3.7 CL 103 102 104 CO2 25 30 28 BUN 32* 33* 28* CREATININE 2.20* 2.27* 1.81* GLUCOSE 134* 100 97 Hepatic: Recent Labs 06/03/191 06/04/19 0501 06/05/19 0444 ALKPHOS 37* 29* 32* ALT 56 43 37 AST 81* 54* 46 PROT 6.6 5.7* 5.8* BILITOT 0.7 0.6 0.6 LABALBU 3.7 3.2* 3.1* Abdomen: Soft, nontender, nondistended, incisions clean, dry and intact, JAYASHREE serosanguinous Plan: 63 yo M s/p lap poornima Diet and activity as tolerated PO pain control PATTIE on CKD- Cr improved today, near baseline, nephrology following DC JAYASHREE prior to discharge OK to discharge from surgical standpoint Will continue to follow I personally supervised my PA in the evaluation and management of Hyacinth Stapleton in the development of a treatment plan for this patient. I personally interviewed the patient and performed an individual physical examination. In addition, I discussed the patient's condition and treatment options withthem. I have also reviewed and agree with the past medical, family and social history and care planunless otherwise noted. All of the patient's questions were answered. Greater than 51% of the 15 minute total care time including chart review, care coordination and face to face encounter was spent discussing/counseling the patient regarding the care plan for this patient. The patient was seen and examined independently and relevant data reviewed by myself. A full chart review was performed. Merrick Rascon MD General Surgery Pager #[phone] Perfect Serve: Merrick Rascon 9:36 AM 06/05/2019 * Jose Angel Orourke MD - 06/04/2019 1:36 PM EST [facility] Nephrology Progress Note Subjective/ 63 y.o. year old male who we are seeing in consultation for PATTIE on CKD. Breathing okay. Tolerating some po. BP okay. Good urine output overnight. Done with IVF. ROS otherwise negative. Objective/ Vitals: 06/03/19 2128 06/03/19 2343 06/04/19 0456 06/04/19 0742 BP: 125/65 136/72 (!) 142/70 (!) 160/80 Pulse: 54 58 62 71 Resp: 20 16 16 18 Temp: 99.8 F (37.7 C) 98.7 F (37.1 C) 98.8 F (37.1 C) 98.4 F (36.9 C) TempSrc: Temporal Temporal Temporal Temporal SpO2: 93% 95% 93% 93% Weight: Height: 24HR INTAKE/OUTPUT: Intake/Output Summary (Last 24 hours) at 06/04/2019 1337 Last data filed at 06/04/2019 1028 Gross per 24 hour Intake 1433 ml Output 1148 ml Net 285 ml Constitutional: Alert, awake, no apparent distress Head: AT NC Neck: No JVD, no thyromegaly Cardiovascular: S1, S2 without m/r/g Respiratory: CTA B without w/r/r Abdomen: soft, nt Ext: NO b/l LE edema Current Facility-Administered Medications Medication Dose Route Frequency Provider Last Rate Last Dose 0.9 % sodium chloride infusion Intravenous Continuous Jose Angel Orourke MD enoxaparin (LOVENOX) injection 40 mg 40 mg Subcutaneous Daily Rolf Mata APRN - BIOMETRICS HEAD 40 mg at 06/04/19 0837 albuterol sulfate HFA 108 (90 Base) MCG/ACT inhaler 2 puff 2 puff Inhalation Q6H PRN Dagoberto Gan MD isosorbide mononitrate (IMDUR) extended release tablet 60 mg 60 mg Oral Daily Dagoberto Gan MD 60 mg at 06/04/19 0835 metoprolol succinate (TOPROL XL) extended release tablet 25 mg 25 mg Oral Daily Dagoberto Gan MD 25 mg at 06/04/19 0836 PARoxetine (PAXIL) tablet 10 mg 10 mg Oral Daily Dagoberto Gan MD 10 mg at 06/04/19 0836 [Held by provider] torsemide (DEMADEX) tablet 20 mg 20 mg Oral Daily Dagoberto Gan MD 20 mg at 06/03/19 0916 sodium chloride flush 0.9 % injection 10 mL 10 mL Intravenous 2 times per day Dagoberto Gan MD 10 mL at 06/03/19 0921 sodium chloride flush 0.9 % injection 10 mL 10 mL Intravenous PRN Dagoberto Gan MD magnesium hydroxide (MILK OF MAGNESIA) 400 MG/5ML suspension 30 mL 30 mL Oral Daily PRN Dagoberto Gan MD ondansetron (ZOFRAN) injection 4 mg 4 mg Intravenous Q6H PRN Dagoberto Gan MD famotidine (PEPCID) tablet 20 mg 20 mg Oral BID Dagoberto Gan MD 20 mg at 06/04/19 0837 morphine (PF) injection 1 mg 1 mg Intravenous Q2H PRN Dagoberto Gan MD influenza quadrivalent split vaccine (FLUZONE;FLUARIX;FLULAVAL;AFLURIA) injection 0.5 mL 0.5 mL Intramuscular Once Dagoberto Gan MD hydrALAZINE (APRESOLINE) tablet 75 mg 75 mg Oral TID Dagoberto Gan MD 75 mg at 06/04/19 0835 oxyCODONE-acetaminophen (PERCOCET) 5-325 MG per tablet 2 tablet 2 tablet Oral Q4H PRN Dagoberto Gan MD sodium chloride Data/ Recent Labs 06/01/19 2306 06/03/19 0341 06/04/19 0501 WBC 12.0* 10.9* 6.7 HGB 13.8 12.9* 11.5* HCT 42.1 39.3* 35.2* MCV 83.3 85.3 84.0 PLT 319 276 283 Recent Labs 06/01/19 2306 06/03/19 0341 06/04/19 0501 NA 140 140 139 K 3.4* 4.1 3.6 CL 102 103 102 CO2 27 25 30 GLUCOSE 130* 134* 100 BUN 30* 32* 33* CREATININE 1.63* 2.20* 2.27* Assessment/ 1. - PATTIE 2/2 ATN (volume depletion/hypoperfusion) 2. CKD IIIB 3. Acute on chronic calculous cholecystitis. 4. Chronic HFrEF. 5. Obesity BMI 31. 6. BPH Plan/ - Cr almost plateaued. Urine sodium lower, favors intravascular volume depletion (true versus perceived in case of systolic HF which the patient has), One more Liter of IVF with careful monitoring for volume overload. Expect cr to plateau and start to improve soon. If improving tomorrow, can plan to discharge in AM. Discussed with Tara Skelton [facility]. - - Jose Angel Orourke MD [facility] * Tara Skelton, GAS 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 - BIOMETRICS HEAD - 06/04/2019 12:08 PM EST Hospitalist Progress Note 06/04/2019 12:08 PM Subjective: Admit Date: 06/01/2019 PCP: Paul Moraes MD Room#: 148/1481 Interval History: No overnight issues; up ambulating in the halls. Voiding well. Denies chest pain, sob, nausea, vomiting, diarrhea, constipation, fevers, or chills. DIET CARDIAC; Patient Vitals for the past 96 hrs (Last 3 readings): Weight 06/01/19 2233 211 lb (95.7 kg) Medications: enoxaparin 40 mg Subcutaneous Daily isosorbide mononitrate 60 mg Oral Daily metoprolol succinate 25 mg Oral Daily PARoxetine 10 mg Oral Daily [Held by provider] torsemide 20 mg Oral Daily sodium chloride flush 10 mL Intravenous 2 times per day famotidine 20 mg Oral BID influenza virus vaccine 0.5 mL Intramuscular Once hydrALAZINE 75 mg Oral TID LABS: CBC: Recent Labs 06/01/19230506/03/19 0341 06/04/19 0501 WBC 12.0* 10.9* 6.7 RBC 5.05 4.61 4.19* HGB 13.8 12.9* 11.5* HCT 42.1 39.3* 35.2* MCV 83.3 85.3 84.0 RDW 14.0 14.0 14.2 PLT 319 276 283 BMP: Recent Labs 06/01/19230506/03/19 0341 06/04/19 0501 NA 140 140 139 K 3.4* 4.1 3.6 CL 102 103 102 CO2 27 25 30 BUN 30* 32* 33* CREATININE 1.63* 2.20* 2.27* GLUCOSE 130* 134* 100 CALCIUM 9.2 8.5 8.1* ANIONGAP 11 12 7 LIVER PROFILE: Recent Labs 06/01/19230506/03/19 0341 06/04/19 0501 AST 27 81* 54* ALT 39 56 43 BILITOT 0.6 0.7 0.6 ALKPHOS 44 37* 29* LABALBU 4.2 3.7 3.2* PROT 7.0 6.6 5.7* PT/INR: Recent Labs 06/02/19 0915 PROTIME 11.5 INR 1.1 CARDIAC ENZYMES: Recent Labs 06/01/19 2306 TROPONINI 0.031 Objective: Vitals: BP (!) 160/80 Pulse 71 Temp 98.4 F (36.9 C) (Temporal) Resp 18 Ht 5' 9" (1.753 m) Wt 211 lb (95.7 kg) SpO2 93% BMI 31.16 kg/m Pulse Ox: SpO2 Av.5 % Min: 93 % Max: 95 % Supplemental O2: General appearance: No apparent distress HEENT: Normal cephalic, atraumatic without obvious deformity Neck: Supple, with full range of motion. No jugular venous distention Respiratory: Normal respiratory effort. Clear to auscultation Cardiovascular: Regular rate and rhythm with normal S1/S2, +soft SILVESTRE Abdomen: Soft, non-distended with normal bowel sounds, appropriately tender Musculoskeletal: No clubbing, cyanosis. RLE varicosities. 1+b/l LE edema Skin: Skin color, texture, turgor normal. No rashes or lesions. Neurologic: Neurovascularly intact without any focal sensory/motor deficits Assessment/Plan 1. Acute on chronic calculus cholecystitis: s/p lap CCY 06/02. Doing well post- operatively. Pain controlled. DC Zosyn. 2. PATTIE, CKDIIl: hold Torsemide; gentle rehydration. Nephrology following. Avoid nephrotoxins. 3. Hypertensive heart disease, HFrEF: most recent EF23%, Continue Metoprolol; on Nitrate/Hydralazine for afterload reduction; will eventually need ELISSA-I/ARB if renal function stable. Monitor closely for s/s volume overload 4. Obesity, BMI 31 5. SONI, needs outpt PSG 6. Hyperlipidemia 7. Depression/anxiety 8. BPH 9. H/o gastritis -am labs, replace lytes prn -increase activity -DVT prophylaxis: [x] Lovenox [] Heparin [] SCDs [x] Encourage ambulation [] Already on Anticoagulation Advance Directive: Full Code Discharge planning: TBD Division of Hospitalist Medicine Inpatient Medical Services * Aida Martinez PA-C - 06/04/2019 7:32 AM EST Surgery Post Op Progress Note PATIENT NAME: Hyacinth Stapleton TODAY'S DATE: 06/04/2019 SUBJECTIVE: Patient lying in bed, no acute events overnight. Abdomen is sore but improving daily. Denies N/V. Passing flatus. Tolerating diet. Pain controlled Yes Other Complaints No Flatus/BM/or Ostomy function Yes OBJECTIVE: VITALS: BP (!) 142/70 Pulse 62 Temp 98.8 F (37.1 C) (Temporal) Resp 16 Ht 5' 9" (1.753 m) Wt 211 lb (95.7 kg) SpO2 93% BMI 31.16 kg/m INTAKE/OUTPUT: I/O last 3 completed shifts: In: 1539 [P.O.:500; I.V.:989; IV Piggyback:50] Out: 1068 [Urine:1025; Drains:43] No intake/output data recorded. CONSTITUTIONAL: awake and alert ABDOMEN: soft INCISION: clean, dry, no drainage, no erythema. Steri-strips intact. JAYASHREE with serosanguinous drainage. Data: CBC: Recent Labs 06/01/19230506/03/19 0341 06/04/19 0501 WBC 12.0* 10.9* 6.7 HGB 13.8 12.9* 11.5* HCT 42.1 39.3* 35.2* PLT 319 276 283 BMP: Recent Labs 06/01/19 2306 06/03/19 0341 06/04/19 0501 NA 140 140 139 K 3.4* 4.1 3.6 CL 102 103 102 CO2 27 25 30 BUN 30* 32* 33* CREATININE 1.63* 2.20* 2.27* GLUCOSE 130* 134* 100 Hepatic: Recent Labs 06/01/19 2306 06/03/19 0341 06/04/19 0501 AST 27 81* 54* ALT 39 56 43 BILITOT 0.6 0.7 0.6 ALKPHOS 44 37* 29* ASSESSMENT AND PLAN: Mr. Stapleton is a 63 y/o M with acute on chronic cholecystitis with cholelithiasis. S/P lap poornima POD2 - General diet - prn pain/nausea medications - Ambulate as tolerated, encourage - nephrology following for PATTIE - DVT ppx: Lovenox - Gi ppx: Pepcid - Disposition: S/p lap poornima healing. Remove JAYASHREE upon discharge. Ok to d/c from surgical standpoint when cleared by medicine and cardiology. Aida Martinez PA-C Associated attestation - Merrick Rascon MD - 06/04/2019 11:01 AM EST [facility] - Surgery [facility] Physicians Surgery Patient Name: Hyacinth Stapleton Date: 06/04/19 Patient seen and examined. Pain controlled. Tolerating diet. JAYASHREE serosanginous, decreasing output. Creatinine remains elevated. CBC: Recent Labs 06/01/196 06/03/19 0341 06/04/19 0501 WBC 12.0* 10.9* 6.7 HGB 13.8 12.9* 11.5* HCT 42.1 39.3* 35.2* PLT 319 276 283 BMP: Recent Labs 06/01/19 2306 06/03/19 0341 06/04/19 0501 NA 140 140 139 K 3.4* 4.1 3.6 CL 102 103 102 CO2 27 25 30 BUN 30* 32* 33* CREATININE 1.63* 2.20* 2.27* GLUCOSE 130* 134* 100 Hepatic: Recent Labs 06/01/19 2306 06/03/19 0341 06/04/19 0501 ALKPHOS 44 37* 29* ALT 39 56 43 AST 27 81* 54* PROT 7.0 6.6 5.7* BILITOT 0.6 0.7 0.6 LABALBU 4.2 3.7 3.2* Abdomen: Soft, nontender, nondistended, incisions clean, dry and intact, JAYASHREE serosanguinous. Plan: 63 yo M POD#2 s/p lap poornima Diet and activity as tolerated PO pain control PATTIE- FeNa 0.1%, likely pre-renal etiology, nephrology following Will remove JAYASHREE prior to DC OK to discharge from surgical standpoint Will continue to follow I personally supervised my PA in the evaluation and management of Hyacinth Stapleton in the development of a treatment plan for this patient. I personally interviewed the patient and performed an individual physical examination. In addition, I discussed the patient's condition and treatment options withthem. I have also reviewed and agree with the past medical, family and social history and care planunless otherwise noted. All of the patient's questions were answered. Greater than 51% of the 15 minute total care time including chart review, care coordination and face to face encounter was spent discussing/counseling the patient regarding the care plan for this patient. The patient was seen and examined independently and relevant data reviewed by myself. A full chart review was performed. Merrick Rascon MD General Surgery Pager #[phone] Perfect Serve: Merrick Rascon 10:57 AM 06/04/2019 * Tara Skelton APRN - BIOMETRICS HEAD - 06/03/2019 12:20 PM EST Hospitalist Progress Note 06/03/2019 12:21 PM Subjective: Admit Date: 06/01/2019 PCP: Paul Moraes MD Room#: 148/1481 Interval History: Renal function a little worse this AM. Denies chest pain, sob, mild abdominal soreness. No nausea, vomiting, diarrhea, constipation, fevers, or chills. DIET CARDIAC; Patient Vitals for the past 96 hrs (Last 3 readings): Weight 06/01/19 2233 211 lb (95.7 kg) Medications: enoxaparin 40 mg Subcutaneous Daily isosorbide mononitrate 60 mg Oral Daily metoprolol succinate 25 mg Oral Daily PARoxetine 10 mg Oral Daily [Held by provider] torsemide 20 mg Oral Daily sodium chloride flush 10 mL Intravenous 2 times per day famotidine 20 mg Oral BID influenza virus vaccine 0.5 mL Intramuscular Once piperacillin-tazobactam 3.375 g Intravenous Q8H hydrALAZINE 75 mg Oral TID LABS: CBC: Recent Labs 06/01/19 2306 06/03/19 0341 WBC 12.0* 10.9* RBC 5.05 4.61 HGB 13.8 12.9* HCT 42.1 39.3* MCV 83.3 85.3 RDW 14.0 14.0 PLT 319 276 BMP: Recent Labs 06/01/19230506/03/19 0341 NA 140 140 K 3.4* 4.1 CL 102 103 CO2 27 25 BUN 30* 32* CREATININE 1.63* 2.20* GLUCOSE 130* 134* CALCIUM 9.2 8.5 ANIONGAP 11 12 LIVER PROFILE: Recent Labs 06/01/19230506/03/19 034 AST 27 81* ALT 39 56 BILITOT 0.6 0.7 ALKPHOS 44 37* LABALBU 4.2 3.7 PROT 7.0 6.6 PT/INR: Recent Labs 06/02/19 0915 PROTIME 11.5 INR 1.1 CARDIAC ENZYMES: Recent Labs 06/01/192305 TROPONINI 0.031 Objective: Vitals: BP (!) 149/81 Pulse 63 Temp 99.8 F (37.7 C) (Temporal) Resp 18 Ht 5' 9" (1.753 m) Wt 211 lb (95.7 kg) SpO2 95% BMI 31.16 kg/m Pulse Ox: SpO2 Av.3 % Min: 92 % Max: 95 % Supplemental O2: General appearance: No apparent distress, sitting up in chair HEENT: Normal cephalic, atraumatic without obvious deformity Neck: Supple, with full range of motion. No jugular venous distention Respiratory: Normal respiratory effort. Clear to auscultation Cardiovascular: Regular rate and rhythm with normal S1/S2, +soft SILVESTRE Abdomen: Soft, non-distended with normal bowel sounds, appropriately tender Musculoskeletal: No clubbing, cyanosis. RLE varicosities. 1+b/l LE edema Skin: Skin color, texture, turgor normal. No rashes or lesions. Neurologic: Neurovascularly intact without any focal sensory/motor deficits Assessment/Plan 1. Acute on chronic calculus cholecystitis: s/p lap CCY 06/02. Doing well post- operatively. Pain controlled. 2. PATTIE, CKDIIl: hold Torsemide today; gentle rehydration. Will ask nephrology to see. Avoid nephrotoxins. 3. Hypertensive heart disease, HFrEF: most recent EF23%, Continue Metoprolol; on Nitrate/Hydralazine for afterload reduction; will eventually need ELISSA-I/ARB if renal function stable. Monitor closely for s/s volume overload 4. Obesity, BMI 31 5. SONI, needs outpt PSG 6. Hyperlipidemia 7. Depression/anxiety 8. BPH 8. H/o gastritis -am labs, replace lytes prn -increase activity -DVT prophylaxis: [x] Lovenox [] Heparin [] SCDs [x] Encourage ambulation [] Already on Anticoagulation Advance Directive: Full Code Discharge planning: TBD Division of Hospitalist Medicine Inpatient Medical Services * Stella Erickson, RD, LD - 06/03/2019 12:19 PM EST Nutrition Assessment Type and Reason for Visit: Initial, Consult(DT ref for CKD hx) Nutrition Recommendations: 1. Modify diet to Cardiac per MNT protocol. requested change to pt's home diet regimen. Pt is agreeable. 2. Provided diet handout on Cardiac booklet and sodium content of foods handout. RD contact information provided for questions/concerns. 3. Pt tolerating diet with no complaints of GI symptoms; denies any nausea/pain after eating. Please document pt's PO intakes via flowsheet to accurately assess PO intake adequacy. 4. Monitor needs for ONS if PO intakes are suboptimal. 5. Monitor intakes, wts, and labs. RD will follow. Nutrition Assessment: Pt admit for cholecystitis s/p lap poornima yesterday. Pt on general diet and tolerating well with no nausea/pain. states that she has him follow a Cardiac diet at home and would like pt to be on the same diet here. Pt is pleasant and agreeable to diet change. Malnutrition Assessment: Malnutrition Status: At risk for malnutrition Context: Acute illness or injury Findings of the 6 clinical characteristics of malnutrition (Minimum of 2 out of 6 clinical characteristics is required to make the diagnosis of moderate or severe Protein Calorie Malnutrition based on AND/ASPEN Guidelines): 1. Energy Intake-Greater than 75% of estimated energy requirement, Unable to assess 2. Weight Loss-No significant weight loss, 3. Fat Loss-No significant subcutaneous fat loss, 4. Muscle Loss-No significant muscle mass loss, 5. Fluid Accumulation-Mild fluid accumulation, Extremities 6. Funeral Sales Manager Strength-Not measured Nutrition Risk Level: High Nutrient Needs: Estimated Daily Total Kcal: 2926-7842 kcals(25-30) Estimated Daily Protein (g): 73 g(1) Estimated Daily Total Fluid (ml/day): 0923-3180 ml/day or per MD Nutrition Diagnosis: Problem: Altered GI function, Altered nutrition-related lab values Etiology: related to Acute injury/trauma, Renal dysfunction, Cardiac dysfunction ? Signs and symptoms: as evidenced by GI abnormality, Nausea, Vomiting, Lab values(now resolved post surgery) Objective Information: Nutrition-Focused Physical Findings: trace BLE; BUN 32, Cr 2.20, glucose 134, 130, H/H 12.9/39.3, GFR 30.2, lipase 28, NT pro BNP 7763, albumin 3.7 Wound Type: (RLE with vascular changes ) Current Nutrition Therapies: Oral Diet Orders: General Oral Diet intake: 76-100% Oral Nutrition Supplement (ONS) Orders: None ONS intake: Unable to assess Anthropometric Measures: Ht: 5' 9" (175.3 cm) Current Body Wt: 211 lb (95.7 kg)(stated admit wt) Admission Body Wt: 211 lb Usual Body Wt: 208 lb (94.3 kg)(05/02/19) % Weight Change: , no signficant wt change/loss [place] Body Wt: 160 lb (72.6 kg), % [place] Body 132% BMI Classification: BMI 30.0 - 34.9 Obese Class I Nutrition Interventions: Modify current diet Continued Inpatient Monitoring, Education Completed Nutrition Evaluation: Evaluation: Goals set Goals: Pt will receive/tolerate >75% of meals; Labs will trend towards baseline/WNL Monitoring: Meal Intake, Diet Tolerance, Skin Integrity, Wound Healing, I&O, Weight, Pertinent Labs, Patient/Family Education, Monitor Bowel Function Contact Number: [phone] * Rolf Mata APRN - PANDA - 06/03/2019 9:09 AM EST Surgery Post Op Progress Note PATIENT NAME: Hyacinth Stapleton TODAY'S DATE: 06/03/2019 SUBJECTIVE: Patient sitting up in bed. Some abdominal soreness. Denies N/V. Passing flatus. Tolerating diet. Pain controlled Yes Other Complaints No Flatus/BM/or Ostomy function Yes OBJECTIVE: VITALS: BP (!) 149/81 Pulse 63 Temp 99.8 F (37.7 C) (Temporal) Resp 18 Ht 5' 9" (1.753 m) Wt 211 lb (95.7 kg) SpO2 95% BMI 31.16 kg/m INTAKE/OUTPUT: I/O last 3 completed shifts: In: - Out: 130 [Drains:130] No intake/output data recorded. CONSTITUTIONAL: awake and alert ABDOMEN: soft INCISION: clean, dry, no drainage, no erythema. Steri-strips intact. JAYASHREE with serosanguinous drainage. Data: CBC: Recent Labs 06/01/19230506/03/19 0341 WBC 12.0* 10.9* HGB 13.8 12.9* HCT 42.1 39.3* PLT 319 276 BMP: Recent Labs 06/01/19230506/03/19 0341 NA 140 140 K 3.4* 4.1 CL 102 103 CO2 27 25 BUN 30* 32* CREATININE 1.63* 2.20* GLUCOSE 130* 134* Hepatic: Recent Labs 06/01/19230506/03/19 0341 AST 27 81* ALT 39 56 BILITOT 0.6 0.7 ALKPHOS 44 37* ASSESSMENT AND PLAN: Mr. Stapleton is a 63 y/o M with acute on chronic cholecystitis with cholelithiasis. S/P lap poornima POD1 - General diet - Ambulate as tolerated - DVT ppx: Lovenox - Gi ppx: Pepcid - Disposition: S/p lap poornima healing. Remove JAYASHREE upon discharge. Ok to d/c from surgical standpoint when cleared by medicine and cardiology. Rolf Mata, GAS 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 - BIOMETRICS HEAD * Alice Traylor DTR - 06/03/2019 7:16 AM EST Nutrition rescreen completed. Pt referred to RD. * Patricia Stephens RN - 06/03/2019 5:[address] Bhatti notified of elevated bun creatinine. New order to bladder scan x1 - results 210ml Dr Bhatti aware no changes at this time. * Genesis Gardner, RN - 06/02/2019 3:57 PM EST Family at bedside Report to sandy on 1 east To 1 east Via bed Monitor nsr during pacu stay * Tara Skelton, GAS 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 - BIOMETRICS HEAD - 06/02/2019 10:22 AM EST Hospitalist Progress Note 06/02/2019 10:22 AM Subjective: Admit Date: 06/01/2019 PCP: Paul Moraes MD Room#: 148/1481 Interval History: f/u admission this AM- acute cholecystitis Denies chest pain, nausea, vomiting, diarrhea, constipation, fevers, or chills. Diet NPO Effective Now Exceptions are: Sips with Meds Patient Vitals for the past 96 hrs (Last 3 readings): Weight 06/01/19 2233 211 lb (95.7 kg) Medications: fenofibrate 160 mg Oral Daily hydrALAZINE 50 mg Oral TID isosorbide mononitrate 60 mg Oral Daily metoprolol succinate 25 mg Oral Daily PARoxetine 10 mg Oral Daily torsemide 20 mg Oral Daily sodium chloride flush 10 mL Intravenous 2 times per day famotidine 20 mg Oral BID [START ON 06/03/2019] influenza virus vaccine 0.5 mL Intramuscular Once piperacillin-tazobactam 3.375 g Intravenous Q8H LABS: CBC: Recent Labs 06/01/192305 WBC 12.0* RBC 5.05 HGB 13.8 HCT 42.1 MCV 83.3 RDW 14.0 PLT 319 BMP: Recent Labs 06/01/192305 NA 140 K 3.4* CL 102 CO2 27 BUN 30* CREATININE 1.63* GLUCOSE 130* CALCIUM 9.2 ANIONGAP 11 LIVER PROFILE: Recent Labs 06/01/192305 AST 27 ALT 39 BILITOT 0.6 ALKPHOS 44 LABALBU 4.2 PROT 7.0 PT/INR: Recent Labs 06/02/19 0915 PROTIME 11.5 INR 1.1 CARDIAC ENZYMES: Recent Labs 06/01/19 2306 TROPONINI 0.031 Objective: Vitals: BP (!) 149/72 Pulse 59 Temp 99.4 F (37.4 C) (Temporal) Resp 18 Ht 5' 9" (1.753 m) Wt 211 lb (95.7 kg) SpO2 96% BMI 31.16 kg/m Pulse Ox: SpO2 Av.2 % Min: 94 % Max: 96 % Supplemental O2: General appearance: No apparent distress HEENT: Normal cephalic, atraumatic without obvious deformity Neck: Supple, with full range of motion. No jugular venous distention Respiratory: Normal respiratory effort. Clear to auscultation Cardiovascular: Regular rate and rhythm with normal S1/S2, +soft SILVESTRE Abdomen: Soft, non-distended with normal bowel sounds, +RUQ TTP Musculoskeletal: No clubbing, cyanosis. RLE varicosities. 1+b/l LE edema Skin: Skin color, texture, turgor normal. No rashes or lesions. Neurologic: Neurovascularly intact without any focal sensory/motor deficits Assessment/Plan 1. Acute on chronic calculus cholecystitis: continue Zosyn/pain mgmt. Will need surgical intervention, but will ask cardiology for pre-op eval/clearance prior to OR 2. Hypertensive heart disease, HFrEF: most recent EF23%, CKD III; has had some increased PALACIO/LE edema. Just saw cardiology earlier this month; may need ischemic work-up. Discussed w/Dr. Christianson. Continue Metoprolol/Torsemide; on Nitrate/Hydralazine for afterload reduction; will eventually need ELISSA-I/ARB if renal function stable. 3. Obesity, BMI 31 4. SONI, needs outpt PSG 5. Hyperlipidemia 6. Depression/anxiety 7. BPH 8. H/o gastritis -am labs, replace lytes prn -increase activity -DVT prophylaxis: [] Lovenox [] Heparin [] SCDs [x] Encourage ambulation [] Already on Anticoagulation Advance Directive: Full Code Discharge planning: TBD Division of Hospitalist Medicine Inpatient Medical Services [facility] Work Phone: [phone] Hospital Discharge instructions* Medications* Tara Skelton APRN - CNP - 06/05/2019 12:33 PM EST We changed your dose of Hydralazine (blood pressure medication) Also, we reduced your water pill (Torsemide) to 1/2 of a tablet for now. * Additional Instructions* Rolf Mata APRN - CNP - 06/03/2019 POST-OPERATIVE INSTRUCTIONS LAPAROSCOPIC SURGERY Thank you very much for allowing me to participate in your care, it is truly a privilege. Below please see discharge orders that will help you during your recovery. Please do not hesitate to call theoffice at [phone] for any questions. After hours, the same number will allow you to reach the on-call surgeon. ? Call the office to schedule your post-operative appointment with Dr. Gan or Nurse Practitioner for 2 weeks if not already scheduled. o (May need to be seen before 2 weeks if stitches and/or drains present) ? Change bandages daily or more frequently if needed. o Keep incisions clean with soap/ water daily. (Peroxide OK as well) o Cover incision(s) as needed. o Please remove the Steri-Strips 5 days after surgery. You may be instructed by nursing staff to either leave them on until you see Dr. Gan or they will fall off on their own. Neither is true. Please remove the Steri-Strips as instructed 5 days after your date of surgery. This includes any clear bandages and gauze placed in the navel, if applicable. o If you have skin glue this will come off on its own ? May place an ice pack over your incisions on and off (15min) at a time for the next 24-48 hours. ? Resume regular diet as tolerated (recommend starting with liquids) ? General guidelines for activity: Avoid strenuous activity or lifting anything heavier than 15 pounds. It is OK to be up and walking around. Going up and down stairs is also OK. Do what is comfortable: stop and rest when you feel tired. It is OK to shower after 24 hours ? You will have pain medicine ordered. Take as directed/needed. ? Some discomfort, mild bruising, and swelling are not unusual; please call my office if you have any severe pain, hemorrhage, or high fever (over 101 F) ? During the laparoscopic procedure that you had, gas is pumped into the abdominal cavity. You may feel abdominal, shoulder, or rib pain for a few days due to this. ? Resume home medications (see medication reconciliation sheet) ? Do NOT drive for one day and while taking your narcotic pain medicine. ? Watch for signs of infection: Excessive warmth or bright redness around your incisions Leakage of bloody or cloudy fluid from you incisions Fever over 100.5 ? If you experience constipation o Increase your water intake. o Increase your activity; walking is best. o An over the counter stool softener or mild laxative may be necessary if you still have not had a bowel movement after several days. Please call the office at [phone] for any questions and too make your post op appointment if needed. Thank you again for allowing me to participate in your care, and get well soon! Dagoberto Gan MD FACS documented in this [facility] Work Phone: [phone] Hospital course Narrative* Tara Skelton, GAS 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 - BIOMETRICS HEAD - 06/05/2019 9:10 AM EST Discharge Summary Hyacinth Stapleton : 1955 ADMIT DATE: 06/01/2019 DISCHARGE DATE: 06/05/2019 PRIMARY CARE PHYSICIAN: Paul Moraes MD VISIT STATUS: Admission CODE STATUS: Full Code DISCHARGE DIAGNOSES: Active Problems: Calculus of gallbladder with acute on chronic cholecystitis without obstruction Acute on chronic cholecystitis PATTIE (acute kidney injury) (HCC) Resolved Problems: * No resolved hospital problems. * Past Medical History: Diagnosis Date Acute gastritis without bleeding 10/07/2015 [facility] ER Anxiety CHF (congestive heart failure) (HCC) Chronic kidney disease stage 3 Depression Hyperlipidemia Hypertension LV dysfunction Mitral valve regurgitation HOSPITAL COURSE: This is a 63 yo male who presented to the ED on 06/02 with complaints of RUQ pain. Was found to have acute cholecystitis. After cardiac clearance, he was taken to OR for lap CCY later that day. Post-operatively, he did have mild PATTIE which improved w/IV hydration. He has done well from a surgical standpoint and is stable for discharge. We did adjust his dose of Hydralazine (increased to 100mg PO TID; and reduced Torsemide to 10mg/day. Vitals: 06/05/19 1214 BP: (!) 152/71 Pulse: 56 Resp: Temp: SpO2: General appearance: No apparent distress HEENT: Normal cephalic, atraumatic without obvious deformity Neck: Supple, with full range of motion. No jugular venous distention Respiratory: Normal respiratory effort. Clear to auscultation Cardiovascular: Regular rate and rhythm with normal S1/S2, +soft SILVESTRE Abdomen: Soft, non-distended with normal bowel sounds, appropriately tender Musculoskeletal: No clubbing, cyanosis. RLE varicosities. 1+b/l LE edema Skin: Skin color, texture, turgor normal. No rashes or lesions. Neurologic: Neurovascularly intact without any focal sensory/motor deficits CONSULTANTS: General surgery, Cardiology, Nephrology DISCHARGE MEDICATIONS: Hyacinth Stapleton Home Medication Instructions EDDIE:[id number] Printed on:06/05/19 1233 Medication Information albuterol sulfate HFA (PROAIR HFA) 108 (90 Base) MCG/ACT inhaler Inhale 2 puffs into the lungs every 6 hours as needed for Wheezing Cholecalciferol (VITAMIN D) 2000 units CAPS capsule 1 tablet fenofibrate (TRICOR) 145 MG tablet Take 1 tablet by mouth daily hydrALAZINE (APRESOLINE) 100 MG tablet Take 1 tablet by mouth 3 times daily isosorbide mononitrate (IMDUR) 60 MG extended release tablet Take 1 tablet by mouth daily metoprolol succinate (TOPROL XL) 25 MG extended release tablet Take 1 tablet by mouth daily oxyCODONE-acetaminophen (PERCOCET) 5-325 MG per tablet Take 1 tablet by mouth every 6 hours as needed for Pain for up to 4 days. Intended supply: 3 days. Take lowest dose possible to manage pain PARoxetine (PAXIL CR) 12.5 MG extended release tablet take 1 tablet by mouth every morning torsemide (DEMADEX) 20 MG tablet Take 1/2 tab PO daily DIET: DIET CARDIAC; ACTIVITY: up as tolerated COMPLEXITY OF FOLLOW UP: [] Moderate Complexity: follow up within 7-14 calendar days (86983) [x] Severe Complexity: follow up within 7 calendar days (96675) FOLLOW UP TESTING, PENDING RESULTS OR REFERRALS AT TRANSITIONAL CARE VISIT: [x] Yes [] No PENDING STUDIES: No DISPOSITION: Home FACILITY/HOME CARE AGENCY NAME: n/a Follow up with MARY Beasley CNP [address] [facility] [address] In 2 weeks Paul Moraes MD [address], [address] [facility] [phone] Schedule an appointment as soon as possible for a visit Hospital follow-up INSTRUCTIONS TO MA/SW: Please call patient on day after discharge (must document patient contacted within 2 business days of discharge). FOLLOW UP QUESTIONS FOR MA/SW: 1. Did you get medications filled and taking them as instructed from discharge? 2. Are you following your discharge instructions from your hospital stay? 3. Please confirm patient is scheduled for a follow up appointment within the above time frame. DISCHARGE TIME: > 30 minutes SIGNED: MARY Ornelas CNP 06/05/2019, 12:35 PM [facility] Work Phone: Evaluation note* Diagnosis Calculus of gallbladder with acute on chronic cholecystitis without obstruction- Primary Abdominal pain, right upper quadrant Hypokalemia Hypopotassemia Post-op pain Other acute postoperative pain S/P laparoscopic cholecystectomy Other postprocedural status Acute on chronic cholecystitis PATTIE (acute kidney injury) (HCC) Acute kidney failure, unspecified documented in this encounter [facility] Work Phone: Evaluation note* Diagnosis Acute prostatitis- Primary Urinary tract infection [facility] Diagnosis Pal[facility]ations [facility]* Diagnosis Chronic systolic heart failure (HCC)- Primary Chronic systolic heart failure [facility]* Diagnosis Medicare annual wellness visit, subsequent- Primary Recurrent major depressive disorder, in full remission (HCC) Peripheral vascular disease, unspecified (HCC) Peripheral vascular disease, unspecified Stage 3b chronic kidney disease (HCC) Chronic systolic heart failure (HCC) Chronic systolic heart failure Primary hypertension Unspecified essential hypertension Benign prostatic hyperplasia with urinary hesitancy Pure hypertriglyceridemia Screening for diabetes mellitus Screening for prostate cancer Special screening for malignant neoplasm of prostate [facility] Diagnosis Chronic diastolic heart failure (HCC)- Primary Chronic diastolic heart failure Primary hypertension Unspecified essential hypertension Stage 3b chronic kidney disease (HCC) [facility]* Diagnosis Primary hypertension- Primary Unspecified essential hypertension Chronic systolic heart failure (CMS/HCC) (HCC) Chronic systolic heart failure Stage 3b chronic kidney disease (HCC) Anxiety Anxiety state, unspecified Recurrent major depressive disorder, in full remission (HCC) Benign prostatic hyperplasia with urinary frequency Pure hypertriglyceridemia [facility]* Diagnosis Chronic systolic heart failure (CMS/HCC) (HCC)- Primary Chronic systolic heart failure [facility]* Diagnosis Primary hypertension- Primary Unspecified essential hypertension Chronic systolic heart failure (HCC) Chronic systolic heart failure Stage 3b chronic kidney disease (HCC) Anxiety Anxiety state, unspecified Recurrent major depressive disorder, in full remission (HCC) Benign prostatic hyperplasia with urinary frequency Pure hypertriglyceridemia Medicare annual wellness visit, subsequent- Primary 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, without long-term current use of insulin (HCC) Peripheral vascular disease, unspecified (HCC) Peripheral vascular disease, unspecified Chronic systolic heart failure (HCC) Chronic systolic heart failure Primary hypertension Unspecified essential hypertension Stage 3b chronic kidney disease (HCC) Benign prostatic hyperplasia with urinary frequency Pure hypertriglyceridemia Recurrent major depressive disorder, in full remission (HCC) Acute prostatitis- Primary Urinary tract infection symptoms Benign prostatic hyperplasia with urinary hesitancy- Primary Urinary tract infection symptoms Medicare annual wellness visit, subsequent- Primary Recurrent major depressive disorder, in full remission (HCC) Peripheral vascular disease, unspecified (HCC) Peripheral vascular disease, unspecified Stage 3b chronic kidney disease (HCC) Chronic systolic heart failure (HCC) Chronic systolic heart failure Primary hypertension Unspecified essential hypertension Benign prostatic hyperplasia with urinary hesitancy Pure hypertriglyceridemia Screening for diabetes mellitus Screening for prostate cancer Special screening for malignant neoplasm of prostate Chronic diastolic heart failure (HCC)- Primary Chronic diastolic heart failure Primary hypertension Unspecified essential hypertension Stage 3b chronic kidney disease (HCC) Primary hypertension- Primary Unspecified essential hypertension Chronic diastolic heart failure (HCC) Chronic diastolic heart failure Stage 3b chronic kidney disease (HCC) Obstructive sleep apnea syndrome Obstructive sleep apnea (adult) (pediatric) Benign prostatic hyperplasia with urinary hesitancy Anxiety Anxiety state, unspecified Pure hypertriglyceridemia Recurrent major depressive disorder, in full remission (HCC) [facility]* Diagnosis Primary hypertension- Primary Unspecified essential hypertension Chronic systolic heart failure (HCC) Chronic systolic heart failure Stage 3b chronic kidney disease (HCC) Anxiety Anxiety state, unspecified Recurrent major depressive disorder, in full remission (HCC) Benign prostatic hyperplasia with urinary frequency Pure hypertriglyceridemia Medicare annual wellness visit, subsequent- Primary 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, without long-term current use of insulin (HCC) Peripheral vascular disease, unspecified (HCC) Peripheral vascular disease, unspecified Chronic systolic heart failure (HCC) Chronic systolic heart failure Primary hypertension Unspecified essential hypertension Stage 3b chronic kidney disease (HCC) Benign prostatic hyperplasia with urinary frequency Pure hypertriglyceridemia Recurrent major depressive disorder, in full remission (HCC) Acute prostatitis- Primary Urinary tract infection symptoms Benign prostatic hyperplasia with urinary hesitancy- Primary Urinary tract infection symptoms Medicare annual wellness visit, subsequent- Primary Recurrent major depressive disorder, in full remission (HCC) Peripheral vascular disease, unspecified (HCC) Peripheral vascular disease, unspecified Stage 3b chronic kidney disease (HCC) Chronic systolic heart failure (HCC) Chronic systolic heart failure Primary hypertension Unspecified essential hypertension Benign prostatic hyperplasia with urinary hesitancy Pure hypertriglyceridemia Screening for diabetes mellitus Screening for prostate cancer Special screening for malignant neoplasm of prostate Chronic diastolic heart failure (HCC)- Primary Chronic diastolic heart failure Primary hypertension Unspecified essential hypertension Stage 3b chronic kidney disease (HCC) Primary hypertension- Primary Unspecified essential hypertension Chronic diastolic heart failure (HCC) Chronic diastolic heart failure Stage 3b chronic kidney disease (HCC) Obstructive sleep apnea syndrome Obstructive sleep apnea (adult) (pediatric) Benign prostatic hyperplasia with urinary hesitancy Anxiety Anxiety state, unspecified Pure hypertriglyceridemia Recurrent major depressive disorder, in full remission (HCC) Chronic diastolic heart failure (HCC)- Primary Chronic diastolic heart failure [facility]* Diagnosis Primary hypertension- Primary Unspecified essential hypertension Chronic systolic heart failure (HCC) Chronic systolic heart failure Stage 3b chronic kidney disease (HCC) Anxiety Anxiety state, unspecified Recurrent major depressive disorder, in full remission (HCC) Benign prostatic hyperplasia with urinary frequency Pure hypertriglyceridemia Medicare annual wellness visit, subsequent- Primary 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, without long-term current use of insulin (HCC) Peripheral vascular disease, unspecified (HCC) Peripheral vascular disease, unspecified Chronic systolic heart failure (HCC) Chronic systolic heart failure Primary hypertension Unspecified essential hypertension Stage 3b chronic kidney disease (HCC) Benign prostatic hyperplasia with urinary frequency Pure hypertriglyceridemia Recurrent major depressive disorder, in full remission (HCC) Acute prostatitis- Primary Urinary tract infection symptoms Benign prostatic hyperplasia with urinary hesitancy- Primary Urinary tract infection symptoms Medicare annual wellness visit, subsequent- Primary Recurrent major depressive disorder, in full remission (HCC) Peripheral vascular disease, unspecified (HCC) Peripheral vascular disease, unspecified Stage 3b chronic kidney disease (HCC) Chronic systolic heart failure (HCC) Chronic systolic heart failure Primary hypertension Unspecified essential hypertension Benign prostatic hyperplasia with urinary hesitancy Pure hypertriglyceridemia Screening for diabetes mellitus Screening for prostate cancer Special screening for malignant neoplasm of prostate Chronic diastolic heart failure (HCC)- Primary Chronic diastolic heart failure Primary hypertension Unspecified essential hypertension Stage 3b chronic kidney disease (HCC) Primary hypertension- Primary Unspecified essential hypertension Chronic diastolic heart failure (HCC) Chronic diastolic heart failure Stage 3b chronic kidney disease (HCC) Obstructive sleep apnea syndrome Obstructive sleep apnea (adult) (pediatric) Benign prostatic hyperplasia with urinary hesitancy Anxiety Anxiety state, unspecified Pure hypertriglyceridemia Recurrent major depressive disorder, in full remission (HCC) Routine general medical examination at health care facility- Primary Routine general medical examination at a health care facility Obstructive sleep apnea syndrome Obstructive sleep apnea (adult) (pediatric) Chronic diastolic heart failure (HCC) Chronic diastolic heart failure Primary hypertension Unspecified essential hypertension Stage 3b chronic kidney disease (HCC) Recurrent major depressive disorder, in full remission (HCC) Pure hypertriglyceridemia Anxiety Anxiety state, unspecified Primary osteoarthritis of both knees Screening for diabetes mellitus Benign prostatic hyperplasia with urinary hesitancy [facility] Attachments The following attachments cannot be sent through Care Everywhere. * Prostatitis Discharge Instructions ([place]) [facility] Attachments The following attachments cannot be sent through Care Everywhere. * Pneumococcal Conjugate Vaccine (20-Valent), ADULT ([place]ian) [facility]* Attachments The following attachments cannot be sent through Care Everywhere. * Flu Vaccine (Peruvian) documented in this [facility] Health Summary Purpose Family History No Family History Records FoundNo Family History Records FoundNo Family History Records FoundNo Family History Records Found Advance Directives Documents on File Type Date Recorded Patient Staff Submarine Warfare Officer Expl anation Advance Directives and Living Will Power of Director Occupational Latest Code Status on File Code Status Date Activated Date Inactivated Comments Full Code 06/02/2019 6:12 AM 06/05/2019 5:06 PM Documents on File Type Date Recorded Patient Staff Submarine Warfare Officer Expl anation ACP-Advance Directive ACP-Power of Director Occupational Latest Code Status on File Code Status Date Activated Date Inactivated Comments Full Code 06/02/2019 6:12 AM Assessments Diagnosis Shortness of breath History of tobacco abuse Personal history of tobacco use, presenting hazards to health Diagnosis Systolic heart failure, unspecified HF chronicity (HCC) Diagnosis Internal derangement of right knee Unspecified internal derangement of knee Diagnosis Pneumonia of left lower lobe due to infectious organism Additional Source Comments (unrecognized sect ion and content) No Status Records FoundNo Status Records FoundNo Status Records FoundNo Status Records Found INFORMATION SOURCE (unrecogn ized section and content) DATE CREATED AUTHOR 12/02/2017 [facility] DATE CREATED AUTHOR AUTHOR'S ORGANIZ ATION 04/01/2022 [facility] DATE CREATED AUTHOR AUTHOR'S ORGANIZ ATION 08/04/2023 [facility] DATE CREATED AUTHOR AUTHOR'S ORGANIZ ATION 02/14/2025 [facility] [employer] [facility] Reason for Visit (unrecogniz ed section and content) Reason Comments Abdominal Pain Nausea Reason Comments Med Refill Reason Comments Medicare Annual Wellness Visit Subsequen t Blood Work Health Maintenance Echo- will check wit h medical technician assistant in February Colonoscopy- not right now Reason Onset Date Comments UTI 01/22/2023 Reason Comments Difficulty Urinating Reason Onset Date Comments Urinary Symptom 02/16/2023 Reason Comments 6 Month Follow-up Congestive Heart Failure Reason Onset Date Comments Med Refill 06/12/2023 Reason Onset Date Comments Med Refill 08/18/2023 Reason Comments Medicare Annual Wellness Visit Subsequen t Blood Work Health Maintenance Echo- pt sees cardio logy at [facility] and will have them take care of itColonoscopy- refusePcv 20 vaccine- agreeHep c screening- refuseShingles, rsv, tdap vaccies- [id number] covid vaccine- not done Eye Problem Left- seems like juan daniel ething is in it Reason Onset Date Comments Other 02/22/2024 Refill Isosorbid e Reason Comments Anxiety Depression Since using generic paroxetine having headaches and not sleeping as well Hyperlipidemia Hypertension Medication Check Health Maintenance Colonoscopy- refuse Covid 3- not doneFlu vaccine- refuseTdap/ shingles vaccines- refuse bothPcv 20 vaccine- refuseHep c screen- refuse Reason Comments 6 Month Follow-up Reason Onset Date Comments Med Refill 08/25/2022 Reason Comments Peripheral Vascular Disease Benign Prostatic Hypertrophy Congestive Heart Failure Hyperlipidemia Hypertension Depression Chronic Kidney Disease Medication Check 6 month Health Maintenance Echo- pt will discus s with cardiologyColonoscopy- not right nowFlu vaccine- [id number] covid vaccine- not done Reason Comments Follow-up Reason Comments Medicare Annual Wellness Visit Subsequen t Blood Work Health Maintenance Tdap vaccine- refuse Echo- will discuss with cardiologyColonoscopy- not right nowHep c screening- refuseShingles vaccine- not right nowRsv vaccine- not done Care Teams (unrecognized sec tion and content) White Mixing Operator Relationship Specialty Start Date End Date Paul Moraes MD [address] [place] [id number] PCP - General 07/01/16 White Mixing Operator Relationship Specialty Start Date End Date Paul Moraes MD [address] [place] [id number] PCP - General 07/01/16 White Mixing Operator Relationship Specialty Start Date End Date Paul Moraes MD [address] [place] [address] [id number] PCP - General 07/01/16 White Mixing Operator Relationship Specialty Start Date End Date Paul Moraes MD [address] [place] [address] [id number] PCP - General 07/01/16 White Mixing Operator Relationship Specialty Start Date End Date Paul Moraes MD [address] [place] [address] PCP - General 07/01/16 White Mixing Operator Relationship Specialty Start Date End Date Paul Moraes MD [address] [place] [address] PCP - General 07/01/16 White Mixing Operator Relationship Specialty Start Date End Date Paul Moraes MD [address] [facility] [place] [address] PCP - General 07/01/16 White Mixing Operator Relationship Specialty Start Date End Date Paul Moraes MD [address] [place] [address] PCP - General 07/01/16 White Mixing Operator Relationship Specialty Start Date End Date Paul Moraes MD [address] [place] [address] PCP - General 07/01/16 White Mixing Operator Relationship Specialty Start Date End Date Paul Moraes MD [address] [place] [address] PCP - General 07/01/16 White Mixing Operator Relationship Specialty Start Date End Date Paul Moraes MD [address] [place] [address] PCP - General 07/01/16 White Mixing Operator Relationship Specialty Start Date End Date Paul Moraes MD [address] [facility] [place] [address] PCP - General 07/01/16 White Mixing Operator Relationship Specialty Start Date End Date Paul Moraes MD [address] [facility] [place] [address] PCP - General 07/01/16 White Mixing Operator Relationship Specialty Start Date End Date Paul Moraes MD [address] [facility] [place] [address] PCP - General 07/01/16 White Mixing Operator Relationship Specialty Start Date End Date Paul Moraes MD [address] [place] [address] PCP - General 07/01/16 White Mixing Operator Relationship Specialty Start Date End Date Paul Moraes MD [address] [place] [address] PCP - General 07/01/16 White Mixing Operator Relationship Specialty Start Date End Date Paul Moraes MD [address] [facility] [place] [address] PCP - General 07/01/16 White Mixing Operator Relationship Specialty Start Date End Date Paul Moraes MD [address] [facility] [place] [address] PCP - General 07/01/16 White Mixing Operator Relationship Specialty Start Date End Date Paul Moraes MD [address] [facility] [place] [address] PCP - General 07/01/16 White Mixing Operator Relationship Specialty Start Date End Date Paul Moraes MD [address] [place] [address] PCP - General 07/01/16 White Mixing Operator Relationship Specialty Start Date End Date Paul Moraes MD [address] [place] [address] PCP - General 07/01/16 White Mixing Operator Relationship Specialty Start Date End Date Paul Moraes MD [address] [place] [address] PCP - General 07/01/16 White Mixing Operator Relationship Specialty Start Date End Date Paul Moraes MD [address] [facility] [place] [address] PCP - General 07/01/16 White Mixing Operator Relationship Specialty Start Date End Date Paul Moraes MD [address] [place] [address] PCP - General 07/01/16 White Mixing Operator Relationship Specialty Start Date End Date Paul Moraes MD [address] [place] [address] PCP - General 07/01/16 White Mixing Operator Relationship Specialty Start Date End Date Paul Moraes MD [address] [place] [address] PCP - General 07/01/16 White Mixing Operator Relationship Specialty Start Date End Date Paul Moraes MD [address] [place] [address], [facility] [place] [address] PCP - General 07/01/16 FOR RECORDS PERTAINING TO PATIENTS WHO ARE OR HAVE BEEN ENROLLED IN A CHEMICAL DEPENDENCY/SUBSTANCEABUSE PROGRAM, SOME INFORMATION MAY BE OMITTED. This clinical summary was aggregated from multiple sources. Caution should be exercised in using it in the provision of clinical care. This summary normalizes information from multiple sources, and as a consequence, information in this document may materially change the coding, format and clinical context of patient data. In addition, data may be omitted in some cases. CLINICAL DECISIONS SHOULD BE BASED ON THE PRIMARY CLINICAL RECORDS. [employer] [facility]. provides no warranty or guarantee of the accuracy or completeness of information in this document.
[2025-04-15 11:22] LABS: AST(SGOT) 28 U/L (<=37); Alanine Aminotransfer ALT/SGPT 20 U/L (<=46); Albumin, Serum 3.5 g/dL (3.4-4.8); Alkaline Phosphatase 28 U/L (40-129); Anion Gap 7 (5-15); BUN 33 mg/dL (4-19); BUN/Creat Ratio 16.5 RATIO (10-20); Calcium,Total 8.6 mg/dL (7.6-11.0); Carbon Dioxide 22.9 mmol/L (21.0-32.0); Chloride 108 mmol/L (98-108); Estimated Creatinine Clearance 38.45 ml/min (50-250); Globulin 2.3 g/dL (2.2-4.2); Glucose 120 mg/dL (70-99); Lipase 35 U/L (13-75); Potassium 4.6 mmol/L (3.3-5.1)
[2025-04-15 11:58] LABS: Mucous, Urine 0 SEEN /hpf (<or=2+); Red Blood Cells-Urine 0 SEEN /hpf (0-5); Squamous Epithelial Cells - UA 0 SEEN /hpf (0-5)
[2025-04-15 12:09] VITALS: BP 138/66; PULSE 55; RESP 16; TEMP 36.9; O2SAT 98
[2025-04-15 12:19] LABS: Color, Urine Yellow (Yellow); Glucose, Dipstick Normal (Normal); Ketone-Dipstick Negative (Negative); Leukocyte Esterase-Dipstick Negative /ul (Negative); Nitrite-Dipstick Negative (Negative); Occult Blood-Urine Negative /ul (Negative); Protein-Dipstick 15 mg/dl (Negative); Specific Gravity, Urine 1.010 (1.002-1.030); Urine Bilirubin Dipstick Negative (Negative)
--- NOTE | 2025-04-15 13:15 | ED.RN ---
called lab to inquire about urine results
== END 2025-04-15 14:01 | disposition home or self-care (01) ==
PROVIDERS: Emergency Provider Emergency Medicine; PCP Family Medicine; Visit Provider Emergency Medicine
DX: R10.9 Unspecified abdominal pain (principal); N18.4 Chronic kidney disease, stage 4 (severe); Z90.49 Acquired absence of other specified parts of digestive tract; R11.2 Nausea with vomiting, unspecified
CPT/HCPCS: 74177; 80053; 81001; 83690; 85025; 96361; 96374; 99284; Q9967; A4216; J2405